=== PATIENT | male | born 1935 | race Caucasian/White ===

== ENCOUNTER 2016-08-26 14:27 | Inpatient (IN) | payer MEDICARE, BC ==
--- NOTE | 2016-08-26 15:09 | ED ---
General Adult HPI - General Chief complaint: Shortness of Breath Stated complaint: Poss pneumonia Time Seen by Provider: 08/26/16 14:52 Source: patient, RN notes reviewed Mode of arrival: ambulatory Limitations: no limitations - History of Present Illness Initial comments: Patient is a pleasant 80-year-old male presenting to the emergency department complaining of cough and shortness of breath. Symptoms have been present 3-4 days. Symptoms are somewhat similar to previous pneumonia. Patient states he has a history of sinusitis and does occasionally take nebulizers at home for this. Patient did take one this morning. Patient is unclear of any fevers. Patient has had some mild chest discomfort, last yesterday which he attributes to his cough. No leg pain or leg swelling. Patient does have occasional productive green sputum. - Related Data Home Medications Medication Instructions Recorded Confirmed Lisinopril [Zestril] 10 mg PO DAILY 11/25/13 08/26/16 Metoprolol Tartrate [Lopressor] 25 mg PO BID 11/25/13 08/26/16 Sotalol [Betapace] 80 mg PO BID 11/25/13 08/26/16 Albuterol Nebulized [Ventolin 2.5 mg INHALATION RT-QID PRN 08/26/16 08/26/16 Nebulized] Aspirin EC [Ecotrin Low Dose] 81 mg PO HS 08/26/16 08/26/16 Tamsulosin [Flomax] 0.4 mg PO DAILY 08/26/16 08/26/16 Allergies Allergy/AdvReac Type Severity Reaction Status Date / Time No Known Allergies Allergy Verified 08/26/16 15:35 Review of Systems ROS Statement: Those systems with pertinent positive or pertinent negative responses have been documented in the HPI. ROS Other: All systems not noted in ROS Statement are negative. Constitutional: Denies: fever Eyes: Denies: eye pain ENT: Denies: ear pain Respiratory: Reports: cough, dyspnea Cardiovascular: Reports: chest pain Endocrine: Reports: fatigue Gastrointestinal: Denies: abdominal pain Genitourinary: Denies: dysuria Musculoskeletal: Denies: back pain Skin: Denies: rash Neurological: Denies: weakness Past Medical History Past Medical History: Atrial Fibrillation, Coronary Artery Disease (CAD), GERD/ Reflux, Hyperlipidemia, Hypertension, Myocardial Infarction ([place]), Osteoarthritis (OA), Pneumonia Additional Past Medical History / Comment(s): had c-diff 1 year ago Last Myocardial Infarction Date:: 2007 History of Any Multi-Drug Resistant Organisms: C-DIFF Date of last positivie culture/infection: 2014 Past Surgical History: AICD, Heart Catheterization, Orthopedic Surgery, Pacemaker Additional Past Surgical History / Comment(s): great rtfoot/ toe, cataracts, sinus sx x 3 Past Anesthesia/Blood Transfusion Reactions: Previous Problems w/ Anesthesia Additional Past Anesthesia/Blood Transfusion Reaction / Comment(s): heart stopped Type of Cardiac Device: Permanent Pacemaker, AICD Device Placement Date:: 06-06-07 Past Psychological History: No Psychological Hx Reported Smoking Status: Former smoker Past Alcohol Use History: Rare Additional Past Alcohol Use History / Comment(s): , quitstarted smoking at age 15- 2 ppd, quit 1985 Past Drug Use History: None Reported - Past Family History Father Additional Family Medical History / Comment(s): killed in [place] age 47 Mother Family Medical History: Dementia General Exam Limitations: no limitations General appearance: alert, in no apparent distress Head exam: Present: atraumatic Eye exam: Present: normal appearance, PERRL ENT exam: Present: normal oropharynx Neck exam: Present: normal inspection Respiratory exam: Present: normal lung sounds bilaterally. Absent: respiratory distress, wheezes, rales, chest wall tenderness, accessory muscle use Cardiovascular Exam: Present: regular rate, normal rhythm Expanded Peripheral pulses: 2+: Radial (R), Radial (L), Dorsalis Pedis (R), Dorsalis Pedis (L) GI/Abdominal exam: Present: soft. Absent: tenderness Extremities exam: Present: normal inspection. Absent: pedal edema, calf tenderness Neurological exam: Present: alert Psychiatric exam: Present: normal affect, normal mood Skin exam: Absent: rash Course Vital Signs 08/26/16 08/26/16 08/26/16 14:40 15:07 15:30 Temperature 98.5 F Pulse Rate 65 56 L 62 Respiratory 20 18 18 Rate Blood Pressure 191/77 150/88 131/71 O2 Sat by Pulse 98 98 95 Oximetry EKG Findings - EKG Comments: EKG Findings:: Sinus bradycardia 55. MO 144. QRS 108. QT 480. QTC 459. Normal axis. Normal QRS. Normal ST-T. Medical Decision Making - Medical Decision Making Patient reevaluated and updated. Case discussed with Dr. villavicencio, who will admit for Dr. Jamison. Computed tomography scan of the chest will be ordered. Patient does not meet sepsis criteria. - Lab Data Result diagrams: 08/26/16 15:05 08/26/16 15:05 Lab Results 08/26/16 08/26/16 08/26/16 Range/Units 15:05 15:05 15:05 WBC 9.4 (3.8-10.6) k/uL RBC 4.27 L (4.30-5.90) m/uL Hgb 13.4 (13.0-17.5) gm/dL Hct 39.4 (39.0-53.0) % MCV 92.3 (80.0-100.0) fL MCH 31.3 (25.0-35.0) pg MCHC 33.9 (31.0-37.0) g/dL RDW 12.7 (11.5-15.5) % Plt Count 277 (150-450) k/uL Neutrophils % 61 % Lymphocytes % 25 % Monocytes % 8 % Eosinophils % 3 % Basophils % 1 % Neutrophils # 5.7 (1.3-7.7) k/uL Lymphocytes # 2.3 (1.0-4.8) k/uL Monocytes # 0.7 (0-1.0) k/uL Eosinophils # 0.3 (0-0.7) k/uL Basophils # 0.1 (0-0.2) k/uL PT (9.0-12.0) sec INR (<1.1) APTT (22.0-30.0) sec D-Dimer (<0.60) mg/L FEU Sodium 138 (137-145) mmol/L Potassium 4.7 (3.5-5.1) mmol/L Chloride 101 (98-107) mmol/L Carbon Dioxide 28 (22-30) mmol/L Anion Gap 9 mmol/L BUN 9 (9-20) mg/dL Creatinine 0.90 (0.66-1.25) mg/dL Est GFR (MDRD) Af Amer >60 (>60 ml/min/1.73 sqM) Est GFR (MDRD) Non-Af >60 (>60 ml/min/1.73 sqM) Glucose 93 (74-99) mg/dL Calcium 9.5 (8.4-10.2) mg/dL Total Bilirubin 0.8 (0.2-1.3) mg/dL AST 22 (17-59) U/L ALT 25 (21-72) U/L Alkaline Phosphatase 93 (38-126) U/L Total Creatine Kinase 59 (55-170) U/L CK-MB (CK-2) 0.8 (0.0-2.4) ng/mL CK-MB (CK-2) Rel Index 1.4 Troponin I <0.012 (0.000-0.034) ng/mL NT-Pro-B Natriuret Pep pg/mL Total Protein 7.6 (6.3-8.2) g/dL Albumin 3.8 (3.5-5.0) g/dL 08/26/16 08/26/16 Range/Units 15:05 15:05 WBC (3.8-10.6) k/uL RBC (4.30-5.90) m/uL Hgb (13.0-17.5) gm/dL Hct (39.0-53.0) % MCV (80.0-100.0) fL MCH (25.0-35.0) pg MCHC (31.0-37.0) g/dL RDW (11.5-15.5) % Plt Count (150-450) k/uL Neutrophils % % Lymphocytes % % Monocytes % % Eosinophils % % Basophils % % Neutrophils # (1.3-7.7) k/uL Lymphocytes # (1.0-4.8) k/uL Monocytes # (0-1.0) k/uL Eosinophils # (0-0.7) k/uL Basophils # (0-0.2) k/uL PT 11.2 (9.0-12.0) sec INR 1.1 (<1.1) APTT 27.7 (22.0-30.0) sec D-Dimer 1.08 H (<0.60) mg/L FEU Sodium (137-145) mmol/L Potassium (3.5-5.1) mmol/L Chloride (98-107) mmol/L Carbon Dioxide (22-30) mmol/L Anion Gap mmol/L BUN (9-20) mg/dL Creatinine (0.66-1.25) mg/dL Est GFR (MDRD) Af Amer (>60 ml/min/1.73 sqM) Est GFR (MDRD) Non-Af (>60 ml/min/1.73 sqM) Glucose (74-99) mg/dL Calcium (8.4-10.2) mg/dL Total Bilirubin (0.2-1.3) mg/dL AST (17-59) U/L ALT (21-72) U/L Alkaline Phosphatase (38-126) U/L Total Creatine Kinase (55-170) U/L CK-MB (CK-2) (0.0-2.4) ng/mL CK-MB (CK-2) Rel Index Troponin I (0.000-0.034) ng/mL NT-Pro-B Natriuret Pep 692 pg/mL Total Protein (6.3-8.2) g/dL Albumin (3.5-5.0) g/dL - Radiology Data Radiology results: image reviewed (Chest x-ray shows right upper lobe infiltrate. Also left lower lobe infiltrate which may be chronic.) Disposition Clinical Impression: Pneumonia Disposition: ADMITTED IP TO THIS [facility] Time of Disposition: 16:58
[2016-08-26 15:28] LABS: Basophils # (A) 0.1 k/uL (0-0.2); Basophils % (A) 1 %; CH 31.1; CHCM 33.9; Eosinophils # (A) 0.3 k/uL (0-0.7); Eosinophils % (A) 3 %; HCT 39.4 % (39.0-53.0); HDW 2.52; HGB 13.4 gm/dL (13.0-17.5); Luc # (Auto) 0.31; Luc % (Auto) 3; Lymphocytes # (A) 2.3 k/uL (1.0-4.8); Lymphocytes % (A) 25 %; MCH 31.3 pg (25.0-35.0); MCHC 33.9 g/dL (31.0-37.0); MCV 92.3 fL (80.0-100.0); Monocytes # (A) 0.7 k/uL (0-1.0); Monocytes % (A) 8 %; Neutrophils # (A) 5.7 k/uL (1.3-7.7); Neutrophils % (A) 61 %; RBC 4.27 m/uL (4.30-5.90); RDW 12.7 % (11.5-15.5); WBC 9.4 k/uL (3.8-10.6); WBC (Perox) 8.98
[2016-08-26 15:42] LABS: INR 1.1 (<1.1); Partial Thromboplastin Time 27.7 sec (22.0-30.0); Prothrombin Time 11.2 sec (9.0-12.0)
[2016-08-26 15:45] LABS: ALT 25 U/L (21-72); AST 22 U/L (17-59); Alkaline Phosphatase 93 U/L (38-126); Anion Gap 9 mmol/L; Blood Urea Nitrogen 9 mg/dL (9-20); Calcium 9.5 mg/dL (8.4-10.2); Carbon Dioxide 28 mmol/L (22-30); Chloride 101 mmol/L (98-107); Glucose 93 mg/dL (74-99); Non-African American GFR(MDRD) >60 (>60 ml/min/1.73 sqM); Potassium 4.7 mmol/L (3.5-5.1); Sodium 138 mmol/L (137-145); Total Bilirubin 0.8 mg/dL (0.2-1.3); Total Protein 7.6 g/dL (6.3-8.2)
[2016-08-26 15:50] LABS: Creatine Kinase 59 U/L (55-170)
[2016-08-26 16:02] LABS: Creatine Kinase MB 0.8 ng/mL (0.0-2.4); Troponin I <0.012 ng/mL (0.000-0.034)
--- NOTE | 2016-08-26 16:06 | XR ---
EXAMINATION TYPE: XR chest 2V DATE OF EXAM: 08/26/2016 3:49 PM COMPARISON: 04/29/2014 INDICATION: Difficulty breathing TECHNIQUE: Single frontal view of the chest is obtained. FINDINGS: The heart size is normal. The pulmonary vasculature is normal. There is elevation of the minor diaphragm. There is infiltrate above the minor diaphragm on the right . Increased infiltrates in the right upper lobe. Some mild infiltrate may be in the periphery of the left lateral lung base. Electronic device overlies left chest. IMPRESSION: 1. Developing atelectasis and/or pneumonia right upper lobe. 2. Stable left lower lobe opacity.
[2016-08-26] MEDS ORDERED: RX INFO: IV CONTRAST WAS GIVEN 1 EACH MISC MISCELLANE PRN (16:43)
[2016-08-26] MEDS ORDERED: PNEUMONIA PROTOCOL UTILIZED 1 EACH MISC PO PRN (16:58)
[2016-08-26] MEDS ORDERED: IPRATROPIUM-ALBUTEROL 3 ML NEB INHALATION PRN (16:58)
[2016-08-26] MEDS: SODIUM CHLORIDE 0.9% 1,000 ML IV SCH (17:27)
[2016-08-26] MEDS ORDERED: ALBUTEROL NEBULIZED 2.5 MG/3 ML INHALATION PRN (17:31)
[2016-08-26] MEDS: AZITHROMYCIN 500 MG in SODIUM CHLORIDE 0.9% 250 ML IVPB STA ×2 (17:33→18:09)
--- NOTE | 2016-08-26 17:42 | CT ---
CT CHEST FOR PULMONARY EMBOLISM. EXAMINATION TYPE: CT angio chest DATE OF EXAM: 08/26/2016 5:30 PM INDICATION: Cough and shortness of breath CT DLP: 249.2 mGycm, Automated exposure control for dose reduction was used. CONTRAST: Patient injected with 100 mL of Omnipaque 350. COMPARISON: CTA chest 05/08/2013 TECHNIQUE: CT of the chest is performed on a spiral scan at 2 mm thick sections. Study is performed with intravenous contrast timed for evaluation for pulmonary embolism. This will limit additional po rtions of the evaluation. 3-D MIP images reconstructed by the technologist are reviewed on the compu ter in the coronal and sagittal planes. FINDINGS: No persistent filling defects are evident to suggest an acute pulmonary embolism. No mediastinal or hilar adenopathy enlarged by CT criteria is evident. The ascending aorta diameter at the level of the main pulmonary artery is 3.6 cm. The main pulmonary artery diameter at the bifur cation is 2.7 cm. There are prominent bronchi present. Some bronchiectasis is present. Chronic bronchitis may also be p resent with thickening of the peribronchial campbell. There is consolidation along the major fissure within the right middle lobe. Correlate for atelectasi s and pneumonia. Underlying mass is not excluded. There is a peripheral consolidation within the ling felisa. Atelectasis or pneumonia could be considered, underlying mass is not excluded. This peripheral d ensity is change from 05/08/2013. The right middle lobe consolidation is new. Limited CT section through the upper abdomen are unremarkable. IMPRESSIONS: 1. Peripheral lingular and right middle lobe consolidations. Atelectasis and pneumonia are within the differential. Neoplasm is not excluded. These should be followed to clearing. Correlate with the pat ient's clinical symptoms. 2. No acute pulmonary embolism. 3. Bronchiectasis and chronic bronchitis.
[2016-08-26] MEDS: IPRATROPIUM-ALBUTEROL 3 ML NEB INHALATION SCH (19:37)
[2016-08-26] MEDS: SOTALOL 80 MG TAB PO SCH (20:02)
[2016-08-26] MEDS ORDERED: ASPIRIN 81 MG CHEW PO SCH (21:00)
[2016-08-27] MEDS: SODIUM CHLORIDE 0.9% 1,000 ML IV SCH ×2 (05:27→10:12)
[2016-08-27 07:38] VITALS: BP 163/70; RESP 19; TEMP 97
--- NOTE | 2016-08-27 07:48 | XR ---
EXAMINATION TYPE: XR chest 2V DATE OF EXAM: 08/27/2016 6:54 AM COMPARISON: 08/26/2016 HISTORY: Pneumonia versus atelectasis. Shortness of breath. TECHNIQUE: Frontal and lateral views of the chest are obtained. FINDINGS: Right upper lobe opacity along the right minor fissure with elevation of the right minor f issure is present as well as right upper lobe bronchiectasis and peribronchial cuffing. Lingular opac ity is also unchanged. No new areas of consolidation Perihilar fullness is noted, unchanged from the prior. There is pulmonary hyperinflation. Cardiomediastinal silhouette is stable with stable single l ead left-sided cardiac device. IMPRESSION: Stable right upper lobe and lingular airspace disease, bronchiectasis, and peribronchial cuffing. Although findings again likely relate to infectious etiology, follow-up to resolution is ag ain recommended.
[2016-08-27] MEDS: SOTALOL 80 MG TAB PO SCH (07:49)
[2016-08-27] MEDS ORDERED: AZITHROMYCIN 500 MG TAB PO SCH (09:00)
[2016-08-27] MEDS ORDERED: LISINOPRIL 10 MG TAB PO SCH (09:00)
[2016-08-27] MEDS ORDERED: TAMSULOSIN 0.4 MG CAP.ER.24H PO SCH (09:00)
[2016-08-27] MEDS: IPRATROPIUM-ALBUTEROL 3 ML NEB INHALATION SCH ×2 (09:40→11:26)
[2016-08-27 11:42] VITALS: PULSE 60
--- NOTE | 2016-08-27 13:49 | HP ---
DATE OF ADMISSION: This dictation is both H&P and discharge summary. Patient is a very pleasant 80-year-old gentleman who came into the emergency department with complaints of cough with sputum production. Patient feels like he had similar symptoms at that time he was diagnosed with pneumonia. Because of which he is concerned and came to the hospital. During his previous hospitalization patient ended up having Clostridium difficile colitis. Because of which had a great concern of using broad spectrum IV antibiotics, although I extensively reviewed his chart. The patient looks like he had similar infiltrates during the previous hospitalization too in multiple areas in the right upper lobe, right lower lobe and left lung as well during the last hospitalization. The patient had similar infiltrates this time as well, but more organized and the right middle lobe infiltrate is much more organized. Patient did get CT angio because of the elevated d-dimer. I reviewed the CT angio of the chest. The images did show some infiltrate in the right middle lobe. Although does not appear to be typical air bronchogram. Does not look like an atypical air bronchogram and although cannot completely rule out 100% that it is not pneumonia. Patient does not have any other signs or symptoms of pneumonia including leukocytosis or fever. No bronchophony, egophony on exam. Putting everything together considering his Clostridium difficile colitis, as patient is clinically stable at this point in time, I will discharge him on azithromycin for possible bronchitis with an extremely low suspicion of pneumonia and patient will be asked to follow with Dr. Markham and Dr. Bates as an outpatient. I reviewed the chest x-ray and it looks like patient does have COPD and needs to be further evaluated for COPD as an outpatient. Patient will be discharged today. Home medications include: Lisinopril, metoprolol, sotalol, albuterol, aspirin, tamsulosin. ALLERGIES: No known drug allergies. REVIEW OF SYSTEMS: CONSTITUTIONAL: No fever, no malaise, no fatigue. HEENT: No recent visual problems or hearing problems. Denied any sore throat. CARDIOVASCULAR: No chest pain, orthopnea, PND, no palpitations, no syncope. PULMONARY: As described in HPI. Patient was having little bit shortness of breath and cough with greenish sputum production. GASTROINTESTINAL: No diarrhea, no nausea, no vomiting, no abdominal pain. Normoactive bowel sounds. NEUROLOGICAL: No headaches, no weakness, no numbness. HEMATOLOGICAL: Denies any bleeding or petechiae. GENITOURINARY: Denies any burning micturition, frequency, or urgency. MUSCULOSKELETAL/RHEUMATOLOGICAL: Denies any joint pain, swelling, or any muscle pain. ENDOCRINE: Denies any polyuria or polydipsia. The rest of the 14 point review of systems is negative. PAST MEDICAL HISTORY: Atrial fibrillation, coronary arteries, gastroesophageal reflux disease, hl, hypertension, myocardial infarction, osteoarthritis, recent pneumonia and Clostridium difficile secondary to antibiotic. Patient has an AICD, cardiac catheterization, orthopedic surgery, pacemaker placement. SOCIAL HISTORY: Former smoker. Quit smoking in 1984. Denied any alcohol abuse or drug abuse. FAMILY HISTORY: Father killed in motor vehicle accident at age 47. Mother had dementia. PHYSICAL EXAMINATION: Temperature 98.5, pulse of 65, respiratory rate of 20, blood pressure is 163/70, saturating at 96% on room air. GENERAL: The patient is alert and oriented x3, not in any acute distress. Well developed, well nourished. HEENT: Pupils are round and equally reacting to light. EOMI. No scleral icterus. No conjunctival pallor. Normocephalic, atraumatic. No pharyngeal erythema. No thyromegaly. CARDIOVASCULAR: S1 and S2 present. No murmurs, rubs, or gallops. PULMONARY: Minimally decreased air entry into bilateral lung shannon. No wheezing was appreciated. No crackles were appreciated. ABDOMEN: Soft, nontender, nondistended, normoactive bowel sounds. No palpable organomegaly. MUSCULOSKELETAL: No joint swelling or deformity. EXTREMITIES: No cyanosis, clubbing, or pedal edema. NEUROLOGICAL: Gross neurological examination did not reveal any focal deficits. SKIN: No rashes. LABORATORY DATA: CBC, CMP, essentially within normal limits. D-dimer and CT of the chest and chest x-rays as mentioned above. ASSESSMENT AND PLAN: 1. Cough with sputum production, most probably bacterial bronchitis and I have low suspicion of pneumonia. Patient will be discharged on azithromycin and follow up as mentioned above. 2. Chronic obstructive pulmonary disease with minimal exacerbation. At this point of time, I do not believe patient will need systemic steroids, although patient will be discharged on inhalational steroids. 3. History of atrial fibrillation, not on anticoagulation. Anticoagulation decision will be left to primary care physician and Cardiology. The patient is rate controlled at this point of time on sotalol and metoprolol, which will be continued. 4. Gastroesophageal reflux disease. 5. Hyperlipidemia. 6. Hypertension. 7. Osteoarthritis for which patient will continue his home medications. Patient will be discharged today with above mentioned follows. This dictation is both H&P and discharge summary. DISCHARGE DIET: Cardiac. Activity as tolerated. If the patient symptoms gets worse patient was requested to come back to ER.
[2016-08-27] MEDS ORDERED: PANTOPRAZOLE 40 MG TABLET PO SCH (17:30)
[2016-08-27] MEDS ORDERED: LACTOBACILLUS ACIDOPH & BULGAR 1 EACH PACKET PO SCH (21:00)
== END 2016-08-27 13:18 | disposition home or self-care (01) | DRG 192 ==
LOC: EC 14:27 → 4MS4W 16:58
PROVIDERS: ADMIT Internal Medicine; ATTEND Internal Medicine
DX: J44.1 Chronic obstructive pulmonary disease with (acute) exacerbation (principal); I48.91 Unspecified atrial fibrillation; I10 Essential (primary) hypertension; E78.5 Hyperlipidemia, unspecified; J20.8 Acute bronchitis due to other specified organisms; J44.0 Chronic obstructive pulmonary disease with (acute) lower respiratory infection; K21.9 Gastro-esophageal reflux disease without esophagitis; M19.90 Unspecified osteoarthritis, unspecified site; I25.2 Old myocardial infarction; Z81.8 Family history of other mental and behavioral disorders; Z87.01 Personal history of pneumonia (recurrent); Z87.891 Personal history of nicotine dependence; Z95.810 Presence of automatic (implantable) cardiac defibrillator; Z79.82 Long term (current) use of aspirin; Z79.899 Other long term (current) drug therapy
CPT/HCPCS: 36415; 71020; 71275; 80053; 82550; 82553; 83880; 84484; 85025; 85379; 85610; 85730; 87040; 93005; 94640; 96365; 99285

== ENCOUNTER 2017-06-11 14:28 | Observation (INO) | payer OTHER, MEDICARE ==
[2017-06-11] MEDS ORDERED: IPRATROPIUM-ALBUTEROL 3 ML NEB INHALATION STA (15:14)
[2017-06-11] MEDS ORDERED: ACETAMINOPHEN TAB 500 MG TAB PO STA (15:14)
[2017-06-11] MEDS ORDERED: methylPREDNISolone SOD SUCCI 125 MG/2 ML VIAL IV STA (15:14)
--- NOTE | 2017-06-11 15:22 | ED ---
General Adult HPI - General Chief complaint: Chest Pain Stated complaint: Chest Pain Time Seen by Provider: 06/11/17 14:55 Source: patient Mode of arrival: wheelchair Limitations: no limitations - History of Present Illness Initial comments: This is an 81-year-old male with a history of cardiomyopathy and defibrillator placement who presents emergent department for upper respiratory symptoms, cough , burning in his lungs, and left-sided chest pain. The patient states that this started yesterday while he was at his granddaughter's volleyball tournament. He states it started with a runny nose and a little bit of sore throat and then he started to have a lot of coughing. He states that he coughed a lot overnight and today now is having a lot of discomfort and left side of his chest especially with coughing and moving. He states that he also feels like his lungs are burning when he takes a deep breath. He denies any significant shortness of breath. No fevers or chills at home. No nausea, vomiting or diarrhea. He denies any other acute complaints. Patient did get a flu shot this year. - Related Data Home Medications Medication Instructions Recorded Confirmed Lisinopril [Zestril] 10 mg PO DAILY 11/25/13 06/11/17 Metoprolol Tartrate [Lopressor] 25 mg PO BID 11/25/13 06/11/17 Sotalol [Betapace] 80 mg PO BID 11/25/13 06/11/17 Albuterol Nebulized [Ventolin 2.5 mg INHALATION RT-QID PRN 08/26/16 06/11/17 Nebulized] Tamsulosin [Flomax] 0.4 mg PO HS 08/26/16 06/11/17 Atorvastatin [Lipitor] 20 mg PO HS 03/28/17 06/11/17 Acetaminophen/Diphenhydramine 1 tab PO HS 06/11/17 06/11/17 [Tylenol PM 500-25mg] Aspirin 81 mg PO DAILY 06/11/17 06/11/17 Budesonide-Formot 160-4.5 Mcg 2 puff INHALATION RT-BID PRN 06/11/17 06/11/17 [Symbicort 160-4.5 Mcg Inhaler] Multivitamins, Thera [Multivitamin 1 tab PO DAILY 06/11/17 06/11/17 (formulary)] Allergies Allergy/AdvReac Type Severity Reaction Status Date / Time No Known Allergies Allergy Verified 06/11/17 15:26 Review of Systems ROS Statement: Those systems with pertinent positive or pertinent negative responses have been documented in the HPI. ROS Other: All systems not noted in ROS Statement are negative. Past Medical History Past Medical History: Atrial Fibrillation, Coronary Artery Disease (CAD), GERD/ Reflux, Hyperlipidemia, Hypertension, Osteoarthritis (OA), Pneumonia Additional Past Medical History / Comment(s): See Dr Castillo's H&P Last Myocardial Infarction Date:: 2007 History of Any Multi-Drug Resistant Organisms: C-DIFF Date of last positivie culture/infection: 2014 MDRO Source:: stool Past Surgical History: AICD, Heart Catheterization, Orthopedic Surgery, Pacemaker Additional Past Surgical History / Comment(s): rt foot/ toe, cataracts, sinus sx x 3 Past Anesthesia/Blood Transfusion Reactions: Previous Problems w/ Anesthesia Additional Past Anesthesia/Blood Transfusion Reaction / Comment(s): . Type of Cardiac Device: Permanent Pacemaker, AICD Device Placement Date:: 06-06-07 [employer] Past Psychological History: No Psychological Hx Reported Smoking Status: Former smoker Past Alcohol Use History: Rare Past Drug Use History: None Reported - Past Family History Father Additional Family Medical History / Comment(s): killed in [place] age 47 Mother Family Medical History: Dementia General Exam - General Exam Comments Initial Comments: Constitutional: Awake alert Appears comfortable Head: Normocephalic atraumatic Eyes: no conjunctival injection No scleral icterus EOMI ENT: Oropharynx is mildly erythematous without exudate, no rhinorrhea TMs clear bilaterally Neck: No JVD Supple Heart: Regular rate rhythm normal S1-S2 no murmurs, mild tenderness to palpation around the patient's defibrillator on the left chest wall Lungs: Lung sounds are decreased at the bases No wheezing No rales Abdomen: Soft nondistended nontender Extremities: Non edematous DP pulses intact Radial pulses intact Neuro: A&Ox3 No focal neurologic deficits Psych: Appropriate mood and affect Limitations: no limitations Course Vital Signs 06/11/17 06/11/17 06/11/17 14:30 15:32 15:54 Temperature 98.5 F Pulse Rate 69 70 97 Respiratory 18 18 Rate Blood Pressure 194/78 172/91 O2 Sat by Pulse 97 96 Oximetry 06/11/17 16:00 Temperature Pulse Rate 70 Respiratory Rate Blood Pressure O2 Sat by Pulse Oximetry EKG Findings - EKG Comments: EKG Findings:: EKG showing normal sinus rhythm with a rate of 73. There is no abnormal ST segment changes or T-wave inversions. QTC is persisting 9. Other intervals normal. No ectopy. Medical Decision Making - Medical Decision Making This is an 81-year-old male with multiple comorbidities including hypertension, hyperlipidemia, cardiomyopathy and CAD who presents emergency department for cough and worsening shortness of breath today. The patient also developed some left-sided chest pain. I suspected the chest pain is from the coughing however due to his CAD difficult to rule out underlying acute coronary syndrome. Patient also had a new infiltrate on his x-ray which is concerning for possible pneumonia given his symptoms. I'm going to start him on Levaquin and keep him in observation overnight for monitoring and I did give the patient the option to go home and take antibiotics at home and monitor his symptoms however he did not feel comfortable going home. We'll keep in the hospital overnight for antibiotics and monitoring of his chest pain and serial cardiac enzymes. - Lab Data Result diagrams: 06/11/17 15:38 06/11/17 15:38 Lab Results 06/11/17 06/11/17 06/11/17 Range/Units 15:38 15:38 15:38 WBC 7.2 (3.8-10.6) k/uL RBC 4.30 (4.30-5.90) m/uL Hgb 12.8 L (13.0-17.5) gm/dL Hct 41.0 (39.0-53.0) % MCV 95.2 (80.0-100.0) fL MCH 29.9 (25.0-35.0) pg MCHC 31.4 (31.0-37.0) g/dL RDW 12.9 (11.5-15.5) % Plt Count 178 (150-450) k/uL Neutrophils % 69 % Lymphocytes % 17 % Monocytes % 11 % Eosinophils % 1 % Basophils % 1 % Neutrophils # 4.9 (1.3-7.7) k/uL Lymphocytes # 1.2 (1.0-4.8) k/uL Monocytes # 0.8 (0-1.0) k/uL Eosinophils # 0.1 (0-0.7) k/uL Basophils # 0.1 (0-0.2) k/uL PT (9.0-12.0) sec INR (<1.2) APTT (22.0-30.0) sec Sodium 142 (137-145) mmol/L Potassium 4.7 (3.5-5.1) mmol/L Chloride 101 (98-107) mmol/L Carbon Dioxide 30 (22-30) mmol/L Anion Gap 11 mmol/L BUN 17 (9-20) mg/dL Creatinine 1.00 (0.66-1.25) mg/dL Est GFR (MDRD) Af Amer >60 (>60 ml/min/1.73 sqM) Est GFR (MDRD) Non-Af >60 (>60 ml/min/1.73 sqM) Glucose 85 (74-99) mg/dL Calcium 9.3 (8.4-10.2) mg/dL Total Bilirubin 0.6 (0.2-1.3) mg/dL AST 28 (17-59) U/L ALT 19 L (21-72) U/L Alkaline Phosphatase 93 (38-126) U/L CK-MB (CK-2) (0.0-2.4) ng/mL Troponin I (0.000-0.034) ng/mL NT-Pro-B Natriuret Pep pg/mL Total Protein 7.7 (6.3-8.2) g/dL Albumin 4.1 (3.5-5.0) g/dL Influenza Type A RNA Not Detected (Not Detectd) Influenza Type B (PCR) Not Detected (Not Detectd) 06/11/17 06/11/17 06/11/17 Range/Units 15:38 15:38 15:38 WBC (3.8-10.6) k/uL RBC (4.30-5.90) m/uL Hgb (13.0-17.5) gm/dL Hct (39.0-53.0) % MCV (80.0-100.0) fL MCH (25.0-35.0) pg MCHC (31.0-37.0) g/dL RDW (11.5-15.5) % Plt Count (150-450) k/uL Neutrophils % % Lymphocytes % % Monocytes % % Eosinophils % % Basophils % % Neutrophils # (1.3-7.7) k/uL Lymphocytes # (1.0-4.8) k/uL Monocytes # (0-1.0) k/uL Eosinophils # (0-0.7) k/uL Basophils # (0-0.2) k/uL PT 10.6 (9.0-12.0) sec INR 1.1 (<1.2) APTT 25.1 (22.0-30.0) sec Sodium (137-145) mmol/L Potassium (3.5-5.1) mmol/L Chloride (98-107) mmol/L Carbon Dioxide (22-30) mmol/L Anion Gap mmol/L BUN (9-20) mg/dL Creatinine (0.66-1.25) mg/dL Est GFR (MDRD) Af Amer (>60 ml/min/1.73 sqM) Est GFR (MDRD) Non-Af (>60 ml/min/1.73 sqM) Glucose (74-99) mg/dL Calcium (8.4-10.2) mg/dL Total Bilirubin (0.2-1.3) mg/dL AST (17-59) U/L ALT (21-72) U/L Alkaline Phosphatase (38-126) U/L CK-MB (CK-2) 0.6 (0.0-2.4) ng/mL Troponin I 0.013 (0.000-0.034) ng/mL NT-Pro-B Natriuret Pep 1150 pg/mL Total Protein (6.3-8.2) g/dL Albumin (3.5-5.0) g/dL Influenza Type A RNA (Not Detectd) Influenza Type B (PCR) (Not Detectd) Disposition Clinical Impression: CAP (community acquired pneumonia), Chest pain Disposition: ADMITTED IP TO THIS HOSP Condition: Stable
[2017-06-11 16:01] LABS: Basophils # (A) 0.1 k/uL (0-0.2); Basophils % (A) 1 %; Eosinophils # (A) 0.1 k/uL (0-0.7); Eosinophils % (A) 1 %; HGB 12.8 gm/dL (13.0-17.5); Lymphocytes # (A) 1.2 k/uL (1.0-4.8); Lymphocytes % (A) 17 %; MCH 29.9 pg (25.0-35.0); MCHC 31.4 g/dL (31.0-37.0); MCV 95.2 fL (80.0-100.0); Mean Platelet Volume 8.6; Monocytes # (A) 0.8 k/uL (0-1.0); Monocytes % (A) 11 %; Neutrophils # (A) 4.9 k/uL (1.3-7.7); Neutrophils % (A) 69 %; Platelet Count 178 k/uL (150-450); RDW 12.9 % (11.5-15.5); WBC 7.2 k/uL (3.8-10.6)
[2017-06-11 16:10] LABS: INR 1.1 (<1.2); Partial Thromboplastin Time 25.1 sec (22.0-30.0); Prothrombin Time 10.6 sec (9.0-12.0)
[2017-06-11 16:13] LABS: ALT 19 U/L (21-72); AST 28 U/L (17-59); Albumin 4.1 g/dL (3.5-5.0); Alkaline Phosphatase 93 U/L (38-126); Anion Gap 11 mmol/L; Blood Urea Nitrogen 17 mg/dL (9-20); Calcium 9.3 mg/dL (8.4-10.2); Carbon Dioxide 30 mmol/L (22-30); Chloride 101 mmol/L (98-107); Glucose 85 mg/dL (74-99); Potassium 4.7 mmol/L (3.5-5.1); Sodium 142 mmol/L (137-145); Total Bilirubin 0.6 mg/dL (0.2-1.3); Total Protein 7.7 g/dL (6.3-8.2)
--- NOTE | 2017-06-11 16:17 | XR ---
EXAMINATION TYPE: XR chest 2V DATE OF EXAM: 06/11/2017 COMPARISON: Chest x-ray August 27, 2016. CTA chest August 26, 2016. HISTORY: Cough and congestion. TECHNIQUE: Frontal and lateral views of the chest are obtained. FINDINGS: There is chronic parenchymal change with chronic consolidation right upper lobe abutting t he fissure redemonstrated. There is new opacity on lateral view along the major fissure. No large ple ural effusion or pneumothorax is seen. The cardiac silhouette size is stable and mildly enlarged with single lead pacemaker/AICD. Dilated trachea is redemonstrated. The osseous structures remain demine ralized. IMPRESSION: Cardiomegaly and Chronic parenchymal change with chronic consolidation inferior right up per lobe, new infiltrate along the major fissure in lung needs to BE considered only identified on la teral view.
[2017-06-11 16:35] LABS: Creatine Kinase MB 0.6 ng/mL (0.0-2.4); Troponin I 0.013 ng/mL (0.000-0.034)
[2017-06-11] MEDS ORDERED: LEVOFLOXACIN 500MG-D5W PMX 500 MG in DEXTROSE/WATER 1 100ML.BAG IVPB STA (17:04)
[2017-06-11] MEDS ORDERED: ASPIRIN 81 MG PO STA (17:08)
[2017-06-11] MEDS ORDERED: NALOXONE 0.4 MG/ML 1 ML VIAL IV PRN (17:08)
[2017-06-11] MEDS ORDERED: ACETAMINOPHEN TAB 325 MG TAB PO PRN (17:08)
[2017-06-11] MEDS ORDERED: IBUPROFEN 200 MG TAB PO PRN (17:45)
[2017-06-11] MEDS: guaiFENesin-Coden 100-10MG/5ML 10 ML CUP PO PRN (19:13)
[2017-06-11 21:54] LABS: Creatine Kinase MB 0.6 ng/mL (0.0-2.4); Troponin I 0.017 ng/mL (0.000-0.034)
[2017-06-11 22:23] VITALS: BMI 21.5
[2017-06-11] MEDS ORDERED: BENZOCAINE/MENTHOL LOZENG 1 EACH LOZENGE MUCOUS MEM PRN (22:30)
[2017-06-11] MEDS ORDERED: ALBUTEROL NEBULIZED 2.5 MG/3 ML INHALATION PRN (22:39)
[2017-06-11] MEDS ORDERED: traZODone HCL 50 MG TAB PO PRN (22:43)
[2017-06-11] MEDS ORDERED: ATORVASTATIN 20 MG TAB PO SCH (22:45)
[2017-06-11] MEDS ORDERED: SOTALOL 80 MG TAB PO SCH (22:45)
[2017-06-11] MEDS ORDERED: TAMSULOSIN 0.4 MG CAP.ER.24H PO SCH (22:45)
[2017-06-11] MEDS ORDERED: ALPRAZolam 0.25 MG TAB PO PRN (23:28)
[2017-06-11] MEDS ORDERED: TEMAZEPAM 15 MG CAP PO PRN (23:28)
[2017-06-11] MEDS ORDERED: cefTRIAXone IN SWFI 1,000 MG/10 ML SYRINGE IVP SCH (23:30)
[2017-06-11] MEDS: METOPROLOL TARTRATE 25 MG TAB PO SCH (23:39)
--- NOTE | 2017-06-12 00:14 | HP ---
HISTORY AND PHYSICAL CHIEF COMPLAINT: Chest pain. HISTORY OF PRESENT ILLNESS: This 81-year-old gentleman with a past medical history of multiple medical problems including atrial ablation, CAD, GERD, hypertension, history of DJD, being followed by Dr. Bates in the [facility], who also had a recent AICD placement by Dr. Castillo in March. Over the last 2 to 3 days patient has had a cough, aches and pains and flu- like symptoms. Subsequently patient had back pain and chest pain also. Came to [facility]. Upon evaluation the pain was mostly left-sided, sharp in character. There is no history of any rigors. No history of headache, loss of consciousness, or seizures. PAST MEDICAL HISTORY: Atrial fibrillation, history of recent AICD, hypertension, DJD, history of pneumonia. MEDICATIONS: 1. Flomax 0.4 at bedtime. 2. Betapace 80 mg p.o. b.i.d. 3. Multivitamins 1 p.o. daily. 4. Lopressor 25 mg p.o. daily. 5. Zestril 10 mg b.i.d. 6. Symbicort 160/4.5 two puffs b.i.d. 7. Lipitor 20 mg. 8. Aspirin 81 mg. 9. Ventolin 2.5 q.i.d. 10.Tylenol 1 p.o. at bedtime. ALLERGIES: None. FAMILY HISTORY: History of dementia. SOCIAL HISTORY: Remote history of smoking. No history of current smoking or alcohol intake. REVIEW OF SYSTEMS: ENT: No diminished vision or hearing. CARDIOVASCULAR: As mentioned. RESPIRATORY: As mentioned. GI: As mentioned. : No dysuria. NERVOUS SYSTEM: No numbness or weakness. ALLERGY/IMMUNOLOGY: As mentioned. ENDOCRINE: No diabetes. No hypothyroidism. CONSTITUTIONAL: As mentioned earlier. DERMATOLOGY: As mentioned. RHEUMATOLOGY: As mentioned. PSYCH: As mentioned. PHYSICAL EXAMINATION: Alert, oriented x3. Pulse 65, blood pressure 111/64, respirations 18, temperature 98.6, T-max 100.7, pulse ox 94% on 2 L. HEENT: Conjunctivae normal. Oral mucosa moist. NECK: No jugular venous distention. No lymph node enlargement. CARDIOVASCULAR: S1 and S2 muffled. No S3 or S4. LUNGS: Breath sounds diminished in the bases. No rhonchi. No crackles. ABDOMEN: Soft, nontender. No mass palpable. LEGS: No edema, no swelling. NERVOUS SYSTEM: Higher functions as mentioned. Moves all 4 limbs equally. No lymphadenopathy. SKIN: No ulcer or rash or bleeding. LABS: WBC 7, hemoglobin 12.8. Chest x-ray showed chronic parenchymal changes, rule out new infiltration or pneumonia on the right side. EKG shows normal sinus rhythm, no acute changes. ASSESSMENT: 1. Chest pain, possible unstable angina. Rule out right lower lobe pneumonia. 2. Possible short febrile illness and viral flu-like syndrome. 3. History of recent automatic implantable cardioverter defibrillator placement. 4. History of gastroesophageal reflux disease. 5. History of hypertension. 6. History of hyperlipidemia. 7. History of degenerative joint disease. 8. History of pneumonia. 9. History of atrial fibrillation. 10.History of cataracts. 11.Remote history of nicotine dependence. 12.Chronic obstructive pulmonary disease. RECOMMENDATIONS AND DISCUSSION: This 81-year-old gentleman presented with multiple complex medical issues. We will monitor the patient closely, continue the current management. Recommend to resume the home medications. I would also recommend Cardiology consultation as well as consult with Pulmonology to rule out the possibility of any acute pneumonia. The flu test is negative at this time. We will continue to monitor. The prognosis is guarded. Further recommendations to follow. We will continue with antibiotics as well as bronchodilators also. MMODL / IJN: [id number] /
[2017-06-12] MEDS: guaiFENesin-Coden 100-10MG/5ML 10 ML CUP PO PRN (03:29)
[2017-06-12 03:53] VITALS: RESP 18
[2017-06-12 04:29] LABS: Basophils % (A) 0 %; Eosinophils % (A) 0 %; HCT 37.4 % (39.0-53.0); Lymphocytes # (A) 1.2 k/uL (1.0-4.8); Lymphocytes % (A) 16 %; MCH 29.8 pg (25.0-35.0); MCHC 32.1 g/dL (31.0-37.0); Mean Platelet Volume 8.4; Monocytes # (A) 0.2 k/uL (0-1.0); Monocytes % (A) 2 %; Neutrophils # (A) 6.3 k/uL (1.3-7.7); Neutrophils % (A) 81 %; Platelet Count 177 k/uL (150-450); RBC 4.02 m/uL (4.30-5.90); RDW 12.9 % (11.5-15.5); WBC 7.8 k/uL (3.8-10.6)
[2017-06-12 04:43] LABS: Anion Gap 14 mmol/L; Blood Urea Nitrogen 20 mg/dL (9-20); Calcium 9.2 mg/dL (8.4-10.2); Carbon Dioxide 24 mmol/L (22-30); Chloride 101 mmol/L (98-107); Glucose 164 mg/dL (74-99); Potassium 4.2 mmol/L (3.5-5.1); Sodium 139 mmol/L (137-145)
[2017-06-12 04:47] LABS: Creatine Kinase 67 U/L (55-170)
[2017-06-12 05:00] LABS: Creatine Kinase MB 0.8 ng/mL (0.0-2.4); Troponin I <0.012 ng/mL (0.000-0.034)
[2017-06-12] MEDS: ALBUTEROL NEBULIZED 2.5 MG/3 ML INHALATION SCH ×2 (07:03→11:17)
[2017-06-12] MEDS ORDERED: SYMBICORT 160-4.5 MCG INHALER INHALATION SCH (08:00)
[2017-06-12] MEDS ORDERED: MULTIVITAMINS, THERA 1 EACH TAB PO SCH (09:00)
[2017-06-12] MEDS ORDERED: LISINOPRIL 10 MG TAB PO SCH (09:00)
[2017-06-12] MEDS: METOPROLOL TARTRATE 25 MG TAB PO SCH (09:31)
[2017-06-12] MEDS ORDERED: cefTRIAXone IN SWFI 1,000 MG/10 ML SYRINGE IVP STA (10:30)
[2017-06-12] MEDS ORDERED: FUROSEMIDE 20 MG TAB PO SCH (10:30)
[2017-06-12 12:08] VITALS: BP 154/67; PULSE 69; TEMP 98.1
--- NOTE | 2017-06-12 12:10 | ECHOF ---
Referral Reason:shortness of breath MEASUREMENTS -------- HEIGHT: 177.8 cm WEIGHT: 67.6 kg BP: 130/64 IVSd: 1.1 cm (0.6 - 1.1) LVIDd: 4.4 cm (3.9 - 5.3) LVPWd: 1.1 cm (0.6 - 1.1) IVSs: 1.4 cm LVIDs: 2.8 cm LVPWs: 1.4 cm LAESV Index (A-L): 20.64 ml/m Ao Diam: 3.3 cm (2.0 - 3.7) AV Cusp: 0.8 cm (1.5 - 2.6) LA Diam: 2.5 cm (2.7 - 3.8) MV E Bowen: 1.01 m/s MV DecT: 236 ms MV A Bowen: 1.14 m/s MV E/A Ratio: 0.89 RAP: 5.00 mmHg RVSP: 37.05 mmHg FINDINGS -------- Sinus rhythm. This was a technically adequate study. The left ventricular size is normal. There is borderline concentric left ventricular hypertrophy. Overall left ventricular systolic function is mildly impaired with, an EF between 45 - 50 %. Basal inferior LV wall motion is hypokinetic. Basal inferoseptal LV wall motion is hypokinetic. Mid inferior LV wall motion is hypokinetic. The right ventricle is normal in size and function. Normal LA size by volume 22+/-6 ml/m2. The right atrium is normal in size. Aortic valve is trileaflet and is mildly thickened. There is no evidence of aortic regurgitation. There is no evidence of aortic stenosis. The mitral valve leaflets are mildly thickened. There is trace to mild mitral regurgitation. Trace tricuspid regurgitation present. Right ventricular systolic pressure is normal at < 35 mmHg. There is no evidence of pulmonary hypertension. The pulmonic valve was not well visualized. The aortic root size is normal. Normal inferior vena cava with normal inspiratory collapse consistent with estimated right atrial pre ssure of 5 mmHg. The pericardium is normal. There is no pericardial effusion. CONCLUSIONS -------- 1. Sinus rhythm. 2. This was a technically adequate study. 3. The left ventricular size is normal. 4. There is borderline concentric left ventricular hypertrophy. 5. Basal inferior LV wall motion is hypokinetic. 6. Basal inferoseptal LV wall motion is hypokinetic. 7. Mid inferior LV wall motion is hypokinetic. 8. Normal LA size by volume 22+/-6 ml/m2. 9. Aortic valve is trileaflet and is mildly thickened. 10. The mitral valve leaflets are mildly thickened. 11. There is trace to mild mitral regurgitation. 12. Trace tricuspid regurgitation present. 13. Right ventricular systolic pressure is normal at < 35 mmHg. 14. There is no evidence of pulmonary hypertension. 15. The pulmonic valve was not well visualized. 16. The aortic root size is normal. 17. There is no pericardial effusion. DIRECTOR [employer]: Charlie Meyers RDCS
--- NOTE | 2017-06-12 12:43 | P.CRDCN ---
History of Present Illness Consult date: 06/12/17 Consult reason: shortness of breath History of present illness: Mr. De Leon is a pleasant 81-year-old male past medical history significant for ischemic cardiomyopahty, ventricular tachycardia s/p AICD implantation with recent generator change 03/2017, dyslipidemia, hypertension and chronic stable triple vessel disease. He follows with Dr. Otero in the office. We have been asked to see him in consultation for complaints of chest pain and shortness of breath. He states over the weekend he started with a dry mild cough that has slowly gotten worse and productive since Sunday night. He admits to fever, chills, dizziness, shortness of breath and chest pain while coughing. The pain comes in the mid-sternal region when he coughs and then lingers for a few seconds. He denies chest pain with exertion. Denies PND or orthopnea. EKG on arrival reveals sinus mechanism with no acute ST or T-wave abnormalities. Chest xray shows cardiomegaly and chronic parenchymal change with chronic consolidation right upper lobe with a new infiltrate along the major fissure. There is also evidence of mild pulmonary vascular congestion. Laboratory data reviewed, she will over 12.0, platelets 177, potassium 4.2, creatinine 0.94, troponin negative 3, proBNP 1150. Current cardiac medications include sotalol 80 mg twice a day, metoprolol 25 mg twice a day, lisinopril 10 mg daily, atorvastatin 20 mg daily and aspirin 81 mg daily. Most recent echocardiogram performed in the office November 2016 reveals decreased systolic function with ejection fraction 40-45%, mild concentric left ventricular hypertrophy, hypokinesia of the inferolateral wall and septum, mildly dilated left atrium and mild MR. Most recent stress test performed November 2016 with a nuclear Cardiolite scan revealed a large fixed perfusion defect in the inferolateral segment gated SPECT analysis reveals an ejection fraction of 35%. EKG portion of stress test does not show any evidence of ischemia. Most recent cardiac catheterization performed 2005 reveals the left main artery is calcified, free of any significant lesions, LAD 40-50% stenosis in the proximal and midsections. Circumflex 40-50% proximal and mid stenosis, RCA is totally occluded and heavily calcified. Review of Systems At the time of my exam: CONSTITUTIONAL: Denies fever. Denies chills. EYES: Denies blurred vision. Denies vision changes. Denies eye pain. EARS, NOSE, MOUTH & THROAT: Denies headache. Denies sore throat. Denies ear pain. CARDIOVASCULAR: Denies chest pain. Denies shortness of breath. Denies orthopnea. Denies PND. Denies palpitations. RESPIRATORY: Complains of cough with pleuritic chest pain. GASTROINTESTINAL: Denies abdominal pain. Denies diarrhea. Denies constipation. Denies nausea. Denies vomiting. MUSCULOSKELETAL: Denies myalgias. INTEGUMENTARY: Denies pruitis. Denies rash. NEUROLOGIC: Denies numbness. Denies tingling. Denies weakness. PSYCHIATRIC: Denies anxiety. Denies depression. ENDOCRINE: Denies fatigue. Denies weight change. Denies polydipsia. Denies polyurina. GENITOURINARY: Denies burning, hematuria or urgency with micturation. HEMATOLOGIC: Denies history of anemia. Denies bleeding. Past Medical History Past Medical History: Atrial Fibrillation, Coronary Artery Disease (CAD), GERD/ Reflux, Hyperlipidemia, Hypertension, Osteoarthritis (OA), Pneumonia Additional Past Medical History / Comment(s): See Dr Castillo's H&P Last Myocardial Infarction Date:: 2007 History of Any Multi-Drug Resistant Organisms: C-DIFF Date of last positivie culture/infection: 2014 MDRO Source:: stool Past Surgical History: AICD, Heart Catheterization, Orthopedic Surgery, Pacemaker Additional Past Surgical History / Comment(s): rt foot/ toe, cataracts, sinus sx x 3 Past Anesthesia/Blood Transfusion Reactions: Previous Problems w/ Anesthesia Additional Past Anesthesia/Blood Transfusion Reaction / Comment(s): Heart stopped when he got anesthesia Type of Cardiac Device: Permanent Pacemaker, AICD Device Placement Date:: 06-06-07 [employer] Smoking Status: Former smoker - Past Family History Father Additional Family Medical History / Comment(s): killed in mva age 47 Mother Family Medical History: Dementia Medications and Allergies Home Medications Medication Instructions Recorded Confirmed Type Lisinopril [Zestril] 10 mg PO DAILY 11/25/13 06/11/17 History Metoprolol Tartrate [Lopressor] 25 mg PO BID 11/25/13 06/11/17 History Sotalol [Betapace] 80 mg PO BID 11/25/13 06/11/17 History Albuterol Nebulized [Ventolin 2.5 mg INHALATION RT-QID PRN 08/26/16 06/11/17 History Nebulized] Tamsulosin [Flomax] 0.4 mg PO HS 08/26/16 06/11/17 History Atorvastatin [Lipitor] 20 mg PO HS 03/28/17 06/11/17 History Acetaminophen/Diphenhydramine 1 tab PO HS 06/11/17 06/11/17 History [Tylenol PM 500-25mg] Aspirin 81 mg PO DAILY 06/11/17 06/11/17 History Budesonide-Formot 160-4.5 Mcg 2 puff INHALATION RT-BID PRN 06/11/17 06/11/17 History [Symbicort 160-4.5 Mcg Inhaler] Multivitamins, Thera [Multivitamin 1 tab PO DAILY 06/11/17 06/11/17 History (formulary)] Cefuroxime Axetil [Ceftin] 500 mg PO BID #10 tab 06/12/17 Rx guaiFENesin-Coden 100-10MG/5ML 10 ml PO TID PRN cup 06/12/17 Rx [Robitussin AC] Allergies Allergy/AdvReac Type Severity Reaction Status Date / Time No Known Allergies Allergy Verified 06/11/17 22:13 Physical Exam Vitals: Vital Signs Temp Pulse Pulse Resp BP BP Pulse Ox 06/12/17 08:00 98.2 F 66 18 130/64 95 06/12/17 07:20 68 06/12/17 07:06 62 93 L 06/12/17 03:49 97.8 F 63 18 127/61 94 L 06/11/17 23:51 16 06/11/17 22:48 16 06/11/17 22:10 98.3 F 61 16 120/62 93 L 06/11/17 21:47 98.6 F 65 18 111/65 94 L 06/11/17 19:14 98.7 F 73 18 110/57 94 L 06/11/17 17:41 100.7 F H 69 18 134/67 95 06/11/17 16:00 70 06/11/17 15:54 97 06/11/17 15:32 70 18 172/91 96 06/11/17 14:30 98.5 F 69 18 194/78 97 Intake and Output 06/11/17 06/12/17 06/12/17 22:59 06:59 14:59 Other: # Voids 1 Weight 68.03 kg Blood pressure 130/64 heart rate 66 afebrile. He did have an episode of 100.7 F on admission. GENERAL: This is a 81-year-old male in no apparent distress at the time of my examination. HEENT: Head is atraumatic, normocephalic. Pupils are equal, round. Sclerae anicteric. Conjunctivae are clear. Mucous membranes of the mouth are moist. Neck is supple. There is no jugular venous distention. No carotid bruit is heard. LUNGS: Faint bibasilar rales. No wheezes or rhonchi. Positive chest wall tenderness is noted with cough or deep inspiration. HEART: Regular rate and rhythm with systolic ejection murmur at the base, no rubs or gallops. S1 and S2 heard. ABDOMEN: Soft, nontender. Bowel sounds are heard. No organomegaly noted. EXTREMITIES: No evidence of peripheral edema and no calf tenderness noted. VASCULAR: Radial and dorsalis pedis pulses palpated, no evidence of clubbing. NEUROLOGIC: Patient is awake, alert and oriented x3. Results 06/12/17 03:30 06/12/17 03:30 Cardiac Enzymes 06/11/17 06/11/17 06/11/17 Range/Units 15:38 15:38 21:10 AST 28 (17-59) U/L CK-MB (CK-2) 0.6 0.6 (0.0-2.4) ng/mL Troponin I 0.013 0.017 (0.000-0.034) ng/mL 06/12/17 Range/Units 03:30 AST (17-59) U/L CK-MB (CK-2) 0.8 (0.0-2.4) ng/mL Troponin I <0.012 (0.000-0.034) ng/mL Coagulation 06/11/17 Range/Units 15:38 PT 10.6 (9.0-12.0) sec APTT 25.1 (22.0-30.0) sec CBC 06/11/17 06/12/17 Range/Units 15:38 03:30 WBC 7.2 7.8 (3.8-10.6) k/uL RBC 4.30 4.02 L (4.30-5.90) m/uL Hgb 12.8 L 12.0 L (13.0-17.5) gm/dL Hct 41.0 37.4 L (39.0-53.0) % Plt Count 178 177 (150-450) k/uL Comprehensive Metabolic Panel 06/11/17 06/12/17 Range/Units 15:38 03:30 Sodium 142 139 (137-145) mmol/L Potassium 4.7 4.2 (3.5-5.1) mmol/L Chloride 101 101 (98-107) mmol/L Carbon Dioxide 30 24 (22-30) mmol/L BUN 17 20 (9-20) mg/dL Creatinine 1.00 0.94 (0.66-1.25) mg/dL Glucose 85 164 H (74-99) mg/dL Calcium 9.3 9.2 (8.4-10.2) mg/dL AST 28 (17-59) U/L ALT 19 L (21-72) U/L Alkaline Phosphatase 93 (38-126) U/L Total Protein 7.7 (6.3-8.2) g/dL Albumin 4.1 (3.5-5.0) g/dL Current Medications Generic Name Dose Route Start Last Admin Trade Name Freq PRN Reason Stop Dose Admin Acetaminophen 650 mg 06/11/17 17:08 Tylenol Tab PO Q6HR PRN Mild Pain or Fever > 100.5 Albuterol Sulfate 2.5 mg 06/11/17 22:39 Ventolin Nebulized INHALATION RT-QID PRN Shortness Of Breath Albuterol Sulfate 2.5 mg 06/12/17 08:00 06/12/17 07:03 Ventolin Nebulized INHALATION 2.5 mg RT-QID BEATRIZ Administration Alprazolam 0.25 mg 06/11/17 23:28 Xanax PO TID PRN Anxiety Atorvastatin Calcium 20 mg 06/11/17 22:45 06/11/17 23:39 Lipitor PO 20 mg HS BEATRIZ Administration Benzocaine/Menthol 1 each 06/11/17 22:30 06/11/17 23:39 Cepacol Lozenge MUCOUS MEM 1 each Q4HR PRN Administration Sore Throat Budesonide/Formoterol Fumarate 2 puff 06/12/17 08:00 06/12/17 07:42 Symbicort 160-4.5 Mcg Inhaler INHALATION 2 puff RT-BID BEATRIZ Administration Ceftriaxone Sodium 1,000 mg 06/11/17 23:30 06/12/17 00:27 Rocephin IVP 1,000 mg HS BEATRIZ Administration Guaifenesin/Codeine Phosphate 10 ml 06/11/17 17:05 06/12/17 03:29 Robitussin Ac PO 10 ml TID PRN Administration Cough Ibuprofen 200 mg 06/11/17 17:45 Advil PO Q6HR PRN Pain Lisinopril 10 mg 06/12/17 09:00 Zestril PO DAILY BEATRIZ Metoprolol Tartrate 25 mg 06/11/17 22:45 06/11/17 23:39 Lopressor PO 25 mg BID BEATRIZ Administration Multivitamins 1 each 06/12/17 09:00 Theragran PO DAILY BEATRIZ Naloxone HCl 0.2 mg 06/11/17 17:08 Narcan IV Q2M PRN Opioid Reversal Sotalol HCl 80 mg 06/11/17 22:45 Betapace PO BID BEATRIZ Tamsulosin HCl 0.4 mg 06/11/17 22:45 06/11/17 23:39 Flomax PO 0.4 mg HS BEATRIZ Administration Temazepam 15 mg 06/11/17 23:28 Restoril PO HS PRN Insomnia IF DESYREL INEFFECTIV Trazodone HCl 50 mg 06/11/17 22:43 06/11/17 23:39 Desyrel PO 50 mg HS PRN Administration Insomnia Intake and Output 06/11/17 06/12/17 06/12/17 22:59 06:59 14:59 Other: # Voids 1 Weight 68.03 kg 06/12/17 03:30 06/12/17 03:30 Assessment and Plan Assessment: ASSESSMENT 1. Pleuritic chest pain with cough 2. History of chronic stable triple-vessel coronary artery disease 3. Ischemic cardiomyopathy status post AICD implantation 4. History of ventricular tachycardia 5. Dyslipidemia 6. Hypertension PLAN Obtain 2-D echocardiogram and Doppler study to assess cardiac structure and function. Small dose of oral Lasix 20 mg to his daily regimen. An acute coronary event has been ruled out. Continue current medical management. No further cardiac workup at this time. Follow-up with Dr. Otero in 2-3 weeks. Thank you kindly for this consultation. Nurse Practitioner note has been reviewed, I agree with a documented findings and plan of care. Patient was seen and examined.
--- NOTE | 2017-06-12 21:27 | DS ---
DISCHARGE SUMMARY FINAL DIAGNOSES: 1. Chest pain, possibly musculoskeletal; negative stress test. 2. Possible acute bronchitis or right lower lobe pneumonia, possibly community- acquired. 3. Possible short febrile illness and viral flu-like syndrome. 4. History of recent AICD. 5. History of gastroesophageal reflux disease. 6. Hypertension. 7. Hyperlipidemia. 8. History of degenerative joint disease. 9. History of pneumonia. 10.History of atrial fibrillation. 11.History of cataracts. 12.Remote history of nicotine dependence. 13.Chronic obstructive pulmonary disease. DISCHARGE DISPOSITION: The patient will be discharged in stable condition with guarded prognosis. HISTORY OF PRESENT ILLNESS: This 81-year-old gentleman with a past medical history of multiple medical problems was admitted with chest pain. Myocardial infarction was ruled out. Stress test was negative. Cardiology saw the patient and Pulmonary also saw the patient. On exam, vitals are stable. CARDIOVASCULAR SYSTEM: S1, S2 muffled. RESPIRATORY SYSTEM: Breath sounds diminished at the bases. A few scattered rhonchi. ABDOMEN: Soft. NERVOUS SYSTEM: No focal deficit. DISCHARGE ADVICE AND MEDICATIONS: 1. Diet is cardiac. 2. Activity limited until followup. 3. Follow up with Dr. Bates in 2 to 3 days. 4. Follow up with Cardiology and Pulmonology as recommended. 5. Acetaminophen/diphenhydramine 1 tablet p.o. at bedtime. 6. Ventolin 2.5 q.i.d. and p.r.n. 7. Aspirin 81 mg p.o. daily. 8. Lipitor 20 mg at bedtime. 9. Symbicort 160/4.5 two puffs b.i.d. 10.Ceftin 500 mg p.o. b.i.d. for 5 days. 11.Guaifenesin with codeine t.i.d. p.r.n. 12.Zestril 10 mg p.o. daily. 13.Metoprolol tartrate 25 mg p.o. b.i.d. 14.Multivitamins 1 p.o. daily. 15.Betapace 80 mg p.o. b.i.d. 16.Flomax 0.4 at bedtime. MMODL / IJN: [id number] /
== END 2017-06-12 12:54 | disposition home or self-care (01) ==
LOC: EC 14:28 → 3OBS 17:08
PROVIDERS: ADMIT Internal Medicine; ATTEND Internal Medicine
DX: R07.89 Other chest pain (principal); I25.5 Ischemic cardiomyopathy; I25.10 Atherosclerotic heart disease of native coronary artery without angina pectoris; I25.82 Chronic total occlusion of coronary artery; I10 Essential (primary) hypertension; E78.5 Hyperlipidemia, unspecified; I48.91 Unspecified atrial fibrillation; J44.9 Chronic obstructive pulmonary disease, unspecified; K21.9 Gastro-esophageal reflux disease without esophagitis; M19.90 Unspecified osteoarthritis, unspecified site; Z16.24 Resistance to multiple antibiotics; Z95.810 Presence of automatic (implantable) cardiac defibrillator; Z87.01 Personal history of pneumonia (recurrent); I25.2 Old myocardial infarction; Z79.82 Long term (current) use of aspirin; Z79.51 Long term (current) use of inhaled steroids; Z79.899 Other long term (current) drug therapy; Z87.891 Personal history of nicotine dependence; Z86.69 Personal history of other diseases of the nervous system and sense organs; Z86.19 Personal history of other infectious and parasitic diseases; Z86.79 Personal history of other diseases of the circulatory system; Z81.8 Family history of other mental and behavioral disorders
CPT/HCPCS: 99285 ×2; 96365 ×2; 96375 ×3; 96376; 36415; 94640 ×3; 94760; 93005; 93306; 83880; 80053; 80048; 82550 ×2; 82553 ×2; 84484 ×2; 85025 ×2; 85610; 85730; 87502; 71046; G0378 ×2; J2930; J1956; J0696

== ENCOUNTER 2017-06-22 17:21 | Inpatient (IN) | payer OTHER, MEDICARE ==
[2017-06-22] MEDS ORDERED: cefTRIAXone IN SWFI 2,000 MG/20 ML SYRINGE IVP STA (17:54)
[2017-06-22] MEDS ORDERED: methylPREDNISolone SOD SUCCI 125 MG/2 ML VIAL IV STA (17:55)
[2017-06-22] MEDS ORDERED: AZITHROMYCIN 500 MG in SODIUM CHLORIDE 0.9% 250 ML IVPB STA (17:55)
[2017-06-22] MEDS ORDERED: ALBUTEROL NEBULIZED (CONC) 5 MG, SODIUM CHLORIDE 0.9% NEBULIZ 3 ML INHALATION STA ×2 (17:57)
[2017-06-22] MEDS ORDERED: IPRATROPIUM 0.5 MG/2.5 ML NEBU INHALATION STA (17:57)
[2017-06-22 18:13] LABS: Basophils # (A) 0.1 k/uL (0-0.2); Basophils % (A) 0 %; Eosinophils # (A) 0.1 k/uL (0-0.7); Eosinophils % (A) 1 %; HCT 43.1 % (39.0-53.0); HGB 14.1 gm/dL (13.0-17.5); Lymphocytes # (A) 2.8 k/uL (1.0-4.8); Lymphocytes % (A) 13 %; MCH 29.9 pg (25.0-35.0); MCHC 32.7 g/dL (31.0-37.0); MCV 91.5 fL (80.0-100.0); Mean Platelet Volume 7.8; Monocytes # (A) 0.8 k/uL (0-1.0); Monocytes % (A) 4 %; Neutrophils # (A) 17.5 k/uL (1.3-7.7); Neutrophils % (A) 82 %; Platelet Count 335 k/uL (150-450); RBC 4.71 m/uL (4.30-5.90); RDW 12.9 % (11.5-15.5); WBC 21.5 k/uL (3.8-10.6)
[2017-06-22 18:24] LABS: ALT 29 U/L (21-72); AST 43 U/L (17-59); Albumin 4.3 g/dL (3.5-5.0); Alkaline Phosphatase 106 U/L (38-126); Anion Gap 14 mmol/L; Blood Urea Nitrogen 11 mg/dL (9-20); Calcium 9.8 mg/dL (8.4-10.2); Carbon Dioxide 29 mmol/L (22-30); Chloride 97 mmol/L (98-107); Glucose 98 mg/dL (74-99); Potassium 5.1 mmol/L (3.5-5.1); Sodium 140 mmol/L (137-145); Total Bilirubin 1.5 mg/dL (0.2-1.3); Total Protein 8.4 g/dL (6.3-8.2)
[2017-06-22] MEDS ORDERED: ALBUTEROL NEBULIZED 2.5 MG/3 ML INHALATION STA (18:39)
[2017-06-22 18:46] LABS: INR 1.1 (<1.2); Partial Thromboplastin Time 25.6 sec (22.0-30.0); Prothrombin Time 10.6 sec (9.0-12.0)
[2017-06-22] MEDS ORDERED: NALOXONE 0.4 MG/ML 1 ML VIAL IV PRN (19:33)
[2017-06-22] MEDS ORDERED: ONDANSETRON 4 MG/2 ML VIAL IVP PRN (19:33)
[2017-06-22] MEDS ORDERED: ACETAMINOPHEN TAB 325 MG TAB PO PRN (19:33)
--- NOTE | 2017-06-22 19:33 | ED ---
SOB HPI - General Chief Complaint: Shortness of Breath Stated Complaint: sent by [facility] for pneumonia Time Seen by Provider: 06/22/17 17:45 Source: patient, family Mode of arrival: wheelchair Limitations: no limitations - History of Present Illness Initial Comments: 81 years old gentleman now may had a pneumonia was treated for pneumonia in the hospital he was discharged from the hospital he went to [facility] a clinic for the follow-up then noticed that he had a fever he was short winded he said his O2 sat were there was 82% he feels weak. Unfortunately his last filed yesterday and nasal of the tomorrow morning tomorrow around 1 AM Is quite drained he feels weak had a fever chills. No headaches no neck stiffness no chest pain no pleuritic chest pain no abdominal pain no symptoms of TIA or CVA - Related Data Home Medications Medication Instructions Recorded Confirmed Lisinopril [Zestril] 10 mg PO DAILY 11/25/13 06/22/17 Sotalol [Betapace] 80 mg PO BID 11/25/13 06/22/17 Tamsulosin [Flomax] 0.4 mg PO HS 08/26/16 06/22/17 Atorvastatin [Lipitor] 20 mg PO HS 03/28/17 06/22/17 Aspirin 81 mg PO DAILY 06/11/17 06/22/17 Metoprolol Succinate (ER) [Toprol 25 mg PO BID 06/22/17 06/22/17 Xl] Previous Rx's Medication Instructions Recorded Budesonide-Formot 160-4.5 Mcg 2 puff INHALATION RT-BID #0 06/12/17 [Symbicort 160-4.5 Mcg Inhaler] Cefuroxime Axetil [Ceftin] 500 mg PO BID #10 tab 06/12/17 guaiFENesin-Coden 100-10MG/5ML 10 ml PO TID #280 ml 06/12/17 [Robitussin AC] Allergies Allergy/AdvReac Type Severity Reaction Status Date / Time No Known Allergies Allergy Verified 06/22/17 18:13 Review of Systems ROS Statement: Those systems with pertinent positive or pertinent negative responses have been documented in the HPI. ROS Other: All systems not noted in ROS Statement are negative. Past Medical History Past Medical History: Atrial Fibrillation, Coronary Artery Disease (CAD), GERD/ Reflux, Hyperlipidemia, Hypertension, Osteoarthritis (OA), Pneumonia Additional Past Medical History / Comment(s): See Dr Castillo's H&P Last Myocardial Infarction Date:: 2007 History of Any Multi-Drug Resistant Organisms: C-DIFF Date of last positivie culture/infection: 2014 MDRO Source:: stool Past Surgical History: AICD, Heart Catheterization, Orthopedic Surgery, Pacemaker Additional Past Surgical History / Comment(s): rt foot/ toe, cataracts, sinus sx x 3 Past Anesthesia/Blood Transfusion Reactions: Previous Problems w/ Anesthesia Additional Past Anesthesia/Blood Transfusion Reaction / Comment(s): Heart stopped when he got anesthesia Type of Cardiac Device: Permanent Pacemaker, AICD Device Placement Date:: 06-06-07 [employer] Past Psychological History: No Psychological Hx Reported Smoking Status: Former smoker Past Alcohol Use History: None Reported Past Drug Use History: None Reported - Past Family History Father Additional Family Medical History / Comment(s): killed in mva age 47 Mother Family Medical History: Dementia General Exam - General Exam Comments Initial Comments: General: The patient is awake and alert, in no distress, and does not appear acutely ill. Looks depressed Skin: Skin is warm and dry and no rashes or lesions are noted. Eye: Pupils are equal, round and reactive to light, extra-ocular movements are intact; there is normal conjunctiva bilaterally. Ears, nose, mouth and throat: There are moist mucous membranes and no oral lesions. Neck: The neck is supple, there is no tenderness or JVD. Cardiovascular: There is a regular rate and rhythm. No murmur, rub or gallop is appreciated. Respiratory: To auscultation bilateral, mild to moderate COPD like picture and crackles bilateral Gastrointestinal: Soft, non-distended, non-tender abdomen without masses or organomegaly noted. There is no rebound or guarding present. Bowel sounds are unremarkable. Back: There is no tenderness to palpation in the midline. There is no obvious deformity. Musculoskeletal: Normal ROM, no tenderness, There is no pedal edema. There is no calf tenderness or swelling. No cords were appreciated. Neurological: CN II-XII intact, Cranial nerves III through XII are intact. There are no obvious motor or sensory deficits. Coordination appears grossly intact. Speech is normal. Psychiatric: Cooperative, appropriate mood & affect, normal judgment. Limitations: no limitations Course Vital Signs 06/22/17 06/22/1706/22/18 17:33 18:37 18:48 Temperature 99.9 F H Pulse Rate 84 76 79 Respiratory 18 Rate Blood Pressure 187/77 O2 Sat by Pulse 89 L Oximetry 06/22/17 19:08 Temperature 98.8 F Pulse Rate 82 Respiratory 16 Rate Blood Pressure 162/72 O2 Sat by Pulse 16 L Oximetry Medical Decision Making - Lab Data Result diagrams: 06/22/17 18:00 06/22/17 18:00 Lab Results 06/22/17 06/22/17 06/22/17 Range/Units 18:00 18:00 18:00 WBC 21.5 H (3.8-10.6) k/uL RBC 4.71 (4.30-5.90) m/uL Hgb 14.1 (13.0-17.5) gm/dL Hct 43.1 (39.0-53.0) % MCV 91.5 (80.0-100.0) fL MCH 29.9 (25.0-35.0) pg MCHC 32.7 (31.0-37.0) g/dL RDW 12.9 (11.5-15.5) % Plt Count 335 (150-450) k/uL Neutrophils % 82 % Lymphocytes % 13 % Monocytes % 4 % Eosinophils % 1 % Basophils % 0 % Neutrophils # 17.5 H (1.3-7.7) k/uL Lymphocytes # 2.8 (1.0-4.8) k/uL Monocytes # 0.8 (0-1.0) k/uL Eosinophils # 0.1 (0-0.7) k/uL Basophils # 0.1 (0-0.2) k/uL PT (9.0-12.0) sec INR (<1.2) APTT (22.0-30.0) sec Sodium 140 (137-145) mmol/L Potassium 5.1 (3.5-5.1) mmol/L Chloride 97 L (98-107) mmol/L Carbon Dioxide 29 (22-30) mmol/L Anion Gap 14 mmol/L BUN 11 (9-20) mg/dL Creatinine 0.80 (0.66-1.25) mg/dL Est GFR (MDRD) Af Amer >60 (>60 ml/min/1.73 sqM) Est GFR (MDRD) Non-Af >60 (>60 ml/min/1.73 sqM) Glucose 98 (74-99) mg/dL Plasma Lactic Acid Sagar 1.3 (0.7-2.0) mmol/L Calcium 9.8 (8.4-10.2) mg/dL Total Bilirubin 1.5 H (0.2-1.3) mg/dL AST 43 (17-59) U/L ALT 29 (21-72) U/L Alkaline Phosphatase 106 (38-126) U/L Total Protein 8.4 H (6.3-8.2) g/dL Albumin 4.3 (3.5-5.0) g/dL 06/22/17 Range/Units 18:00 WBC (3.8-10.6) k/uL RBC (4.30-5.90) m/uL Hgb (13.0-17.5) gm/dL Hct (39.0-53.0) % MCV (80.0-100.0) fL MCH (25.0-35.0) pg MCHC (31.0-37.0) g/dL RDW (11.5-15.5) % Plt Count (150-450) k/uL Neutrophils % % Lymphocytes % % Monocytes % % Eosinophils % % Basophils % % Neutrophils # (1.3-7.7) k/uL Lymphocytes # (1.0-4.8) k/uL Monocytes # (0-1.0) k/uL Eosinophils # (0-0.7) k/uL Basophils # (0-0.2) k/uL PT 10.6 (9.0-12.0) sec INR 1.1 (<1.2) APTT 25.6 (22.0-30.0) sec Sodium (137-145) mmol/L Potassium (3.5-5.1) mmol/L Chloride (98-107) mmol/L Carbon Dioxide (22-30) mmol/L Anion Gap mmol/L BUN (9-20) mg/dL Creatinine (0.66-1.25) mg/dL Est GFR (MDRD) Af Amer (>60 ml/min/1.73 sqM) Est GFR (MDRD) Non-Af (>60 ml/min/1.73 sqM) Glucose (74-99) mg/dL Plasma Lactic Acid Sagar (0.7-2.0) mmol/L Calcium (8.4-10.2) mg/dL Total Bilirubin (0.2-1.3) mg/dL AST (17-59) U/L ALT (21-72) U/L Alkaline Phosphatase (38-126) U/L Total Protein (6.3-8.2) g/dL Albumin (3.5-5.0) g/dL Disposition Clinical Impression: Fever, Leukocytosis, Pneumonia Disposition: ADMITTED IP TO THIS HOSP Condition: Fair Referrals: [facility],Clinic [Primary Care Provider] - 1-2 days
[2017-06-22] MEDS: SYMBICORT 160-4.5 MCG INHALER INHALATION SCH (20:35)
--- NOTE | 2017-06-22 20:51 | XR ---
EXAMINATION TYPE: XR chest 2V DATE OF EXAM: 06/22/2017 COMPARISON: 06/11/2017 HISTORY: Cough and congestion TECHNIQUE: Frontal and lateral views of the chest are obtained. FINDINGS: There is coarsening of interstitial pulmonary markings. There is some coalescent linear de nsity in the right midlung along the minor fissure. There is also thickening along the upper right ma elmer fissure. There is left axillary pacemaker with the lead tip in the right ventricle. Thoracic aort a is atheromatous. There is no heart failure. There is no pleural effusion. IMPRESSION: Right upper lobe pleural and pulmonary scarring appears not significantly different than last exam. No heart failure. Pulmonary fibrotic changes. No evidence of a new pulmonary density.
[2017-06-22] MEDS: guaiFENesin-Coden 100-10MG/5ML 10 ML CUP PO SCH (22:04)
[2017-06-22] MEDS: ATORVASTATIN 20 MG TAB PO SCH (22:04)
[2017-06-22] MEDS: SOTALOL 80 MG TAB PO SCH (22:05)
[2017-06-22] MEDS: METOPROLOL SUCCINATE (ER) 25 MG TAB.ER.24H PO SCH (22:05)
[2017-06-22] MEDS: TAMSULOSIN 0.4 MG CAP.ER.24H PO SCH (22:05)
[2017-06-22 22:22] LABS: Appearance,Urine Clear (Clear); Bilirubin,Urine Negative (Negative); Blood,Urine Negative (Negative); Color,Urine Yellow; Glucose,Urine (UA) Negative (Negative); Ketones,Urine 2+ (Negative); Leukocyte Esterase,Urine Negative (Negative); Mucus,Urine Rare /hpf; PH, Urine 5.5 (5.0-8.0); Protein,Urine 1+ (Negative); RBC,Urine <1 /hpf (0-5); Specific Gravity,Urine 1.018 (1.001-1.035); Urobilinogen,Urine <2.0 mg/dL (<2.0); WBC,Urine 1 /hpf (0-5)
--- NOTE | 2017-06-22 22:44 | P.HPIM ---
History of Present Illness H&P Date: 06/22/17 Chief Complaint: Shortness of breath 81-year-old male with past medical history of ischemic cardiomyopathy, A. fib status post ICD, hypertension. Patient has recently been admitted for chest pain and had negative stress test back in 06/12/2017 where he was also treated for community-acquired pneumonia/bronchitis. He was discharged with a 5 day course of Ceftin at that time. Patient reports that his symptoms has improved at that time however over the past few days he has noticed new onset productive cough of yellowish sputum along with feeling congested, he otherwise denies any chest pain or pleuritic chest pain he denies any shortness of breath. What he does admit to fevers and worsening coughing. He saw his PCP today as a follow- up appointment who has found that the patient is hypoxic with oxygen saturation in the 82% and that his chest was congested and recommended to the patient to go back to the hospital for further care. Patient also noted that his has yesterday and the is tomorrow and he was wondering if he can leave tomorrow to attend the . Otherwise patient was seen in the medical floor he was sleeping was easily arousable and was very pleasant during the interview but frequently coughing. He denies any orthopnea he denies paroxysmal maternal dyspnea he denies any leg swelling. Review of Systems Pertinent positives as noted in HPI. All other systems were reviewed and are negative Past Medical History Past Medical History: Atrial Fibrillation, Coronary Artery Disease (CAD), GERD/ Reflux, Hearing Disorder / Deafness, Hyperlipidemia, Hypertension, Osteoarthritis (OA), Pneumonia Additional Past Medical History / Comment(s): ICMP with LVRF of 40-45% 11/2016 Last Myocardial Infarction Date:: 2007 History of Any Multi-Drug Resistant Organisms: C-DIFF Date of last positivie culture/infection: 2014 MDRO Source:: stool Past Surgical History: AICD, Heart Catheterization, Orthopedic Surgery, Pacemaker Additional Past Surgical History / Comment(s): rt foot/ toe, cataracts, sinus sx x 3 Past Anesthesia/Blood Transfusion Reactions: Previous Problems w/ Anesthesia Additional Past Anesthesia/Blood Transfusion Reaction / Comment(s): Heart stopped when he got anesthesia Type of Cardiac Device: Permanent Pacemaker, AICD Device Placement Date:: 06-06-07 [facility] [employer] Past Psychological History: No Psychological Hx Reported Smoking Status: Never smoker Past Alcohol Use History: None Reported Additional Past Alcohol Use History / Comment(s): . Past Drug Use History: None Reported - Past Family History Father Additional Family Medical History / Comment(s): killed in mva age 47 Mother Family Medical History: Dementia Medications and Allergies Home Medications Medication Instructions Recorded Confirmed Type Lisinopril [Zestril] 10 mg PO DAILY 11/25/13 06/22/17 History Sotalol [Betapace] 80 mg PO BID 11/25/13 06/22/17 History Tamsulosin [Flomax] 0.4 mg PO HS 08/26/16 06/22/17 History Atorvastatin [Lipitor] 20 mg PO HS 03/28/17 06/22/17 History Aspirin 81 mg PO DAILY 06/11/17 06/22/17 History Budesonide-Formot 160-4.5 Mcg 2 puff INHALATION RT-BID #0 06/12/17 06/22/17 Rx [Symbicort 160-4.5 Mcg Inhaler] Cefuroxime Axetil [Ceftin] 500 mg PO BID #10 tab 06/12/17 06/22/17 Rx guaiFENesin-Coden 100-10MG/5ML 10 ml PO TID #280 ml 06/12/17 06/22/17 Rx [Robitussin AC] Metoprolol Succinate (ER) [Toprol 25 mg PO BID 06/22/17 06/22/17 History Xl] Allergies Allergy/AdvReac Type Severity Reaction Status Date / Time No Known Allergies Allergy Verified 06/22/17 18:13 Physical Exam Vitals: Vital Signs Temp Pulse Resp BP Pulse Ox 06/22/17 21:30 16 06/22/17 20:34 75 16 139/73 91 L 06/22/17 19:52 81 16 145/71 90 L 06/22/17 19:08 98.8 F 82 16 162/72 16 L 06/22/17 18:48 79 06/22/17 18:37 76 06/22/17 17:33 99.9 F H 84 18 187/77 89 L Intake and Output 06/22/17 06/22/17 06/22/17 06:59 14:59 22:59 Intake Total 300 Balance 300 Intake: Intake, IV Titration 300 Amount Azithromycin 500 mg In 250 Sodium Chloride 0.9% 250 ml @ 125 mls/hr IVPB ONCE [facility] Rx#:[id number] cefTRIAXone 2,000 mg In 50 Sodium Chloride 0.9% 50 ml @ 100 mls/hr IVPB Q24HR [facility] Rx#:[id number] Other: Voiding Method Toilet Urinal Weight 66.678 kg Patient Weight 06/23/17 06:59 Weight 66.678 kg Constitutional: No acute distress, conversant, pleasant Eyes: Anicteric sclerae, moist conjunctiva, no lid-lag Pupils equal round reactive to light ENMT: NC/AT Oropharynx clear, no erythema, exudates Neck: Supple, FROM, no masses, or JVD No carotid bruits No thyromegaly Lungs: Diffuse harsh fascicular breathing along with fine inspiratory rales over bilateral mid to lower lungs, also noted scattered coarse expiratory crackles. Clear to percussion Normal respiratory effort, no accessory muscle use Cardiovascular: Heart regular in rate and rhythm, palpable ICD device under the skin over the left anterior chest No murmurs, gallops, or rubs No peripheral edema Abdominal: Soft Nontender, no guarding, rebound or rigidity Abdomen moving with respiration Normoactive bowel sounds No hepatomegaly, No splenomegaly No palpable mass No abdominal wall hernia noted Skin: Normal temperature, tone, texture, turgor No induration No subcutaneous nodules No rash, lesions No ulcers Extremities: No digital cyanosis No clubbing Pedal pulses intact and symmetrical Radial pulses intact and symmetrical No calf tenderness Psychiatric: Alert and oriented to person, place and time Patient is emotional and tearful when his is mentioned fair judgment Neuro Muscles Strength 5/5 in all 4 extremities Sensation to light touch grossly present throughout Cranial nerves II-XII grossly intact No focal sensory deficits Lymphatics: no palpable cervical or supraclavicular , or inguinal lymph nodes Results CBC & Chem 7: 06/22/17 18:00 06/22/17 18:00 Labs: Abnormal Lab Results - Last 24 Hours (Table) 06/22/17 06/22/17 06/22/17 Range/Units 18:00 18:00 22:00 WBC 21.5 H (3.8-10.6) k/uL Neutrophils # 17.5 H (1.3-7.7) k/uL Chloride 97 L (98-107) mmol/L Total Bilirubin 1.5 H (0.2-1.3) mg/dL Total Protein 8.4 H (6.3-8.2) g/dL Urine Protein 1+ H (Negative) Urine Ketones 2+ H (Negative) Urine Mucus Rare H (None) /hpf Thrombosis Risk Factor Assmnt - Choose All That Apply Any of the Below Risk Factors Present?: Yes Each Factor Represents 1 point: Acute [place], Medical pt on bed rest, Serious lung disease incl. pneumonia (< 1month) Other Risk Factors: Yes Each Risk Factor Represents 3 Points: Age 75 years or older Thrombosis Risk Factor Assessment Total Risk Factor Score: 6 Thrombosis Risk Factor Assessment Level: High Risk Assessment and Plan (1) Acute respiratory failure with hypoxia Narrative/Plan: This is thought to be due to underlying community-acquired pneumonia versus mild CHF exacerbation with congestion Patient was started on broad-spectrum antibiotics Gentle diuresis Assess clinical response Check pro calcitonin, and proBNP to differentiate between possible underlying infection versus heart failure Current Visit: Yes Status: Acute Code(s): J96.01 - ACUTE RESPIRATORY FAILURE WITH HYPOXIA SNOMED Code(s): 42528638 (2) CAP (community acquired pneumonia) Narrative/Plan: Possible recurrent pneumonia versus MRSA versus failure of Ceftin Due to recent hospitalization and recent antibiotic patient has expressed factor for MRSA This time will be treated with Rocephin, azithromycin, and vancomycin Follow-up cultures Assess clinically Chest x-ray did not reveal clear evidence of acute new infiltrations however patient is febrile with elevated white count and productive cough suspicious for clinical pneumonia Patient was admitted due to hypoxemia Current Visit: Yes Status: Acute Code(s): J18.9 - PNEUMONIA, UNSPECIFIED ORGANISM SNOMED Code(s): 501062976 (3) Leukocytosis Narrative/Plan: This is possibly secondary to underlying pneumonia Current Visit: Yes Status: Acute Code(s): D72.829 - ELEVATED WHITE BLOOD CELL COUNT, UNSPECIFIED SNOMED Code(s): 548529416 (4) Ischemic cardiomyopathy Narrative/Plan: Ischemic cardiomyopathy with left ventricular ejection fraction of 40-45% with possible mild decompensation evidenced by pulmonary congestion Trial of Lasix IV 1 dose then continue with by mouth Lasix twice a day Assessment clinically in the morning Continue cardiac meds with statin and aspirin lisinopril and metoprolol Patient status post ICD Current Visit: Yes Status: Acute Code(s): I25.5 - ISCHEMIC CARDIOMYOPATHY SNOMED Code(s): 498442975 (5) A-fib Narrative/Plan: Paroxysmal A. fib, CHADS score of 3, status post ICD Patient not on anticoagulation Patient only takes aspirin Patient follows up outpatient with Dr. Otero Currently is rate controlled and in sinus rhythm per EKG from June 11 Current Visit: Yes Status: Chronic Code(s): I48.91 - UNSPECIFIED ATRIAL FIBRILLATION SNOMED Code(s): 34575964 (6) CAD (coronary artery disease) Narrative/Plan: Patient has stable triple vessel disease Recent negative stress test done May 2017 Outpatient follow-up with cardiology Continue home medications aspirin and statin and lisinopril and metoprolol Current Visit: Yes Status: Chronic Code(s): I25.10 - ATHSCL HEART DISEASE OF [place] CORONARY ARTERY W/O ANG PCTRS SNOMED Code(s): 27497577 (7) Hypertension Narrative/Plan: Blood pressure well-controlled Continue with metoprolol and lisinopril Current Visit: Yes Status: Chronic Code(s): I10 - ESSENTIAL (PRIMARY) HYPERTENSION SNOMED Code(s): 95384396 (8) GERD (gastroesophageal reflux disease) Narrative/Plan: Pepcid twice a day Current Visit: Yes Status: Chronic Code(s): K21.9 - GASTRO-ESOPHAGEAL REFLUX DISEASE WITHOUT ESOPHAGITIS SNOMED Code(s): 822143208 (9) Hyperlipidemia Narrative/Plan: Continue statin Current Visit: Yes Status: Chronic Code(s): E78.5 - HYPERLIPIDEMIA, UNSPECIFIED SNOMED Code(s): 26188740 (10) DVT prophylaxis Narrative/Plan: Heparin subcu Current Visit: Yes Status: Acute Code(s): GTL9316 - SNOMED Code(s): 260616562 (11) Osteoarthritis Current Visit: Yes Status: Chronic Code(s): M19.90 - UNSPECIFIED OSTEOARTHRITIS, UNSPECIFIED SITE SNOMED Code(s): 304339836 Plan: Preformed a thorough record review from recent hospitalization thorough review of most recent hospitalization and discharge in May 2017 as summarized in HPI, were patient was admitted for chest pain rule out and had a negative stress test Surrogate decision-maker: patient grand daughter Samantha CODE STATUS:full code DVT prophylaxis: heparin sc TID Discussed with: Patient, ER, RN Anticipated discharge: 48-[address]: home A total of 55 minutes were spent on the care of this complex patient more than 50% of the time was spent in counseling and care coordination.
[2017-06-23] MEDS ORDERED: VANCOMYCIN IV PER PHARMACY 1 EACH MISC MISCELLANE PRN (00:06)
[2017-06-23] MEDS ORDERED: IPRATROPIUM-ALBUTEROL 3 ML NEB INHALATION PRN (00:17)
[2017-06-23] MEDS ORDERED: FUROSEMIDE 10 MG/ML 2 ML VIAL IV ONE (00:32)
[2017-06-23] MEDS: VANCOMYCIN 1,250 MG in SODIUM CHLORIDE 0.9% 250 ML IVPB SCH ×2 (01:16→15:57)
[2017-06-23 07:25] LABS: Basophils % (A) 0 %; Eosinophils % (A) 0 %; HGB 13.4 gm/dL (13.0-17.5); Lymphocytes # (A) 2.6 k/uL (1.0-4.8); Lymphocytes % (A) 13 %; MCH 29.4 pg (25.0-35.0); MCV 91.9 fL (80.0-100.0); Mean Platelet Volume 7.8; Monocytes # (A) 0.3 k/uL (0-1.0); Monocytes % (A) 2 %; Neutrophils # (A) 16.3 k/uL (1.3-7.7); Neutrophils % (A) 84 %; Platelet Count 336 k/uL (150-450); RBC 4.57 m/uL (4.30-5.90); WBC 19.4 k/uL (3.8-10.6)
[2017-06-23 07:47] LABS: ALT 29 U/L (21-72); AST 31 U/L (17-59); Albumin 3.8 g/dL (3.5-5.0); Alkaline Phosphatase 98 U/L (38-126); Anion Gap 13 mmol/L; Blood Urea Nitrogen 18 mg/dL (9-20); Calcium 9.5 mg/dL (8.4-10.2); Carbon Dioxide 28 mmol/L (22-30); Chloride 99 mmol/L (98-107); Glucose 151 mg/dL (74-99); Potassium 4.3 mmol/L (3.5-5.1); Sodium 140 mmol/L (137-145); Total Bilirubin 0.7 mg/dL (0.2-1.3); Total Protein 7.5 g/dL (6.3-8.2)
[2017-06-23] MEDS ORDERED: cefTRIAXone IN SWFI 2,000 MG/20 ML SYRINGE IVP SCH ×2 (09:00→20:00)
--- NOTE | 2017-06-23 09:02 | P.PN ---
Subjective Progress Note Date: 06/23/17 Principal diagnosis: shortness of breath Patient is an 81-year-old male past medical history of ischemic cardiomyopathy with ejection fraction 40-45%, A. fib status post ICD, and hypertension who was referred to the ER by the [place] clinic after being found to be hypoxic. In the emergency department he underwent an extensive exam. On arrival he was found to be hypertensive with blood pressure of 187/77 and hypoxic with an oxygenation sat of 89% on room air. Laboratory analysis revealed a white blood cell count of 21.5 and a slightly elevated bilirubin at 1.5. His chest x-ray was clear. He was admitted for hypoxia. He was recently here with chest pain in May 2017. He had a negative stress test on 2017 was treated for community-acquired pneumonia. It was felt that he likely had an incomplete treatment of his community-acquired pneumonia which is why his chest x-ray had momentary improvement in his cough. He was started on Vanco , Rocephin, and Zithromax. He was given a dose of Lasix for possible fluid overload. Patient seen and examined at bedside. He is feeling much improved than when he came in. He is still feeling tired and fatigued. He is still having some shortness of breath and a cough. Son is present at bedside. Unfortunately his 2 days ago. Her is this morning and feeling starts at 10 AM and the is at 1 PM. He would really like to go to his Lasix for closure. We have discussed the benefits and risks of this. He does have a portable O2 tank available to him as well as a portable pulse oximetry. His son is a registered nurse with ER experience. He will be with the patient the entire time. They also have a wheelchair available. We discussed the risks and benefits of leaving. They understand that well-known under hospital care he will be under significant risk of worsening condition including possible worsening of his pneumonia, pulmonary embolism, heart attack, stroke, or even . This point in time they're willing to take the risks to leave that he can attend his Lasix . Due to the fact that they have the medical equipment necessary to make this possible and he will have an RN with him I have granted a temporary leave of absence from the hospital. They will return to the hospital by 3:30 PM and leave here at approximately 9 to 9:30 AM. They understand that they do not return by 3:30 PM we'll consider it leaving AGAINST MEDICAL ADVICE. They also understand that should he have worsening of his symptoms, drop in oxygenation, or any causes for concern they should call EMS and return to the hospital immediately. They accepted the risks and benefits. I have also discussed with nursing and will call me immediately upon the patient 's return to clinic and reassess him and determine what additional testing is necessary. Objective - Vital Signs Vital signs: Vital Signs Temp 97.1 F L 06/23/17 06:54 Pulse 69 06/23/17 06:54 Resp 16 06/23/17 06:54 BP 132/69 06/23/17 06:54 Pulse Ox 90 L 06/23/17 06:54 Intake & Output 06/22/17 06/23/17 06/23/17 18:59 06:59 18:59 Intake Total 850 Balance 850 Weight 66.678 kg Intake: Intake, IV Titration 850 Amount Azithromycin 500 mg In 500 Sodium Chloride 0.9% 250 ml @ 125 mls/hr IVPB ONCE STA Rx#:[id number] Vancomycin 1,250 mg In 250 Sodium Chloride 0.9% 250 ml @ 125 mls/hr IVPB Q16H [facility] Rx#:[id number] cefTRIAXone 2,000 mg In 100 Sodium Chloride 0.9% 50 ml @ 100 mls/hr IVPB Q24HR [facility] Rx#:[id number] Other: Voiding Method Toilet Urinal - Exam General: non toxic, no distress, appears younger than stated age Derm: warm, dry Head: atraumatic, normocephalic, symmetric Eyes: EOMI, no lid lag, anicteric sclera Mouth: no lip lesion, mucus membranes moist Cardiovascular: S1S2 irreg, no murmur, positive posterior tibial pulse bilateral , Lungs: Crackles and ronchi bilateral bases, no rhonchi, no rales , no accessory muscle use Abdominal: soft, nontender to palpation, no guarding, no appreciable organomegaly Ext: no gross muscle atrophy, no edema, no contractures Neuro: CN II-XI grossly intact, no focal neuro deficits Psych: Alert, oriented, appropriate affect - Labs CBC & Chem 7: 06/23/17 07:10 06/23/17 07:10 Labs: Abnormal Lab Results - Last 24 Hours (Table) 06/22/17 06/22/17 06/22/17 Range/Units 18:00 18:00 22:00 WBC 21.5 H (3.8-10.6) k/uL Neutrophils # 17.5 H (1.3-7.7) k/uL Chloride 97 L (98-107) mmol/L Glucose (74-99) mg/dL Total Bilirubin 1.5 H (0.2-1.3) mg/dL Total Protein 8.4 H (6.3-8.2) g/dL Urine Protein 1+ H (Negative) Urine Ketones 2+ H (Negative) Urine Mucus Rare H (None) /hpf 06/23/17 06/23/17 Range/Units 07:10 07:10 WBC 19.4 H (3.8-10.6) k/uL Neutrophils # 16.3 H (1.3-7.7) k/uL Chloride (98-107) mmol/L Glucose 151 H (74-99) mg/dL Total Bilirubin (0.2-1.3) mg/dL Total Protein (6.3-8.2) g/dL Urine Protein (Negative) Urine Ketones (Negative) Urine Mucus (None) /hpf Assessment and Plan Assessment: Community-acquired pneumonia -Possible restart pneumonia versus MRSA versus failure of Ceftin -Continue with Zithromax, Rocephin, and vancomycin -Follow up cultures -Pulmonary hygiene -Repeat chest x-ray until clear -Though chest x-ray did not reveal clear evidence of a pneumonia or new infiltrate he does have chronic interstitial changes associated with an elevated white blood cell count productive cough which is suspicious for clinical pneumonia -Bronchodilators -Pro calcitonin is pending Acute hypoxic respiratory failure -Treatment as above Leukocytosis -Possibly secondary to pneumonia -Await calcitonin A. fib currently rate controlled -Patient is not chronically on anticoagulation with a chads score of 3 status post ICD -Continue with aspirin -Continue following up with cardiology as an outpatient -Continue with sotalol and metoprolol -Continue with telemetry Hypertension, controlled -Follow blood pressures -Continue with metoprolol and lisinopril History of ischemic cardiomyopathy -Acute exacerbation of CHF was ruled out at this time with a negative BNP and no signs of fluid overloaded -Continue with beta all and JB inhibitor Chronic: GERD Hypertension Osteoarthritis DVT prophylaxis:Heparin Discussed with: Patient, administrative charge, RN, family, systems program manager Anticipated discharge: 72-[address]: home A total of 90 minutes was spent on the care of this complex patient more than 50 % of the time was spent in counseling and care coordination.
[2017-06-23] MEDS: SYMBICORT 160-4.5 MCG INHALER INHALATION SCH ×2 (09:04→19:33)
[2017-06-23] MEDS ORDERED: PROPOFOL 100 ML IV ONE (09:08)
[2017-06-23] MEDS: ASPIRIN 81 MG PO SCH (10:08)
[2017-06-23] MEDS: FUROSEMIDE 20 MG TAB PO SCH ×2 (10:09→15:57)
[2017-06-23] MEDS: SOTALOL 80 MG TAB PO SCH ×2 (10:09→20:53)
[2017-06-23] MEDS: FAMOTIDINE 20 MG TAB PO SCH ×2 (10:09→20:53)
[2017-06-23] MEDS: METOPROLOL SUCCINATE (ER) 25 MG TAB.ER.24H PO SCH ×2 (10:09→20:53)
[2017-06-23] MEDS: LISINOPRIL 10 MG TAB PO SCH (10:10)
[2017-06-23] MEDS: guaiFENesin-Coden 100-10MG/5ML 10 ML CUP PO SCH ×3 (10:11→21:03)
[2017-06-23] MEDS: HEPARIN SODIUM,PORCINE 5,000 UNIT/ML 1 ML VIAL SQ SCH ×3 (10:12→23:31)
[2017-06-23] MEDS ORDERED: ALBUTEROL NEBULIZED 2.5 MG/3 ML INHALATION PRN (16:20)
[2017-06-23] MEDS ORDERED: RX INFO: IV CONTRAST WAS GIVEN 1 EACH MISC MISCELLANE PRN (16:21)
[2017-06-23] MEDS ORDERED: MELATONIN 5 MG TABLET PO PRN (16:23)
[2017-06-23] MEDS: methylPREDNISolone SOD SUCCI 125 MG/2 ML VIAL IV SCH ×2 (16:58→23:31)
[2017-06-23] MEDS ORDERED: PIPERACILLIN-TAZOBACTAM 3.375 GM in DEXTROSE/WATER 1 50ML.BAG IVPB SCH (17:00)
--- NOTE | 2017-06-23 17:10 | CT ---
CT CHEST FOR PULMONARY EMBOLISM. EXAMINATION TYPE: CT chest angio for PE DATE OF EXAM: 06/23/2017 INDICATION: Pneumonia, possible PE. Shortness of breath. CT DLP: 220 mGycm, Automated exposure control for dose reduction was used. CONTRAST: Patient injected with 66 mL of Omnipaque 350. COMPARISON: NONE TECHNIQUE: CT of the chest is performed on a spiral scan at 2 mm thick sections. Study is performed with intravenous contrast timed for evaluation for pulmonary embolism. This will limit additional po rtions of the evaluation. 3-D MIP images reconstructed by the technologist are reviewed on the compu ter in the coronal and sagittal planes. FINDINGS: No persistent filling defects are evident to suggest an acute pulmonary embolism. No mediastinal or hilar adenopathy enlarged by CT criteria is evident. The ascending aorta diameter at the level of the main pulmonary artery is 3.9 cm. The main pulmonary artery diameter at the bifur cation is 2.7 cm. Coronary artery calcification is present. There is a consolidation in the left lower lobe. Atelectasis or pneumonia could be considered. Underl byron mass is not excluded. Bronchiectasis is evident greater on the right. There is a large area of b ronchiectasis extending into the right middle lobe. Limited CT section through the upper abdomen are unremarkable. IMPRESSIONS: 1. No acute pulmonary embolism. 2. Left lower lobe pneumonia versus atelectasis. Underlying mass is not excluded. 3. Bronchiectasis especially noted through the right middle lobe.
[2017-06-23] MEDS ORDERED: DOCUSATE 100 MG CAP PO PRN (18:39)
[2017-06-23] MEDS ORDERED: POLYETHYLENE GLYCOL 3350 17 GM POWD.PACK PO STA (18:39)
[2017-06-23] MEDS ORDERED: cefTRIAXone IN SWFI 1,000 MG/10 ML SYRINGE IVP SCH (20:00)
[2017-06-23] MEDS: PIPERACILLIN-TAZOBACTAM 3.375 GM in DEXTROSE/WATER 1 50ML.BAG IVPB SCH (20:52)
[2017-06-23] MEDS: ATORVASTATIN 20 MG TAB PO SCH (20:53)
[2017-06-23] MEDS: TAMSULOSIN 0.4 MG CAP.ER.24H PO SCH (20:53)
[2017-06-23] MEDS ORDERED: AZITHROMYCIN 500 MG TAB PO SCH (21:00)
[2017-06-23] MEDS: LORazepam 2 MG/ML INJ IV PRN (21:54)
[2017-06-24] MEDS: PIPERACILLIN-TAZOBACTAM 3.375 GM in DEXTROSE/WATER 1 50ML.BAG IVPB SCH ×3 (04:27→21:00)
[2017-06-24] MEDS: HEPARIN SODIUM,PORCINE 5,000 UNIT/ML 1 ML VIAL SQ SCH ×3 (08:14→21:20)
[2017-06-24] MEDS: VANCOMYCIN 1,250 MG in SODIUM CHLORIDE 0.9% 250 ML IVPB SCH (08:14)
[2017-06-24] MEDS: methylPREDNISolone SOD SUCCI 125 MG/2 ML VIAL IV SCH (08:14)
[2017-06-24] MEDS: SOTALOL 80 MG TAB PO SCH ×2 (08:15→21:15)
[2017-06-24] MEDS: ASPIRIN 81 MG PO SCH (08:15)
[2017-06-24] MEDS: METOPROLOL SUCCINATE (ER) 25 MG TAB.ER.24H PO SCH ×2 (08:15→21:15)
[2017-06-24] MEDS: guaiFENesin-Coden 100-10MG/5ML 10 ML CUP PO SCH ×3 (08:15→21:15)
[2017-06-24] MEDS: FAMOTIDINE 20 MG TAB PO SCH ×2 (08:15→21:15)
[2017-06-24] MEDS: LISINOPRIL 10 MG TAB PO SCH (08:15)
[2017-06-24 08:18] LABS: HCT 38.6 % (39.0-53.0); HGB 12.3 gm/dL (13.0-17.5); MCH 29.5 pg (25.0-35.0); MCV 92.2 fL (80.0-100.0); Mean Platelet Volume 8.2; Platelet Count 403 k/uL (150-450); RBC 4.19 m/uL (4.30-5.90); RDW 13.1 % (11.5-15.5)
[2017-06-24 08:25] LABS: Anion Gap 10 mmol/L; Blood Urea Nitrogen 26 mg/dL (9-20); Calcium 9.5 mg/dL (8.4-10.2); Carbon Dioxide 28 mmol/L (22-30); Chloride 100 mmol/L (98-107); Glucose 155 mg/dL (74-99); Sodium 138 mmol/L (137-145)
[2017-06-24 08:27] LABS: WBC 28.9 k/uL (3.8-10.6)
[2017-06-24 08:32] LABS: Potassium 4.4 mmol/L (3.5-5.1)
[2017-06-24] MEDS: SYMBICORT 160-4.5 MCG INHALER INHALATION SCH ×2 (09:56→19:58)
--- NOTE | 2017-06-24 14:53 | P.PN ---
Subjective Progress Note Date: 06/24/17 Principal diagnosis: shortness of breath Patient is an 81-year-old male past medical history of ischemic cardiomyopathy with ejection fraction 40-45%, A. fib status post ICD, and hypertension who was referred to the ER by the [place] clinic after being found to be hypoxic. In the emergency department he underwent an extensive exam. On arrival he was found to be hypertensive with blood pressure of 187/77 and hypoxic with an oxygenation sat of 89% on room air. Laboratory analysis revealed a white blood cell count of 21.5 and a slightly elevated bilirubin at 1.5. His chest x-ray was clear. He was admitted for hypoxia. He was recently here with chest pain in May 2017. He had a negative stress test on 2017 was treated for community-acquired pneumonia. It was felt that he likely had an incomplete treatment of his community-acquired pneumonia which is why his chest x-ray had momentary improvement in his cough. He was started on Vanco , Rocephin, and Zithromax. He was given a dose of Lasix for possible fluid overload. On the afternoon of 06/[address] of the chest showed a left lower lobe pneumonia and masses unable to be excluded. He developed severe wheezing and he was started on albuterol in addition to Symbicort and steroids. He was started on an aggressive bowel regimen due to several days of constipation. Patient seen and examined at bedside. He is feeling much better than yesterday. He states he slept well last night. His breathing is better and his cough is decreasing. He has no nausea or diarrhea. He was able to have bowel movement. He has no other complaints currently. Objective - Vital Signs Vital signs: Vital Signs Temp 97.5 F L 06/24/17 07:00 Pulse 65 06/24/17 07:00 Resp 16 06/24/17 07:00 BP 128/70 06/24/17 07:00 Pulse Ox 90 L 06/24/17 07:00 Intake & Output 06/23/17 06/24/17 06/24/17 18:59 06:59 18:59 Intake Total 650 Balance 650 Intake: Intake, IV Titration 650 Amount Piperacillin-Tazobactam 3 50 .375 gm In Dextrose/Water 1 50ml.bag @ 12.5 mls/hr IVPB Q8H [facility] Rx#: [id number] Piperacillin-Tazobactam 3 100 .375 gm In Dextrose/Water 1 50ml.bag @ 12.5 mls/hr IVPB Q8HR [facility] Rx#: [id number] Vancomycin 1,250 mg In 500 Sodium Chloride 0.9% 250 ml @ 125 mls/hr IVPB Q16H [facility] Rx#:[id number] - Exam General: non toxic, no distress, appears younger than stated age Derm: warm, dry Head: atraumatic, normocephalic, symmetric Eyes: EOMI, no lid lag, anicteric sclera Mouth: no lip lesion, mucus membranes moist Cardiovascular: S1S2 irreg, no murmur, positive posterior tibial pulse bilateral , Lungs: faint wheezing bilaterally, no rhonchi, no rales , no accessory muscle use Abdominal: soft, nontender to palpation, no guarding, no appreciable organomegaly Ext: no gross muscle atrophy, no edema, no contractures Neuro: CN II-XI grossly intact, no focal neuro deficits Psych: Alert, oriented, appropriate affect - Labs CBC & Chem 7: 06/24/17 08:03 06/24/17 08:03 Labs: Abnormal Lab Results - Last 24 Hours (Table) 06/23/17 06/24/17 06/24/17 Range/Units 07:10 08:03 08:03 WBC 28.9 H* (3.8-10.6) k/uL RBC 4.19 L (4.30-5.90) m/uL Hgb 12.3 L (13.0-17.5) gm/dL Hct 38.6 L (39.0-53.0) % BUN 26 H (9-20) mg/dL Glucose 155 H (74-99) mg/dL Procalcitonin 0.11 H (0.02-0.09) ng/mL Microbiology - Last 24 Hours (Table) 06/22/17 22:00 Urine Culture - Final Urine,Clean Catch 06/22/17 18:00 Blood Culture - Preliminary Blood No Growth after 24 hours Assessment and Plan Assessment: Community-acquired pneumonia, Left lower lobe, failed outpatient treatment -Vanco and zosyn -Follow up cultures -Pulmonary hygiene -Bronchodilators -Procalcitonin slightly elevated. - steroids Acute hypoxic respiratory failure -Treatment as above Leukocytosis -Possibly secondary to pneumonia - worsening likely secondry to steroids. A. fib currently rate controlled -Patient is not chronically on anticoagulation with a chads score of 3 status post ICD -Continue with aspirin -Continue following up with cardiology as an outpatient -Continue with sotalol and metoprolol -Continue with telemetry Hypertension, controlled -Follow blood pressures -Continue with metoprolol and lisinopril History of ischemic cardiomyopathy -Acute exacerbation of CHF was ruled out at this time with a negative BNP and no signs of fluid overloaded -Continue with beta all and JB inhibitor Chronic: GERD Hypertension Osteoarthritis DVT prophylaxis:Heparin Discussed with: Patient, nursing, family Anticipated discharge: 48-[address]: home A total of 35 minutes was spent on the care of this complex patient more than 50 % of the time was spent in counseling and care coordination.
[2017-06-24] MEDS: ATORVASTATIN 20 MG TAB PO SCH (21:15)
[2017-06-24] MEDS: methylPREDNISolone SOD SUCCI 40 MG/ML 1 ML VIAL IV SCH (21:15)
[2017-06-24] MEDS: LORazepam 2 MG/ML INJ IV PRN (21:15)
[2017-06-24] MEDS: TAMSULOSIN 0.4 MG CAP.ER.24H PO SCH (21:15)
[2017-06-25] MEDS: VANCOMYCIN 1,250 MG in SODIUM CHLORIDE 0.9% 250 ML IVPB SCH ×2 (01:02→16:31)
[2017-06-25] MEDS: PIPERACILLIN-TAZOBACTAM 3.375 GM in DEXTROSE/WATER 1 50ML.BAG IVPB SCH ×3 (04:10→20:33)
[2017-06-25] MEDS: guaiFENesin-Coden 100-10MG/5ML 10 ML CUP PO SCH ×3 (08:12→22:09)
[2017-06-25] MEDS: methylPREDNISolone SOD SUCCI 40 MG/ML 1 ML VIAL IV SCH ×2 (08:12→20:37)
[2017-06-25] MEDS: SOTALOL 80 MG TAB PO SCH ×2 (08:12→22:08)
[2017-06-25] MEDS: FAMOTIDINE 20 MG TAB PO SCH ×2 (08:12→22:08)
[2017-06-25] MEDS: LISINOPRIL 10 MG TAB PO SCH (08:12)
[2017-06-25] MEDS: ASPIRIN 81 MG PO SCH (08:12)
[2017-06-25] MEDS: HEPARIN SODIUM,PORCINE 5,000 UNIT/ML 1 ML VIAL SQ SCH ×3 (08:13→22:09)
[2017-06-25] MEDS: METOPROLOL SUCCINATE (ER) 25 MG TAB.ER.24H PO SCH ×2 (08:51→22:09)
[2017-06-25 09:13] LABS: Anion Gap 11 mmol/L; Blood Urea Nitrogen 24 mg/dL (9-20); Calcium 9.3 mg/dL (8.4-10.2); Carbon Dioxide 25 mmol/L (22-30); Chloride 104 mmol/L (98-107); Glucose 118 mg/dL (74-99); Potassium 4.7 mmol/L (3.5-5.1); Sodium 140 mmol/L (137-145)
[2017-06-25] MEDS: SYMBICORT 160-4.5 MCG INHALER INHALATION SCH ×2 (09:13→19:50)
[2017-06-25 09:24] LABS: HCT 38.4 % (39.0-53.0); HGB 13.1 gm/dL (13.0-17.5); MCH 31.1 pg (25.0-35.0); MCV 91.5 fL (80.0-100.0); Mean Platelet Volume 8.8; Platelet Count 424 k/uL (150-450); RBC 4.19 m/uL (4.30-5.90); RDW 13.3 % (11.5-15.5)
[2017-06-25 09:42] LABS: WBC 33.7 k/uL (3.8-10.6)
[2017-06-25] MEDS: LEVOFLOXACIN 750MG-D5W PMX 750 MG in DEXTROSE/WATER 1 150ML.BAG IVPB SCH (10:47)
--- NOTE | 2017-06-25 11:42 | XR ---
EXAMINATION TYPE: XR chest 2V DATE OF EXAM: 06/25/2017 COMPARISON: Chest x-ray from 3 days ago and older studies. CTA chest from 2 days ago. HISTORY: Pneumonia progress study TECHNIQUE: Frontal and lateral views of the chest are obtained. FINDINGS: There is chronic emphysematous change with right suprahilar horizontal scarring redemonstr ated. There is persistent posterior left basilar consolidation seen best on lateral view. There is no new focal airspace opacity, pleural effusion, or pneumothorax seen bilaterally. The cardiac silhoue tte size is within normal limits with single lead pacemaker/AICD. The osseous structures are intact . Atherosclerotic change in thoracic aorta is redemonstrated IMPRESSION: Persistent posterior left basilar consolidation and/or atelectasis. No new infiltrate is seen.
[2017-06-25] MEDS ORDERED: VANCOMYCIN TROUGH DUE 1 EACH MISC MISCELLANE ONE (15:00)
--- NOTE | 2017-06-25 15:48 | P.CNPUL ---
<Day Hart M - Last Filed: 06/25/17 15:26> History of Present Illness Consult date: 06/25/17 Requesting physician: Tracie Tuttle Reason for consult: cough, chest pain, hypoxemia, abnormal CXR/CT Chief complaint: Worsening cough, production of yellow sputum, hypoxemia, chest pain History of present illness: Eyal is 81-year-old white male patient who follows with to the [place] [facility] for his care, percentage the emergency department on 06/22/2017 and 1721 with complaints of worsening cough, production of thick yellow sputum, fever, chills. In the emergency department he was noted to have a pulse ox of 82%. In addition patient was feeling very weak. He was recently hospitalized for acute community acquired right lower lobe pneumonia, atypical chest pain. Patient had improvement, and was sent home on course of Ceftin 500 mg twice a day for 5 days in addition to his maintenance inhalers and nebulizers. We will x-ray showed right upper lobe lobe pleural and pulmonary scarring, nonsignificant and then last exam. Chest CT from 06/23/2016 showed left lower lobe pneumonia versus atelectasis. Bronchiectasis noted through the right middle lobe. White count on admission was 19.4, which has steadily been increasing and on today's lab work shows increase up to 33.7. Electrolyte panel is within normal limits, so was the renal profile, on admission BUN was 18 , creatinine 0.90. Urine Legionella antigen was negative. Urinalysis showed 1 + protein, 2+ ketones. Urine and blood cultures show no growth. Patient was started on Levaquin, vancomycin, nebulized treatments, Solu-Medrol, and was admitted for further management. Patient lost his last , and attended her yesterday. Patient is actively grieving, but seems to be coping reasonably well. Review of Systems All systems: negative Constitutional: Denies chills, Denies fever Eyes: denies blurred vision, denies pain Ears, nose, mouth and throat: Denies headache, Denies sore throat Cardiovascular: Denies chest pain, Denies shortness of breath Respiratory: Reports congestion, Reports cough with sputum, Reports dyspnea, Reports pain on inspiration, Denies cough Gastrointestinal: Denies abdominal pain, Denies diarrhea, Denies nausea, Denies vomiting Musculoskeletal: Denies myalgias Integumentary: Denies pruritus, Denies rash Neurological: Denies numbness, Denies weakness Psychiatric: Denies anxiety, Denies depression Endocrine: Denies fatigue, Denies weight change Past Medical History Past Medical History: Atrial Fibrillation, Coronary Artery Disease (CAD), GERD/ Reflux, Hearing Disorder / Deafness, Hyperlipidemia, Hypertension, Osteoarthritis (OA), Pneumonia Additional Past Medical History / Comment(s): ICMP with LVRF of 40-45% 11/2016 Last Myocardial Infarction Date:: 2007 History of Any Multi-Drug Resistant Organisms: C-DIFF Date of last positivie culture/infection: 2014 MDRO Source:: stool Past Surgical History: AICD, Heart Catheterization, Orthopedic Surgery, Pacemaker Additional Past Surgical History / Comment(s): rt foot/ toe, cataracts, sinus sx x 3 Past Anesthesia/Blood Transfusion Reactions: Previous Problems w/ Anesthesia Additional Past Anesthesia/Blood Transfusion Reaction / Comment(s): Heart stopped when he got anesthesia Type of Cardiac Device: Permanent Pacemaker, AICD Device Placement Date:: 06-06-07 [employer] Past Psychological History: No Psychological Hx Reported Smoking Status: Never smoker Past Alcohol Use History: None Reported Additional Past Alcohol Use History / Comment(s): . Past Drug Use History: None Reported - Past Family History Father Additional Family Medical History / Comment(s): killed in mva age 47 Mother Family Medical History: Dementia Medications and Allergies Home Medications Medication Instructions Recorded Confirmed Type Lisinopril [Zestril] 10 mg PO DAILY 11/25/13 06/22/17 History Sotalol [Betapace] 80 mg PO BID 11/25/13 06/22/17 History Tamsulosin [Flomax] 0.4 mg PO HS 08/26/16 06/22/17 History Atorvastatin [Lipitor] 20 mg PO HS 03/28/17 06/22/17 History Aspirin 81 mg PO DAILY 06/11/17 06/22/17 History Budesonide-Formot 160-4.5 Mcg 2 puff INHALATION RT-BID #0 06/12/17 06/22/17 Rx [Symbicort 160-4.5 Mcg Inhaler] Cefuroxime Axetil [Ceftin] 500 mg PO BID #10 tab 06/12/17 06/22/17 Rx guaiFENesin-Coden 100-10MG/5ML 10 ml PO TID #280 ml 06/12/17 06/22/17 Rx [Robitussin AC] Metoprolol Succinate (ER) [Toprol 25 mg PO BID 06/22/17 06/22/17 History Xl] Allergies Allergy/AdvReac Type Severity Reaction Status Date / Time No Known Allergies Allergy Verified 06/22/17 18:13 Physical Exam Vitals: Vital Signs Temp Pulse Resp BP Pulse Ox 06/25/17 08:00 18 06/25/17 07:00 97.1 F L 69 18 142/78 94 L 06/24/17 22:47 96.7 F L 67 16 119/66 90 L 06/24/17 15:55 18 Intake and Output 06/25/17 06/25/17 06/25/17 06:59 14:59 22:59 Other: Voiding Method Toilet Urinal # Voids 2 GENERAL EXAM: Alert, active, comfortable in no apparent distress. HEAD: Normocephalic/atraumatic. EYES: Normal reaction of pupils, equal size. Conjunctiva pink, sclera white. NOSE: Clear with pink turbinates. THROAT: No erythema or exudates. NECK: No masses, no JVD, no thyroid enlargement, no adenopathy. CHEST: No chest wall deformity. Symmetrical expansion. LUNGS: Equal air entry with coarse rales bilaterally CVS: Regular rate and rhythm, normal S1 and S2, no gallops, no murmurs, no rubs ABDOMEN: Soft, nontender. No hepatosplenomegaly, normal bowel sounds, no guarding or rigidity. EXTREMITIES: No clubbing, no edema, no cyanosis, 2+ pulses and upper and lower extremities. MUSCULOSKELETAL: Muscle strength and tone normal. SPINE: No scoliosis or deformity SKIN: No rashes CENTRAL NERVOUS SYSTEM: Alert and oriented -3. No focal deficits, tone is normal in all 4 extremities. PSYCHIATRIC: Alert and oriented -3. Appropriate affect. Intact judgment and insight. Results - Laboratory Findings CBC and BMP: 06/25/17 08:17 06/25/17 08:17 PT/INR, D-dimer PT 10.6 sec (9.0-12.0) 06/22/17 18:00 INR 1.1 (<1.2) 06/22/17 18:00 Abnormal lab findings: Abnormal Labs 06/22/17 06/22/17 06/22/17 18:00 18:00 22:00 WBC 21.5 H RBC Hgb Hct Neutrophils # 17.5 H Chloride 97 L BUN Glucose Total Bilirubin 1.5 H Total Protein 8.4 H Procalcitonin Urine Protein 1+ H Urine Ketones 2+ H Urine Mucus Rare H 06/23/17 06/23/17 06/23/17 07:10 07:10 07:10 WBC 19.4 H RBC Hgb Hct Neutrophils # 16.3 H Chloride BUN Glucose 151 H Total Bilirubin Total Protein Procalcitonin 0.11 H Urine Protein Urine Ketones Urine Mucus 06/24/17 06/24/17 06/25/17 08:03 08:03 08:17 WBC 28.9 H* 33.7 H* RBC 4.19 L 4.19 L Hgb 12.3 L Hct 38.6 L 38.4 L Neutrophils # Chloride BUN 26 H Glucose 155 H Total Bilirubin Total Protein Procalcitonin Urine Protein Urine Ketones Urine Mucus 06/25/17 08:17 WBC RBC Hgb Hct Neutrophils # Chloride BUN 24 H Glucose 118 H Total Bilirubin Total Protein Procalcitonin Urine Protein Urine Ketones Urine Mucus - Diagnostic Findings Chest x-ray: report reviewed CT scan - chest: report reviewed Assessment and Plan Plan: Assessment: #1. Acute hypoxic respiratory failure secondary to acute left lower lobe pneumonia. CTA chest. Patient has extensive bronchiectasis on the right, chronic finding #2. Acute leukocytosis, febrile illness, weakness, chest pain, dyspnea and cough related to the above #3. Recent admission for right lower lobe pneumonia, discharged home on 2017 #4. Chronic obstructive pulmonary disease #5. History of cardiomyopathy, status post AICD placement. #6. GERD/reflux #7. Hypertension, hyperlipidemia #8. History of atrial fibrillation #9. Remote history of nicotine dependence Plan: Continue current plan of care, continue Levaquin, Zosyn, vancomycin. Continue nebulized treatments, Symbicort, Mucinex. He T IV Solu-Medrol. Further recommendations to follow based on the clinical course. I performed a history & physical examination of the patient and discussed their management with my nurse practitioner, Day Hart. I reviewed the nurse practitioner's note and agree with the documented findings and plan of care. Lung sounds are positive for bibasilar crackles. The findings and the impression was discussed with the patient. I attest to the documentation by the nurse practitioner. Time with Patient: Greater than 30 <Laura Markham - Last Filed: 06/25/17 16:21> Physical Exam Vitals: Vital Signs Temp Pulse Resp BP Pulse Ox 06/25/17 15:00 97.6 F 68 18 153/75 93 L 06/25/17 13:00 95 06/25/17 08:00 18 06/25/17 07:00 97.1 F L 69 18 142/78 94 L 06/24/17 22:47 96.7 F L 67 16 119/66 90 L Intake and Output 06/25/17 06/25/17 06/25/17 06:59 14:59 22:59 Other: Voiding Method Toilet Urinal # Voids 2 2 Results - Laboratory Findings CBC and BMP: 06/25/17 08:17 06/25/17 08:17 PT/INR, D-dimer PT 10.6 sec (9.0-12.0) 06/22/17 18:00 INR 1.1 (<1.2) 06/22/17 18:00 Abnormal lab findings: Abnormal Labs 06/22/17 06/22/17 06/22/17 18:00 18:00 22:00 WBC 21.5 H RBC Hgb Hct Neutrophils # 17.5 H Chloride 97 L BUN Glucose Total Bilirubin 1.5 H Total Protein 8.4 H Procalcitonin Urine Protein 1+ H Urine Ketones 2+ H Urine Mucus Rare H 06/23/17 06/23/17 06/23/17 07:10 07:10 07:10 WBC 19.4 H RBC Hgb Hct Neutrophils # 16.3 H Chloride BUN Glucose 151 H Total Bilirubin Total Protein Procalcitonin 0.11 H Urine Protein Urine Ketones Urine Mucus 06/24/17 06/24/17 06/25/17 08:03 08:03 08:17 WBC 28.9 H* 33.7 H* RBC 4.19 L 4.19 L Hgb 12.3 L Hct 38.6 L 38.4 L Neutrophils # Chloride BUN 26 H Glucose 155 H Total Bilirubin Total Protein Procalcitonin Urine Protein Urine Ketones Urine Mucus 06/25/17 08:17 WBC RBC Hgb Hct Neutrophils # Chloride BUN 24 H Glucose 118 H Total Bilirubin Total Protein Procalcitonin Urine Protein Urine Ketones Urine Mucus Assessment and Plan Plan: This is a joint evaluation that was done along with a nurse practitioner. The patient is well-known to me. The patient has COPD and bronchiectasis mainly in the right upper lobe area. I reviewed the follow-up CAT scan of the chest and compared to the one that was done last year. There is a new left lower lobe pulmonary consolidation which is likely a pneumonia patch. We'll obtain sputum Gram stain and culture. We'll continue current antibiotic coverage. Continue bronchodilators. Monitor fever pattern. We'll follow.
--- NOTE | 2017-06-25 16:02 | P.PN ---
Subjective Progress Note Date: 06/25/17 (delayed charting patient seen at 1130am) Principal diagnosis: shortness of breath Patient is an 81-year-old male past medical history of ischemic cardiomyopathy with ejection fraction 40-45%, A. fib status post ICD, and hypertension who was referred to the ER by the [place] [facility] after being found to be hypoxic. In the emergency department he underwent an extensive exam. On arrival he was found to be hypertensive with blood pressure of 187/77 and hypoxic with an oxygenation sat of 89% on room air. Laboratory analysis revealed a white blood cell count of 21.5 and a slightly elevated bilirubin at 1.5. His chest x-ray was clear. He was admitted for hypoxia. He was recently here with chest pain in May 2017. He had a negative stress test on 2017 was treated for community-acquired pneumonia. It was felt that he likely had an incomplete treatment of his community-acquired pneumonia which is why his chest x-ray had momentary improvement in his cough. He was started on Vanco , Rocephin, and Zithromax. He was given a dose of Lasix for possible fluid overload. On the afternoon of 06/[address] of the chest showed a left lower lobe pneumonia and masses unable to be excluded. He developed severe wheezing and he was started on albuterol in addition to Symbicort and steroids. He was started on an aggressive bowel regimen due to several days of constipation. His white blood cell count continued to escalate and was felt to be secondary to IV steroids. Pulmonary was consulted due to increasing white cell count and Levaquin was added. Patient seen and examined at bedside. Feeling much better. States that his cough and shortness of breath has improved. He has been able to take deeper and deeper breaths. No chest pain. No nausea, vomiting, or diarrhea. Objective - Vital Signs Vital signs: Vital Signs Temp 97.1 F L 06/25/17 07:00 Pulse 69 06/25/17 07:00 Resp 18 06/25/17 08:00 BP 142/78 06/25/17 07:00 Pulse Ox 94 L 06/25/17 07:00 Intake & Output 06/24/17 06/25/17 06/25/17 18:59 06:59 18:59 Intake Total 960 Balance 960 Intake: Oral 960 Other: Voiding Method Toilet Urinal # Voids 3 2 - Exam General: non toxic, no distress, appears younger than stated age Derm: warm, dry Head: atraumatic, normocephalic, symmetric Eyes: EOMI, no lid lag, anicteric sclera Mouth: no lip lesion, mucus membranes moist Cardiovascular: S1S2 irreg, no murmur, positive posterior tibial pulse bilateral , Lungs: Crackles right apex, no rhonchi, no rales , no accessory muscle use Abdominal: soft, nontender to palpation, no guarding, no appreciable organomegaly Ext: no gross muscle atrophy, no edema, no contractures Neuro: CN II-XI grossly intact, no focal neuro deficits Psych: Alert, oriented, appropriate affect - Labs CBC & Chem 7: 06/25/17 08:17 06/25/17 08:17 Labs: Abnormal Lab Results - Last 24 Hours (Table) 06/25/17 06/25/17 Range/Units 08:17 08:17 WBC 33.7 H* (3.8-10.6) k/uL RBC 4.19 L (4.30-5.90) m/uL Hct 38.4 L (39.0-53.0) % BUN 24 H (9-20) mg/dL Glucose 118 H (74-99) mg/dL Microbiology - Last 24 Hours (Table) 06/22/17 18:00 Blood Culture - Preliminary Blood No Growth after 48 hours Assessment and Plan Assessment: Community-acquired pneumonia, Left lower lobe, failed outpatient treatment -Vanco and zosyn, added Levaquin -Pulmonary hygiene -Bronchodilators -Procalcitonin slightly elevated. - steroids -Consult pulmonary secondary to increasing white blood cell count Acute hypoxic respiratory failure -Treatment as above Leukocytosis -Possibly secondary to pneumonia suspect worsening secondary to steroids -Repeat chest x-ray unchanged -Repeat blood cultures ordered A. fib currently rate controlled -Patient is not chronically on anticoagulation with a chads score of 3 status post ICD -Continue with aspirin -Continue following up with cardiology as an outpatient -Continue with sotalol and metoprolol -Continue with telemetry Hypertension, controlled -Follow blood pressures -Continue with metoprolol and lisinopril History of ischemic cardiomyopathy -Acute exacerbation of CHF was ruled out at this time with a negative BNP and no signs of fluid overloaded -Continue with beta all and JB inhibitor Chronic: GERD Hypertension Osteoarthritis DVT prophylaxis:Heparin Discussed with: Patient, nursing Anticipated discharge: [address]: home A total of 35 minutes was spent on the care of this complex patient more than 50 % of the time was spent in counseling and care coordination.
[2017-06-25] MEDS: TAMSULOSIN 0.4 MG CAP.ER.24H PO SCH (22:08)
[2017-06-25] MEDS: ATORVASTATIN 20 MG TAB PO SCH (22:08)
[2017-06-25] MEDS: LORazepam 2 MG/ML INJ IV PRN (22:09)
[2017-06-26] MEDS: PIPERACILLIN-TAZOBACTAM 3.375 GM in DEXTROSE/WATER 1 50ML.BAG IVPB SCH ×3 (03:36→20:32)
[2017-06-26] MEDS ORDERED: VANCOMYCIN 1,500 MG in SODIUM CHLORIDE 0.9% 250 ML IVPB SCH (06:00)
[2017-06-26] MEDS: SYMBICORT 160-4.5 MCG INHALER INHALATION SCH ×2 (07:31→19:29)
[2017-06-26 07:36] LABS: Basophils # (A) 0.1 k/uL (0-0.2); Basophils % (A) 0 %; Eosinophils % (A) 0 %; HCT 41.5 % (39.0-53.0); HGB 13.4 gm/dL (13.0-17.5); Lymphocytes # (A) 2.7 k/uL (1.0-4.8); Lymphocytes % (A) 14 %; MCH 29.4 pg (25.0-35.0); MCHC 32.4 g/dL (31.0-37.0); MCV 90.7 fL (80.0-100.0); Mean Platelet Volume 8.1; Monocytes # (A) 0.9 k/uL (0-1.0); Monocytes % (A) 5 %; Neutrophils # (A) 15.2 k/uL (1.3-7.7); Neutrophils % (A) 80 %; Platelet Count 420 k/uL (150-450); RBC 4.57 m/uL (4.30-5.90); RDW 12.9 % (11.5-15.5)
[2017-06-26 07:46] LABS: Anion Gap 10 mmol/L; Blood Urea Nitrogen 19 mg/dL (9-20); Calcium 8.9 mg/dL (8.4-10.2); Carbon Dioxide 29 mmol/L (22-30); Chloride 101 mmol/L (98-107); Glucose 105 mg/dL (74-99); Phosphorus 3.9 mg/dL (2.5-4.5); Potassium 4.7 mmol/L (3.5-5.1); Sodium 140 mmol/L (137-145)
[2017-06-26] MEDS: ASPIRIN 81 MG PO SCH (09:02)
[2017-06-26] MEDS: methylPREDNISolone SOD SUCCI 40 MG/ML 1 ML VIAL IV SCH ×2 (09:02→21:33)
[2017-06-26] MEDS: HEPARIN SODIUM,PORCINE 5,000 UNIT/ML 1 ML VIAL SQ SCH ×3 (09:02→23:48)
[2017-06-26] MEDS: LISINOPRIL 10 MG TAB PO SCH (09:03)
[2017-06-26] MEDS: FAMOTIDINE 20 MG TAB PO SCH ×2 (09:03→20:34)
[2017-06-26] MEDS: METOPROLOL SUCCINATE (ER) 25 MG TAB.ER.24H PO SCH ×2 (09:03→20:33)
[2017-06-26] MEDS: SOTALOL 80 MG TAB PO SCH ×2 (09:04→20:33)
[2017-06-26] MEDS: guaiFENesin-Coden 100-10MG/5ML 10 ML CUP PO SCH (09:12)
[2017-06-26] MEDS ORDERED: BENZONATATE 100 MG CAP PO PRN (10:45)
--- NOTE | 2017-06-26 10:49 | P.PN ---
Subjective Progress Note Date: 06/26/17 Principal diagnosis: shortness of breath Patient is an 81-year-old male past medical history of ischemic cardiomyopathy with ejection fraction 40-45%, A. fib status post ICD, and hypertension who was referred to the ER by the [place] [facility] after being found to be hypoxic. In the emergency department he underwent an extensive exam. On arrival he was found to be hypertensive with blood pressure of 187/77 and hypoxic with an oxygenation sat of 89% on room air. Laboratory analysis revealed a white blood cell count of 21.5 and a slightly elevated bilirubin at 1.5. His chest x-ray was clear. He was admitted for hypoxia. He was recently here with chest pain in May 2017. He had a negative stress test on 2017 was treated for community-acquired pneumonia. It was felt that he likely had an incomplete treatment of his community-acquired pneumonia which is why his chest x-ray had improved and he had momentary improvement in his cough. He was started on Vanco, Rocephin, and Zithromax. He was given a dose of Lasix for possible fluid overload. On the afternoon of 06/[address] of the chest showed a left lower lobe pneumonia and masses unable to be excluded. He developed severe wheezing and he was started on albuterol in addition to Symbicort and steroids. He was started on an aggressive bowel regimen due to several days of constipation. His white blood cell count continued to escalate and was felt to be secondary to IV steroids. Pulmonary was consulted due to increasing white cell count and Levaquin was added. Pulmonary agreed with current management. He continued to be hypoxic requiring 4L NC. Patient seen and examined at bedside. Feeling okay today. Bringing up more with his cough. No chest pain. No nausea. No diarrhea. Objective - Vital Signs Vital signs: Vital Signs Temp 97.0 F L 06/26/17 05:53 Pulse 61 06/26/17 05:53 Resp 17 06/26/17 05:53 BP 135/67 06/26/17 05:53 Pulse Ox 93 L 06/26/17 07:35 Intake & Output 06/25/17 06/26/17 06/26/17 18:59 06:59 18:59 Other: Voiding Method Toilet Toilet Urinal Urinal # Voids 2 2 1 - Exam General: non toxic, no distress, appears younger than stated age Derm: warm, dry Head: atraumatic, normocephalic, symmetric Eyes: EOMI, no lid lag, anicteric sclera Mouth: no lip lesion, mucus membranes moist Cardiovascular: S1S2 irreg, no murmur, positive posterior tibial pulse bilateral , Lungs:rhonchi b/l , no accessory muscle use Abdominal: soft, nontender to palpation, no guarding, no appreciable organomegaly Ext: no gross muscle atrophy, no edema, no contractures Neuro: CN II-XI grossly intact, no focal neuro deficits Psych: Alert, oriented, appropriate affect - Labs CBC & Chem 7: 06/26/17 07:09 06/26/17 07:09 Labs: Abnormal Lab Results - Last 24 Hours (Table) 06/26/17 06/26/17 Range/Units 07:09 07:09 WBC 19.0 H (3.8-10.6) k/uL Neutrophils # 15.2 H (1.3-7.7) k/uL Glucose 105 H (74-99) mg/dL Microbiology - Last 24 Hours (Table) 06/22/17 18:00 Blood Culture - Preliminary Blood No Growth after 72 hours Assessment and Plan Assessment: Community-acquired pneumonia, Left lower lobe, failed outpatient treatment -Vanco and zosyn, Levaquin-- Patient recently was on oral antibiotics would benefit from 1 more day of IV ABX. [facility] working on Home O[facility] and Home care. -Pulmonary hygiene -Bronchodilators -Procalcitonin slightly elevated. - steroids -Pulmoanry recs appreciated - sputum culture- patient had not been able to produce - Unable to exclude Mass on CT of chest, Will need repeat CT in 4 weeks. Acute hypoxic respiratory failure -Treatment as above Leukocytosis - suspect due to steroids, improving. A. fib currently rate controlled -Patient is not chronically on anticoagulation with a chads score of 3 status post ICD -Continue with aspirin -Continue following up with cardiology as an outpatient -Continue with sotalol and metoprolol -Continue with telemetry Hypertension, controlled -Follow blood pressures -Continue with metoprolol and lisinopril History of ischemic cardiomyopathy -Acute exacerbation of CHF was ruled out at this time with a negative BNP and no signs of fluid overloaded -Continue with beta all and JB inhibitor Chronic: GERD Hypertension Osteoarthritis DVT prophylaxis:Heparin Discussed with: Patient, nursing, Dr. Markham Anticipated discharge: 24-[address]: home A total of 35 minutes was spent on the care of this complex patient more than 50 % of the time was spent in counseling and care coordination.
[2017-06-26] MEDS: LEVOFLOXACIN 750MG-D5W PMX 750 MG in DEXTROSE/WATER 1 150ML.BAG IVPB SCH (12:33)
[2017-06-26] MEDS: guaiFENesin 600 MG TABLET.ER PO SCH ×2 (12:33→21:33)
--- NOTE | 2017-06-26 14:18 | P.PN ---
Subjective Progress Note Date: 06/26/17 Principal diagnosis: Acute hypoxic rest she failure secondary to acute left lower lobe pneumonia, COPD exacerbation. Patient also has bronchiectasis in the right upper lobe Eyal is 81-year-old white male patient who follows with to the [facility] for his care, percentage the emergency department on 06/22/2017 and 1721 with complaints of worsening cough, production of thick yellow sputum, fever, chills. In the emergency department he was noted to have a pulse ox of 82%. In addition patient was feeling very weak. He was recently hospitalized for acute community acquired right lower lobe pneumonia, atypical chest pain. Patient had improvement, and was sent home on course of Ceftin 500 mg twice a day for 5 days in addition to his maintenance inhalers and nebulizers. We will x-ray showed right upper lobe lobe pleural and pulmonary scarring, nonsignificant and then last exam. Chest CT from 06/23/2016 showed left lower lobe pneumonia versus atelectasis. Bronchiectasis noted through the right middle lobe. White count on admission was 19.4, which has steadily been increasing and on today's lab work shows increase up to 33.7. Electrolyte panel is within normal limits, so was the renal profile, on admission BUN was 18 , creatinine 0.90. Urine Legionella antigen was negative. Urinalysis showed 1 + protein, 2+ ketones. Urine and blood cultures show no growth. Patient was started on Levaquin, vancomycin, nebulized treatments, Solu-Medrol, and was admitted for further management. Patient lost his last , and attended her yesterday. Patient is actively grieving, but seems to be coping reasonably well. On 06/26/2017 patient seen in follow-up on medical surgical floor. He reports feeling slightly better, less chest discomfort, and dyspnea. Lung sounds are positive for some scattered rhonchi and rales bilaterally. Patient is not able to expectorate any sputum. On today's lab work patient's white count is trending down, down to 19.0 from 33.7 on yesterday's labs. Hemoglobin is 13.4, electrolyte and renal profile are within normal limits. Vital signs remain stable, patient is afebrile. Blood and urine cultures remain negative, patient was unable to produce a sputum specimen for culture. He is on a combination of IV Solu-Medrol, Zosyn, vancomycin, and nebulized treatments. Continue with current plan of care. Objective - Vital Signs Vital signs: Vital Signs Temp 97.0 F L 06/26/17 05:53 Pulse 61 06/26/17 05:53 Resp 17 06/26/17 05:53 BP 135/67 06/26/17 05:53 Pulse Ox 93 L 06/26/17 07:35 Intake & Output 06/25/17 06/26/17 06/26/17 18:59 06:59 18:59 Other: Voiding Method Toilet Toilet Urinal Urinal # Voids 2 2 1 - Exam GENERAL EXAM: Alert, pleasant 81-year-old white male, comfortable in no apparent distress. HEAD: Normocephalic/atraumatic. EYES: Normal reaction of pupils, equal size. Conjunctiva pink, sclera white. NOSE: Clear with pink turbinates. THROAT: No erythema or exudates. NECK: No masses, no JVD, no thyroid enlargement, no adenopathy. CHEST: No chest wall deformity. Symmetrical expansion. LUNGS: Equal air entry with scattered rhonchi and rales bilaterally CVS: Regular rate and rhythm, normal S1 and S2, no gallops, no murmurs, no rubs ABDOMEN: Soft, nontender. No hepatosplenomegaly, normal bowel sounds, no guarding or rigidity. EXTREMITIES: No clubbing, no edema, no cyanosis, 2+ pulses and upper and lower extremities. MUSCULOSKELETAL: Muscle strength and tone normal. SPINE: No scoliosis or deformity SKIN: No rashes CENTRAL NERVOUS SYSTEM: Alert and oriented -3. No focal deficits, tone is normal in all 4 extremities. PSYCHIATRIC: Alert and oriented -3. Appropriate affect. Intact judgment and insight. - Labs CBC & Chem 7: 06/26/17 07:09 06/26/17 07:09 Labs: Abnormal Lab Results - Last 24 Hours (Table) 06/26/17 06/26/17 Range/Units 07:09 07:09 WBC 19.0 H (3.8-10.6) k/uL Neutrophils # 15.2 H (1.3-7.7) k/uL Glucose 105 H (74-99) mg/dL Microbiology - Last 24 Hours (Table) 06/25/17 10:56 Blood Culture - Preliminary Blood No Growth after 24 hours 06/25/17 10:42 Blood Culture - Preliminary Blood No Growth after 24 hours 06/22/17 18:00 Blood Culture - Preliminary Blood No Growth after 72 hours Assessment and Plan Plan: Assessment: #1. Acute hypoxic respiratory failure secondary to acute left lower lobe pneumonia. On the CTA chest patient has extensive bronchiectasis on the right, chronic finding #2. Acute leukocytosis, febrile illness, weakness, chest pain, dyspnea and cough related to the above #3. Recent admission for right lower lobe pneumonia, discharged home on 2017 #4. Chronic obstructive pulmonary disease #5. History of cardiomyopathy, status post AICD placement. #6. GERD/reflux #7. Hypertension, hyperlipidemia #8. History of atrial fibrillation #9. Remote history of nicotine dependence Plan: Patient reports some improvement terms of his dyspnea, and chest wall tenderness. Still unable to bring up any sputum. Remains afebrile, continue vancomycin and Zosyn. Continue IV Solu-Medrol, nebulized treatments. There is some improvement and patient's condition, but overall not ready for discharge home yet. We'll continue to follow. I performed a history & physical examination of the patient and discussed their management with my nurse practitioner, Day Hart. I reviewed the nurse practitioner's note and agree with the documented findings and plan of care. Lung sounds are positive for scattered rhonchi and crackles. The findings and the impression was discussed with the patient. I attest to the documentation by the nurse practitioner. Time with Patient: Less than 30
[2017-06-26] MEDS: TAMSULOSIN 0.4 MG CAP.ER.24H PO SCH (20:33)
[2017-06-26] MEDS: ATORVASTATIN 20 MG TAB PO SCH (20:33)
[2017-06-26] MEDS: LORazepam 2 MG/ML INJ IV PRN (20:37)
[2017-06-26] MEDS: VANCOMYCIN 1,500 MG in SODIUM CHLORIDE 0.9% 250 ML IVPB SCH (23:49)
[2017-06-27] MEDS: PIPERACILLIN-TAZOBACTAM 3.375 GM in DEXTROSE/WATER 1 50ML.BAG IVPB SCH ×3 (04:59→20:42)
[2017-06-27] MEDS: SYMBICORT 160-4.5 MCG INHALER INHALATION SCH ×2 (07:21→20:12)
[2017-06-27] MEDS: methylPREDNISolone SOD SUCCI 40 MG/ML 1 ML VIAL IV SCH ×2 (08:16→20:40)
[2017-06-27] MEDS: HEPARIN SODIUM,PORCINE 5,000 UNIT/ML 1 ML VIAL SQ SCH ×2 (08:16→16:16)
[2017-06-27] MEDS: guaiFENesin 600 MG TABLET.ER PO SCH ×2 (08:18→20:36)
[2017-06-27] MEDS: ASPIRIN 81 MG PO SCH (08:18)
[2017-06-27] MEDS: FAMOTIDINE 20 MG TAB PO SCH ×2 (08:18→20:37)
[2017-06-27] MEDS: LISINOPRIL 10 MG TAB PO SCH (08:19)
[2017-06-27] MEDS: METOPROLOL SUCCINATE (ER) 25 MG TAB.ER.24H PO SCH (08:19)
[2017-06-27] MEDS: SOTALOL 80 MG TAB PO SCH ×2 (08:20→20:36)
--- NOTE | 2017-06-27 08:37 | P.PN ---
Subjective Progress Note Date: 06/27/17 Principal diagnosis: Patient seen and examined in follow-up of acute hypoxemia due to pneumonia and chronic bronchiectasis Patient seen and examined today, denies any chest pain or trouble breathing at this point as long as he is using 4 L oxygen through nasal cannula. Patient reported that he was able to walk around the hallways and tolerated that very well Tolerating by mouth intake Patient continues to be tearful at times when he mentions his . But again he reports that he's continue be okay, he believes that he has. Social support system however he will be living alone Objective - Vital Signs Vital signs: Vital Signs Temp 97.5 F L 06/27/17 05:59 Pulse 84 06/27/17 08:29 Resp 17 06/27/17 05:59 BP 127/74 06/27/17 05:59 Pulse Ox 92 L 06/27/17 05:59 Intake & Output 06/26/17 06/27/17 06/27/17 18:59 06:59 18:59 Other: Voiding Method Toilet Toilet Urinal Urinal # Voids 2 2 - Exam Constitutional: vital signs stable, Not in acute distress, pleasant, conversant Lungs: Good breath sounds bilaterally, there is inspiratory rales over the right lower lung. normal respiratory effort no use of accessory muscles Cardiovascular: Regular rate and rhythm, no murmurs, no gallops, no rubs, no peripheral edema Gastrointestinal: Soft, no tenderness to palpation, no palpable hepatosplenomegally, bowel sounds positive, no abdominal wall hernias Extremities: No digital cyanosis or clubbing, peripheral pulses palpable and equal over bilateral radial arteries and dorsalis pedis artery, no calf muscle tenderness Psych: Alert, oriented to place, person and time, appropriate affect however tearful at times when he mentions his , intact judgment - Labs CBC & Chem 7: 06/27/17 11:07 06/27/17 11:07 Labs: Microbiology - Last 24 Hours (Table) 06/22/17 18:00 Blood Culture - Preliminary Blood No Growth after 96 hours 06/25/17 10:56 Blood Culture - Preliminary Blood No Growth after 24 hours 06/25/17 10:42 Blood Culture - Preliminary Blood No Growth after 24 hours Assessment and Plan Assessment: 81-year-old male with past medical history ischemic cardiomyopathy, obstructive pulmonary disease, hypertension. Patient presented from the [facility] due to worsening shortness of breath, generalized weakness and hypoxemia. Patient has just recently been discharged from the hospital on June 12 where he was treated for right lower lobe pneumonia and was discharged on Ceftin. Now he is returning with worsening cough hypoxia and shortness of breath he was found on CAT scan to have new left lower lobe pneumonia and right middle lobe bronchiectasis and scarring. Patient was started on empiric antibiotics with coverage for possible MRSA due to recent admission to the hospital and treatment with antibiotics for pneumonia. Patient also has lost his the day prior to presentation and currently grieving but seems to be doing well overall (1) Acute respiratory failure with hypoxia Current Visit: Yes Status: Acute Code(s): J96.01 - ACUTE RESPIRATORY FAILURE WITH HYPOXIA SNOMED Code(s): 66022686 (2) CAP (community acquired pneumonia) Current Visit: Yes Status: Acute Code(s): J18.9 - PNEUMONIA, UNSPECIFIED ORGANISM SNOMED Code(s): 126012849 (3) Leukocytosis Current Visit: Yes Status: Acute Code(s): D72.829 - ELEVATED WHITE BLOOD CELL COUNT, UNSPECIFIED SNOMED Code(s): 425186700 (4) Ischemic cardiomyopathy Current Visit: Yes Status: Acute Code(s): I25.5 - ISCHEMIC CARDIOMYOPATHY SNOMED Code(s): 810525843 (5) A-fib Current Visit: Yes Status: Chronic Code(s): I48.91 - UNSPECIFIED ATRIAL FIBRILLATION SNOMED Code(s): 02000385 (6) CAD (coronary artery disease) Current Visit: Yes Status: Chronic Code(s): I25.10 - ATHSCL HEART DISEASE OF [place] CORONARY ARTERY W/O ANG PCTRS SNOMED Code(s): 39721485 (7) Hypertension Current Visit: Yes Status: Chronic Code(s): I10 - ESSENTIAL (PRIMARY) HYPERTENSION SNOMED Code(s): 30946776 (8) GERD (gastroesophageal reflux disease) Current Visit: Yes Status: Chronic Code(s): K21.9 - GASTRO-ESOPHAGEAL REFLUX DISEASE WITHOUT ESOPHAGITIS SNOMED Code(s): 776683292 (9) Hyperlipidemia Current Visit: Yes Status: Chronic Code(s): E78.5 - HYPERLIPIDEMIA, UNSPECIFIED SNOMED Code(s): 98542255 (10) DVT prophylaxis Current Visit: Yes Status: Acute Code(s): ZFU4540 - SNOMED Code(s): 504483313 (11) Osteoarthritis Current Visit: Yes Status: Chronic Code(s): M19.90 - UNSPECIFIED OSTEOARTHRITIS, UNSPECIFIED SITE SNOMED Code(s): 039661123 Plan: #Acute hypoxic respiratory failure secondary to acute pneumonia and chronic bronchiectasis #Obstructive pulmonary disease with bronchiectasis Continue with pulmonary toileting, close follow-up outpatient with pulmonary Consider repeating CAT scan of the chest in 4 weeks after discharge, to rule out any lung masses Continue with inhalers and by mouth steroids Patient will require home oxygen at 3-4 L/m through nasal cannula this has been arranged through the [facility] will be delivered possibly today in the evening to his home #Acute left lower lobe pneumonia Patient been treated with Vanco and Levaquin Possible discharge in the morning on Levaquin. Await further pulmonary recommendations Pulmonary following Patient was unable to provide any sputum for cultures until today #History of congestive heart failure, with left ventricular ejection fraction 40 -45 % status post AICD compensated now Continue with home medications #Atrial fibrillation status post ICD, not on anticoagulation, continue with aspirin Currently rate controlled Follow-up outpatient with cardiology, continue with metoprolol and sotalol #Hypertension urgency resolved currently controlled #Hyperlipidemia Continue statin DVT prophylaxis on heparin subcu 3 times a day Anticipated discharge in 24 hours to home, home oxygen equipment should be delivered this evening to his home for assistance. Await further recommendations from pulmonary service regarding clearance for discharge
[2017-06-27] MEDS ORDERED: LEVOFLOXACIN 750MG-D5W PMX 750 MG in DEXTROSE/WATER 1 150ML.BAG IVPB SCH (11:00)
[2017-06-27 11:23] LABS: HCT 38.6 % (39.0-53.0); HGB 12.9 gm/dL (13.0-17.5); MCH 29.9 pg (25.0-35.0); MCHC 33.4 g/dL (31.0-37.0); MCV 89.6 fL (80.0-100.0); Mean Platelet Volume 8.1; Platelet Count 357 k/uL (150-450); RDW 12.8 % (11.5-15.5); WBC 15.6 k/uL (3.8-10.6)
[2017-06-27 11:44] LABS: Anion Gap 7 mmol/L; Blood Urea Nitrogen 20 mg/dL (9-20); Calcium 8.2 mg/dL (8.4-10.2); Carbon Dioxide 29 mmol/L (22-30); Chloride 101 mmol/L (98-107); Glucose 138 mg/dL (74-99); Potassium 4.3 mmol/L (3.5-5.1); Sodium 137 mmol/L (137-145)
[2017-06-27 15:22] VITALS: RESP 16
--- NOTE | 2017-06-27 17:07 | P.PN ---
Subjective Progress Note Date: 06/27/17 Principal diagnosis: Acute hypoxic rest she failure secondary to acute left lower lobe pneumonia, COPD exacerbation. Patient also has bronchiectasis in the right upper lobe Eyal is 81-year-old white male patient who follows with to the [place] [facility] for his care, percentage the emergency department on 06/22/2017 and 1721 with complaints of worsening cough, production of thick yellow sputum, fever, chills. In the emergency department he was noted to have a pulse ox of 82%. In addition patient was feeling very weak. He was recently hospitalized for acute community acquired right lower lobe pneumonia, atypical chest pain. Patient had improvement, and was sent home on course of Ceftin 500 mg twice a day for 5 days in addition to his maintenance inhalers and nebulizers. We will x-ray showed right upper lobe lobe pleural and pulmonary scarring, nonsignificant and then last exam. Chest CT from 06/23/2016 showed left lower lobe pneumonia versus atelectasis. Bronchiectasis noted through the right middle lobe. White count on admission was 19.4, which has steadily been increasing and on today's lab work shows increase up to 33.7. Electrolyte panel is within normal limits, so was the renal profile, on admission BUN was 18 , creatinine 0.90. Urine Legionella antigen was negative. Urinalysis showed 1 + protein, 2+ ketones. Urine and blood cultures show no growth. Patient was started on Levaquin, vancomycin, nebulized treatments, Solu-Medrol, and was admitted for further management. Patient lost his last , and attended her yesterday. Patient is actively grieving, but seems to be coping reasonably well. On 06/26/2017 patient seen in follow-up on medical surgical floor. He reports feeling slightly better, less chest discomfort, and dyspnea. Lung sounds are positive for some scattered rhonchi and rales bilaterally. Patient is not able to expectorate any sputum. On today's lab work patient's white count is trending down, down to 19.0 from 33.7 on yesterday's labs. Hemoglobin is 13.4, electrolyte and renal profile are within normal limits. Vital signs remain stable, patient is afebrile. Blood and urine cultures remain negative, patient was unable to produce a sputum specimen for culture. He is on a combination of IV Solu-Medrol, Zosyn, vancomycin, and nebulized treatments. Continue with current plan of care. On 06/27/2017, patient seen in follow-up. Continues to improve, 4 L per nasal cannula his pulse ox is 93%. Afebrile, vital signs are stable. Lung sounds are positive for scattered rhonchi, but patient sounds less congested today. Reports improvement in the chest discomfort, and dyspnea. white count is improving, down to 15.6 today, hemoglobin is 12.9, renal profile and electrolytes are all within normal limits. microbiology has been reviewed, urine and blood cultures remain negative. Patient was able to produce sputum specimen for culture. continue current planning care, Symbicort, DuoNeb nebulized treatments, Levaquin and IV Solu-Medrol. Objective - Vital Signs Vital signs: Vital Signs Temp 97.8 F 06/27/17 15:00 Pulse 63 06/27/17 15:00 Resp 16 06/27/17 15:00 BP 159/74 06/27/17 15:00 Pulse Ox 93 L 06/27/17 15:00 Intake & Output 06/26/17 06/27/17 06/27/17 18:59 06:59 18:59 Other: Voiding Method Toilet Toilet Toilet Urinal Urinal Urinal # Voids 2 2 2 - Exam GENERAL EXAM: Alert, pleasant 81-year-old white male, comfortable in no apparent distress. HEAD: Normocephalic/atraumatic. EYES: Normal reaction of pupils, equal size. Conjunctiva pink, sclera white. NOSE: Clear with pink turbinates. THROAT: No erythema or exudates. NECK: No masses, no JVD, no thyroid enlargement, no adenopathy. CHEST: No chest wall deformity. Symmetrical expansion. LUNGS: Equal air entry with scattered rhonchi and rales bilaterally, lungs sounds overall some less congested compared to yesterday's exam. CVS: Regular rate and rhythm, normal S1 and S2, no gallops, no murmurs, no rubs ABDOMEN: Soft, nontender. No hepatosplenomegaly, normal bowel sounds, no guarding or rigidity. EXTREMITIES: No clubbing, no edema, no cyanosis, 2+ pulses and upper and lower extremities. MUSCULOSKELETAL: Muscle strength and tone normal. SPINE: No scoliosis or deformity SKIN: No rashes CENTRAL NERVOUS SYSTEM: Alert and oriented -3. No focal deficits, tone is normal in all 4 extremities. PSYCHIATRIC: Alert and oriented -3. Appropriate affect. Intact judgment and insight. - Labs CBC & Chem 7: 06/27/17 11:07 06/27/17 11:07 Labs: Abnormal Lab Results - Last 24 Hours (Table) 06/27/17 06/27/17 Range/Units 11:07 11:07 WBC 15.6 H (3.8-10.6) k/uL Hgb 12.9 L (13.0-17.5) gm/dL Hct 38.6 L (39.0-53.0) % Glucose 138 H (74-99) mg/dL Calcium 8.2 L (8.4-10.2) mg/dL Microbiology - Last 24 Hours (Table) 06/25/17 10:56 Blood Culture - Preliminary Blood No Growth after 48 hours 06/25/17 10:42 Blood Culture - Preliminary Blood No Growth after 48 hours 06/22/17 18:00 Blood Culture - Preliminary Blood No Growth after 96 hours Assessment and Plan Plan: Assessment: #1. Acute hypoxic respiratory failure secondary to acute left lower lobe pneumonia. On the CTA chest patient has extensive bronchiectasis on the right, chronic finding #2. Acute leukocytosis, febrile illness, weakness, chest pain, dyspnea and cough related to the above #3. Recent admission for right lower lobe pneumonia, discharged home on 2017 #4. Chronic obstructive pulmonary disease #5. History of cardiomyopathy, status post AICD placement. #6. GERD/reflux #7. Hypertension, hyperlipidemia #8. History of atrial fibrillation #9. Remote history of nicotine dependence Plan: Patient continues to improve, her white count is trending down, is stable, afebrile. Microbiology remains negative. Continue with current plan of care, continue current antibiotic coverage, IV steroids, nebulized treatments. repeat chest x-ray in the morning. I performed a history & physical examination of the patient and discussed their management with my nurse practitioner, Day Hart. I reviewed the nurse practitioner's note and agree with the documented findings and plan of care. Lung sounds are positive for scattered rhonchi. The findings and the impression was discussed with the patient. I attest to the documentation by the nurse practitioner. Time with Patient: Less than 30
[2017-06-27] MEDS: VANCOMYCIN 1,500 MG in SODIUM CHLORIDE 0.9% 250 ML IVPB SCH (18:21)
[2017-06-27] MEDS: ATORVASTATIN 20 MG TAB PO SCH (20:36)
[2017-06-27] MEDS: TAMSULOSIN 0.4 MG CAP.ER.24H PO SCH (20:37)
[2017-06-27] MEDS: LORazepam 2 MG/ML INJ IV PRN (20:43)
[2017-06-28] MEDS: METOPROLOL SUCCINATE (ER) 25 MG TAB.ER.24H PO SCH ×2 (00:23→09:24)
[2017-06-28] MEDS: HEPARIN SODIUM,PORCINE 5,000 UNIT/ML 1 ML VIAL SQ SCH ×2 (00:30→09:25)
[2017-06-28] MEDS: PIPERACILLIN-TAZOBACTAM 3.375 GM in DEXTROSE/WATER 1 50ML.BAG IVPB SCH ×2 (04:25→12:54)
[2017-06-28 07:14] VITALS: BP 138/66; PULSE 59; TEMP 95.9
--- NOTE | 2017-06-28 07:49 | XR ---
EXAMINATION TYPE: XR chest 2V DATE OF EXAM: 06/28/2017 COMPARISON: Prior chest x-ray 06/25/2017 HISTORY: Follow-up pneumonia TECHNIQUE: Frontal and lateral views of the chest are obtained. FINDINGS: Intracardiac defibrillator lead, generator in the left pectoral region are stable. Bandlik e area of increased attenuation in the right upper lobe is again seen which may represent atelectasis or scar. There is some improved aeration in the posterior lung base. No evident pneumothorax or siza ble effusion. Cardiomediastinal silhouette, pulmonary vascularity and tatiana are stable. IMPRESSION: Some improvement in aeration at the left lung base. Bronchiectasis and scarring. Emphyse ma.
[2017-06-28] MEDS ORDERED: VANCOMYCIN TROUGH DUE 1 EACH MISC MISCELLANE ONE (08:00)
[2017-06-28] MEDS: SYMBICORT 160-4.5 MCG INHALER INHALATION SCH (08:25)
[2017-06-28] MEDS: VANCOMYCIN 1,500 MG in SODIUM CHLORIDE 0.9% 250 ML IVPB SCH (08:29)
[2017-06-28] MEDS: methylPREDNISolone SOD SUCCI 40 MG/ML 1 ML VIAL IV SCH (09:24)
[2017-06-28] MEDS: SOTALOL 80 MG TAB PO SCH (09:24)
[2017-06-28] MEDS: LISINOPRIL 10 MG TAB PO SCH (09:24)
[2017-06-28] MEDS: FAMOTIDINE 20 MG TAB PO SCH (09:24)
[2017-06-28] MEDS: guaiFENesin 600 MG TABLET.ER PO SCH (09:24)
[2017-06-28] MEDS: ASPIRIN 81 MG PO SCH (09:25)
[2017-06-28] MEDS ORDERED: LEVOFLOXACIN 750 MG TAB PO SCH (11:00)
[2017-06-28 11:41] VITALS: BMI 21.1
--- NOTE | 2017-06-28 13:31 | P.DS ---
Providers Date of admission: 06/22/17 20:38 Attending physician: Rolly Lawler MD Consults: 06/25/17 10:04 Consult Physician Routine Consulting Provider: Laura Markham Consult Reason/Comments: pneumonia Do you want consulting provider notified?: Yes Primary care physician: [facility] - Discharge Diagnosis(es) (1) Acute respiratory failure with hypoxia Status: Acute (2) CAP (community acquired pneumonia) Status: Acute (3) Leukocytosis Status: Acute (4) Ischemic cardiomyopathy Status: Acute (5) A-fib Status: Chronic (6) CAD (coronary artery disease) Status: Chronic (7) Hypertension Status: Chronic (8) GERD (gastroesophageal reflux disease) Status: Chronic (9) Hyperlipidemia Status: Chronic (10) DVT prophylaxis Status: Acute (11) Osteoarthritis Status: Chronic (12) Bronchiectasis Status: Acute Hospital Course: 81-year-old male with past medical history ischemic cardiomyopathy, obstructive pulmonary disease, hypertension. Patient presented from the [facility] due to worsening shortness of breath, generalized weakness and hypoxemia. Patient has just recently been discharged from the hospital on June 12 where he was treated for right lower lobe pneumonia and was discharged on Ceftin. Now he is returning with worsening cough hypoxia and shortness of breath he was found on CAT scan to have new left lower lobe pneumonia and right middle lobe bronchiectasis and scarring. Patient was started on empiric antibiotics with coverage for possible MRSA due to recent admission to the hospital and treatment with antibiotics for pneumonia. Patient also has lost his the day prior to presentation and currently grieving but seems to be cooping well overall. Pulmonary service also assisted in patient management, patient was kept on ABx with vanco , zosyn and levequin, he was also receiving parentral steroids. Patient was assess for home oxygen need, and was found to require at least 4 L of oxygen through nasal canula. Patient continued to be able to bring large amount of sputum every morning, which helped him clear his lungs and feel better, he continues to be afebrile, denies any chest pain or trouble breathing at this time as long as he is using the supplemental oxygen. blood cultures and sputum culture both negative, leukocytosis continued to be trending down. patient overall seems much improved and clinically stable for discharge. patient was seen and examined today , feeling ready to go home, denies any chest pain or fever, continues to have productive cough in the morning bringing up large amount of sputum, tolerating diet well. He is coping well with the loss of his . Constitutional: vital signs stable, Not in acute distress, pleasant, conversant Lungs: Good breath sounds bilaterally, inspiratory rales over the right lower lung base. normal respiratory effort no use of accessory muscles Cardiovascular: Regular rate and rhythm, no murmurs, no gallops, no rubs, no peripheral edema Gastrointestinal: Soft, no tenderness to palpation, bowel sounds positive, no abdominal wall hernias Extremities: No digital cyanosis peripheral pulses palpable and equal over bilateral radial arteries and dorsalis pedis artery, no calf muscle tenderness Psych: Alert, oriented to place, person and time, appropriate affect however tearful when he mentions his , intact judgment Oxygen delivery to home was arranged through the [place] Patient follow-up with his PCP in the [facility] Patient follow-up with pulmonary service Continue course of Levaquin upon discharge Tapering dose of steroids Patient is stable from clinical standpoint for discharge script given to perform chest CT in 4 weeks 40 minutes were spent discharging this patient, and more than 50% of the time was spent in counseling the patient and family and in coordinating care. Patient Condition at Discharge: Fair Plan - Discharge Summary Discharge Rx Participant: Yes New Discharge Prescriptions: New Famotidine [Pepcid] 20 mg PO BID #30 tab guaiFENesin [Mucinex] 600 mg PO Q12HR #14 tablet.er Levofloxacin [Levaquin] 750 mg PO DAILY@1100 5 Days #5 tab predniSONE See Taper PO DIRECTED #21 tab Continue Sotalol [Betapace] 80 mg PO BID Lisinopril [Zestril] 10 mg PO DAILY Tamsulosin [Flomax] 0.4 mg PO HS Atorvastatin [Lipitor] 20 mg PO HS Aspirin 81 mg PO DAILY Budesonide-Formot 160-4.5 Mcg [Symbicort 160-4.5 Mcg Inhaler] 2 puff INHALATION RT-BID #0 Metoprolol Succinate (ER) [Toprol XL] 25 mg PO BID Discontinued Cefuroxime Axetil [Ceftin] 500 mg PO BID #10 tab guaiFENesin-Coden 100-10MG/5ML [Robitussin AC] 10 ml PO TID #280 ml Discharge Medication List Lisinopril [Zestril] 10 mg PO DAILY 11/25/13 [History] Sotalol [Betapace] 80 mg PO BID 11/25/13 [History] Tamsulosin [Flomax] 0.4 mg PO HS 08/26/16 [History] Atorvastatin [Lipitor] 20 mg PO HS 03/28/17 [History] Aspirin 81 mg PO DAILY 06/11/17 [History] Budesonide-Formot 160-4.5 Mcg [Symbicort 160-4.5 Mcg Inhaler] 2 puff INHALATION RT-BID #0 06/12/17 [Rx] Metoprolol Succinate (ER) [Toprol XL] 25 mg PO BID 06/22/17 [History] Famotidine [Pepcid] 20 mg PO BID #30 tab 06/28/17 [Rx] Levofloxacin [Levaquin] 750 mg PO DAILY@1100 5 Days #5 tab 06/28/17 [Rx] guaiFENesin [Mucinex] 600 mg PO Q12HR #14 tablet.er 06/28/17 [Rx] predniSONE See Taper PO DIRECTED #21 tab 06/28/17 [Rx] Follow up Appointment(s)/Referral(s): Laura Markham MD [STAFF PHYSICIAN] - 07/11/17 2:15 pm [facility] [Primary Care Provider] - 1-2 days Ambulatory/Diagnostic Orders: Miscellaneous Radiology Order [RAD.AMB] Time Frame: 4 Weeks, Location: Determined By Patient Patient Instructions/Handouts: Using Oxygen at Home (DC), Community Acquired Pneumonia (DC) Activity/Diet/Wound Care/Special Instructions: [facility] to supply Oxygen , please call prior to discharge. Cardiac diet. Activity as tolerated. Discharge Disposition: HOME WITH HOME HEALTH SERVICES
--- NOTE | 2017-06-28 15:01 | P.PN ---
Subjective Progress Note Date: 06/28/17 Principal diagnosis: Acute hypoxic rest she failure secondary to acute left lower lobe pneumonia, COPD exacerbation. Patient also has bronchiectasis in the right upper lobe Eyal is 81-year-old white male patient who follows with to the [place] [facility] for his care, percentage the emergency department on 06/22/2017 and 1721 with complaints of worsening cough, production of thick yellow sputum, fever, chills. In the emergency department he was noted to have a pulse ox of 82%. In addition patient was feeling very weak. He was recently hospitalized for acute community acquired right lower lobe pneumonia, atypical chest pain. Patient had improvement, and was sent home on course of Ceftin 500 mg twice a day for 5 days in addition to his maintenance inhalers and nebulizers. We will x-ray showed right upper lobe lobe pleural and pulmonary scarring, nonsignificant and then last exam. Chest CT from 06/23/2016 showed left lower lobe pneumonia versus atelectasis. Bronchiectasis noted through the right middle lobe. White count on admission was 19.4, which has steadily been increasing and on today's lab work shows increase up to 33.7. Electrolyte panel is within normal limits, so was the renal profile, on admission BUN was 18 , creatinine 0.90. Urine Legionella antigen was negative. Urinalysis showed 1 + protein, 2+ ketones. Urine and blood cultures show no growth. Patient was started on Levaquin, vancomycin, nebulized treatments, Solu-Medrol, and was admitted for further management. Patient lost his last , and attended her yesterday. Patient is actively grieving, but seems to be coping reasonably well. On 06/26/2017 patient seen in follow-up on medical surgical floor. He reports feeling slightly better, less chest discomfort, and dyspnea. Lung sounds are positive for some scattered rhonchi and rales bilaterally. Patient is not able to expectorate any sputum. On today's lab work patient's white count is trending down, down to 19.0 from 33.7 on yesterday's labs. Hemoglobin is 13.4, electrolyte and renal profile are within normal limits. Vital signs remain stable, patient is afebrile. Blood and urine cultures remain negative, patient was unable to produce a sputum specimen for culture. He is on a combination of IV Solu-Medrol, Zosyn, vancomycin, and nebulized treatments. Continue with current plan of care. On 06/27/2017, patient seen in follow-up. Continues to improve, 4 L per nasal cannula his pulse ox is 93%. Afebrile, vital signs are stable. Lung sounds are positive for scattered rhonchi, but patient sounds less congested today. Reports improvement in the chest discomfort, and dyspnea. white count is improving, down to 15.6 today, hemoglobin is 12.9, renal profile and electrolytes are all within normal limits. microbiology has been reviewed, urine and blood cultures remain negative. Patient was able to produce sputum specimen for culture. continue current planning care, Symbicort, DuoNeb nebulized treatments, Levaquin and IV Solu-Medrol. On 06/28/2017 patient reports significant improvement in his chest discomfort, dyspnea, and congestion. Was able to bring up copious amounts of phlegm last night, denies any dyspnea, denies any chills. Currently down to 4 L per nasal cannula with O2 sat at 91%. Remains afebrile, vital signs are stable. Blood, urine cultures remain negative, sputum culture was positive for Carmelita. Denies any night sweats. Tolerating oral intake, today's labs show continued downward trend of leukocytosis, WBCs down to 15.6, electrolytes are all within normal limits, renal profile is normal. No acute events overnight, patient stable for discharge home today Objective - Vital Signs Vital signs: Vital Signs Temp 95.9 F L 06/28/17 07:00 Pulse 59 L 06/28/17 07:00 Resp 16 06/28/17 07:00 BP 138/66 06/28/17 07:00 Pulse Ox 91 L 06/28/17 07:00 Intake & Output 06/27/17 06/28/17 06/28/17 18:59 06:59 18:59 Weight 66.678 kg Other: Voiding Method Toilet Toilet Urinal Urinal # Voids 2 2 - Exam GENERAL EXAM: Alert, pleasant 81-year-old white male, comfortable in no apparent distress. HEAD: Normocephalic/atraumatic. EYES: Normal reaction of pupils, equal size. Conjunctiva pink, sclera white. NOSE: Clear with pink turbinates. THROAT: No erythema or exudates. NECK: No masses, no JVD, no thyroid enlargement, no adenopathy. CHEST: No chest wall deformity. Symmetrical expansion. LUNGS: Equal air entry with a few scattered rhonchi, but this improvement from yesterday's exam. CVS: Regular rate and rhythm, normal S1 and S2, no gallops, no murmurs, no rubs ABDOMEN: Soft, nontender. No hepatosplenomegaly, normal bowel sounds, no guarding or rigidity. EXTREMITIES: No clubbing, no edema, no cyanosis, 2+ pulses and upper and lower extremities. MUSCULOSKELETAL: Muscle strength and tone normal. SPINE: No scoliosis or deformity SKIN: No rashes CENTRAL NERVOUS SYSTEM: Alert and oriented -3. No focal deficits, tone is normal in all 4 extremities. PSYCHIATRIC: Alert and oriented -3. Appropriate affect. Intact judgment and insight. - Labs CBC & Chem 7: 06/27/17 11:07 06/27/17 11:07 Labs: Microbiology - Last 24 Hours (Table) 06/27/17 07:30 Gram Stain - Preliminary Sputum Sputum Culture - Preliminary Carmelita albicans 06/25/17 10:56 Blood Culture - Preliminary Blood No Growth after 72 hours 06/25/17 10:42 Blood Culture - Preliminary Blood No Growth after 72 hours 06/22/17 18:00 Blood Culture - Preliminary Blood No Growth after 120 hours Assessment and Plan Plan: Assessment: #1. Acute hypoxic respiratory failure secondary to acute left lower lobe pneumonia. On the CTA chest patient has extensive bronchiectasis on the right, chronic finding #2. Acute leukocytosis, febrile illness, weakness, chest pain, dyspnea and cough related to the above #3. Recent admission for right lower lobe pneumonia, discharged home on 2017 #4. Chronic obstructive pulmonary disease #5. History of cardiomyopathy, status post AICD placement. #6. GERD/reflux #7. Hypertension, hyperlipidemia #8. History of atrial fibrillation #9. Remote history of nicotine dependence Plan: Microbiology remains negative, vital signs are stable, patient denies any fever , chills, less chest discomfort. White count is trending down. Patient reports significant improvement in terms of dyspnea, and activity tolerance. From pulmonary standpoint he is stable for discharge home today, follow up with Dr. Markham in any office in 7 days I performed a history & physical examination of the patient and discussed their management with my nurse practitioner, Day Hart. I reviewed the nurse practitioner's note and agree with the documented findings and plan of care. Lung sounds are positive for scattered rhonchi. The findings and the impression was discussed with the patient. I attest to the documentation by the nurse practitioner. Time with Patient: Less than 30
[2017-06-28] MEDS ORDERED: VANCOMYCIN 1,250 MG in SODIUM CHLORIDE 0.9% 250 ML IVPB SCH (18:00)
== END 2017-06-28 14:04 | disposition home health service (06) | DRG 193 ==
LOC: EC 17:21 → 4MS4W 20:38
PROVIDERS: ADMIT Internal Medicine; ATTEND Internal Medicine
DX: J18.9 Pneumonia, unspecified organism (principal); J96.01 Acute respiratory failure with hypoxia; I26.99 Other pulmonary embolism without acute cor pulmonale; J47.0 Bronchiectasis with acute lower respiratory infection; I25.5 Ischemic cardiomyopathy; I25.10 Atherosclerotic heart disease of native coronary artery without angina pectoris; I10 Essential (primary) hypertension; I48.0 Paroxysmal atrial fibrillation; E78.5 Hyperlipidemia, unspecified; K21.9 Gastro-esophageal reflux disease without esophagitis; H91.90 Unspecified hearing loss, unspecified ear; K59.00 Constipation, unspecified; Z77.090 Contact with and (suspected) exposure to asbestos; M19.90 Unspecified osteoarthritis, unspecified site; Z95.810 Presence of automatic (implantable) cardiac defibrillator; Z79.82 Long term (current) use of aspirin; Z79.899 Other long term (current) drug therapy; Z79.51 Long term (current) use of inhaled steroids; Z98.41 Cataract extraction status, right eye; Z98.42 Cataract extraction status, left eye; Z87.01 Personal history of pneumonia (recurrent); Z86.19 Personal history of other infectious and parasitic diseases; Z87.891 Personal history of nicotine dependence; I25.2 Old myocardial infarction; Z99.81 Dependence on supplemental oxygen; T38.0X5A Adverse effect of glucocorticoids and synthetic analogues, initial encounter
CPT/HCPCS: 36415; 71046; 71275; 80048; 80053; 80202; 81001; 83605; 83735; 83880; 84100; 84145; 85025; 85027; 85610; 85730; 87040; 87070; 87086; 87205; 87449; 87502; 94640; 94760; 96365; 96366; 96375; 99285

== ENCOUNTER 2017-07-18 09:21 | Day surgery (SDC) | payer MEDICARE, OTHER ==
[2017-07-16 15:49] VITALS: BMI 20.7
[~2017-07-18 09:21] MED LIST: ALBUTEROL NEB (CONC) 2.5 MG/0.5 ML INHALATION ONE; LACTATED RINGERS 1,000 ML IV ONE; LACTATED RINGERS 1,000 ML IV SCH; LIDOCAINE 2% (PF) 20 MG/ML 2 ML AMP INHALATION ONE
[2017-07-18 10:16] VITALS: RESP 16; TEMP 97.8
[2017-07-18] MEDS ORDERED: LIDOCAINE 1% 20 ML VIAL (10MG/ML) FOR IV START INTRADERMA ONE (10:17)
[2017-07-18] MEDS ORDERED: PROPOFOL 10 MG/ML 20 ML VIAL IV ONE (11:07)
[2017-07-18] MEDS ORDERED: LIDOCAINE 1% INJ 10MG/ML (20 ML MDV) ONE (11:07)
[2017-07-18] MEDS ORDERED: LIDOCAINE 2% INJ 20 MG/ML INTRATRACH ONE (11:30)
--- NOTE | 2017-07-18 11:48 | P.PCN ---
Date of Procedure: 07/18/17 Preoperative Diagnosis: Bronchiectasis, recurrent pneumonias Postoperative Diagnosis: Bronchiectasis, recurrent pneumonias Procedure(s) Performed: Flexible bronchoscopy, bronchial alveolar lavage Anesthesia: MAC Surgeon: Laura Markham Estimated Blood Loss (ml): 0 Pathology: other Condition: stable Disposition: same day Operative Findings: This procedure was done under conscious sedation. Anesthetic agents was administered by anesthesia the bedside. After achieving adequate sedation, the flexible bronchoscope was inserted through the right nostril to advanced upper airway. Examination of the posterior oropharynx, larynx, epiglottis and vocal cords was done and all of these upper airway structures were within normal limits. The vocal cord function was within normal. He was no nodules or lesions identified. A total of 2 mL of 1% lidocaine was applied to the vocal cords and following that the flexible bronchoscope was advanced with Doppler trachea. Examination of the tracheal bronchial tree was done. 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 Therapeutic it was suctioning was done. The visualized airways into the trachea, bilateral mainstem bronchi, right upper lobe bronchus, right middle lobe bronchus, right lower lobe bronchus, left upper lobe bronchus and left lower lobe bronchus along with various segments and subsegments. All of these airways were patent and within normal limits. Bronchoscope was wedged into the severe segment of the lingula and the bronchioloalveolar lavage was done with total of 80 mL of fluid was infused at 20 mL was suctioned back. The patient tolerated the procedure well without any complications. The bronchoscope was removed and the patient was transferred recovery in stable condition. He'll be discharged once cleared by anesthesia.
[2017-07-18 12:05] VITALS: BP 116/70; PULSE 60
[2017-07-18 17:45] LABS: Appearance,BF Cloudy; Color,BF Red
[2017-07-18 17:46] LABS: Nucleated Cells, Body Fluid 50 /uL; RBC, Body Fluid 1620 /uL
[2017-07-18 17:52] LABS: Mononuclear WBC,Body Fluid 30 %; Polynuclear WBC,Body Fluid 68 %; Total Cells Counted,Body Fluid 100
== END 2017-07-18 12:29 | disposition home or self-care (01) ==
LOC: ORWHC2ENDO 09:21
PROVIDERS: ATTEND Internal Medicine Critical Care Medicine
DX: J44.0 Chronic obstructive pulmonary disease with (acute) lower respiratory infection (principal); J18.9 Pneumonia, unspecified organism; Z87.01 Personal history of pneumonia (recurrent); J98.09 Other diseases of bronchus, not elsewhere classified; I25.10 Atherosclerotic heart disease of native coronary artery without angina pectoris; I42.9 Cardiomyopathy, unspecified; I11.0 Hypertensive heart disease with heart failure; I50.9 Heart failure, unspecified; I48.91 Unspecified atrial fibrillation; E78.5 Hyperlipidemia, unspecified; N40.0 Benign prostatic hyperplasia without lower urinary tract symptoms; K21.9 Gastro-esophageal reflux disease without esophagitis; Z95.810 Presence of automatic (implantable) cardiac defibrillator; Z87.891 Personal history of nicotine dependence; Z79.82 Long term (current) use of aspirin; Z79.51 Long term (current) use of inhaled steroids; Z79.899 Other long term (current) drug therapy
CPT/HCPCS: 94640; 88108; 88305; 89050; 87252; 87070; 87205; 87116; 87102; 87077; 87186; 87206; 31645; 31624; J2001 ×3; J2704; 87496; 87498; 87502; 87529; 87634; 87798

== ENCOUNTER → 2017-10-03 | Outpatient (CLI) | payer OTHER ==
--- NOTE | 2017-10-03 17:20 | CT ---
EXAMINATION TYPE: CT chest w con DATE OF EXAM: 10/03/2017 COMPARISON: 06/23/2017 HISTORY: Bronchiectasis with acute exacerbation CT DLP: 492 mGycm, Automated exposure control for dose reduction was used. CONTRAST: Performed injected with 100 mL of Isovue 300. TECHNIQUE: Axial images were obtained at 5 mm thick sections. Reconstructed images are reviewed on [employer] computer in the coronal plane. FINDINGS: Portion of the thyroid visualized is normal. There is prominence of the trachea. Scarring is present at the lung apices. Small density is in the posterior left apex measuring 0.4 cm. 4 mm densities in the superior right apex. Series 3 image 14. Some thickening along the right major fissure is present. Peribronchial thickening is present bilaterally. Consolidation may be within the right middle lobe.. This could be related to some atelectasis. Some infiltrate or atelectasis may be within the lingula. There is an irregular density measuring 2.4 x 0.8 cm just above the right diaphragm. This is a new fi nding. Atelectasis or underlying mass should be considered. Consider PET CT for additional evaluation . Some right pretracheal lymphadenopathy is present not enlarged by CT criteria. The ascending aorta diameter at the level of the main pulmonary artery is 3.4 cm. The main pulmonary artery diameter at the bifurcation is 2.[address] sections are obtained through the upper abdomen. Abdomen is essentially unremarkable. IMPRESSIONS: 1. Developing irregular masslike area right lateral lung base. PET/CT is recommended for additional e valuation.
== END ==
LOC: RADCTMAIN 12:32
DX: J47.1 Bronchiectasis with (acute) exacerbation (principal)
CPT/HCPCS: 82565; 84520; 71260; 36415; Q9967

== ENCOUNTER 2017-11-23 11:59 | Emergency (ER) | payer MEDICARE ==
--- NOTE | 2017-11-23 12:59 | ED ---
General Adult HPI - General Chief complaint: Shortness of Breath Stated complaint: Sob/fever Time Seen by Provider: 11/23/17 12:18 Source: patient, RN notes reviewed, old records reviewed Mode of arrival: ambulatory Limitations: no limitations - History of Present Illness Initial comments: This is an 82-year-old male the ER for evaluation. She is presenting for evaluation regards to shortness of breath cough and congestion. Patient states he has been on antibiotics for 2 days and not getting any better. Patient does have a long calm proximal medical history of multiple medical Jose's. Patient has no recent hospitalizations. No recent travel history no significant known sick contacts - Related Data Home Medications Medication Instructions Recorded Confirmed Lisinopril [Zestril] 10 mg PO DAILY 11/25/13 11/23/17 Sotalol [Betapace] 80 mg PO BID 11/25/13 11/23/17 Tamsulosin [Flomax] 0.4 mg PO HS 08/26/16 11/23/17 Atorvastatin [Lipitor] 20 mg PO HS 03/28/17 11/23/17 Aspirin 81 mg PO DAILY 06/11/17 11/23/17 Metoprolol Tartrate [Lopressor] 25 mg PO BID 11/23/17 11/23/17 Previous Rx's Medication Instructions Recorded Budesonide-Formot 160-4.5 Mcg 2 puff INHALATION RT-BID #0 06/12/17 [Symbicort 160-4.5 Mcg Inhaler] Allergies Allergy/AdvReac Type Severity Reaction Status Date / Time No Known Allergies Allergy Verified 11/23/17 14:43 Review of Systems ROS Statement: Those systems with pertinent positive or pertinent negative responses have been documented in the HPI. ROS Other: All systems not noted in ROS Statement are negative. Past Medical History Past Medical History: Atrial Fibrillation, Coronary Artery Disease (CAD), GERD/ Reflux, Hearing Disorder / Deafness, Hyperlipidemia, Hypertension, Osteoarthritis (OA), Pneumonia Additional Past Medical History / Comment(s): ICMP with LVRF of 40-45% 11/2016. Was here at [facility] for pneumonia within the last 30 days. Last Myocardial Infarction Date:: 2007 History of Any Multi-Drug Resistant Organisms: C-DIFF Date of last positivie culture/infection: 2014 MDRO Source:: stool Past Surgical History: AICD, Heart Catheterization, Orthopedic Surgery, Pacemaker Additional Past Surgical History / Comment(s): rt foot/ toe, cataracts, sinus sx x 3, colonoscopy. Past Anesthesia/Blood Transfusion Reactions: Previous Problems w/ Anesthesia Additional Past Anesthesia/Blood Transfusion Reaction / Comment(s): Heart stopped when he got anesthesia Type of Cardiac Device: Permanent Pacemaker, AICD Device Placement Date:: 06-06-07 [employer] Past Psychological History: No Psychological Hx Reported Smoking Status: Never smoker Past Alcohol Use History: None Reported Past Drug Use History: None Reported - Past Family History Father Additional Family Medical History / Comment(s): killed in mva age 47 Mother Family Medical History: Dementia General Exam Limitations: no limitations General appearance: alert, in no apparent distress Head exam: Present: atraumatic, normocephalic, normal inspection Eye exam: Present: normal appearance, PERRL, EOMI. Absent: scleral icterus, conjunctival injection, periorbital swelling ENT exam: Present: normal exam, mucous membranes moist Neck exam: Present: normal inspection. Absent: tenderness, meningismus, lymphadenopathy Respiratory exam: Present: normal lung sounds bilaterally. Absent: respiratory distress, wheezes, rales, rhonchi, stridor Cardiovascular Exam: Present: regular rate, normal rhythm, normal heart sounds. Absent: systolic murmur, diastolic murmur, rubs, gallop, clicks GI/Abdominal exam: Present: soft, normal bowel sounds. Absent: distended, tenderness, guarding, rebound, rigid Extremities exam: Present: normal inspection, full ROM, normal capillary refill. Absent: tenderness, pedal edema, joint swelling, calf tenderness Back exam: Present: normal inspection Neurological exam: Present: alert, oriented X3, CN II-XII intact Psychiatric exam: Present: normal affect, normal mood Skin exam: Present: warm, dry, intact, normal color. Absent: rash Course Vital Signs 11/23/17 12:11 Temperature 99.7 F H Pulse Rate 80 Respiratory 20 Rate Blood Pressure 167/79 O2 Sat by Pulse 95 Oximetry Medical Decision Making - Medical Decision Making 82 male with recurrent bronchitis coming in for evaluation. Patient given antibiotics here in the ER will continue home antibiotics and can be discharged home - Lab Data Result diagrams: 11/23/17 13:05 11/23/17 13:05 Lab Results 11/23/17 11/23/17 11/23/17 Range/Units 13:05 13:05 13:05 WBC 10.4 (3.8-10.6) k/uL RBC 4.77 (4.30-5.90) m/uL Hgb 14.5 (13.0-17.5) gm/dL Hct 43.5 (39.0-53.0) % MCV 91.0 (80.0-100.0) fL MCH 30.5 (25.0-35.0) pg MCHC 33.5 (31.0-37.0) g/dL RDW 13.5 (11.5-15.5) % Plt Count 196 (150-450) k/uL Neutrophils % 66 % Lymphocytes % 20 % Monocytes % 8 % Eosinophils % 2 % Basophils % 1 % Neutrophils # 6.8 (1.3-7.7) k/uL Lymphocytes # 2.1 (1.0-4.8) k/uL Monocytes # 0.9 (0-1.0) k/uL Eosinophils # 0.2 (0-0.7) k/uL Basophils # 0.1 (0-0.2) k/uL PT (9.0-12.0) sec INR (<1.2) APTT (22.0-30.0) sec Sodium 140 (137-145) mmol/L Potassium 4.5 (3.5-5.1) mmol/L Chloride 101 (98-107) mmol/L Carbon Dioxide 30 (22-30) mmol/L Anion Gap 9 mmol/L BUN 9 (9-20) mg/dL Creatinine 0.90 (0.66-1.25) mg/dL Est GFR (CKD-EPI)AfAm >90 (>60 ml/min/1.73 sqM) Est GFR (CKD-EPI)NonAf 78 (>60 ml/min/1.73 sqM) Glucose 97 (74-99) mg/dL Plasma Lactic Acid Sagar (0.7-2.0) mmol/L Calcium 9.4 (8.4-10.2) mg/dL Magnesium 2.0 (1.6-2.3) mg/dL Total Bilirubin 0.9 (0.2-1.3) mg/dL AST 29 (17-59) U/L ALT 27 (21-72) U/L Alkaline Phosphatase 77 (38-126) U/L Total Creatine Kinase 52 L (55-170) U/L CK-MB (CK-2) 0.6 (0.0-2.4) ng/mL CK-MB (CK-2) Rel Index 1.2 Troponin I <0.012 (0.000-0.034) ng/mL NT-Pro-B Natriuret Pep pg/mL Total Protein 7.4 (6.3-8.2) g/dL Albumin 4.4 (3.5-5.0) g/dL 11/23/17 11/23/17 11/23/17 Range/Units 13:05 13:05 13:05 WBC (3.8-10.6) k/uL RBC (4.30-5.90) m/uL Hgb (13.0-17.5) gm/dL Hct (39.0-53.0) % MCV (80.0-100.0) fL MCH (25.0-35.0) pg MCHC (31.0-37.0) g/dL RDW (11.5-15.5) % Plt Count (150-450) k/uL Neutrophils % % Lymphocytes % % Monocytes % % Eosinophils % % Basophils % % Neutrophils # (1.3-7.7) k/uL Lymphocytes # (1.0-4.8) k/uL Monocytes # (0-1.0) k/uL Eosinophils # (0-0.7) k/uL Basophils # (0-0.2) k/uL PT 11.0 (9.0-12.0) sec INR 1.1 (<1.2) APTT 26.2 (22.0-30.0) sec Sodium (137-145) mmol/L Potassium (3.5-5.1) mmol/L Chloride (98-107) mmol/L Carbon Dioxide (22-30) mmol/L Anion Gap mmol/L BUN (9-20) mg/dL Creatinine (0.66-1.25) mg/dL Est GFR (CKD-EPI)AfAm (>60 ml/min/1.73 sqM) Est GFR (CKD-EPI)NonAf (>60 ml/min/1.73 sqM) Glucose (74-99) mg/dL Plasma Lactic Acid Sagar 1.0 (0.7-2.0) mmol/L Calcium (8.4-10.2) mg/dL Magnesium (1.6-2.3) mg/dL Total Bilirubin (0.2-1.3) mg/dL AST (17-59) U/L ALT (21-72) U/L Alkaline Phosphatase (38-126) U/L Total Creatine Kinase (55-170) U/L CK-MB (CK-2) (0.0-2.4) ng/mL CK-MB (CK-2) Rel Index Troponin I (0.000-0.034) ng/mL NT-Pro-B Natriuret Pep 1530 pg/mL Total Protein (6.3-8.2) g/dL Albumin (3.5-5.0) g/dL - Radiology Data Radiology results: report reviewed (Chest x-rays negative for acute disease), image reviewed Disposition Clinical Impression: Bronchiectasis, Pneumobilia Disposition: HOME SELF-CARE Condition: Good Instructions: Acute Bronchitis (ED) Is patient prescribed a controlled substance at d/c from ED?: No Referrals: [facility],Clinic [Primary Care Provider] - 1-2 days
[2017-11-23 13:23] LABS: Basophils # (A) 0.1 k/uL (0-0.2); Basophils % (A) 1 %; Eosinophils # (A) 0.2 k/uL (0-0.7); Eosinophils % (A) 2 %; HCT 43.5 % (39.0-53.0); HGB 14.5 gm/dL (13.0-17.5); Lymphocytes # (A) 2.1 k/uL (1.0-4.8); Lymphocytes % (A) 20 %; MCH 30.5 pg (25.0-35.0); MCHC 33.5 g/dL (31.0-37.0); Mean Platelet Volume 8.2; Monocytes # (A) 0.9 k/uL (0-1.0); Monocytes % (A) 8 %; Neutrophils # (A) 6.8 k/uL (1.3-7.7); Neutrophils % (A) 66 %; Platelet Count 196 k/uL (150-450); RBC 4.77 m/uL (4.30-5.90); RDW 13.5 % (11.5-15.5); WBC 10.4 k/uL (3.8-10.6)
[2017-11-23 13:33] LABS: INR 1.1 (<1.2); Partial Thromboplastin Time 26.2 sec (22.0-30.0)
[2017-11-23 13:34] LABS: ALT 27 U/L (21-72); AST 29 U/L (17-59); Albumin 4.4 g/dL (3.5-5.0); Alkaline Phosphatase 77 U/L (38-126); Anion Gap 9 mmol/L; Blood Urea Nitrogen 9 mg/dL (9-20); Calcium 9.4 mg/dL (8.4-10.2); Carbon Dioxide 30 mmol/L (22-30); Chloride 101 mmol/L (98-107); Glucose 97 mg/dL (74-99); Potassium 4.5 mmol/L (3.5-5.1); Sodium 140 mmol/L (137-145); Total Bilirubin 0.9 mg/dL (0.2-1.3); Total Protein 7.4 g/dL (6.3-8.2)
--- NOTE | 2017-11-23 13:42 | XR ---
EXAMINATION TYPE: XR chest 2V DATE OF EXAM: 11/23/2017 COMPARISON: 06/28/2017 INDICATION: Difficulty breathing TECHNIQUE: Frontal and lateral views of the chest are obtained. FINDINGS: The heart size is normal. The pulmonary vasculature is normal. Streak opacities at the right lung upper lobe base. Findings were present previously may represent so me scarring. Some mild linear opacities at the left base which is an interval change may be some atel ectasis. Good inspiratory effort is present. Pacemaker overlies left chest. IMPRESSION: 1. Mild plate atelectasis left lung base. 2. Probable scarring right upper lobe base along the minor fissure. Recurrent atelectasis or pneumoni a could be considered within the differential. Follow-up can be performed as clinically indicated.
[2017-11-23 13:53] LABS: Creatine Kinase 52 U/L (55-170)
[2017-11-23] MEDS ORDERED: IPRATROPIUM-ALBUTEROL 3 ML NEB INHALATION STA (14:02)
[2017-11-23 14:05] LABS: Creatine Kinase MB 0.6 ng/mL (0.0-2.4); Troponin I <0.012 ng/mL (0.000-0.034)
[2017-11-23] MEDS ORDERED: DEXAMETHASONE SOD PHOSPHATE 10 MG/ML 1 ML VIAL IV STA (14:59)
[2017-11-23] MEDS ORDERED: AMPICILLIN-SULBACTAM 3 GM in SODIUM CHLORIDE 0.9% 100 ML IVPB STA (15:06)
[2017-11-23 15:44] VITALS: RESP 18
[2017-11-23] MEDS ORDERED: ACETAMINOPHEN TAB 500 MG TAB PO STA (17:05)
[2017-11-23 17:07] VITALS: BP 142/66; PULSE 76; TEMP 100.5
== END 2017-11-23 17:14 | disposition home or self-care (01) ==
LOC: EC 11:59
DX: J47.9 Bronchiectasis, uncomplicated (principal); I48.91 Unspecified atrial fibrillation; I25.10 Atherosclerotic heart disease of native coronary artery without angina pectoris; H91.90 Unspecified hearing loss, unspecified ear; E78.5 Hyperlipidemia, unspecified; I10 Essential (primary) hypertension; I25.2 Old myocardial infarction; Z87.01 Personal history of pneumonia (recurrent); Z95.810 Presence of automatic (implantable) cardiac defibrillator; Z98.890 Other specified postprocedural states; Z79.82 Long term (current) use of aspirin; Z79.899 Other long term (current) drug therapy
CPT/HCPCS: 36415; 83880; 80053; 82550; 82553; 83605; 83735; 84484; 85025; 85610; 85730; 87040; 71046; 99285; 96365; 96375; J1100; J0295

== ENCOUNTER 2017-12-03 11:35 | Inpatient (IN) | payer OTHER, MEDICARE ==
[2017-12-03] MEDS ORDERED: SODIUM CHLORIDE 0.9% 500 ML IV STA (12:06)
--- NOTE | 2017-12-03 12:08 | ED ---
General Adult HPI - General Chief complaint: Shortness of Breath Stated complaint: diff breathing,Pneumonia Time Seen by Provider: 12/03/17 11:35 Source: patient, RN notes reviewed Mode of arrival: wheelchair Limitations: physical limitation - History of Present Illness Initial comments: This is an 82-year-old male who presents emergency Department with a recent diagnosis of pneumonia. Patient states since that time about a week ago he has been getting progressively worse. Patient states the difficulty breathing cough and sputum production is worse. Patient denies any fever chills. Patient denies any pain. Patient denies chest pain palpitations. Patient denies abdominal pain patient denies nausea vomiting diarrhea. Patient denies headache patient denies numbness weakness. Patient states he went to see a doctor and they clinic today and they sent him to the emergency department. Patient denies any leg swelling or calf tenderness. - Related Data Home Medications Medication Instructions Recorded Confirmed Lisinopril [Zestril] 10 mg PO DAILY 11/25/13 12/03/17 Sotalol [Betapace] 80 mg PO BID 11/25/13 12/03/17 Tamsulosin [Flomax] 0.4 mg PO HS 08/26/16 12/03/17 Atorvastatin [Lipitor] 20 mg PO HS 03/28/17 12/03/17 Aspirin 81 mg PO HS 06/11/17 12/03/17 Acetaminophen/Diphenhydramine 1 tab PO HS PRN 12/03/17 12/03/17 [Tylenol PM Extra Strength] Metoprolol Tartrate [Lopressor] 25 mg PO BID-W/MEALS 12/03/17 12/03/17 Previous Rx's Medication Instructions Recorded Budesonide-Formot 160-4.5 Mcg 2 puff INHALATION RT-BID #0 06/12/17 [Symbicort 160-4.5 Mcg Inhaler] Allergies Allergy/AdvReac Type Severity Reaction Status Date / Time No Known Allergies Allergy Verified 12/03/17 12:49 Review of Systems ROS Statement: Those systems with pertinent positive or pertinent negative responses have been documented in the HPI. ROS Other: All systems not noted in ROS Statement are negative. Past Medical History Past Medical History: Atrial Fibrillation, Coronary Artery Disease (CAD), GERD/ Reflux, Hearing Disorder / Deafness, Hyperlipidemia, Hypertension, Osteoarthritis (OA), Pneumonia Additional Past Medical History / Comment(s): ICMP with LVRF of 40-45% 11/2016. Was here at [facility] for pneumonia within the last 30 days. Last Myocardial Infarction Date:: 2007 History of Any Multi-Drug Resistant Organisms: C-DIFF Date of last positivie culture/infection: 2014 MDRO Source:: stool Past Surgical History: AICD, Heart Catheterization, Orthopedic Surgery, Pacemaker Additional Past Surgical History / Comment(s): rt foot/ toe, cataracts, sinus sx x 3, colonoscopy. Past Anesthesia/Blood Transfusion Reactions: Previous Problems w/ Anesthesia Additional Past Anesthesia/Blood Transfusion Reaction / Comment(s): Heart stopped when he got anesthesia Type of Cardiac Device: Permanent Pacemaker, AICD Device Placement Date:: 06-06-07 [employer] Past Psychological History: No Psychological Hx Reported Smoking Status: Never smoker Past Alcohol Use History: None Reported Past Drug Use History: None Reported - Past Family History Father Additional Family Medical History / Comment(s): killed in [place] age 47 Mother Family Medical History: Dementia General Exam - General Exam Comments Initial Comments: GENERAL: Patient is well-developed and well-nourished. Patient is nontoxic and well- hydrated and is in mild distress. ENT: Neck is soft and supple. No significant lymphadenopathy is noted. Oropharynx is clear. Moist mucous membranes. Neck has full range of motion without eliciting any pain. EYES: The sclera were anicteric and conjunctiva were pink and moist. Extraocular movements were intact and pupils were equal round and reactive to light. Eyelids were unremarkable. PULMONARY: Unlabored respirations. Good breath sounds bilaterally. No audible rales rhonchi or wheezing was noted. CARDIOVASCULAR: There is a regular rate and rhythm without any murmurs gallops or rubs. ABDOMEN: Soft and nontender with normal bowel sounds. No palpable organomegaly was noted. There is no palpable pulsatile mass. SKIN: Skin is clear with no lesions or rashes and otherwise unremarkable. NEUROLOGIC: Patient is alert and oriented x3. Cranial nerves II through XII are grossly intact. Motor and sensory are also intact. Normal speech, volume and content. Symmetrical smile. MUSCULOSKELETAL: Normal extremities with adequate strength and full range of motion. LYMPHATICS: No significant lymphadenopathy is noted PSYCHIATRIC: Normal psychiatric evaluation. Limitations: physical limitation Course Vital Signs 12/03/17 12/03/17 12/03/17 11:39 12:06 13:49 Temperature 97.9 F 99.2 F Pulse Rate 66 61 60 Respiratory 20 18 18 Rate Blood Pressure 135/69 135/70 145/67 O2 Sat by Pulse 94 L 96 96 Oximetry Medical Decision Making - Medical Decision Making EKG shows sinus bradycardia with occasional PVC at 64 bpm IN interval is 144 QRS is 104 QT interval 490 QTC is 505. Patient's EKG shows no ST segment elevation or depression. Patient does have a prolonged QT interval. Chest x-ray shows pneumonia. Computed tomography scan shows no PE but does show multifocal pneumonia. I started the patient on Zosyn. I spoke with the [facility] admitted the patient I wrote admitting orders. - Lab Data Result diagrams: 12/03/17 11:58 12/03/17 11:58 Lab Results 12/03/17 12/03/17 12/03/17 Range/Units 11:58 11:58 11:58 WBC 13.9 H (3.8-10.6) k/uL RBC 4.55 (4.30-5.90) m/uL Hgb 13.6 (13.0-17.5) gm/dL Hct 40.8 (39.0-53.0) % MCV 89.6 (80.0-100.0) fL MCH 29.9 (25.0-35.0) pg MCHC 33.3 (31.0-37.0) g/dL RDW 13.4 (11.5-15.5) % Plt Count 352 (150-450) k/uL Neutrophils % 64 % Lymphocytes % 26 % Monocytes % 5 % Eosinophils % 2 % Basophils % 0 % Neutrophils # 8.8 H (1.3-7.7) k/uL Lymphocytes # 3.7 (1.0-4.8) k/uL Monocytes # 0.8 (0-1.0) k/uL Eosinophils # 0.3 (0-0.7) k/uL Basophils # 0.1 (0-0.2) k/uL PT (9.0-12.0) sec INR (<1.2) APTT (22.0-30.0) sec D-Dimer (<0.60) mg/L FEU Sodium 137 (137-145) mmol/L Potassium 5.1 (3.5-5.1) mmol/L Chloride 102 (98-107) mmol/L Carbon Dioxide 28 (22-30) mmol/L Anion Gap 7 mmol/L BUN 15 (9-20) mg/dL Creatinine 0.90 (0.66-1.25) mg/dL Est GFR (CKD-EPI)AfAm >90 (>60 ml/min/1.73 sqM) Est GFR (CKD-EPI)NonAf 78 (>60 ml/min/1.73 sqM) Glucose 97 (74-99) mg/dL Plasma Lactic Acid Sagar (0.7-2.0) mmol/L Calcium 9.3 (8.4-10.2) mg/dL Magnesium 2.2 (1.6-2.3) mg/dL Total Bilirubin 0.8 (0.2-1.3) mg/dL AST 24 (17-59) U/L ALT 24 (21-72) U/L Alkaline Phosphatase 79 (38-126) U/L Total Creatine Kinase 44 L (55-170) U/L CK-MB (CK-2) 0.9 (0.0-2.4) ng/mL CK-MB (CK-2) Rel Index 2.0 Troponin I <0.012 (0.000-0.034) ng/mL NT-Pro-B Natriuret Pep pg/mL Total Protein 6.9 (6.3-8.2) g/dL Albumin 3.8 (3.5-5.0) g/dL 12/03/17 12/03/17 12/03/17 Range/Units 11:58 11:58 11:58 WBC (3.8-10.6) k/uL RBC (4.30-5.90) m/uL Hgb (13.0-17.5) gm/dL Hct (39.0-53.0) % MCV (80.0-100.0) fL MCH (25.0-35.0) pg MCHC (31.0-37.0) g/dL RDW (11.5-15.5) % Plt Count (150-450) k/uL Neutrophils % % Lymphocytes % % Monocytes % % Eosinophils % % Basophils % % Neutrophils # (1.3-7.7) k/uL Lymphocytes # (1.0-4.8) k/uL Monocytes # (0-1.0) k/uL Eosinophils # (0-0.7) k/uL Basophils # (0-0.2) k/uL PT 10.3 (9.0-12.0) sec INR 1.1 (<1.2) APTT 28.2 (22.0-30.0) sec D-Dimer 0.87 H (<0.60) mg/L FEU Sodium (137-145) mmol/L Potassium (3.5-5.1) mmol/L Chloride (98-107) mmol/L Carbon Dioxide (22-30) mmol/L Anion Gap mmol/L BUN (9-20) mg/dL Creatinine (0.66-1.25) mg/dL Est GFR (CKD-EPI)AfAm (>60 ml/min/1.73 sqM) Est GFR (CKD-EPI)NonAf (>60 ml/min/1.73 sqM) Glucose (74-99) mg/dL Plasma Lactic Acid Sagar 0.9 (0.7-2.0) mmol/L Calcium (8.4-10.2) mg/dL Magnesium (1.6-2.3) mg/dL Total Bilirubin (0.2-1.3) mg/dL AST (17-59) U/L ALT (21-72) U/L Alkaline Phosphatase (38-126) U/L Total Creatine Kinase (55-170) U/L CK-MB (CK-2) (0.0-2.4) ng/mL CK-MB (CK-2) Rel Index Troponin I (0.000-0.034) ng/mL NT-Pro-B Natriuret Pep 441 pg/mL Total Protein (6.3-8.2) g/dL Albumin (3.5-5.0) g/dL Disposition Clinical Impression: Multifocal pneumonia Disposition: ADMITTED IP TO THIS HOSP Referrals: [facility],Clinic [Primary Care Provider] - 1-2 days Time of Disposition: 14:50
[2017-12-03 12:26] LABS: Basophils # (A) 0.1 k/uL (0-0.2); Basophils % (A) 0 %; Eosinophils # (A) 0.3 k/uL (0-0.7); Eosinophils % (A) 2 %; HCT 40.8 % (39.0-53.0); HGB 13.6 gm/dL (13.0-17.5); Lymphocytes # (A) 3.7 k/uL (1.0-4.8); Lymphocytes % (A) 26 %; MCH 29.9 pg (25.0-35.0); MCHC 33.3 g/dL (31.0-37.0); MCV 89.6 fL (80.0-100.0); Mean Platelet Volume 8.1; Monocytes # (A) 0.8 k/uL (0-1.0); Monocytes % (A) 5 %; Neutrophils # (A) 8.8 k/uL (1.3-7.7); Neutrophils % (A) 64 %; Platelet Count 352 k/uL (150-450); RBC 4.55 m/uL (4.30-5.90); RDW 13.4 % (11.5-15.5); WBC 13.9 k/uL (3.8-10.6)
[2017-12-03 12:38] LABS: ALT 24 U/L (21-72); AST 24 U/L (17-59); Albumin 3.8 g/dL (3.5-5.0); Alkaline Phosphatase 79 U/L (38-126); Anion Gap 7 mmol/L; Blood Urea Nitrogen 15 mg/dL (9-20); Calcium 9.3 mg/dL (8.4-10.2); Carbon Dioxide 28 mmol/L (22-30); Chloride 102 mmol/L (98-107); Glucose 97 mg/dL (74-99); Magnesium 2.2 mg/dL (1.6-2.3); Potassium 5.1 mmol/L (3.5-5.1); Sodium 137 mmol/L (137-145); Total Bilirubin 0.8 mg/dL (0.2-1.3); Total Protein 6.9 g/dL (6.3-8.2)
[2017-12-03 12:40] LABS: INR 1.1 (<1.2); Partial Thromboplastin Time 28.2 sec (22.0-30.0); Prothrombin Time 10.3 sec (9.0-12.0)
--- NOTE | 2017-12-03 12:42 | XR ---
EXAMINATION TYPE: XR chest 2V DATE OF EXAM: 12/03/2017 COMPARISON: 11/23/2017 HISTORY: Shortness of breath TECHNIQUE: Frontal and lateral views of the chest are obtained. FINDINGS: There is a new focal consolidation within the lingula not appreciated on the recent exam o f 11/23/2017. Given its short-term interval development findings are suspicious for pneumonia with atel ectasis less likely. Chronic emphysematous change, right midlung atelectasis along the interlobar fis sure, scant amount of fluid within the peripheral right minor fissure, and biapical pleural thickenin g are again demonstrated. Single lead left-sided cardiac device is noted. Cardiac silhouette is stabl e from the prior nonenlarged. There is diffuse osseous demineralization noted and mild multilevel deg enerative change of the thoracic spine. IMPRESSION: New lingular opacity. Given the short-term interval development in comparison to exam of 11/23/2017 this is favored to represent pneumonia with atelectasis less likely.
[2017-12-03 12:44] LABS: Creatine Kinase 44 U/L (55-170)
[2017-12-03 12:57] LABS: Creatine Kinase MB 0.9 ng/mL (0.0-2.4); Troponin I <0.012 ng/mL (0.000-0.034)
[2017-12-03 13:05] LABS: D-Dimer 0.87 mg/L FEU (<0.60)
[2017-12-03] MEDS ORDERED: PIPERACILLIN-TAZOBACTAM 3.375 GM in DEXTROSE/WATER 1 50ML.BAG IVPB STA (13:14)
--- NOTE | 2017-12-03 14:38 | CT ---
EXAMINATION TYPE: CT chest angio for PE DATE OF EXAM: 12/03/2017 COMPARISON: Chest radiographs dated 12/03/2017 and 11/23/2017 as well as CTA chest PE protocol dated 06/23. HISTORY: Cough, recent pneumonia. CT DLP: 187.4 mGycm. Automated Exposure Control for Dose Reduction was Utilized. CONTRAST: CTA scan of the thorax is performed with IV Contrast, patient injected with 81 mL of Isovue 370, pulm onary embolism protocol. MIP Images are created on CT scanner and reviewed. FINDINGS: LUNGS: There are multifocal opacities within the lungs with improved aeration of the left lower lobe in comparison to the prior of 06/23/2017 although a residual consolidation remains with left-sided breanne bronchial cuffing and areas of mucus plugging. Reticular and nodular opacities are seen within the ri ght middle lobe anteriorly and right lower lobe. New focal consolidation with areas of low-attenuatio n is seen within the lingula with portions likely attributable to atelectasis, postobstructive from e ndobronchial plugging. However areas of low-attenuation also suggest underlying pneumonia. The previo usly seen right upper lobe cylindrical bronchiectasis and. Fissural opacity is unchanged from the teena or. Bronchiectasis therefore may be postinfectious. Some of this bronchiectasis is varicose such as o n image 64. There is background mild centrilobular emphysematous change. Right apical 3 mm pulmonary nodule seen on series 5 image 29. MEDIASTINUM: There is satisfactory enhancement of the pulmonary artery and its branches, there is no CT evidence for pulmonary embolism. An enlarged aorticopulmonary window lymph node measures 1.3 cm on series 4 image 63 and may be reactive in nature. Other prominent lymph nodes are seen throughout the mediastinum. Cardiomegaly or pericardial effusion is seen. Moderate coronary artery calcifications a re present. Left-sided cardiac device is seen within the anterior chest wall. Moderate calcific ather omatous change of the thoracic aorta is noted. OTHER: There is mild to moderate multilevel degenerative change of the thoracic spine. There is a nod ular contour the liver suspicious for underlying hepatic cirrhosis/hepatocellular disease. Left renal lesion that is exophytic from the anterior lateral superior pole measuring 1.4 cm and incompletely c haracterized. Extensive calcific atheromatous changes are seen in the upper thoracic aorta and its br anches. IMPRESSION: 1. No evidence of pulmonary embolism. 2. Multifocal pneumonia with new consolidation in the lingula, improving consolidation in the left lo wer lobe, and new reticular nodular opacity in the right middle lobe and right lower lobe. Short-term follow-up after resolution of symptoms is recommended to ensure no underlying pulmonary nodule. Medi astinal adenopathy is also seen, likely reactive. 3. Underlying mild pulmonary emphysema. 4. Right upper lobe bronchiectasis, likely postinflammatory. 5. 3 mm right apical solitary pulmonary nodule that can be followed on the above recommended CT. 6. Findings suggestive of hepatocellular disease. Relate with liver function tests.
[2017-12-03] MEDS ORDERED: PNEUMONIA PROTOCOL UTILIZED 1 EACH MISC PO PRN (14:50)
[2017-12-03] MEDS ORDERED: TOBRAMYCIN PER PHARMACY MISCELLANE PRN (14:50)
[2017-12-03] MEDS ORDERED: AZITHROMYCIN 500 MG in DEXTROSE 5% IN WATER 250 ML IVPB STA ×2 (14:53)
[2017-12-03] MEDS ORDERED: TOBRAMYCIN SULFATE 160 MG in SODIUM CHLORIDE 0.9% 100 ML IVPB SCH ×2 (16:00→20:00)
[2017-12-03] MEDS: METOPROLOL TARTRATE 25 MG TAB PO SCH (17:24)
[2017-12-03] MEDS ORDERED: DIPHENHYDRAMINE PO PRN (17:42)
[2017-12-03] MEDS ORDERED: IPRATROPIUM-ALBUTEROL 3 ML NEB INHALATION PRN (17:42)
[2017-12-03] MEDS ORDERED: ACETAMINOPHEN PO PRN (17:42)
[2017-12-03] MEDS ORDERED: ACETAMINOPHEN TAB 500 MG TAB PO PRN (17:47)
[2017-12-03] MEDS: SYMBICORT 160-4.5 MCG INHALER INHALATION SCH (19:19)
[2017-12-03] MEDS: IPRATROPIUM-ALBUTEROL 3 ML NEB INHALATION SCH (19:19)
[2017-12-03] MEDS: SODIUM CHLORIDE 0.9% 1,000 ML IV SCH (20:50)
[2017-12-03] MEDS: ASPIRIN 81 MG PO SCH (20:52)
[2017-12-03] MEDS: TAMSULOSIN 0.4 MG CAP.ER.24H PO SCH (20:52)
[2017-12-03] MEDS: ATORVASTATIN 20 MG TAB PO SCH (20:52)
[2017-12-03] MEDS ORDERED: SOTALOL 80 MG TAB PO SCH (21:00)
[2017-12-03] MEDS: PIPERACILLIN-TAZOBACTAM 3.375 GM in DEXTROSE/WATER 1 50ML.BAG IVPB SCH (23:11)
[2017-12-04] MEDS ORDERED: ALPRAZolam 0.25 MG TAB PO PRN (01:33)
[2017-12-04] MEDS ORDERED: ACETAMINOPHEN TAB 500 MG TAB PO PRN (01:35)
[2017-12-04 02:26] LABS: Appearance,Urine Clear (Clear); Bilirubin,Urine Negative (Negative); Blood,Urine Negative (Negative); Color,Urine Yellow; Glucose,Urine (UA) Negative (Negative); Ketones,Urine Negative (Negative); Leukocyte Esterase,Urine Negative (Negative); Nitrite,Urine Negative (Negative); PH, Urine 6.5 (5.0-8.0); Protein,Urine Trace (Negative); Specific Gravity,Urine 1.022 (1.001-1.035); Urobilinogen,Urine <2.0 mg/dL (<2.0)
[2017-12-04] MEDS: methylPREDNISolone SOD SUCCI 125 MG/2 ML VIAL IV SCH ×5 (03:03→23:20)
--- NOTE | 2017-12-04 05:21 | HP ---
HISTORY AND PHYSICAL CHIEF COMPLAINTS: Shortness of breath and cough and sputum. HISTORY OF PRESENT ILLNESS: This 82-year-old gentleman with a past medical history of multiple medical problems including atrial fibrillation, history of GERD, hyperlipidemia, hypertension, history of DJD, history AICD being [facility] as well as Dr. Markham in the outpatient setting is complaining of shortness of breath, cough and sputum for the past several days. The patient came to the emergency room recently. Patient given diagnosis of pneumonia and given antibiotic. Because of lack of improvement the patient came to [facility] and was admitted for further evaluation and treatment. CT of the chest was done on admission in the ER which showed multiple findings. No evidence of pulmonary embolism, but multifocal pneumonia was also noted with some reticulonodular opacity and emphysema in the right upper lobe bronchiectasis and solitary pulmonary nodule was also noted. There is no history of any fever, rigors. No headache, loss of consciousness, seizures. Patient is started on broad-spectrum IV antibiotics. Patient admitted for further evaluation and treatment. PAST MEDICAL HISTORY: Atrial fibrillation, CAD, GERD, hypertension, hyperlipidemia, history of degenerative joint disease. HOME MEDICATIONS: 1. Flomax 0.4 q.h.s. 2. Betapace 80 mg p.o. b.i.d. 3. Lopressor 25 mg b.i.d. with meals. 4. Zestril 10 mg p.o. daily. 5. Symbicort 160/4.5 two puffs b.i.d. 6. Lipitor 20 mg q.h.s. 7. Aspirin 81 mg q.h.s. 8. Tylenol p.r.n. ALLERGIES: None. FAMILY HISTORY: History of dementia in the family. SOCIAL HISTORY: Previous history of smoking. No history of alcohol intake. REVIEW OF SYSTEMS: ENT: No diminished hearing or vision. CARDIOVASCULAR: As mentioned earlier. RESPIRATORY: As mentioned earlier. GI: No nausea. : No dysuria. NERVOUS SYSTEM: No numbness or weakness. ALLERGY: No history of asthma or hay fever. MUSCULOSKELETAL: As mentioned earlier. HEMATOLOGY: No history of anemia. ENDOCRINE: No history of diabetes or hypothyroidism. CONSTITUTIONAL: As mentioned earlier. DERMATOLOGY: Negative. RHEUMATOLOGY: Negative. PSYCHIATRY: mentioned earlier. PHYSICAL EXAMINATION: Alert, oriented x3. Pulse 70, blood pressure is 140/65, respiration 20, temperature 98.2, pulse ox 94% on 2 L. HEENT: Conjunctivae normal. Oral mucosa moist. NECK: No jugular venous distention. No carotid bruit. No lymph node enlargement. CARDIOVASCULAR: S1, S2. No S3, no S4. RESPIRATORY: Breath sounds diminished in the bases. Bilateral scattered rhonchi and crackles. Expiratory wheezing also present. ABDOMEN: Soft, nontender. No mass palpable. LEGS: No edema, no swelling. NERVOUS SYSTEM: Higher functions as mentioned earlier. Moves all four limbs. No focal motor sensory deficits. LYMPHATICS: No lymphadenopathy in the neck, axillae, groin. SKIN: No ulcer, rash, bleeding. LABS: WBC 13.9. D-dimer is 0.87. Creatine kinase is 44. ASSESSMENT: 1. Multifocal pneumonia, possibly gram-negative with failure of outpatient treatment. 2. 3 mm right apical solitary pulmonary nodule. 3. Possible chronic obstructive pulmonary disease acute exacerbation, underlying. 4. Increased WBC. 5. History atrial fibrillation. 6. History of coronary artery disease. 7. History of gastroesophageal reflux disease. 8. History of hypertension. 9. History of hyperlipidemia. 10.History of degenerative joint disease. 11.History of macular degeneration. 12.History of C difficile colitis. 13.History of AICD. 14.Remote history of nicotine dependence. 15.NO CODE, NO CPR, NO VENT. RECOMMENDATIONS AND DISCUSSION: In this 82-year-old gentleman who presented with multiple complex medical issues, will monitor the patient closely. Continue the current management and symptomatic treatment. Optimize the bronchodilator treatment. We will recommend broad-spectrum IV antibiotics and I would also recommend bronchodilators. I would also recommend a small dose of steroids as well. Otherwise, I would also recommend close follow up with Dr. Webster. Guarded prognosis because of multiple complex medical issues. Copy of dictation forwarded to Dr. Bates who is the primary physician. MMODL / IJN: [id number] /
[2017-12-04 07:00] LABS: Glucose,Whole Blood 102 mg/dL (75-99)
[2017-12-04] MEDS: IPRATROPIUM-ALBUTEROL 3 ML NEB INHALATION SCH ×4 (07:10→21:54)
[2017-12-04] MEDS: SYMBICORT 160-4.5 MCG INHALER INHALATION SCH ×2 (07:10→21:54)
[2017-12-04] MEDS ORDERED: INSULIN ASPART 100 UNIT/ML 1 ML 10 ML VIAL SQ SCH (07:30)
[2017-12-04] MEDS: PANTOPRAZOLE 40 MG TABLET PO SCH (07:47)
[2017-12-04] MEDS: PIPERACILLIN-TAZOBACTAM 3.375 GM in DEXTROSE/WATER 1 50ML.BAG IVPB SCH ×3 (07:47→23:20)
[2017-12-04] MEDS: LISINOPRIL 10 MG TAB PO SCH (07:48)
[2017-12-04] MEDS: HEPARIN SODIUM,PORCINE 5,000 UNIT/ML 1 ML VIAL SQ SCH ×2 (07:48→21:20)
[2017-12-04] MEDS: METOPROLOL TARTRATE 25 MG TAB PO SCH ×2 (07:48→17:56)
[2017-12-04] MEDS: AZITHROMYCIN 500 MG TAB PO SCH (07:54)
--- NOTE | 2017-12-04 08:40 | XR ---
EXAMINATION TYPE: XR chest 2V DATE OF EXAM: 12/04/2017 COMPARISON: December 03, 2017 HISTORY: Shortness of breath TECHNIQUE: Frontal and lateral views of the chest are obtained. FINDINGS: Scattered senescent parenchymal changes noted. Hyperinflation compatible with COPD. Persistent increased lingular density. Persistent scarring right midlung zone. Pacer device unchanged . Heart size is stable. Mediastinal structures are stable and grossly unremarkable. No evidence for hilar prominence. Degenerative changes dorsal spine. IMPRESSION: 1. Stable chest.
--- NOTE | 2017-12-04 11:24 | ECHOF ---
Referral Reason:chf MEASUREMENTS -------- HEIGHT: 152.4 cm WEIGHT: 66.7 kg BP: 118/58 IVSd: 1.3 cm (0.6 - 1.1) LVIDd: 4.4 cm (3.9 - 5.3) LVPWd: 1.2 cm (0.6 - 1.1) IVSs: 1.6 cm LVIDs: 3.7 cm LVPWs: 1.4 cm LAESV Index (A-L): 28.78 ml/m Ao Diam: 3.7 cm (2.0 - 3.7) AV Cusp: 1.6 cm (1.5 - 2.6) LA Diam: 2.7 cm (2.7 - 3.8) MV EXCURSION: 15.618 mm (> 18.000) MV EF SLOPE: 59 mm/s (70 - 150) EPSS: 0.5 cm MV E Bowen: 0.44 m/s MV DecT: 216 ms MV A Bowen: 0.91 m/s MV E/A Ratio: 0.48 RAP: 5.00 mmHg RVSP: 34.36 mmHg FINDINGS -------- Paced rhythm. This was a technically adequate study. The left ventricular size is normal. There is mild concentric left ventricular hypertrophy. Overa ll left ventricular systolic function is mildly impaired with, an EF between 45 - 50 %. Inferior Hy pokinesis The right ventricle is normal in size. The left atrial size is normal. The right atrial size is normal. There is mild aortic valve sclerosis. There is no evidence of aortic regurgitation. Mild mitral annular calcification present. Mild mitral regurgitation is present. Mild tricuspid regurgitation present. There is no evidence of pulmonary hypertension. The right v entricular systolic pressure, as measured by Doppler, is 34.36mmHg. Trace/mild (physiologic) pulmonic regurgitation. The aortic root size is normal. There is no pericardial effusion. CONCLUSIONS -------- 1. The left ventricular size is normal. 2. There is mild concentric left ventricular hypertrophy. 3. Overall left ventricular systolic function is mildly impaired with, an EF between 45 - 50 %. 4. Inferior Hypokinesis 5. The right ventricle is normal in size. 6. The left atrial size is normal. 7. The right atrial size is normal. 8. There is mild aortic valve sclerosis. 9. Mild mitral annular calcification present. 10. Mild mitral regurgitation is present. 11. Mild tricuspid regurgitation present. 12. There is no evidence of pulmonary hypertension. 13. The right ventricular systolic pressure, as measured by Doppler, is 34.36mmHg. 14. Trace/mild (physiologic) pulmonic regurgitation. 15. The aortic root size is normal. 16. There is no pericardial effusion. WARP TRUCKER: Belinda Aponte RDCS
[2017-12-04 12:03] LABS: Glucose,Whole Blood 236 mg/dL (75-99)
[2017-12-04 12:18] LABS: Hemoglobin A1C 5.5 % (4.0-6.0)
[2017-12-04] MEDS: INSULIN ASPART 100 UNIT/ML 1 ML 10 ML VIAL SQ SCH ×3 (12:25→21:23)
--- NOTE | 2017-12-04 12:34 | P.CNPUL ---
History of Present Illness Consult date: 12/04/17 Reason for consult: dyspnea, cough, hypoxemia, pneumonia, abnormal CXR/CT Chief complaint: Shortness of breath, cough, pneumonia History of present illness: Pulmonary consultation dated 12/04/2017 82-year-old male with a history of bronchiectasis, who presents to the emergency department with a diagnosis of pneumonia. He apparently saw her nurse practitioner in the office recently. He was treated with azithromycin for what appeared to be an upper respiratory tract infection. The patient apparently did not improve and then up coming to the emergency room. The patient complaining of increasing and progressive shortness of breath cough and phlegm production. Not coughing up any blood. The phlegm is discolored. No fever or chills. No chest pain. No chest discomfort. No abdominal complaints. No GI or complaints. The patient states she's feeling a bit better currently. The patient was evaluated yesterday in the emergency room and states that he did not been feeling well for about a week or so. He thought something was coming on. The patient has a history of atrial fibrillation CAD GERD deafness hyperlipidemia hypertension DJD and pneumonia as well as bronchiectasis. He also has a previous history of C. difficile colitis. Review of Systems A 12 point review of system is positive for shortness breath chest congestion cough and phlegm production. The phlegm is discolored. No fever or chills noted. Past Medical History Past Medical History: Atrial Fibrillation, Coronary Artery Disease (CAD), GERD/ Reflux, Hearing Disorder / Deafness, Hyperlipidemia, Hypertension, Osteoarthritis (OA), Pneumonia Additional Past Medical History / Comment(s): mac degeneration. hx c-diff 2014, "wears partials upper and lower" Last Myocardial Infarction Date:: 2007 History of Any Multi-Drug Resistant Organisms: None Reported Date of last positivie culture/infection: None MDRO Source:: None Past Surgical History: AICD, Heart Catheterization, Orthopedic Surgery, Pacemaker Additional Past Surgical History / Comment(s): rt foot ganglujon cyst removed/ rt great toe sx, cataracts, sinus sx x 3, colonoscopy.bronchoscopy Past Anesthesia/Blood Transfusion Reactions: Previous Problems w/ Anesthesia Additional Past Anesthesia/Blood Transfusion Reaction / Comment(s): Heart stopped when he got anesthesia Type of Cardiac Device: Permanent Pacemaker, AICD Device Placement Date:: 2-14-08 [employer] Smoking Status: Former smoker - Past Family History Father Additional Family Medical History / Comment(s): killed in mva age 47 Mother Family Medical History: Dementia Medications and Allergies Home Medications Medication Instructions Recorded Confirmed Type Lisinopril [Zestril] 10 mg PO DAILY 11/25/13 12/03/17 History Sotalol [Betapace] 80 mg PO BID 11/25/13 12/03/17 History Tamsulosin [Flomax] 0.4 mg PO HS 08/26/16 12/03/17 History Atorvastatin [Lipitor] 20 mg PO HS 03/28/17 12/03/17 History Aspirin 81 mg PO HS 06/11/17 12/03/17 History Budesonide-Formot 160-4.5 Mcg 2 puff INHALATION RT-BID #0 06/12/17 12/03/17 Rx [Symbicort 160-4.5 Mcg Inhaler] Acetaminophen/Diphenhydramine 1 tab PO HS PRN 12/03/17 12/03/17 History [Tylenol PM Extra Strength] Metoprolol Tartrate [Lopressor] 25 mg PO BID-W/MEALS 12/03/17 12/03/17 History Allergies Allergy/AdvReac Type Severity Reaction Status Date / Time No Known Allergies Allergy Verified 12/03/17 12:49 Physical Exam Osteopathic Statement: *. No significant issues noted on an osteopathic structural exam other than those noted in the History and Physical/Consult. Vitals: Vital Signs Temp Pulse Pulse Resp BP BP BP 12/04/17 11:15 84 12/04/17 11:04 80 12/04/17 07:24 80 12/04/17 07:10 80 12/04/17 06:15 98.3 F 73 16 118/58 12/03/17 22:51 98.2 F 76 20 140/65 12/03/17 19:32 82 12/03/17 19:25 80 12/03/17 15:51 98.2 F 74 18 138/80 12/03/17 15:30 97.9 F 69 18 177/78 12/03/17 14:50 12/03/17 13:49 60 18 145/67 Pulse Ox 12/04/17 11:15 12/04/17 11:04 12/04/17 07:24 12/04/17 07:10 12/04/17 06:15 94 L 12/03/17 22:51 95 12/03/17 19:32 12/03/17 19:25 12/03/17 15:51 98 12/03/17 15:30 96 12/03/17 14:50 97 12/03/17 13:49 96 Intake and Output 12/03/17 12/04/17 12/04/17 22:59 06:59 14:59 Intake Total 100 Output Total 150 Balance -50 Intake: Oral 100 Output: Urine 150 Other: # Voids 1 1 Weight 67 kg No acute distress, oriented 3. Nasal O2 in place. HEENT examination is grossly unremarkable. Mucous membranes are moist. No oral lesions. Neck supple. Full range of motion. No adenopathy thyromegaly or neck vein distention. Cardiovascular examination reveals regular rhythm rate. S1-S2 normal. No S3 or S4. No discernible murmur noted. Pacemaker generator is noted. Lungs reveal diffuse bilateral rhonchi. Breath sounds are diminished. There is prolongation on forced maneuver. Some crackles are noted bilaterally. No wheezes. Her sounds are diminished throughout. Abdomen soft bowel sounds are heard. No masses or tenderness. Extremities are intact. No cyanosis clubbing or edema. Skin is without rash or lesion. Neurologic examination is brief but nonfocal. Results - Laboratory Findings CBC and BMP: 12/03/17 11:58 12/03/17 11:58 PT/INR, D-dimer PT 10.3 sec (9.0-12.0) 12/03/17 11:58 INR 1.1 (<1.2) 12/03/17 11:58 D-Dimer 0.87 mg/L FEU (<0.60) H 12/03/17 11:58 Abnormal lab findings: Abnormal Labs 12/03/17 12/03/17 12/03/17 11:58 11:58 11:58 WBC 13.9 H Neutrophils # 8.8 H D-Dimer 0.87 H POC Glucose (mg/dL) Total Creatine Kinase 44 L Urine Protein 12/04/17 12/04/17 12/04/17 02:15 06:56 11:42 WBC Neutrophils # D-Dimer POC Glucose (mg/dL) 102 H 236 H Total Creatine Kinase Urine Protein Trace H - Diagnostic Findings Chest x-ray: report reviewed, image reviewed CT scan - chest: report reviewed, image reviewed (Chest x-ray, labs and medications are all reviewed.) Assessment and Plan Assessment: Assessment Multilobar pneumonia involving the lingula left lower lobe right midlung and right lower lobe. 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 difficile colitis Plan: Plan dated 12/04/2017 Labs x-rays and medications are reviewed. Chest x-ray and CAT scan are reviewed. White count 13.9 hemoglobin and hematocrit and platelet count all normal. PT INR and PTT are normal. Electrolytes all completely normal. Urinalysis is negative. Medications include azithromycin myosin Symbicort albuterol and Atrovent updrafts Zosyn and Solu-Medrol. We will recommend a sputum Gram stain and culture. Also, incentive spirometer use every hour what helped. We'll continue to follow. Time with Patient: Greater than 30
[2017-12-04] MEDS ORDERED: SODIUM CHLORIDE 0.65% NASAL SPRAY 44 ML BTL NASAL PRN (15:03)
[2017-12-04] MEDS: SODIUM CHLORIDE 0.9% 1,000 ML IV SCH (16:06)
[2017-12-04] MEDS: FUROSEMIDE 10 MG/ML 2 ML VIAL IV SCH (16:11)
--- NOTE | 2017-12-04 16:52 | PN ---
PROGRESS NOTE DATE OF SERVICE: 12/04/2017 This 82-year-old gentleman was admitted with multifocal pneumonia, possibly gram- negative pneumonia, with failure of outpatient treatment. Patient was started on intensive bronchodilators, antibiotics and small dose of steroids. The patient is feeling slightly better at this time. The 2D echo with Doppler showed an ejection fraction of 45% to 50% with inferior hypokinesis indicating some element of CHF as well. The patient was also seen by Dr. Webster. A chest CT was also done to rule out the possibility of pulmonary embolism. Past medical history reviewed. REVIEW OF SYSTEMS: CARDIOVASCULAR SYSTEM: No angina, palpitations. RESPIRATORY SYSTEM: As mentioned earlier. GI: As mentioned earlier. : No dysuria or retention. NERVOUS SYSTEM: No numbness, weakness. CURRENT MEDICATIONS: Reviewed. They include: 1. Tylenol 500 mg q.6 p.r.n. 2. DuoNeb q.i.d. and p.r.n. 3. Xanax 0.25 t.i.d. 4. Aspirin 81 mg daily. 5. Lipitor 20 mg. 6. Zithromax 500 mg daily. 7. Symbicort 160/4.5 two puffs b.i.d. 8. Benadryl 25 mg at bedtime. 9. Heparin 5000 units subcutaneously b.i.d. 10.NovoLog scale. 11.Zestril 10 mg p.o. daily. 12.Melatonin 3 mg p.o. at bedtime. 13.Solu-Medrol 60 IV q.6. 14.Lopressor 25 mg p.o. b.i.d. 15.Protonix 40 mg daily. 16.Zosyn 3.375 IV q.8. 17.Flomax 0.4 daily. PHYSICAL EXAMINATION: Patient is alert, oriented x3. Pulse is 80, blood pressure 118/58, respirations 16, temperature 98.3, pulse ox 94% on 2 L. HEENT: Conjunctivae normal. Oral mucosa moist. NECK: No jugular venous distention. No carotid bruit. No lymph node enlargement. CARDIOVASCULAR SYSTEM: S1, S2 muffled. RESPIRATORY SYSTEM: Breath sounds diminished at the bases. A few scattered rhonchi and crackles. ABDOMEN: Soft, nontender. No mass palpable. LEGS: No edema. No swelling. NERVOUS SYSTEM: Higher functions as mentioned earlier. Moves all 4 limbs. No focal motor or sensory deficit. LYMPHATICS: No lymph node palpable in neck, axillae or groin. SKIN: No ulcer, rash, bleeding. LABS: WBC 13.9. UA noted. ASSESSMENT: 1. Multifocal pneumonia, possibly gram-negative, with failure of outpatient treatment. 2. Right apical solitary pulmonary nodule measuring 3 mm. 3. Possible chronic obstructive pulmonary disease, acute exacerbation, underlying. 4. Post-inflammatory bronchiectasis, mainly upper lobe. 5. Possible congestive heart failure, acute exacerbation, with acute on chronic systolic dysfunction, ejection fraction 40% to 45%. 6. Increased white count. 7. History of atrial fibrillation. 8. Coronary artery disease. 9. History of gastroesophageal reflux disease. 10.Hypertension. 11.Hyperlipidemia. 12.Degenerative joint disease. 13.History of macular degeneration. 14.History of Clostridium difficile colitis. 15.History of automated implantable cardioverter defibrillator. 16.Remote history of nicotine dependence. 17.NO CODE, NO CPR, NO VENT. RECOMMENDATIONS AND DISCUSSION: I recommend to continue current medication, continue symptomatic treatment. I would also add a small dose of diuretics and obtain a cardiology consultation. The patient's BNP is only 441; however, D-dimer is slightly elevated. Continue to monitor. Continue the rest of the medications. Continue the antibiotics. Monitor blood sugars closely. Would repeat labs. Guarded prognosis because of multiple complex medical issues. Further recommendations to follow. MMODL / IJN: [id number] /
[2017-12-04 17:13] LABS: Glucose,Whole Blood 181 mg/dL (75-99)
[2017-12-04 20:40] LABS: Glucose,Whole Blood 234 mg/dL (75-99)
[2017-12-04] MEDS: diphenhydrAMINE 25 MG CAP PO PRN (21:20)
[2017-12-04] MEDS: MELATONIN 3 MG TABLET PO SCH (21:20)
[2017-12-04] MEDS: TAMSULOSIN 0.4 MG CAP.ER.24H PO SCH (21:20)
[2017-12-04] MEDS: ASPIRIN 81 MG PO SCH (21:20)
[2017-12-04] MEDS: ATORVASTATIN 20 MG TAB PO SCH (21:20)
[2017-12-05] MEDS: methylPREDNISolone SOD SUCCI 125 MG/2 ML VIAL IV SCH (05:30)
[2017-12-05 07:07] LABS: Glucose,Whole Blood 136 mg/dL (75-99)
[2017-12-05] MEDS: IPRATROPIUM-ALBUTEROL 3 ML NEB INHALATION SCH ×4 (07:19→20:18)
[2017-12-05] MEDS: SYMBICORT 160-4.5 MCG INHALER INHALATION SCH ×2 (07:19→20:18)
[2017-12-05] MEDS: INSULIN ASPART 100 UNIT/ML 1 ML 10 ML VIAL SQ SCH ×4 (08:18→22:43)
[2017-12-05] MEDS: PIPERACILLIN-TAZOBACTAM 3.375 GM in DEXTROSE/WATER 1 50ML.BAG IVPB SCH ×2 (08:18→16:14)
[2017-12-05] MEDS: METOPROLOL TARTRATE 25 MG TAB PO SCH ×2 (08:18→18:22)
[2017-12-05] MEDS: LISINOPRIL 10 MG TAB PO SCH (08:18)
[2017-12-05] MEDS: HEPARIN SODIUM,PORCINE 5,000 UNIT/ML 1 ML VIAL SQ SCH ×2 (08:18→22:42)
[2017-12-05] MEDS: AZITHROMYCIN 500 MG TAB PO SCH (08:19)
[2017-12-05] MEDS: PANTOPRAZOLE 40 MG TABLET PO SCH (08:19)
[2017-12-05] MEDS: FUROSEMIDE 10 MG/ML 2 ML VIAL IV SCH (08:26)
--- NOTE | 2017-12-05 10:45 | P.CRDCN ---
History of Present Illness History of present illness: Mr. De Leon is a pleasant 82-year-old male past medical history significant for chronic stable triple vessel coronary artery disease, hypertension, dyslpidemia, ischemic cardiomyopathy, ventricular tachycardia s/p AICD implantation with recent generator change 03/2017. He follows with Dr. Otero in the office. We have been asked to see him in consultation for question of heart failure. He presented to the hospital with symptoms of cough, shortness of breath and pleuritic chest pain. He states he has had a cough for the previous week or so and has been diagnosed with an upper respiratory infection as an outpatient and started on antibiotics. He followed up in his PCPs office yesterday and described that his symptoms had actually gotten worse and he showed no improvement with antibiotics. He states he had been coughing and unable to bring up any phlegm at home and he started feeling pain in his chest time he coughed. Since being admitted he has been started on IV antibiotics and IV steroids with breathing treatments [id number] and he states he is starting to bring up phlegm and is starting to feel better. He denies symptoms of chest pain, shortness of breath, dizziness, palpitations, nausea, vomiting or diaphoresis. EKG reveals sinus mechanism with no acute ST or T wave abnormalities noted. Chest x-ray reveals hyperinflation, no evidence of overt heart failure. CTA reveals multifocal pneumonia with new consolidation. Underlying pulmonary emphysema as well as a 3 mm right apical pulmonary nodule. Laboratory data reviewed, WBC 13.9, platelets 352, d-dimer 0.7, sodium 137, potassium 5.1, magnesium 2.2, creatinine 0.9, cardiac enzymes negative 1, proBNP 441. Current cardiac medications include sotalol 80 mg twice a day, Lopressor 25 mg twice a day, lisinopril 10 mg daily, atorvastatin 20 mg daily and aspirin 81 mg daily. Echocardiogram performed on this admission reveals mildly impaired left ventricular systolic function with ejection fraction 45-50%, inferior hypokinesia, mild MR and mild TR. Most recent cardiac catheterization performed 2005 reveals the left main artery is calcified, free of any significant lesions, LAD 40-50% stenosis in the proximal and midsections. Circumflex 40-50% proximal and mid stenosis, RCA is totally occluded and heavily calcified. Review of Systems At the time of my exam: CONSTITUTIONAL: Denies fever. Denies chills. EYES: Denies blurred vision. Denies vision changes. Denies eye pain. EARS, NOSE, MOUTH & THROAT: Denies headache. Denies sore throat. Denies ear pain. CARDIOVASCULAR: Denies chest pain. Denies shortness of breath. Denies orthopnea. Denies PND. Denies palpitations. RESPIRATORY: Complains of productive cough. GASTROINTESTINAL: Denies abdominal pain. Denies diarrhea. Denies constipation. Denies nausea. Denies vomiting. MUSCULOSKELETAL: Denies myalgias. INTEGUMENTARY: Denies pruitis. Denies rash. NEUROLOGIC: Denies numbness. Denies tingling. Denies weakness. PSYCHIATRIC: Denies anxiety. Denies depression. ENDOCRINE: Denies fatigue. Denies weight change. Denies polydipsia. Denies polyurina. GENITOURINARY: Denies burning, hematuria or urgency with micturation. HEMATOLOGIC: Denies history of anemia. Denies bleeding. Past Medical History Past Medical History: Atrial Fibrillation, Coronary Artery Disease (CAD), GERD/ Reflux, Hearing Disorder / Deafness, Hyperlipidemia, Hypertension, Osteoarthritis (OA), Pneumonia Additional Past Medical History / Comment(s): mac degeneration. hx c-diff 2014, "wears partials upper and lower" Last Myocardial Infarction Date:: 2007 History of Any Multi-Drug Resistant Organisms: None Reported Date of last positivie culture/infection: None MDRO Source:: None Past Surgical History: AICD, Heart Catheterization, Orthopedic Surgery, Pacemaker Additional Past Surgical History / Comment(s): rt foot ganglujon cyst removed/ rt great toe sx, cataracts, sinus sx x 3, colonoscopy.bronchoscopy Past Anesthesia/Blood Transfusion Reactions: Previous Problems w/ Anesthesia Additional Past Anesthesia/Blood Transfusion Reaction / Comment(s): Heart stopped when he got anesthesia Type of Cardiac Device: Permanent Pacemaker, AICD Device Placement Date:: 06-06-07 [employer] Smoking Status: Former smoker - Past Family History Father Additional Family Medical History / Comment(s): killed in mva age 47 Mother Family Medical History: Dementia Medications and Allergies Home Medications Medication Instructions Recorded Confirmed Type Lisinopril [Zestril] 10 mg PO DAILY 11/25/13 12/03/17 History Sotalol [Betapace] 80 mg PO BID 11/25/13 12/03/17 History Tamsulosin [Flomax] 0.4 mg PO HS 08/26/16 12/03/17 History Atorvastatin [Lipitor] 20 mg PO HS 03/28/17 12/03/17 History Aspirin 81 mg PO HS 06/11/17 12/03/17 History Budesonide-Formot 160-4.5 Mcg 2 puff INHALATION RT-BID #0 06/12/17 12/03/17 Rx [Symbicort 160-4.5 Mcg Inhaler] Acetaminophen/Diphenhydramine 1 tab PO HS PRN 12/03/17 12/03/17 History [Tylenol PM Extra Strength] Metoprolol Tartrate [Lopressor] 25 mg PO BID-W/MEALS 12/03/17 12/03/17 History Sodium Chloride [Saline Nasal 1 spray EA NOSTRIL TID PRN 12/04/17 12/04/17 History [place]] Allergies Allergy/AdvReac Type Severity Reaction Status Date / Time No Known Allergies Allergy Verified 12/03/17 12:49 Physical Exam Vitals: Vital Signs Temp Pulse Pulse Resp BP Pulse Ox 12/05/17 07:29 78 12/05/17 07:19 76 12/05/17 06:34 97.1 F L 95 16 141/78 93 L 12/04/17 23:00 97.4 F L 82 14 108/55 93 L 12/04/17 22:04 84 16 12/04/17 21:54 88 16 12/04/17 17:18 86 16 12/04/17 17:11 84 16 12/04/17 14:20 97.4 F L 96 18 128/82 92 L 12/04/17 11:15 84 12/04/17 11:04 80 Intake and Output 12/04/17 12/05/17 12/05/17 22:59 06:59 14:59 Intake Total 50 Output Total 900 Balance -900 50 Intake: Intake, IV Titration 50 Amount Piperacillin-Tazobactam 3 50 .375 gm In Dextrose/Water 1 50ml.bag @ 12.5 mls/hr IVPB Q8HR [facility] Rx#: [id number] Output: Urine 900 Other: Voiding Method Toilet Urinal # Voids 1 1 Weight 67 kg Blood pressure 141/78 heart rate 95 afebrile maintaining oxygen saturation on nasal cannula GENERAL: This is a 82-year-old male in no apparent distress at the time of my examination. HEENT: Head is atraumatic, normocephalic. Pupils are equal, round. Sclerae anicteric. Conjunctivae are clear. Mucous membranes of the mouth are moist. Neck is supple. There is no jugular venous distention. No carotid bruit is heard. LUNGS: Clear to auscultation no wheezes, rales or rhonchi. No chest wall tenderness is noted on palpation or with deep breathing. Diminished bilaterally. HEART: Regular rate and rhythm with systolic ejection murmur at the base, no rubs or gallops. S1 and S2 heard. ABDOMEN: Soft, nontender. Bowel sounds are heard. No organomegaly noted. EXTREMITIES: No evidence of peripheral edema and no calf tenderness noted. VASCULAR: Radial and dorsalis pedis pulses palpated, no evidence of clubbing. NEUROLOGIC: Patient is awake, alert and oriented x3. Results 12/03/17 11:58 12/03/17 11:58 Current Medications Generic Name Dose Route Start Last Admin Trade Name Freq PRN Reason Stop Dose Admin Acetaminophen 500 mg 12/04/17 01:35 Tylenol Tab PO Q6HR PRN Fever and/ or Pain Albuterol/Ipratropium 3 ml 12/03/17 20:00 12/05/17 07:19 Duoneb 0.5 Mg-3 Mg/3 Ml Soln INHALATION 3 ml RT-QID BEATRIZ Administration Albuterol/Ipratropium 3 ml 12/03/17 17:42 Duoneb 0.5 Mg-3 Mg/3 Ml Soln INHALATION RT-Q2H PRN Shortness Of Breath Or Wheezing Alprazolam 0.25 mg 12/04/17 01:33 12/05/17 08:26 Xanax PO 0.25 mg TID PRN Administration Anxiety Aspirin 81 mg 12/03/17 21:00 12/04/17 21:20 Aspirin PO 81 mg HS BEATRIZ Administration Atorvastatin Calcium 20 mg 12/03/17 21:00 12/04/17 21:20 Lipitor PO 20 mg HS BEATRIZ Administration Azithromycin 500 mg 12/04/17 16:00 12/05/17 08:19 Zithromax PO 500 mg DAILY@1600 BEATRIZ Administration Budesonide/Formoterol Fumarate 2 puff 12/03/17 20:00 12/05/17 07:19 Symbicort 160-4.5 Mcg Inhaler INHALATION 2 puff RT-BID BEATRIZ Administration Diphenhydramine HCl 25 mg 12/03/17 17:48 12/04/17 21:20 Benadryl PO 25 mg HS PRN Administration Insomnia Furosemide 20 mg 12/04/17 16:00 12/05/17 08:26 Lasix IV 20 mg DAILY BEATRIZ Administration Heparin Sodium (Porcine) 5,000 unit 12/04/17 09:00 12/05/17 08:18 Heparin SQ 5,000 unit Q12HR BEATRIZ Administration Piperacillin/Tazobactam/ 50 mls @ 12.5 mls/hr 12/04/17 00:00 12/05/17 08:18 Dextrose 3.375 gm/ IV Solution IVPB 12/13/17 00:01 12.5 mls/hr Q8HR BEATRIZ Administration Sodium Chloride 1,000 mls @ 20 mls/hr 12/03/17 18:00 12/04/17 16:06 Saline 0.9% IV Not Given .Q24H BEATRIZ Insulin Aspart 0 unit 12/04/17 12:30 12/05/17 08:18 Novolog SQ 1 unit ACHS BEATRIZ Administration Protocol Lisinopril 10 mg 12/04/17 09:00 12/05/17 08:18 Zestril PO 10 mg DAILY BEATRIZ Administration Melatonin 3 mg 12/04/17 21:00 12/04/17 21:20 Melatonin PO 3 mg HS BEATRIZ Administration Methylprednisolone Sodium Succinate 60 mg 12/04/17 01:45 12/05/17 05:30 Solu-Medrol IV 60 mg Q6HR BEATRIZ Administration Metoprolol Tartrate 25 mg 12/03/17 17:30 12/05/17 08:18 Lopressor PO 25 mg BID-W/MEALS BEATRIZ Administration Miscellaneous Information 1 each 12/03/17 14:50 Pneumonia Protocol Utilized PO ONCE PRN Per Protocol Pantoprazole Sodium 40 mg 12/04/17 07:30 12/05/17 08:19 Protonix PO 40 mg [id number] BEATRIZ Administration Sodium Chloride 1 spray 12/04/17 15:03 [place] NASAL TID PRN Nasal Congestion Tamsulosin HCl 0.4 mg 12/03/17 21:00 12/04/17 21:20 Flomax PO 0.4 mg HS BEATRIZ Administration Intake and Output 08/14/18 08/15/18 08/15/18 22:59 06:59 14:59 Intake Total 50 Output Total 900 Balance -900 50 Intake: Intake, IV Titration 50 Amount Piperacillin-Tazobactam 3 50 .375 gm In Dextrose/Water 1 50ml.bag @ 12.5 mls/hr IVPB Q8HR BEATRIZ Rx#: [id number] Output: Urine 900 Other: Voiding Method Toilet Urinal # Voids 1 1 Weight 67 kg 12/03/17 11:58 12/03/17 11:58 Assessment and Plan Assessment: ASSESSMENT Pleuritic chest pain with cough Pneumonia, multilobular COPD History of ischemic cardiomyopathy status post AICD implantation History of chronic systolic heart failure, currently euvolemic Chronic stable triple-vessel coronary artery disease Dyslipidemia Hypertension PLAN Continue current medical regimen. Change to PO lasix 20 mg daily. No evidence of overt heart failure. Follow up with Dr. Otero at next regularly scheduled appointment end of this month. Thank you kindly for this consultation. Nurse Practitioner note has been reviewed, I agree with a documented findings and plan of care. Patient was seen and examined.
--- NOTE | 2017-12-05 10:47 | P.PN ---
Subjective Progress Note Date: 12/05/17 Principal diagnosis: Shortness of breath, cough, pneumonia Progress note dated 12/05/2017 82-year-old male with a history of bronchiectasis who presented to the emergency department with a diagnosis of "pneumonia". The patient apparently saw his nurse practitioner in the office recently. Was treated with azithromycin for what appeared to be an upper respiratory tract infections and sinus infection. Today the patient feels better. He states his breathing is improved. He still coughing. Coughing up some phlegm. He states that things seemed to be worsening up quite a bit. No fever or chills. No chest pain or chest discomfort. The patient has a history of atrial fibrillation, COPD, GERD , deafness, hyperlipidemia, hypertension, DJD and pneumonia, as well as bronchiectasis. He also has a previous history of C. difficile colitis. Objective - Vital Signs Vital signs: Vital Signs Temp 97.1 F L 12/05/17 06:34 Pulse 78 12/05/17 07:29 Resp 16 12/05/17 06:34 BP 141/78 12/05/17 06:34 Pulse Ox 93 L 12/05/17 06:34 Intake & Output 12/04/17 12/05/17 12/05/17 18:59 06:59 18:59 Intake Total 750 50 Output Total 900 Balance -150 50 Weight 67 kg 67 kg Intake: Intake, IV Titration 150 50 Amount Piperacillin-Tazobactam 3 50 50 .375 gm In Dextrose/Water 1 50ml.bag @ 12.5 mls/hr IVPB Q8HR [facility] Rx#: [id number] Sodium Chloride 0.9% 1, 100 000 ml @ 20 mls/hr IV . Q24H [facility] Rx#:[id number] Oral 600 Output: Urine 900 Other: Voiding Method Toilet Toilet Urinal Urinal # Voids 1 1 - Exam No acute distress, oriented 3. Nasal O2 in place. No obvious respiratory distress. HEENT examination is grossly unremarkable. Mucous membranes are moist. No oral lesions. Neck supple. Full range of motion. No adenopathy thyromegaly or neck vein distention. Cardiovascular examination reveals regular rhythm rate. S1-S2 normal. No S3 or S4. No discernible murmur noted. Pacemaker generator is noted. Heart sounds are distant. Lungs reveal diffuse bilateral rhonchi. Breath sounds are diminished. There is prolongation on forced maneuver. Some crackles are noted bilaterally. No wheezes. Her sounds are diminished throughout. Breath sounds are improved a bit. Abdomen soft bowel sounds are heard. No masses or tenderness. Extremities are intact. No cyanosis clubbing or edema. Skin is without rash or lesion. Neurologic examination is brief but nonfocal. - Labs CBC & Chem 7: 12/03/17 11:58 12/03/17 11:58 Labs: Abnormal Lab Results - Last 24 Hours (Table) 12/04/17 12/04/17 12/04/17 Range/Units 11:42 17:10 20:39 POC Glucose (mg/dL) 236 H 181 H 234 H (75-99) mg/dL 12/05/17 Range/Units 06:51 POC Glucose (mg/dL) 136 H (75-99) mg/dL Microbiology - Last 24 Hours (Table) 12/04/17 12:30 Gram Stain - Preliminary Sputum 12/04/17 16:11 Urine Culture - Preliminary Urine,Clean Catch 12/03/17 11:58 Blood Culture - Preliminary Blood No Growth after 24 hours Assessment and Plan Assessment: Assessment Multilobar pneumonia involving the lingula left lower lobe right midlung and right lower lobe. 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 difficile colitis Plan: Plan dated 12/04/2017 Labs x-rays and medications are reviewed. Chest x-ray and CAT scan are reviewed. White count 13.9 hemoglobin and hematocrit and platelet count all normal. PT INR and PTT are normal. Electrolytes all completely normal. Urinalysis is negative. Medications include azithromycin myosin Symbicort albuterol and Atrovent updrafts Zosyn and Solu-Medrol. We will recommend a sputum Gram stain and culture. Also, incentive spirometer use every hour what helped. We'll continue to follow. Plan dated 12/05/2017 The patient appears to be improving with therapy. His lung sounds are somewhat improved. There is no new laboratory data to report. Microbiology is as far negative. Medications were reviewed yesterday. A chest x-ray will be ordered for the morning. We will encourage deep breathing coughing and clearing of secretions and the use of incentive spirometer. Time with Patient: Less than 30
[2017-12-05] MEDS ORDERED: SENNOSIDES-DOCUSATE SODIUM 1 EACH TAB PO STA (10:52)
[2017-12-05 11:50] LABS: Glucose,Whole Blood 152 mg/dL (75-99)
[2017-12-05] MEDS: methylPREDNISolone SOD SUCCI 40 MG/ML 1 ML VIAL IV SCH (16:14)
--- NOTE | 2017-12-05 17:32 | P.PN ---
Subjective Progress Note Date: 12/05/17 Progress note being dictated for Dr. Brito. Interval history: This is an 82-year-old gentleman admitted with multifocal pneumonia, possibly gram-negative with failure of outpatient treatment, right apical solitary pulmonary nodule 3 cm, possible acute exacerbation COPD, and multiple other medical issues. Complains of nonstop cough during the night, unable to sleep. Good Diet intake with no nausea or vomiting. Complains of constipation. Received 2 doses of Lasix IV push yesterday, converted to oral as per cardiology. Better air entry today. Denies chest pain, palpitations. Objective - Vital Signs Vital signs: Vital Signs Temp 96.9 F L 12/05/17 15:00 Pulse 82 12/05/17 15:42 Resp 20 12/05/17 15:00 BP 108/56 12/05/17 15:00 Pulse Ox 97 12/05/17 15:00 Intake & Output 12/04/17 12/05/17 12/05/17 18:59 06:59 18:59 Intake Total 750 50 Output Total 900 Balance -150 50 Weight 67 kg 67 kg Intake: Intake, IV Titration 150 50 Amount Piperacillin-Tazobactam 3 50 50 .375 gm In Dextrose/Water 1 50ml.bag @ 12.5 mls/hr IVPB Q8HR [facility] Rx#: [id number] Sodium Chloride 0.9% 1, 100 000 ml @ 20 mls/hr IV . Q24H [facility] Rx#:[id number] Oral 600 Output: Urine 900 Other: Voiding Method Toilet Toilet Toilet Urinal Urinal Urinal # Voids 1 1 2 - Exam PHYSICAL EXAM: VITAL SIGNS: As above GENERAL: Sitting up in bed, no acute distress HEENT: Conjunctivae normal. eyes normal. Oral mucosa moist NECK: No JVD. No thyroid enlargement. No LNs CARDIOVASCULAR: S1, S2 muffled. Systolic murmur. RESPIRATION: Improved air entry. Breath sounds diminished in the bases. Scattered rhonchi and fine crackles. No wheezing ABDOMEN: Soft, nontender . No guarding. no masses palpable.Bowel sounds heard. LEGS: No edema. no swelling PSYCHIATRY: Alert and oriented -3, mood and affect normal. NERVOUS SYSTEM: Cranial N 2-12 grossly normal. Moves all 4 limbs. Diffuse weakness No focal deficits. Skin: no ulcer no rash Joints: No active swelling. No inflammation. Lymphatic system. No LN neck axilla or groin. Microbiology 12/03/17 11:58 Blood Blood Culture - Preliminary No Growth after 48 hours 12/04/17 12:30 Sputum Gram Stain - Preliminary 12/04/17 12:30 Sputum Sputum Culture - Preliminary 12/04/17 16:11 Urine,Clean Catch Urine Culture - Preliminary - Labs CBC & Chem 7: 12/03/17 11:58 12/03/17 11:58 Labs: Abnormal Lab Results - Last 24 Hours (Table) 12/04/17 12/05/17 12/05/17 Range/Units 20:39 06:51 11:30 POC Glucose (mg/dL) 234 H 136 H 152 H (75-99) mg/dL Microbiology - Last 24 Hours (Table) 12/03/17 11:58 Blood Culture - Preliminary Blood No Growth after 48 hours 12/04/17 12:30 Gram Stain - Preliminary Sputum Sputum Culture - Preliminary 12/04/17 16:11 Urine Culture - Preliminary Urine,Clean Catch Assessment and Plan Assessment: 1. Multifocal pneumonia, possibly gram-negative with failure of outpatient treatment 2. Right apical solitary pulmonary nodule 3 mm 3. Possible COPD exacerbation 4. Postinflammatory bronchiectasis, mainly upper lobe 5. Possible mild component of acute on chronic CHF exacerbation, EF 40-45% 6. CAD 7. Macular degeneration 8. History of AICD 9. History of C. difficile colitis 10. No code, no CPR, no vent. Plan: Continue current medication regime ,monitoring and symptomatic treatment. Maintain nebulized bronchodilators, antibiotics, systemic steroids. Sputum culture. Aggressive pulmonary toileting with incentive spirometer reinforced. Increase ambulation as tolerated. Follow closely pulmonary. Further recommendations to follow. The impression and plan of care has been dictated as directed. : I performed a history and examination of this patient, discussed the same with the dictator. I agree with the dictator's note ,documented as a scribe. Any additional findings or plans will be noted.
[2017-12-05 17:45] LABS: Glucose,Whole Blood 143 mg/dL (75-99)
[2017-12-05 21:30] LABS: Glucose,Whole Blood 153 mg/dL (75-99)
[2017-12-05] MEDS: TAMSULOSIN 0.4 MG CAP.ER.24H PO SCH (22:42)
[2017-12-05] MEDS: ATORVASTATIN 20 MG TAB PO SCH (22:42)
[2017-12-05] MEDS: MELATONIN 3 MG TABLET PO SCH (22:42)
[2017-12-05] MEDS: PROMETHAZ-COD 6.25-10 MG/5 ML 5 ML CUP PO PRN (22:43)
[2017-12-05] MEDS: diphenhydrAMINE 25 MG CAP PO PRN (22:43)
[2017-12-05] MEDS: ASPIRIN 81 MG PO SCH (22:43)
[2017-12-06] MEDS: methylPREDNISolone SOD SUCCI 40 MG/ML 1 ML VIAL IV SCH ×2 (00:11→09:03)
[2017-12-06] MEDS: PIPERACILLIN-TAZOBACTAM 3.375 GM in DEXTROSE/WATER 1 50ML.BAG IVPB SCH ×4 (00:11→23:54)
[2017-12-06] MEDS: IPRATROPIUM-ALBUTEROL 3 ML NEB INHALATION SCH ×4 (07:16→19:47)
[2017-12-06] MEDS: SYMBICORT 160-4.5 MCG INHALER INHALATION SCH ×2 (07:16→19:48)
[2017-12-06] MEDS: INSULIN ASPART 100 UNIT/ML 1 ML 10 ML VIAL SQ SCH ×4 (07:25→21:05)
[2017-12-06 07:30] LABS: Glucose,Whole Blood 130 mg/dL (75-99)
[2017-12-06 07:53] LABS: Basophils % (A) 0 %; Eosinophils % (A) 0 %; HCT 35.4 % (39.0-53.0); HGB 11.8 gm/dL (13.0-17.5); Lymphocytes # (A) 2.4 k/uL (1.0-4.8); Lymphocytes % (A) 10 %; MCH 30.1 pg (25.0-35.0); MCHC 33.3 g/dL (31.0-37.0); MCV 90.4 fL (80.0-100.0); Mean Platelet Volume 7.8; Monocytes # (A) 0.6 k/uL (0-1.0); Monocytes % (A) 2 %; Neutrophils # (A) 22.2 k/uL (1.3-7.7); Neutrophils % (A) 88 %; Platelet Count 309 k/uL (150-450); RBC 3.92 m/uL (4.30-5.90); RDW 13.5 % (11.5-15.5)
[2017-12-06 07:58] LABS: WBC 25.4 k/uL (3.8-10.6)
--- NOTE | 2017-12-06 07:59 | XR ---
EXAMINATION TYPE: XR chest 2V DATE OF EXAM: 12/06/2017 COMPARISON: 12/04/2017 HISTORY: Shortness of breath TECHNIQUE: Frontal and lateral views of the chest are obtained. FINDINGS: Right upper lobe bronchiectasis and thickening along the minor fissure are again noted. Le ft basilar/lingular opacity has improved in the comparison to the prior. Hilar prominence remains. Si ngle lead left-sided cardiac device is again seen. Diffuse osseous demineralization and pulmonary hyp erinflation are redemonstrated. IMPRESSION: Improving lingular and left basilar opacity with persistent right upper lobe bronchiecta sis and consolidation in a background of pulmonary emphysema.
[2017-12-06 08:01] LABS: Calcium 9.1 mg/dL (8.4-10.2); Potassium 4.5 mmol/L (3.5-5.1)
[2017-12-06 08:31] LABS: Toxic Vacuolation Present
[2017-12-06 08:32] LABS: Anisocytosis (M) Present
[2017-12-06] MEDS: PANTOPRAZOLE 40 MG TABLET PO SCH (09:03)
[2017-12-06] MEDS: METOPROLOL TARTRATE 25 MG TAB PO SCH ×2 (09:03→16:09)
[2017-12-06] MEDS: HEPARIN SODIUM,PORCINE 5,000 UNIT/ML 1 ML VIAL SQ SCH ×2 (09:04→21:54)
[2017-12-06] MEDS: LISINOPRIL 10 MG TAB PO SCH (09:04)
[2017-12-06] MEDS: FUROSEMIDE 20 MG TAB PO SCH (09:04)
--- NOTE | 2017-12-06 11:42 | P.PN ---
Subjective Progress Note Date: 12/06/17 Principal diagnosis: Shortness of breath, cough, pneumonia Progress note dated 12/05/2017 82-year-old male with a history of bronchiectasis who presented to the emergency department with a diagnosis of "pneumonia". The patient apparently saw his nurse practitioner in the office recently. Was treated with azithromycin for what appeared to be an upper respiratory tract infections and sinus infection. Today the patient feels better. He states his breathing is improved. He still coughing. Coughing up some phlegm. He states that things seemed to be worsening up quite a bit. No fever or chills. No chest pain or chest discomfort. The patient has a history of atrial fibrillation, COPD, GERD , deafness, hyperlipidemia, hypertension, DJD and pneumonia, as well as bronchiectasis. He also has a previous history of C. difficile colitis. Progress note dated 12/06/2017 82-year-old male with history of bronchiectasis who presented to the emergency department with a diagnosis of "pneumonia". The patient seemed be doing much better. She denies significant cough wheezing shortness of breath phlegm production. He feels well enough to be discharged home. Of course is with overlying on the primary service. He was recently treated in our office with azithromycin for what appeared to be an upper respiratory tract infection. He got worse at that point and ended up coming into the hospital. His complaints included shortness of breath chest congestion and cough. The cough was a most compelling symptom. The patient has a history of atrial fibrillation, COPD, GERD, deafness, hyperlipidemia, hypertension, DJD and pneumonia as well as bronchiectasis. He also has a previous history of C. difficile colitis. Objective - Vital Signs Vital signs: Vital Signs Temp 97.7 F 12/06/17 07:00 Pulse 80 12/06/17 11:15 Resp 16 12/06/17 07:00 BP 120/60 12/06/17 07:00 Pulse Ox 91 L 12/06/17 07:17 Intake & Output 12/05/17 12/06/17 12/06/17 18:59 06:59 18:59 Intake Total 100 Output Total 450 Balance -350 Weight 67 kg Intake: Intake, IV Titration 100 Amount Piperacillin-Tazobactam 3 100 .375 gm In Dextrose/Water 1 50ml.bag @ 12.5 mls/hr IVPB Q8HR [facility] Rx#: [id number] Output: Urine 450 Other: Voiding Method Toilet Urinal # Voids 2 2 - Exam No acute distress, oriented 3. Nasal O2 in place. No obvious respiratory distress. HEENT examination is grossly unremarkable. Mucous membranes are moist. No oral lesions. Neck supple. Full range of motion. No adenopathy thyromegaly or neck vein distention. Cardiovascular examination reveals regular rhythm rate. S1-S2 normal. No S3 or S4. No discernible murmur noted. Pacemaker generator is noted. Heart sounds are distant. Lungs reveal much improved breath sounds. There are a few scattered rhonchi. No wheezes or crackles. Breath sounds are diminished. Slight prolongation is noted. Abdomen soft bowel sounds are heard. No masses or tenderness. Extremities are intact. No cyanosis clubbing or edema. Skin is without rash or lesion. Neurologic examination is brief but nonfocal. - Labs CBC & Chem 7: 12/06/17 07:17 12/06/17 07:17 Labs: Abnormal Lab Results - Last 24 Hours (Table) 12/05/17 12/05/17 12/05/17 Range/Units 11:30 17:28 21:29 WBC (3.8-10.6) k/uL RBC (4.30-5.90) m/uL Hgb (13.0-17.5) gm/dL Hct (39.0-53.0) % Neutrophils # (1.3-7.7) k/uL BUN (9-20) mg/dL Glucose (74-99) mg/dL POC Glucose (mg/dL) 152 H 143 H 153 H (75-99) mg/dL 12/06/17 12/06/17 12/06/17 Range/Units 07:08 07:17 07:17 WBC 25.4 H* (3.8-10.6) k/uL RBC 3.92 L (4.30-5.90) m/uL Hgb 11.8 L (13.0-17.5) gm/dL Hct 35.4 L (39.0-53.0) % Neutrophils # 22.2 H (1.3-7.7) k/uL BUN 29 H (9-20) mg/dL Glucose 118 H (74-99) mg/dL POC Glucose (mg/dL) 130 H (75-99) mg/dL Microbiology - Last 24 Hours (Table) 12/04/17 12:30 Gram Stain - Final Sputum Sputum Culture - Final 12/04/17 16:11 Urine Culture - Final Urine,Clean Catch 12/03/17 11:58 Blood Culture - Preliminary Blood No Growth after 48 hours Assessment and Plan Assessment: Assessment Multilobar pneumonia involving the lingula left lower lobe right midlung and right lower lobe. 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 difficile colitis Plan: Plan dated 12/04/2017 Labs x-rays and medications are reviewed. Chest x-ray and CAT scan are reviewed. White count 13.9 hemoglobin and hematocrit and platelet count all normal. PT INR and PTT are normal. Electrolytes all completely normal. Urinalysis is negative. Medications include azithromycin myosin Symbicort albuterol and Atrovent updrafts Zosyn and Solu-Medrol. We will recommend a sputum Gram stain and culture. Also, incentive spirometer use every hour what helped. We'll continue to follow. Plan dated 12/05/2017 The patient appears to be improving with therapy. His lung sounds are somewhat improved. There is no new laboratory data to report. Microbiology is as far negative. Medications were reviewed yesterday. A chest x-ray will be ordered for the morning. We will encourage deep breathing coughing and clearing of secretions and the use of incentive spirometer. Plan dated 12/06/2017 The patient appears to be improving. White count 25.4, hemoglobin 11.8, and hematocrit 35.4. Platelet count is normal. Sodium, potassium, chloride, CO2, anion gap, are all normal with a BUN of 29 and a creatinine of 1.15. All microbiology is currently negative. Chest x-ray is much improved. The patient could be considered for discharge. The patient should be discharged home on his usual medications and some antibiotics. Currently the patient is on Zithromax and Zosyn. We will allow the primary service to make a decision about discharge antibiotics. In addition, the patient's on IV Solu-Medrol. That can be converted to prednisone 30 mg a day and tapered over about 10-12 days. Time with Patient: Less than 30
[2017-12-06 11:53] LABS: Glucose,Whole Blood 136 mg/dL (75-99)
[2017-12-06] MEDS: AZITHROMYCIN 500 MG TAB PO SCH (16:39)
[2017-12-06 17:19] LABS: Glucose,Whole Blood 131 mg/dL (75-99)
[2017-12-06 20:55] LABS: Glucose,Whole Blood 128 mg/dL (75-99)
[2017-12-06] MEDS ORDERED: SENNOSIDES-DOCUSATE SODIUM 1 EACH TAB PO SCH (21:00)
--- NOTE | 2017-12-06 21:37 | P.PN ---
Subjective Progress Note Date: 12/06/17 Progress note being dictated for Dr. Brito. Interval history: This is an 82-year-old gentleman admitted with multifocal pneumonia, possibly gram-negative with failure of outpatient treatment, right apical solitary pulmonary nodule 3 cm, possible acute exacerbation COPD, and multiple other medical issues. Complains of nonstop cough during the night, unable to sleep. Good Diet intake with no nausea or vomiting. Complains of constipation. Received 2 doses of Lasix IV push yesterday, converted to oral as per cardiology. Better air entry today. Denies chest pain, palpitations. 12/06/2017 chest x-ray reporting improving lingular and left basilar opacity with persistent right upper lobe bronchiectasis and consolidation, pulmonary emphysema. Breathing, coughing improving. Maintaining O2 sats in the low 90s on 2 L nasal cannula. Afebrile. Objective - Vital Signs Vital signs: Vital Signs Temp 97.6 F 12/06/17 14:35 Pulse 78 12/06/17 19:59 Resp 16 12/06/17 14:35 BP 103/61 12/06/17 14:35 Pulse Ox 91 L 12/06/17 14:35 Intake & Output 12/06/17 12/06/17 12/07/17 06:59 18:59 06:59 Intake Total 750 Balance 750 Intake: Oral 750 Other: # Voids 2 2 - Exam PHYSICAL EXAM: VITAL SIGNS: As above GENERAL: Sitting up in bed, no acute distress HEENT: Conjunctivae normal. eyes normal. Oral mucosa moist NECK: No JVD. No thyroid enlargement. No LNs CARDIOVASCULAR: S1, S2 muffled. Systolic murmur. RESPIRATION: Improved air entry. Breath sounds diminished in the bases. Few Scattered rhonchi. No wheezing, no crackles ABDOMEN: Soft, nontender . No guarding. no masses palpable.Bowel sounds heard. LEGS: No edema. no swelling PSYCHIATRY: Alert and oriented -3, mood and affect normal. NERVOUS SYSTEM: Cranial N 2-12 grossly normal. Moves all 4 limbs. Diffuse weakness No focal deficits. Skin: no ulcer no rash Joints: No active swelling. No inflammation. Lymphatic system. No LN neck axilla or groin. Microbiology 12/03/17 11:58 Blood Blood Culture - Preliminary No Growth after 72 hours 12/04/17 12:30 Sputum Gram Stain - Final 12/04/17 12:30 Sputum Sputum Culture - Final 12/04/17 16:11 Urine,Clean Catch Urine Culture - Final - Labs CBC & Chem 7: 12/06/17 07:17 12/06/17 07:17 Labs: Abnormal Lab Results - Last 24 Hours (Table) 12/06/17 12/06/17 12/06/17 Range/Units 07:08 07:17 07:17 WBC 25.4 H* (3.8-10.6) k/uL RBC 3.92 L (4.30-5.90) m/uL Hgb 11.8 L (13.0-17.5) gm/dL Hct 35.4 L (39.0-53.0) % Neutrophils # 22.2 H (1.3-7.7) k/uL BUN 29 H (9-20) mg/dL Glucose 118 H (74-99) mg/dL POC Glucose (mg/dL) 130 H (75-99) mg/dL 12/06/17 12/06/17 12/06/17 Range/Units 11:52 17:17 20:53 WBC (3.8-10.6) k/uL RBC (4.30-5.90) m/uL Hgb (13.0-17.5) gm/dL Hct (39.0-53.0) % Neutrophils # (1.3-7.7) k/uL BUN (9-20) mg/dL Glucose (74-99) mg/dL POC Glucose (mg/dL) 136 H 131 H 128 H (75-99) mg/dL Microbiology - Last 24 Hours (Table) 12/03/17 11:58 Blood Culture - Preliminary Blood No Growth after 72 hours 12/04/17 12:30 Gram Stain - Final Sputum Sputum Culture - Final 12/04/17 16:11 Urine Culture - Final Urine,Clean Catch Assessment and Plan Assessment: 1. Multifocal pneumonia, possibly gram-negative with failure of outpatient treatment 2. Right apical solitary pulmonary nodule 3 mm 3. Possible COPD exacerbation 4. Postinflammatory bronchiectasis, mainly upper lobe 5. Possible mild component of acute on chronic CHF exacerbation, EF 40-45% 6. CAD 7. Macular degeneration 8. History of AICD 9. History of C. difficile colitis 10. No code, no CPR, no vent. Plan: Continue current medication regime ,monitoring and symptomatic treatment. Maintain nebulized bronchodilators, antibiotics, systemic steroids. Increase ambulation as tolerated .Aggressive pulmonary toileting with incentive spirometer reinforced. Discharge planning in progress for tomorrow. The impression and plan of care has been dictated as directed. : I performed a history and examination of this patient, discussed the same with the dictator. I agree with the dictator's note ,documented as a scribe. Any additional findings or plans will be noted.
[2017-12-06] MEDS: MELATONIN 3 MG TABLET PO SCH (21:54)
[2017-12-06] MEDS: TAMSULOSIN 0.4 MG CAP.ER.24H PO SCH (21:54)
[2017-12-06] MEDS: ASPIRIN 81 MG PO SCH (21:54)
[2017-12-06] MEDS: ATORVASTATIN 20 MG TAB PO SCH (21:54)
[2017-12-06] MEDS: PROMETHAZ-COD 6.25-10 MG/5 ML 5 ML CUP PO PRN (21:58)
[2017-12-07 06:04] VITALS: BP 154/70; RESP 14; TEMP 98.6
[2017-12-07 06:56] LABS: Glucose,Whole Blood 91 mg/dL (75-99)
[2017-12-07 07:05] LABS: Mycoplasma IgM Antibody 0.31 INDEX (<=0.90)
[2017-12-07 07:59] LABS: Basophils % (A) 0 %; Eosinophils # (A) 0.1 k/uL (0-0.7); Eosinophils % (A) 0 %; HCT 37.2 % (39.0-53.0); HGB 12.2 gm/dL (13.0-17.5); Lymphocytes # (A) 3.6 k/uL (1.0-4.8); Lymphocytes % (A) 21 %; MCH 29.7 pg (25.0-35.0); MCHC 32.8 g/dL (31.0-37.0); MCV 90.4 fL (80.0-100.0); Mean Platelet Volume 7.8; Monocytes # (A) 0.9 k/uL (0-1.0); Monocytes % (A) 5 %; Neutrophils # (A) 12.8 k/uL (1.3-7.7); Neutrophils % (A) 73 %; Platelet Count 289 k/uL (150-450); RBC 4.11 m/uL (4.30-5.90); RDW 13.6 % (11.5-15.5); WBC 17.5 k/uL (3.8-10.6)
[2017-12-07] MEDS: LISINOPRIL 10 MG TAB PO SCH (08:03)
[2017-12-07] MEDS: PIPERACILLIN-TAZOBACTAM 3.375 GM in DEXTROSE/WATER 1 50ML.BAG IVPB SCH (08:03)
[2017-12-07] MEDS: FUROSEMIDE 20 MG TAB PO SCH (08:03)
[2017-12-07] MEDS: PANTOPRAZOLE 40 MG TABLET PO SCH (08:03)
[2017-12-07] MEDS: HEPARIN SODIUM,PORCINE 5,000 UNIT/ML 1 ML VIAL SQ SCH (08:03)
[2017-12-07] MEDS: METOPROLOL TARTRATE 25 MG TAB PO SCH (08:03)
[2017-12-07] MEDS: INSULIN ASPART 100 UNIT/ML 1 ML 10 ML VIAL SQ SCH ×2 (08:04→11:48)
[2017-12-07 08:17] LABS: Calcium 8.8 mg/dL (8.4-10.2); Potassium 3.9 mmol/L (3.5-5.1)
[2017-12-07] MEDS: SYMBICORT 160-4.5 MCG INHALER INHALATION SCH (08:53)
[2017-12-07] MEDS: IPRATROPIUM-ALBUTEROL 3 ML NEB INHALATION SCH ×2 (08:53→11:20)
[2017-12-07] MEDS ORDERED: predniSONE 10 MG TAB PO SCH (09:00)
[2017-12-07 11:25] VITALS: PULSE 60
[2017-12-07 11:46] LABS: Glucose,Whole Blood 99 mg/dL (75-99)
--- NOTE | 2017-12-07 13:31 | P.PN ---
Subjective Progress Note Date: 12/07/17 Principal diagnosis: Shortness of breath, cough, pneumonia Progress note dated 12/05/2017 82-year-old male with a history of bronchiectasis who presented to the emergency department with a diagnosis of "pneumonia". The patient apparently saw his nurse practitioner in the office recently. Was treated with azithromycin for what appeared to be an upper respiratory tract infections and sinus infection. Today the patient feels better. He states his breathing is improved. He still coughing. Coughing up some phlegm. He states that things seemed to be worsening up quite a bit. No fever or chills. No chest pain or chest discomfort. The patient has a history of atrial fibrillation, COPD, GERD , deafness, hyperlipidemia, hypertension, DJD and pneumonia, as well as bronchiectasis. He also has a previous history of C. difficile colitis. Progress note dated 12/06/2017 82-year-old male with history of bronchiectasis who presented to the emergency department with a diagnosis of "pneumonia". The patient seemed be doing much better. She denies significant cough wheezing shortness of breath phlegm production. He feels well enough to be discharged home. Of course is with overlying on the primary service. He was recently treated in our office with azithromycin for what appeared to be an upper respiratory tract infection. He got worse at that point and ended up coming into the hospital. His complaints included shortness of breath chest congestion and cough. The cough was a most compelling symptom. The patient has a history of atrial fibrillation, COPD, GERD, deafness, hyperlipidemia, hypertension, DJD and pneumonia as well as bronchiectasis. He also has a previous history of C. difficile colitis. Progress note dated 12/07/2017 82-year-old male with a history of bronchiectasis who presented to the emergency department with a diagnosis of "pneumonia". The patient is doing much better. We thought he might go home yesterday. He states that he came in with significant cough wheezing shortness of breath and phlegm production and most of those complaints are much improved. He also has a history of chronic atrial fibrillation, COPD, GERD, deafness, hyperlipidemia, hypertension, DJD and pneumonia as well as chronic bronchiectasis. In addition, a previous admission with antibiotics caused him have C. difficile colitis. Again the patient is feeling much better. The patient does follow-up with with Dr. Markham in the office. He last saw our nurse practitioner. Objective - Vital Signs Vital signs: Vital Signs Temp 98.6 F 12/07/17 06:03 Pulse 60 12/07/17 11:33 Resp 14 12/07/17 06:03 BP 154/70 12/07/17 06:03 Pulse Ox 94 L 12/07/17 06:03 Intake & Output 12/06/17 12/07/17 12/07/17 18:59 06:59 18:59 Intake Total 750 Balance 750 Intake: Oral 750 Other: Voiding Method Toilet Urinal # Voids 2 1 2 - Exam No acute distress, oriented 3. Nasal O2 in place. No obvious respiratory distress. HEENT examination is grossly unremarkable. Mucous membranes are moist. No oral lesions. Neck supple. Full range of motion. No adenopathy thyromegaly or neck vein distention. Cardiovascular examination reveals regular rhythm rate. S1-S2 normal. No S3 or S4. No discernible murmur noted. Pacemaker generator is noted. Heart sounds are distant. Lungs reveal much improved breath sounds. There are a few scattered rhonchi. No wheezes or crackles. Breath sounds are diminished. Slight prolongation is noted. Abdomen soft bowel sounds are heard. No masses or tenderness. Extremities are intact. No cyanosis clubbing or edema. Skin is without rash or lesion. Neurologic examination is brief but nonfocal. - Labs CBC & Chem 7: 12/07/17 07:39 12/07/17 07:39 Labs: Abnormal Lab Results - Last 24 Hours (Table) 12/03/17 12/06/17 12/06/17 Range/Units 11:58 17:17 20:53 WBC (3.8-10.6) k/uL RBC (4.30-5.90) m/uL Hgb (13.0-17.5) gm/dL Hct (39.0-53.0) % Neutrophils # (1.3-7.7) k/uL BUN (9-20) mg/dL POC Glucose (mg/dL) 131 H 128 H (75-99) mg/dL Mycoplasma pneumon IgG 1.05 H (<=0.90) INDEX 12/07/17 12/07/17 Range/Units 07:39 07:39 WBC 17.5 H (3.8-10.6) k/uL RBC 4.11 L (4.30-5.90) m/uL Hgb 12.2 L (13.0-17.5) gm/dL Hct 37.2 L (39.0-53.0) % Neutrophils # 12.8 H (1.3-7.7) k/uL BUN 28 H (9-20) mg/dL POC Glucose (mg/dL) (75-99) mg/dL Mycoplasma pneumon IgG (<=0.90) INDEX Microbiology - Last 24 Hours (Table) 12/03/17 11:58 Blood Culture - Preliminary Blood No Growth after 72 hours 12/04/17 12:30 Gram Stain - Final Sputum Sputum Culture - Final Assessment and Plan Assessment: Assessment Multilobar pneumonia involving the lingula left lower lobe right midlung and right lower lobe. 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 difficile colitis Plan: Plan dated 12/04/2017 Labs x-rays and medications are reviewed. Chest x-ray and CAT scan are reviewed. White count 13.9 hemoglobin and hematocrit and platelet count all normal. PT INR and PTT are normal. Electrolytes all completely normal. Urinalysis is negative. Medications include azithromycin myosin Symbicort albuterol and Atrovent updrafts Zosyn and Solu-Medrol. We will recommend a sputum Gram stain and culture. Also, incentive spirometer use every hour what helped. We'll continue to follow. Plan dated 12/05/2017 The patient appears to be improving with therapy. His lung sounds are somewhat improved. There is no new laboratory data to report. Microbiology is as far negative. Medications were reviewed yesterday. A chest x-ray will be ordered for the morning. We will encourage deep breathing coughing and clearing of secretions and the use of incentive spirometer. Plan dated 12/06/2017 The patient appears to be improving. White count 25.4, hemoglobin 11.8, and hematocrit 35.4. Platelet count is normal. Sodium, potassium, chloride, CO2, anion gap, are all normal with a BUN of 29 and a creatinine of 1.15. All microbiology is currently negative. Chest x-ray is much improved. The patient could be considered for discharge. The patient should be discharged home on his usual medications and some antibiotics. Currently the patient is on Zithromax and Zosyn. We will allow the primary service to make a decision about discharge antibiotics. In addition, the patient's on IV Solu-Medrol. That can be converted to prednisone 30 mg a day and tapered over about 10-12 days. Plan dated 12/07/2017 Microbiologic studies at this point are all negative. Chest x-ray from yesterday showed improving pattern of infiltrate. White count 17.5 hemoglobin 12.2 and platelet count normal. Electrolytes are all normal. The patient will follow up with Dr. Markham in the office. The patient was converted to prednisone and oral antibiotics. Additional recommendations and suggestions are forthcoming. Prognosis is guarded. Time with Patient: Less than 30
--- NOTE | 2017-12-07 22:04 | DS ---
DISCHARGE SUMMARY DATE OF SERVICE: 12/07/2017. FINAL DIAGNOSES: 1. Multifocal pneumonia, possibly gram-negative, with failure of outpatient treatment. 2. Atypical suppurative pulmonary nodule 3 mm. 3. Chronic obstructive pulmonary disease acute exacerbation. 4. Post inflammatory bronchiectasis, mainly upper lobe. 5. Congestive heart failure with acute on chronic systolic dysfunction, ejection fraction 40%-45%. 6. Coronary artery disease. 7. Macular degeneration. 8. History of automatic implantable cardioverter-defibrillator. 9. History of Clostridium difficile colitis. 10.NO CODE, NO CPR. DISCHARGE DISPOSITION: The patient discharged in stable condition with guarded prognosis. TOTAL TIME TAKEN: 35 minutes. HISTORY OF PRESENT ILLNESS: This 82-year-old gentleman with a past medical history as noted admitted with pneumonia, CHF and multiple other medical problems. Patient treated with diuretics, antibiotics and bronchodilators. Dr. Webster saw the patient, including hospitalist. The patient improved significantly. Cardiology also saw the patient . Chest has improved significantly. EXAM: Vital signs are stable. CARDIOVASCULAR: S1, S2. RESPIRATORY: A few scattered rhonchi. ABDOMEN: Soft. NERVOUS SYSTEM: No focal deficit. DISCHARGE ADVICE AND MEDICATIONS: 1. Diet is cardiac diet. 2. Activity limited until followup. 3. Follow up with Dr. Bates in the [facility] in 2-3 days. 4. Follow up with with Dr. Webster as advised. 5. Medications are: a. Tylenol with diphenhydramine p.r.n. b. Aspirin 81 mg p.o. q.h.s. c. Lipitor 20 mg q.h.s. d. Zestril 10 mg p.o. daily. e. Lopressor 50 mg p.o. b.i.d. f. Saline spray. g. Betapace 80 mg p.o. b.i.d. h. Flomax 0.4 q.h.s. i. Augmentin 875 mg 1 p.o. b.i.d. for 5 days. j. Symbicort 160/4.5 two puffs b.i.d. k. Lasix 20 mg p.o. daily. l. DuoNeb q.i.d. and p.r.n. m. Protonix 40 mg p.o. daily. n.Prednisone taper that will be 30 mg daily for 3 days, 20 for 3 days, 10 for 3 days, then stop. o. Senna 1 tablet q.h.s. p.r.n. Once again, the patient will be discharged in stable condition with guarded prognosis. TRUPTI / SHABNAMN: [id number] /
== END 2017-12-07 13:51 | disposition home or self-care (01) | DRG 177 ==
LOC: EC 11:35 → 4MS4W 14:50
PROVIDERS: ADMIT Internal Medicine; ATTEND Internal Medicine
DX: J15.6 Pneumonia due to other Gram-negative bacteria (principal); I50.23 Acute on chronic systolic (congestive) heart failure; J44.0 Chronic obstructive pulmonary disease with (acute) lower respiratory infection; J44.1 Chronic obstructive pulmonary disease with (acute) exacerbation; Z87.891 Personal history of nicotine dependence; I11.0 Hypertensive heart disease with heart failure; E78.5 Hyperlipidemia, unspecified; H35.30 Unspecified macular degeneration; H91.90 Unspecified hearing loss, unspecified ear; I25.10 Atherosclerotic heart disease of native coronary artery without angina pectoris; I25.2 Old myocardial infarction; I25.5 Ischemic cardiomyopathy; I25.82 Chronic total occlusion of coronary artery; I45.81 Long QT syndrome; I48.2 Chronic atrial fibrillation; K21.9 Gastro-esophageal reflux disease without esophagitis; K59.00 Constipation, unspecified; M19.90 Unspecified osteoarthritis, unspecified site; R09.02 Hypoxemia; Z79.51 Long term (current) use of inhaled steroids; Z79.82 Long term (current) use of aspirin; Z79.899 Other long term (current) drug therapy; Z86.19 Personal history of other infectious and parasitic diseases; Z95.810 Presence of automatic (implantable) cardiac defibrillator; R91.1 Solitary pulmonary nodule; Z66 Do not resuscitate; Z87.01 Personal history of pneumonia (recurrent)
CPT/HCPCS: 36415; 71046; 71275; 80048; 80053; 81003; 82550; 82553; 83036; 83605; 83735; 83880; 84484; 85025; 85379; 85610; 85730; 86738; 87040; 87070; 87086; 87205; 87449; 93005; 93306; 94640; 96365; 96366; 99285

== ENCOUNTER → 2018-07-08 | Outpatient (CLI) | payer OTHER ==
--- NOTE | 2018-07-09 04:04 | CT ---
EXAMINATION TYPE: CT sinus wo con DATE OF EXAM: 07/08/2018 COMPARISON: None HISTORY: 82-year-old male Chronic sinusitis. CT DLP: 648 mGycm Automated exposure control for dose reduction was used. TECHNIQUE: Noncontrast axial views of the paranasal sinuses were obtained. Inst[employer]k sinus protocol w as utilized FINDINGS: PARANASAL SINUSES: There appears to have been prior medial maxillary antrectomies and partial resection of into the ethm oid air cells. Moderate to severe pansinus mucosal thickening is present with complete opacification of the ethmoid air cells and frontal sinuses. No air-fluid level is seen. Reactive mony- osteogenesis is present along the maxillary and frontal sinus campbell. There is no destruction of the osseous campbell of the paranasal sinuses. THE NASAL CAVITY: The nasal septum is not significantly deviated. The imaged brain and orbits are normal in appearance. Mastoid air cells and middle ear cavities are well pneumatized. Reformatted images confirm above findings. IMPRESSION: Relatively severe chronic steve sinusitis with associated reactive mony-osteogenesis particularly of the frontal and maxillary sinus campbell. Prior FESS.
== END ==
LOC: RADCTMAIN 07-03 12:55
PROVIDERS: ATTEND Otolaryngology
DX: Z53.9 Procedure and treatment not carried out, unspecified reason (principal)

== ENCOUNTER → 2018-07-25 | Outpatient (CLI) | payer OTHER ==
--- NOTE | 2018-07-25 14:25 | CT ---
EXAMINATION TYPE: CT sinus wo con DATE OF EXAM: 07/25/2018 COMPARISON: CT sinus July 08, 2018 HISTORY: chronic sinusitis. CT DLP: 670 mGycm. Automated Exposure Control for Dose Reduction was Utilized. TECHNIQUE: CT scan of the sinuses is performed without contrast, axial images are obtained, coronal r eformatted images are also reviewed. FINDINGS: Exam performed for surgical planning and not for diagnostic purposes. Repeat study performe d free of charge. Persistent moderate to severe mucosal thickening left maxillary sinus with moderate mucosal thickening right maxillary sinus. Evidence of prior surgery at level of ostiomeatal complex. Persistent severe mucosal thickening causing complete opacification of ethmoid sinuses bilaterally. Persistent mild/moderate mucosal thickening involving bilateral sphenoid sinuses. Persistent complete ly opacified bilateral frontal sinuses. Scleral calcification both globes are redemonstrated. IMPRESSION: As above.
== END | disposition home or self-care (01) ==
LOC: RADCTMAIN 13:41
PROVIDERS: ATTEND Otolaryngology
DX: Z53.9 Procedure and treatment not carried out, unspecified reason (principal)

== ENCOUNTER 2018-09-05 09:54 | Day surgery (SDC) | payer OTHER ==
[2018-09-03 09:05] VITALS: BMI 21.5
[~2018-09-05 09:54] MED LIST changes: -ALBUTEROL NEB (CONC) 2.5 MG/0.5 ML INHALATION ONE; +DEXAMETHASONE SOD PHOSPHATE 4 MG/ML 1 ML VIAL IV ONE; +FAMOTIDINE 20 MG/2 ML VIAL IV ONE; +HYDROmorphone 0.5 MG/0.5 ML SYRINGE IVP PRN; -LACTATED RINGERS 1,000 ML IV ONE; +LIDOCAINE 1% 20 ML VIAL (10MG/ML) FOR IV START INTRADERMA PRN; -LIDOCAINE 2% (PF) 20 MG/ML 2 ML AMP INHALATION ONE; +ONDANSETRON 4 MG/2 ML VIAL IVP ONE
[2018-09-05] MEDS: OXYMETAZOLINE 0.05% NASL SPRAY 1 SPRAY BOTTLE NASAL ONE ×5 (10:20→10:40)
[2018-09-05] MEDS ORDERED: LACTATED RINGERS 1,000 ML IV ONE ×2 (10:28→14:18)
[2018-09-05] MEDS ORDERED: fentaNYL (PF) 50 MCG/ML 2 ML AMP ONE (13:05)
[2018-09-05] MEDS ORDERED: ETOMIDATE 2 MG/ML 10 ML VIAL ONE (13:05)
[2018-09-05] MEDS ORDERED: MIDAZOLAM 2 MG/2 ML VIAL ONE (13:05)
[2018-09-05] MEDS ORDERED: PHENYLEPHRINE-0.9% NACL SYG 1 MG/10 ML SYRINGE ONE (13:05)
[2018-09-05] MEDS ORDERED: ceFAZolin 1,000 MG VIAL ONE (13:05)
[2018-09-05] MEDS ORDERED: GLYCOPYRROLATE 0.2 MG/ML 2 ML VIAL ONE (13:05)
[2018-09-05] MEDS ORDERED: SUCCINYLCHOLINE CHLORIDE 100 MG/5 ML SYR IV ONE (13:05)
[2018-09-05] MEDS ORDERED: LIDOCAINE 1%-EPI 1:100,000 20 ML VIAL SQ ONE ×2 (13:32)
[2018-09-05] MEDS ORDERED: BUPIVACAIN-EPI 0.5%-1:200,000 30 ML VIAL SQ ONE ×2 (13:32)
[2018-09-05] MEDS ORDERED: FLUORESCEIN STRIPS 1 MG STRIP MISCELLANE ONE (13:32)
[2018-09-05] MEDS ORDERED: EPINEPHrine 1 MG/ML (MDV) 30 ML VIAL IRRIGATION ONE (13:32)
[2018-09-05 14:49] VITALS: TEMP 96.8
--- NOTE | 2018-09-05 15:06 | P.OP ---
Date of Procedure: 09/05/18 Preoperative Diagnosis: Chronic sinusitis Sinonasal polyposis Postoperative Diagnosis: same Procedure(s) Performed: Image guided Functional Endoscopic Surgery with polypectomy with use of propel, drug-eluting stent Anesthesia: TUANA Surgeon: Rocael Dunbar Estimated Blood Loss (ml): 20 Pathology: other (sinonasal) Condition: stable Disposition: PACU Indications for Procedure: Patient has had previous sinonasal surgery at the [facility] for sinonasal polyposis and Samter's triad. Patient has a septal perforation and polyposis. He has failed medical therapy and wishes to proceed forward with image guided functional endoscopic sinus surgery and polypectomy. All risks, benefits, and alternative therapies were discussed. Consent was obtained and all questions were answered. Operative Findings: Patient had a septal perforation and widespread sinonasal polyposis. Rocael pus was seen coming from the sinuses. Description of Procedure: Patient was taken to the operative room and placed in the supine position. A general inhalation anesthetic was administered to the patient by mask and subsequently intubated with a cuffed endotracheal tube by the department of anesthesia with a functioning IV line in place. The patient was monitored throughout the entire case by the department of anesthesia. The lateral nasal wall sphenopalatine ganglion were injected with lidocaine 1% with epinephrine 1 100,000. We registered a ZOCKO image guided Ozy Media[employer]k system and utilized image guidance throughout the entire procedure. We used anatomic guided points. With use of a microdebrider we removed intranasal polyps bilaterally. We then opened a nasal antral window underneath the inferior turbinates with a Vickie and entered the maxillary sinuses and removed polyps. We opened up the nasal antral window and then opened the osteomeatal complexes and entered the maxillary sinuses and removed more polyps. After the maxillary sinuses were open we then entered the ethmoid cavity and we removed all diseased tissue and completed a total ethmoidectomy with polyp removal. We then entered the sphenoid sinuses and we removed all purulence and polyps from the sphenoid sinuses. We then entered the frontal sinuses and utilized a 70 [place] arie scope. I removed a large amount of polyps and purulence we did utilized balloon initial opening but then entered the bilateral frontal sinuses we remove diseased tissue and explore the frontal sinus and removed purulence and irrigated this area with copious amounts of irrigation. Again we utilized image guided localization throughout the entire procedure. We utilized propel in the ethmoid region and placed xerogel bilaterally. Bleeding was well-controlled. Widespread polyps were removed. Patient tolerated this well. Patient is to c ontact me if any problems should arise.
[2018-09-05 15:07] VITALS: RESP 18
[2018-09-05] MEDS: HYDROmorphone 1 MG/ML 1 ML SYRINGE IVP ONE ×2 (15:09→15:16)
[2018-09-05] MEDS ORDERED: HYDROcodone/APAP 5-325MG 1 EACH TAB PO ONE (16:32)
[2018-09-05 17:42] VITALS: BP 155/78; PULSE 66
== END 2018-09-05 17:35 | disposition home or self-care (01) ==
LOC: OR 09:54
PROVIDERS: ATTEND Otolaryngology
DX: J32.4 Chronic pansinusitis (principal); J33.8 Other polyp of sinus; I25.10 Atherosclerotic heart disease of native coronary artery without angina pectoris; I11.9 Hypertensive heart disease without heart failure; Z87.891 Personal history of nicotine dependence; I10 Essential (primary) hypertension; Z95.810 Presence of automatic (implantable) cardiac defibrillator; I25.5 Ischemic cardiomyopathy; I48.91 Unspecified atrial fibrillation; E78.5 Hyperlipidemia, unspecified; N40.0 Benign prostatic hyperplasia without lower urinary tract symptoms; K21.9 Gastro-esophageal reflux disease without esophagitis; Z79.899 Other long term (current) drug therapy
CPT/HCPCS: 88305; 31267; 31259; 31253; C2625; C1726; J0171; J2250; J1100; J2405; J0690; J3010; J1170; J2370; J0330

== ENCOUNTER 2020-03-05 20:00 | Observation (INO) | payer OTHER, MEDICARE ==
[2020-03-05] MEDS ORDERED: ASPIRIN 81 MG PO STA (20:35)
--- NOTE | 2020-03-05 20:38 | ED ---
General Adult HPI <Tho Archer - Last Filed: 03/06/20 00:52> - General Source: patient, EMS Mode of arrival: EMS Limitations: no limitations <TashaCresencio may Nereida - Last Filed: 03/08/20 07:06> - General Chief complaint: Chest Pain Stated complaint: Chest Pain Time Seen by Provider: 03/05/20 20:03 - History of Present Illness Initial comments: Dictation was produced using [employer] dictation software. please excuse any grammatical, word or spelling errors. This patient was cared for during a federal and state declared state of emergency secondary to Covid 19 Chief Complaint: 84-year-old male presents after episode of chest pain History of Present Illness: Is 84-year-old male who states he had chest pain today. Patient had dinner when he went over to washes [employer]. He felt several minutes of intense chest pain that went from shoulder to shoulder. Reports that the pain felt like a pressure that was very severe. No associated diaphoresis. Did have some nausea with it. Denies any radiation to the extremities. Patient has history of defibrillator./Or physician felt like his defibrillator went off. Patient has any complaints at this time. He states he feels well. He is not sure if his symptoms were secondary to some sort of GI upset. The ROS documented in this emergency department record has been reviewed and confirmed by me. Those systems with pertinent positive or negative responses have been documented in the HPI. All other systems are other negative and/or noncontributory. PHYSICAL EXAM: General Impression: Alert and oriented x3, not in acute distress, smiling HEENT: Normocephalic atraumatic, extra-ocular movements intact, pupils equal and reactive to light bilaterally, mucous membranes moist. Cardiovascular: Heart regular rate and rhythm Chest: Able to complete full sentences, no retractions, no tachypnea, lungs clear to auscultation bilaterally Abdomen: abdomen soft, non-tender, non-distended, no organomegaly Musculoskeletal: Pulses present and equal in all extremities, no peripheral edema Motor: no focal deficits noted Neurological: CN II-XII grossly intact, no focal motor or sensory deficits noted Skin: Intact with no visualized rashes Psych: Normal affect and mood ED course: 84 yo male with history of several comorbidities presents today with episode of chest pain. he is asymptomatic currently. Clinical presentation co nsistent with atypical chest pain typical features. Vital signs upon arrival are within acceptable limits. EKG does not show any signs of ischemia or infarction. Laboratory evaluation obtained. Mild leukocytosis at 13.2. CBC is unremarkable. Urinalysis negative. Metabolic panel is negative. First troponin is negative. Chest x-ray is unremarkable. Disposition options were discussed with patient. He is recommended to him to be admitted to observation for serial troponins, cardiology consult and possible cardiac stress test. Patient declined he preferred to have 3 hour troponins in the emergency department to be discharge home. Patient care will be signed out to Dr. Archer for follow-up of second troponin and reevaluation for final disposition EKG interpretation: Ventricular rate 64, sinus rhythm,. Interval 150, QRS 18, QTc 466. No OK prolongation, no QTC prolongation, no ST or T-wave changes noted. EKG compared to 12/03/2017 showing no changes. Overall, this EKG is unr emarkable (Cresencio Farmer) - Related Data Home Medications Medication Instructions Recorded Confirmed Sotalol [Betapace] 80 mg PO BID 11/25/13 03/06/20 lisinopriL [Zestril] 10 mg PO QAM 11/25/13 03/06/20 Tamsulosin [Flomax] 0.4 mg PO HS 08/26/16 03/06/20 Aspirin 81 mg PO HS 06/11/17 03/06/20 Acetaminophen/Diphenhydramine 1 tab PO HS PRN 12/03/17 03/06/20 [Tylenol PM Extra Strength] Atorvastatin Calcium [Lipitor] 20 mg PO HS 03/06/20 03/06/20 Latanoprost/Pf [Latanoprost 0.005% 1 drop BOTH EYES HS 03/06/20 03/06/20 Eye Drop] Metoprolol Succinate (ER) [Toprol 25 mg PO BID 03/06/20 03/06/20 Xl] Multivitamins, Thera [Multivitamin 1 tab PO DAILY 03/06/20 03/06/20 (formulary)] Allergies Allergy/AdvReac Type Severity Reaction Status Date / Time No Known Allergies Allergy Verified 03/06/20 08:53 Review of Systems ROS Other: All systems not noted in ROS Statement are negative. <Tho Archer - Last Filed: 03/06/20 00:52> ROS Other: All systems not noted in ROS Statement are negative. <Cresencio Farmer - Last Filed: 03/08/20 07:06> ROS Statement: Those systems with pertinent positive or pertinent negative responses have been documented in the HPI. Past Medical History Past Medical History: Atrial Fibrillation, Coronary Artery Disease (CAD), Eye Disorder, GERD/Reflux, Hearing Disorder / Deafness, Hyperlipidemia, Hypertension, Osteoarthritis (OA), Pneumonia, Prostate Disorder Additional Past Medical History / Comment(s): Macular degeneration, use of hea ring aids. Enlarged prostate. Hx Pneumonia numerous times, last about 3 months ago. Last Myocardial Infarction Date:: 2007 History of Any Multi-Drug Resistant Organisms: None Reported Date of last positivie culture/infection: None MDRO Source:: None Past Surgical History: AICD, Heart Catheterization, Orthopedic Surgery, Pacemaker Additional Past Surgical History / Comment(s): Right foot ganglion cyst removed, right great toe surgery, cataracts removed, sinus surgery X3, colonoscopy, bronchoscopy. Past Anesthesia/Blood Transfusion Reactions: Previous Problems w/ Anesthesia Additional Past Anesthesia/Blood Transfusion Reaction / Comment(s): Heart stopped when he got anesthesia for Colonoscopy. Type of Cardiac Device: Permanent Pacemaker, AICD Device Placement Date:: 06-06-07 [facility] 2017 Past Psychological History: No Psychological Hx Reported Smoking Status: Never smoker Past Alcohol Use History: None Reported Past Drug Use History: None Reported - Past Family History Father Additional Family Medical History / Comment(s): Killed in MVA at age 47. Mother Family Medical History: Dementia <Cresencio Farmer - Last Filed: 03/08/20 07:06> General Exam Limitations: no limitations <Cresencio Farmer - Last Filed: 03/08/20 07:06> Course Vital Signs 03/05/20 03/05/20 03/05/20 20:16 21:18 22:31 Temperature 98.2 F Pulse Rate 64 60 59 L Respiratory 17 19 17 Rate Blood Pressure 169/91 143/69 138/67 O2 Sat by Pulse 96 95 93 L Oximetry 03/06/20 03/06/20 01:00 01:57 Temperature Pulse Rate 61 56 L Respiratory 17 18 Rate Blood Pressure 157/73 137/67 O2 Sat by Pulse 93 L 93 L Oximetry Medical Decision Making - Lab Data Result diagrams: 03/05/20 20:38 03/05/20 20:38 <Tho Archer - Last Filed: 03/06/20 00:52> - Lab Data Result diagrams: 03/05/20 20:38 03/05/20 20:38 <Cresencio Farmer - Last Filed: 03/08/20 07:06> - Medical Decision Making Patient reevaluated after sign out, resting comfortably. No further chest pain. We did discuss possibility of discharge versus monitoring with cardiology evaluation. Patient's second troponin is 0.022. Given his previous history together we did decide that one more troponin would be appropriate. Patient is kept in observation with cardiology on consultation. (Tho Archer) - Lab Data Lab Results 03/05/20 03/05/20 03/05/20 Range/Units 20:38 20:38 20:38 WBC 13.2 H (3.8-10.6) k/uL RBC 4.68 (4.30-5.90) m/uL Hgb 14.6 (13.0-17.5) gm/dL Hct 43.3 (39.0-53.0) % MCV 92.6 (80.0-100.0) fL MCH 31.2 (25.0-35.0) pg MCHC 33.7 (31.0-37.0) g/dL RDW 12.6 (11.5-15.5) % Plt Count 249 (150-450) k/uL MPV 8.8 Neutrophils % 66 % Lymphocytes % 22 % Monocytes % 7 % Eosinophils % 3 % Basophils % 1 % Neutrophils # 8.8 H (1.3-7.7) k/uL Lymphocytes # 2.8 (1.0-4.8) k/uL Monocytes # 0.9 (0-1.0) k/uL Eosinophils # 0.4 (0-0.7) k/uL Basophils # 0.1 (0-0.2) k/uL PT 10.3 (9.0-12.0) sec INR 1.0 (<1.2) APTT 25.3 (22.0-30.0) sec Sodium 137 (137-145) mmol/L Potassium 5.3 H (3.5-5.1) mmol/L Chloride 101 (98-107) mmol/L Carbon Dioxide 29 (22-30) mmol/L Anion Gap 7 mmol/L BUN 17 (9-20) mg/dL Creatinine 0.98 (0.66-1.25) mg/dL Est GFR (CKD-EPI)AfAm 81 (>60 ml/min/1.73 sqM) Est GFR (CKD-EPI)NonAf 70 (>60 ml/min/1.73 sqM) Glucose 95 (74-99) mg/dL Calcium 9.8 (8.4-10.2) mg/dL Magnesium 2.1 (1.6-2.3) mg/dL Total Bilirubin 0.8 (0.2-1.3) mg/dL AST 37 (17-59) U/L ALT 14 (4-49) U/L Alkaline Phosphatase 85 (38-126) U/L Troponin I (0.000-0.034) ng/mL Total Protein 7.9 (6.3-8.2) g/dL Albumin 4.4 (3.5-5.0) g/dL Lipase 161 (23-300) U/L 03/05/20 03/05/20 Range/Units 20:38 23:26 WBC (3.8-10.6) k/uL RBC (4.30-5.90) m/uL Hgb (13.0-17.5) gm/dL Hct (39.0-53.0) % MCV (80.0-100.0) fL MCH (25.0-35.0) pg MCHC (31.0-37.0) g/dL RDW (11.5-15.5) % Plt Count (150-450) k/uL MPV Neutrophils % % Lymphocytes % % Monocytes % % Eosinophils % % Basophils % % Neutrophils # (1.3-7.7) k/uL Lymphocytes # (1.0-4.8) k/uL Monocytes # (0-1.0) k/uL Eosinophils # (0-0.7) k/uL Basophils # (0-0.2) k/uL PT (9.0-12.0) sec INR (<1.2) APTT (22.0-30.0) sec Sodium (137-145) mmol/L Potassium (3.5-5.1) mmol/L Chloride (98-107) mmol/L Carbon Dioxide (22-30) mmol/L Anion Gap mmol/L BUN (9-20) mg/dL Creatinine (0.66-1.25) mg/dL Est GFR (CKD-EPI)AfAm (>60 ml/min/1.73 sqM) Est GFR (CKD-EPI)NonAf (>60 ml/min/1.73 sqM) Glucose (74-99) mg/dL Calcium (8.4-10.2) mg/dL Magnesium (1.6-2.3) mg/dL Total Bilirubin (0.2-1.3) mg/dL AST (17-59) U/L ALT (4-49) U/L Alkaline Phosphatase (38-126) U/L Troponin I <0.012 0.022 (0.000-0.034) ng/mL Total Protein (6.3-8.2) g/dL Albumin (3.5-5.0) g/dL Lipase (23-300) U/L Disposition Is patient prescribed a controlled substance at d/c from ED?: No Decision to Admit Reason: Admit from EC Decision Date: 03/06/20 Decision Time: 00:53 <Tho Archer - Last Filed: 03/06/20 00:52> <Cresencio Farmer - Last Filed: 03/08/20 07:06> Clinical Impression: Chest pain Disposition: ADMITTED IP TO THIS HOSP Condition: Stable
[2020-03-05 20:49] LABS: Basophils # (A) 0.1 k/uL (0-0.2); Basophils % (A) 1 %; Eosinophils # (A) 0.4 k/uL (0-0.7); Eosinophils % (A) 3 %; HCT 43.3 % (39.0-53.0); HGB 14.6 gm/dL (13.0-17.5); Lymphocytes # (A) 2.8 k/uL (1.0-4.8); Lymphocytes % (A) 22 %; MCH 31.2 pg (25.0-35.0); MCHC 33.7 g/dL (31.0-37.0); MCV 92.6 fL (80.0-100.0); Mean Platelet Volume 8.8; Monocytes # (A) 0.9 k/uL (0-1.0); Monocytes % (A) 7 %; Neutrophils # (A) 8.8 k/uL (1.3-7.7); Neutrophils % (A) 66 %; Platelet Count 249 k/uL (150-450); RBC 4.68 m/uL (4.30-5.90); RDW 12.6 % (11.5-15.5); WBC 13.2 k/uL (3.8-10.6)
[2020-03-05 20:57] LABS: Partial Thromboplastin Time 25.3 sec (22.0-30.0); Prothrombin Time 10.3 sec (9.0-12.0)
[2020-03-05 20:59] LABS: Albumin 4.4 g/dL (3.5-5.0); Calcium 9.8 mg/dL (8.4-10.2); Magnesium 2.1 mg/dL (1.6-2.3); Potassium 5.3 mmol/L (3.5-5.1); Total Bilirubin 0.8 mg/dL (0.2-1.3); Total Protein 7.9 g/dL (6.3-8.2)
--- NOTE | 2020-03-05 21:02 | XR ---
EXAMINATION TYPE: XR chest 2V DATE OF EXAM: 03/05/2020 COMPARISON: 01/03/2019 HISTORY: Chest pain TECHNIQUE: FINDINGS: There is some linear infiltrate and atelectasis in the posterior aspect of the right upper lobe along the major fissure. The other lung shannon are clear. There is left axillary pacemaker. Ther e is no heart failure. Costophrenic angles are clear. Bony thorax is intact. IMPRESSION: There is some right upper lobe chronic pneumonia and atelectasis slightly increased hiwot red to old exam. No heart failure.
[2020-03-06] MEDS ORDERED: MORPHINE SULFATE 4 MG/ML SYRINGE IV PRN (00:50)
[2020-03-06] MEDS ORDERED: ACETAMINOPHEN TAB 325 MG TAB PO PRN (00:50)
[2020-03-06] MEDS ORDERED: NALOXONE 0.4 MG/ML 1 ML VIAL IV PRN (00:50)
[2020-03-06] MEDS ORDERED: NITROGLYCERIN SL TABS 0.4 MG TAB SUBLINGUAL PRN (00:52)
--- NOTE | 2020-03-06 08:18 | P.CRDCN ---
History of Present Illness Consult date: 03/06/20 Chief complaint: Chest pain History of present illness: This is a pleasant 84-year-old gentleman who was in reasonable physical and mental shape with a past medical history significant for coronary artery disease and ischemic cardiomyopathy as well as history of AICD who presented and was admitted to the hospital with a chest discomfort. The patient was in his usual state of health until yesterday when he ate his dinner subsequently started experiencing discomfort in the chest. He describes sudden onset of chest discomfort across the chest lasted for about 10 minutes only. No associated symptoms of sweating or dizziness or lightheadedness or syncope. No radiation of the pain to the arms or neck or shoulders or back. The patient has been chest pain-free throughout his hospital stay. He would like to go home. He underwent a workup including EKG showed sinus rhythm without any significant ST or T-wave abnormalities and also troponin which came in to be unremarkable. The rest of his blood work also was unremarkable. Currently is chest pain-free. I am going to get the patient up and around and if he is pain-free he possibly can be discharged home and follow-up with Dr. Naylor as an outpatient. I am going to obtain an echocardiogram as well. And also I'm going to start the patient on oral nitrates. Past Medical History Past Medical History: Atrial Fibrillation, Coronary Artery Disease (CAD), Eye Disorder, GERD/Reflux, Hearing Disorder / Deafness, Hyperlipidemia, Hypertensi on, Osteoarthritis (OA), Pneumonia, Prostate Disorder Additional Past Medical History / Comment(s): Macular degeneration, use of hearing aids. Enlarged prostate. Hx Pneumonia numerous times, last about 3 months ago. Last Myocardial Infarction Date:: 2007 History of Any Multi-Drug Resistant Organisms: None Reported Date of last positivie culture/infection: None MDRO Source:: None Past Surgical History: AICD, Heart Catheterization, Orthopedic Surgery, Pacemaker Additional Past Surgical History / Comment(s): Right foot ganglion cyst removed, right great toe surgery, cataracts removed, sinus surgery X3, colonoscopy, [facility] hoscopy. Past Anesthesia/Blood Transfusion Reactions: Previous Problems w/ Anesthesia Additional Past Anesthesia/Blood Transfusion Reaction / Comment(s): Heart stopped when he got anesthesia for Colonoscopy. Type of Cardiac Device: Permanent Pacemaker, AICD Device Placement Date:: 06-06-07 [employer] replaced 2017 Past Psychological History: No Psychological Hx Reported Additional Psychological History / Comment(s): pt is a , lives alone in own home. no home care services, no medical equipment. drives. Smoking Status: Former smoker Past Alcohol Use History: None Reported Additional Past Alcohol Use History / Comment(s): Started smoking age 14(1949) and quit age 35( 1970), couldn't recall how much he smoked a day. Past Drug Use History: None Reported - Past Family History Father Additional Family Medical History / Comment(s): Killed in MVA at age 47. Mother Family Medical History: Dementia Medications and Allergies Home Medications Medication Instructions Recorded Confirmed Type Sotalol [Betapace] 80 mg PO BID 11/25/13 09/03/18 History lisinopriL [Zestril] 10 mg PO QAM 11/25/13 09/03/18 History Tamsulosin [Flomax] 0.4 mg PO HS 08/26/16 09/03/18 History Atorvastatin [Lipitor] 20 mg PO HS 03/28/17 09/03/18 History Aspirin 81 mg PO HS 06/11/17 09/03/18 History Acetaminophen/Diphenhydramine 1 tab PO HS PRN 12/03/17 09/03/18 History [Tylenol PM Extra Strength] Metoprolol Tartrate [Lopressor] 50 mg PO BID 12/03/17 09/03/18 History Betamethasone Dipropionate 1 spray NASAL BID 09/03/18 09/03/18 History Ipratropium-Albuterol Nebulize 3 ml INHALATION RT-QID PRN 09/03/18 09/05/18 History [Duoneb 0.5 mg-3 mg/3 ml Soln] Amoxicillin/Potassium Clav 1 each PO Q12HR #20 tab 09/05/18 Rx [Augmentin 875-125 Tablet] HYDROcodone/APAP 5-325MG [Hayden 1 tab PO Q4-6H PRN 3 Days #15 tab 09/05/18 Rx 5-325] predniSONE [Deltasone] 20 mg PO DIRECTED #5 tab 09/05/18 Rx Allergies Allergy/AdvReac Type Severity Reaction Status Date / Time No Known Allergies Allergy Verified 09/05/18 10:17 Physical Exam Vitals: Vital Signs Temp Pulse Pulse Resp BP BP Pulse Ox 03/06/20 02:44 97.7 F 60 126/75 96 03/06/20 02:25 97.7 F 60 126/75 96 03/06/20 01:57 56 L 18 137/67 93 L 03/06/20 01:00 61 17 157/73 93 L 03/05/20 22:31 59 L 17 138/67 93 L 03/05/20 21:18 60 19 143/69 95 03/05/20 20:16 98.2 F 64 17 169/91 96 Intake and Output 03/05/20 03/06/20 03/06/20 22:59 06:59 14:59 Other: Voiding Method Toilet Weight 70.307 kg 70.307 kg - Constitutional General appearance: no acute distress - Respiratory Respiratory: bilateral: CTA - Cardiovascular Rhythm: regular Heart sounds: normal: S1, S2 Abnormal Heart Sounds: systolic murmur Results 03/05/20 20:38 03/05/20 20:38 Cardiac Enzymes 03/05/20 03/05/20 03/05/20 Range/Units 20:38 20:38 23:26 AST 37 (17-59) U/L Troponin I <0.012 0.022 (0.000-0.034) ng/mL 03/06/20 03/06/20 Range/Units 03:20 06:13 AST (17-59) U/L Troponin I <0.012 <0.012 (0.000-0.034) ng/mL Coagulation 03/05/20 Range/Units 20:38 PT 10.3 (9.0-12.0) sec APTT 25.3 (22.0-30.0) sec CBC 03/05/20 Range/Units 20:38 WBC 13.2 H (3.8-10.6) k/uL RBC 4.68 (4.30-5.90) m/uL Hgb 14.6 (13.0-17.5) gm/dL Hct 43.3 (39.0-53.0) % Plt Count 249 (150-450) k/uL Comprehensive Metabolic Panel 03/05/20 Range/Units 20:38 Sodium 137 (137-145) mmol/L Potassium 5.3 H (3.5-5.1) mmol/L Chloride 101 (98-107) mmol/L Carbon Dioxide 29 (22-30) mmol/L BUN 17 (9-20) mg/dL Creatinine 0.98 (0.66-1.25) mg/dL Glucose 95 (74-99) mg/dL Calcium 9.8 (8.4-10.2) mg/dL AST 37 (17-59) U/L ALT 14 (4-49) U/L Alkaline Phosphatase 85 (38-126) U/L Total Protein 7.9 (6.3-8.2) g/dL Albumin 4.4 (3.5-5.0) g/dL Current Medications Generic Name Dose Route Start Last Admin Trade Name Freq PRN Reason Stop Dose Admin Acetaminophen 650 mg 03/06/20 00:50 Acetaminophen Tab 325 Mg Tab PO Q6HR PRN Mild Pain or Fever > 100.5 Isosorbide Mononitrate 30 mg 03/06/20 09:00 Isosorbide Mononitrate Er 30 Mg Tab.Er.24h PO DAILY BEATRIZ Morphine Sulfate 4 mg 03/06/20 00:50 Morphine Sulfate 4 Mg/Ml Syringe IV Q4HR PRN Severe Pain Naloxone HCl 0.2 mg 03/06/20 00:50 Naloxone 0.4 Mg/Ml 1 Ml Vial IV Q2M PRN Opioid Reversal Nitroglycerin 0.4 mg 03/06/20 00:52 Nitroglycerin Sl Tabs 0.4 Mg Tab SUBLINGUAL Q5M PRN Chest Pain Intake and Output 03/05/20 03/06/20 03/06/20 22:59 06:59 14:59 Other: Voiding Method Toilet Weight 70.307 kg 70.307 kg 03/05/20 20:38 03/05/20 20:38 Assessment and Plan Assessment: Assessment #1 atypical chest discomfort #2 ischemic cardiomyopathy #3 status post AICD Plan #1 acute coronary event was ruled out #2 start the patient on oral nitrate #3 get the patient up and around and he is pain-free he possibly can be discharged home
[2020-03-06 08:57] VITALS: RESP 16; TEMP 97.5
[2020-03-06] MEDS ORDERED: ISOSORBIDE MONONITRATE ER 30 MG TAB.ER.24H PO SCH (09:00)
[2020-03-06] MEDS ORDERED: [UNRECOGNIZED DRUG - OTHER] PO PRN (09:18)
[2020-03-06] MEDS ORDERED: DIPHENHYDRAMINE PO PRN (09:18)
[2020-03-06] MEDS ORDERED: ACETAMINOPHEN PO PRN (09:18)
[2020-03-06] MEDS ORDERED: SODIUM POLYSTYRENE SULFONATE 15 GM/60 ML BOTTLE PO STA (09:19)
[2020-03-06] MEDS ORDERED: ACETAMINOPHEN TAB 500 MG TAB PO PRN (09:29)
[2020-03-06] MEDS ORDERED: diphenhydrAMINE 25 MG CAP PO PRN (09:29)
--- NOTE | 2020-03-06 09:55 | P.HPIM ---
History of Present Illness 84-year-old pleasant male with the history of ischemic myopathy and AICD came in with chest pressure-like sensation across the chest. Patient was ruled out acute current syndromes troponins were negative EKG was negative etiology of chest pain although is not clear but only brief and resolved at this time and cardiology evaluated the patient they are recommending an echocardiogram if that turns out to be okay and if patient doesn't experience any chest pain upon ambulation will be discharged today. Patient is otherwise clinically doing well. Review of Systems REVIEW OF SYSTEMS: CONSTITUTIONAL: No fever, no malaise, no fatigue. HEENT: No recent visual problems or hearing problems. Denied any sore throat. CARDIOVASCULAR: No orthopnea, PND, no palpitations, no syncope. PULMONARY: No shortness of breath, no cough, no hemoptysis. GASTROINTESTINAL: No diarrhea, no nausea, no vomiting, no abdominal pain. NEUROLOGICAL: No headaches, no weakness, no numbness. HEMATOLOGICAL: Denies any bleeding or petechiae. GENITOURINARY: Denies any burning micturition, frequency, or urgency. MUSCULOSKELETAL/RHEUMATOLOGICAL: Denies any joint pain, swelling, or any muscle pain. ENDOCRINE: Denies any polyuria or polydipsia. The rest of the 14-point review of systems is negative. Past Medical History Past Medical History: Atrial Fibrillation, Coronary Artery Disease (CAD), Eye Disorder, GERD/Reflux, Hearing Disorder / Deafness, Hyperlipidemia, Hyperte nsion, Osteoarthritis (OA), Pneumonia, Prostate Disorder Additional Past Medical History / Comment(s): Macular degeneration, use of hearing aids. Enlarged prostate. Hx Pneumonia numerous times, last about 3 months ago. Last Myocardial Infarction Date:: 2007 History of Any Multi-Drug Resistant Organisms: None Reported Date of last positivie culture/infection: None MDRO Source:: None Past Surgical History: AICD, Heart Catheterization, Orthopedic Surgery, Pacemaker Additional Past Surgical History / Comment(s): Right foot ganglion cyst removed, right great toe surgery, cataracts removed, sinus surgery X3, colonoscopy, br onchoscopy. Past Anesthesia/Blood Transfusion Reactions: Previous Problems w/ Anesthesia Additional Past Anesthesia/Blood Transfusion Reaction / Comment(s): Heart stopped when he got anesthesia for Colonoscopy. Type of Cardiac Device: Permanent Pacemaker, AICD Device Placement Date:: 06-06-07 [employer], replaced 2017 Past Psychological History: No Psychological Hx Reported Additional Psychological History / Comment(s): pt is a , lives alone in own home. no home care services, no medical equipment. drives. Smoking Status: Former smoker Past Alcohol Use History: None Reported Additional Past Alcohol Use History / Comment(s): Started smoking age 14(1950) and quit age 35( 1970), couldn't recall how much he smoked a day. Past Drug Use History: None Reported - Past Family History Father Additional Family Medical History / Comment(s): Killed in MVA at age 47. Mother Family Medical History: Dementia Medications and Allergies Home Medications Medication Instructions Recorded Confirmed Type Sotalol [Betapace] 80 mg PO BID 11/25/13 03/06/20 History lisinopriL [Zestril] 10 mg PO QAM 11/25/13 03/06/20 History Tamsulosin [Flomax] 0.4 mg PO HS 08/26/16 03/06/20 History Atorvastatin [Lipitor] 20 mg PO HS 03/28/17 03/06/20 History Aspirin 81 mg PO HS 06/11/17 03/06/20 History Acetaminophen/Diphenhydramine 1 tab PO HS PRN 12/03/17 03/06/20 History [Tylenol PM Extra Strength] Metoprolol Tartrate [Lopressor] 25 mg PO BID 12/03/17 03/06/20 History Multivitamins, Thera [Multivitamin 1 tab PO DAILY 03/06/20 03/06/20 History (formulary)] Allergies Allergy/AdvReac Type Severity Reaction Status Date / Time No Known Allergies Allergy Verified 03/06/20 08:53 Physical Exam Vitals: Vital Signs Temp Pulse Pulse Resp BP BP Pulse Ox 03/06/20 08:54 97.5 F L 61 16 160/84 94 L 03/06/20 02:44 97.7 F 60 126/75 96 03/06/20 02:25 97.7 F 60 126/75 96 03/06/20 01:57 56 L 18 137/67 93 L 03/06/20 01:00 61 17 157/73 93 L 03/05/20 22:31 59 L 17 138/67 93 L 03/05/20 21:18 60 19 143/69 95 03/05/20 20:16 98.2 F 64 17 169/91 96 Intake and Output 03/05/20 03/06/20 03/06/20 22:59 06:59 14:59 Other: Voiding Method Toilet Weight 70.307 kg 70.307 kg PHYSICAL EXAMINATION: GENERAL: The patient is alert and oriented x3, not in any acute distress. Well developed, well nourished. HEENT: Pupils are round and equally reacting to light. EOMI. No scleral icterus. No conjunctival pallor. Normocephalic, atraumatic. No pharyngeal erythema. No thyromegaly. CARDIOVASCULAR: S1 and S2 present. No murmurs, rubs, or gallops. PULMONARY: Chest is clear to auscultation, no wheezing or crackles. ABDOMEN: Soft, nontender, nondistended, normoactive bowel sounds. No palpable organomegaly. MUSCULOSKELETAL: No joint swelling or deformity. EXTREMITIES: No cyanosis, clubbing, or pedal edema. NEUROLOGICAL: Gross neurological examination did not reveal any focal deficits. SKIN: No rashes. Results CBC & Chem 7: 03/05/20 20:38 03/05/20 20:38 Labs: Abnormal Lab Results - Last 24 Hours (Table) 03/05/20 03/05/20 Range/Units 20:38 20:38 WBC 13.2 H (3.8-10.6) k/uL Neutrophils # 8.8 H (1.3-7.7) k/uL Potassium 5.3 H (3.5-5.1) mmol/L Thrombosis Risk Factor Assmnt - Choose All That Apply Each Risk Factor Represents 3 Points: Age 75 years or older Thrombosis Risk Factor Assessment Total Risk Factor Score: 3 Thrombosis Risk Factor Assessment Level: Moderate Risk Assessment and Plan Plan: -atypical noncardiac chest pain: Ruled out acute coronary syndromes cardiology evaluation please refer to the documentation and patient will be discharged today -Ischemic myopathy patient is presently euvolemic. -Mild hyperkalemia excessive counseling regarding the low potassium diet was provided patient apparently has been eating light meals recently patient will be given a dose of Kayexalate and will be discharged patient is on lisinopril as well patient will need repeat BMP to be tested in about 3 days to make sure patient is not becoming hypokalemic -Coronary artery disease -Gastroesophageal reflux disease -Hyperlipidemia -Hypertension extend-benign prostatic hypertrophy he'll be discharged today was cleared by cardiology for late-
--- NOTE | 2020-03-06 09:57 | P.DS ---
Providers Date of admission: 03/06/20 00:50 Attending physician: Edgar Brito Consults: 03/06/20 00:51 Consult Physician Routine Consulting Provider: Stephon Naylor Consult Reason/Comments: CP Do you want consulting provider notified?: Yes Primary care physician: [facility] Hospital Course: Please refer to my HPI for further details Patient Condition at Discharge: Stable Plan - Discharge Summary New Discharge Prescriptions: Continue Sotalol [Betapace] 80 mg PO BID lisinopriL [Zestril] 10 mg PO QAM Tamsulosin [Flomax] 0.4 mg PO HS Aspirin 81 mg PO HS Acetaminophen/Diphenhydramine [Tylenol PM Extra Strength] 1 tab PO HS PRN PRN Reason: Pain Or Fever > 100.5 Multivitamins, Thera [Multivitamin (formulary)] 1 tab PO DAILY No Action Atorvastatin Calcium [Lipitor] 20 mg PO HS Latanoprost/Pf [Latanoprost 0.005% Eye Drop] 1 drop BOTH EYES HS Metoprolol Succinate (ER) [Toprol Xl] 25 mg PO BID Discharge Medication List Sotalol [Betapace] 80 mg PO BID 11/25/13 [History] lisinopriL [Zestril] 10 mg PO QAM 11/25/13 [History] Tamsulosin [Flomax] 0.4 mg PO HS 08/26/16 [History] Aspirin 81 mg PO HS 06/11/17 [History] Acetaminophen/Diphenhydramine [Tylenol PM Extra Strength] 1 tab PO HS PRN 12/03/17 [History] Atorvastatin Calcium [Lipitor] 20 mg PO HS 03/06/20 [History] Latanoprost/Pf [Latanoprost 0.005% Eye Drop] 1 drop BOTH EYES HS 03/06/20 [History] Metoprolol Succinate (ER) [Toprol Xl] 25 mg PO BID 03/06/20 [History] Multivitamins, Thera [Multivitamin (formulary)] 1 tab PO DAILY 03/06/20 [History] Follow up Appointment(s)/Referral(s): [facility] [Primary Care Provider] - 3 Days Patient Instructions/Handouts: Chest Pain (DC), Potassium Content of Foods List (DC) Activity/Diet/Wound Care/Special Instructions: cardiac and low potassium diet Discharge Disposition: HOME SELF-CARE
--- NOTE | 2020-03-06 15:00 | ECHOF ---
Referral Reason:cpn MEASUREMENTS -------- HEIGHT: 177.8 cm WEIGHT: 70.3 kg BP: 160/84 RVIDd: 2.7 cm (< 3.3) IVSd: 1.4 cm (0.6 - 1.1) LVIDd: 3.6 cm (3.9 - 5.3) LVPWd: 1.3 cm (0.6 - 1.1) IVSs: 1.7 cm LVIDs: 2.7 cm LVPWs: 1.9 cm LA Diam: 3.3 cm (2.7 - 3.8) LAESV Index (A-L): 18.03 ml/m Ao Diam: 3.5 cm (2.0 - 3.7) AV Cusp: 1.9 cm (1.5 - 2.6) MV EXCURSION: 25.510 mm (> 18.000) MV EF SLOPE: 118 mm/s (70 - 150) EPSS: 0.5 cm MV E Bowen: 0.53 m/s MV DecT: 375 ms MV A Bowen: 1.01 m/s MV E/A Ratio: 0.52 RAP: 5.00 mmHg RVSP: 40.42 mmHg FINDINGS -------- AICD This was a technically adequate study. The left ventricular size is normal. There is moderate concentric left ventricular hypertrophy. O verall left ventricular systolic function is low-normal with, an EF between 50 - 55 %. Basal inferi or LV wall motion is dyskinetic. The right ventricle is normal in size. Normal LA size by volume 22+/-6 ml/m2. The right atrium is normal in size. Interatrial and interventricular septum intact. There is mild aortic valve sclerosis. The mitral valve leaflets are mildly thickened. Moderate mitral annular calcification present. Mi ld mitral regurgitation is present. Mild tricuspid regurgitation present. There is mild pulmonary hypertension. The right ventricular systolic pressure, as measured by Doppler, is 40.42mmHg. Trace/mild (physiologic) pulmonic regurgitation. The aortic root size is normal. Normal inferior vena cava with normal inspiratory collapse consistent with estimated right atrial pre ssure of 5 mmHg. There is no pericardial effusion. CONCLUSIONS -------- 1. The left ventricular size is normal. 2. There is moderate concentric left ventricular hypertrophy. 3. Overall left ventricular systolic function is low-normal with, an EF between 50 - 55 %. 4. Basal inferior LV wall motion is dyskinetic. 5. There is mild aortic valve sclerosis. 6. The mitral valve leaflets are mildly thickened. 7. Moderate mitral annular calcification present. 8. Mild mitral regurgitation is present. 9. Mild tricuspid regurgitation present. 10. There is mild pulmonary hypertension. 11. The right ventricular systolic pressure, as measured by Doppler, is 40.42mmHg. 12. Trace/mild (physiologic) pulmonic regurgitation. 13. There is no pericardial effusion. ENROLLED NURSE: Dee Reaves RDCS
[2020-03-06 15:10] VITALS: BP 106/67; PULSE 76
[2020-03-06] MEDS ORDERED: SOTALOL 80 MG TAB PO SCH (21:00)
[2020-03-06] MEDS ORDERED: METOPROLOL TARTRATE 25 MG TAB PO SCH (21:00)
[2020-03-06] MEDS ORDERED: ATORVASTATIN 20 MG TAB PO SCH (21:00)
[2020-03-06] MEDS ORDERED: TAMSULOSIN 0.4 MG CAP.ER.24H PO SCH (21:00)
[2020-03-06] MEDS ORDERED: ASPIRIN 81 MG PO SCH (21:00)
[2020-03-07] MEDS ORDERED: MULTIVITAMINS, THERA 1 EACH TAB PO SCH (09:00)
[2020-03-07] MEDS ORDERED: lisinopriL 5 MG TAB PO SCH (09:00)
== END 2020-03-06 16:07 | disposition home or self-care (01) ==
LOC: EC 20:00 → 3NCARDOBS 03-06 00:50
PROVIDERS: ADMIT Hospitalist; ATTEND Hospitalist
DX: R07.89 Other chest pain (principal); R11.0 Nausea; Z95.810 Presence of automatic (implantable) cardiac defibrillator; E87.5 Hyperkalemia; I25.5 Ischemic cardiomyopathy; D72.829 Elevated white blood cell count, unspecified; I48.91 Unspecified atrial fibrillation; I25.10 Atherosclerotic heart disease of native coronary artery without angina pectoris; K21.9 Gastro-esophageal reflux disease without esophagitis; H91.90 Unspecified hearing loss, unspecified ear; E78.5 Hyperlipidemia, unspecified; I10 Essential (primary) hypertension; M19.90 Unspecified osteoarthritis, unspecified site; N40.0 Benign prostatic hyperplasia without lower urinary tract symptoms; H35.30 Unspecified macular degeneration; I25.2 Old myocardial infarction; Z79.899 Other long term (current) drug therapy; Z79.82 Long term (current) use of aspirin; Z87.01 Personal history of pneumonia (recurrent); Z87.891 Personal history of nicotine dependence; Z97.4 Presence of external hearing-aid; Z81.8 Family history of other mental and behavioral disorders
CPT/HCPCS: 99285; 36415; 93005; 93306; 80053; 83690; 83735; 84484 ×2; 85025; 85610; 85730; 71046; G0378

== ENCOUNTER 2020-10-07 11:30 | Emergency (ER) | payer OTHER, MEDICARE ==
[2020-10-07 11:46] VITALS: RESP 18; TEMP 97.8
[2020-10-07] MEDS ORDERED: SODIUM CHLORIDE 0.9% 500 ML 500 ML IV STA (12:08)
--- NOTE | 2020-10-07 12:15 | ED ---
Nausea/Vomiting/Diarrhea HPI - General Chief complaint: Nausea/Vomiting/Diarrhea Stated complaint: Diarrhea/abd pain Time Seen by Provider: 10/07/20 11:53 Source: patient, family ([id number]), RN notes reviewed Mode of arrival: ambulatory Limitations: no limitations - History of Present Illness Initial comments: 85-year-old white male, alert and oriented 4, presents to the emergency room with diarrhea for the past 2 weeks. Patient states that 1-2 times a day he'll have an episode of diarrhea but denies any blood. States color is light brown. Patient denies abdominal pain but does state he feels gassy. Patient has been taking Imodium [id number] and has taken approximately 12 total in the past 2 weeks. Patient states in the past he has had this and also had pneumonia. Patient state he does have an occasional cough but denies any fevers. Patient also denies any nausea or abdominal pain. No abdominal surgeries. Patient does have a history of H fibrillation, GERD, coronary artery disease with an AICD and pacemaker. Patient has history of sinus surgery 3. Patient vital signs are stable at this time he is afebrile at 97.8, heart rate of 62, blood pressure 152/87, saturation 97% on room air. MD complaint: diarrhea (Once a day for the past 2 weeks) -: week(s) (2) Description of Diarrhea: other (Light brown in color, no blood) Associated Abdominal Pain: No Radiation: none Quality: other ("gassy") Consistency: constant (1-2 times a day) Improves with: other (Imodium) Worsens with: none Context: other (History of C. diff within 5 years ago) Associated Symptoms: cough, headaches - Related Data Home Medications Medication Instructions Recorded Confirmed Sotalol [Betapace] 80 mg PO BID 11/25/13 03/06/20 lisinopriL [Zestril] 10 mg PO QAM 11/25/13 03/06/20 Tamsulosin [Flomax] 0.4 mg PO HS 08/26/16 03/06/20 Aspirin 81 mg PO HS 06/11/17 03/06/20 Acetaminophen/Diphenhydramine 1 tab PO HS PRN 12/03/17 03/06/20 [Tylenol PM Extra Strength] Atorvastatin Calcium [Lipitor] 20 mg PO HS 03/06/20 03/06/20 Latanoprost/Pf [Latanoprost 0.005% 1 drop BOTH EYES HS 03/06/20 03/06/20 Eye Drop] Metoprolol Succinate (ER) [Toprol 25 mg PO BID 03/06/20 03/06/20 Xl] Multivitamins, Thera [Multivitamin 1 tab PO DAILY 03/06/20 03/06/20 (formulary)] Previous Rx's Medication Instructions Recorded Loratadine/Pseudoephedrine 1 tab PO DAILY 30 Days #30 tab 10/07/20 [Loratadine-D 24Hr Tablet] Allergies Allergy/AdvReac Type Severity Reaction Status Date / Time No Known Allergies Allergy Verified 10/07/20 11:45 Review of Systems ROS Statement: Those systems with pertinent positive or pertinent negative responses have been documented in the HPI. ROS Other: All systems not noted in ROS Statement are negative. Past Medical History Past Medical History: Atrial Fibrillation, Coronary Artery Disease (CAD), Eye Disorder, GERD/Reflux, Hearing Disorder / Deafness, Hyperlipidemia, Hypertension, Osteoarthritis (OA), Pneumonia, Prostate Disorder Additional Past Medical History / Comment(s): Macular degeneration, use of hearing aids. Enlarged prostate. Last Myocardial Infarction Date:: 2007 History of Any Multi-Drug Resistant Organisms: None Reported Date of last positivie culture/infection: None MDRO Source:: None Past Surgical History: AICD, Heart Catheterization, Orthopedic Surgery, Pacemaker Additional Past Surgical History / Comment(s): Right foot ganglion cyst removed, right great toe surgery, cataracts removed, sinus surgery X3, colonoscopy, bronchoscopy. Past Anesthesia/Blood Transfusion Reactions: Previous Problems w/ Anesthesia Additional Past Anesthesia/Blood Transfusion Reaction / Comment(s): Heart stopped when he got anesthesia for Colonoscopy. Type of Cardiac Device: Permanent Pacemaker, AICD Device Placement Date:: 06-06-07 [email or web address], replaced 2017 Past Psychological History: No Psychological Hx Reported Smoking Status: Never smoker Past Alcohol Use History: None Reported Past Drug Use History: None Reported - Past Family History Father Additional Family Medical History / Comment(s): Killed in MVA at age 47. Mother Family Medical History: Dementia General Exam Limitations: no limitations General appearance: alert, in no apparent distress Head exam: Present: atraumatic, normocephalic, normal inspection Eye exam: Present: normal appearance, PERRL, EOMI. Absent: scleral icterus, conjunctival injection, periorbital swelling Pupils: Present: normal accommodation ENT exam: Present: normal exam, normal oropharynx, mucous membranes moist Neck exam: Present: normal inspection, full ROM. Absent: tenderness, meningismus, lymphadenopathy, thyromegaly Respiratory exam: Present: normal lung sounds bilaterally. Absent: respiratory distress, wheezes, rales, rhonchi, stridor, chest wall tenderness, accessory muscle use, decreased breath sounds Cardiovascular Exam: Present: regular rate, normal rhythm, normal heart sounds. Absent: systolic murmur, diastolic murmur, rubs, gallop, clicks GI/Abdominal exam: Present: soft, normal bowel sounds, hyperactive bowel sounds. Absent: distended, tenderness, guarding, rebound, rigid, mass, pulsatile mass Rectal exam: Present: deferred Extremities exam: Present: normal inspection, full ROM, normal capillary refill. Absent: tenderness, pedal edema, joint swelling, calf tenderness Back exam: Present: normal inspection, CVA tenderness (R). Absent: tenderness, CVA tenderness (L), muscle spasm, paraspinal tenderness, vertebral tenderness, rash noted Neurological exam: Present: alert, oriented X3, CN II-XII intact Psychiatric exam: Present: normal affect, normal mood Skin exam: Present: warm, dry, intact, normal color. Absent: rash, cyanosis, diaphoretic, erythema, petechiae, pallor, mottled Course Vital Signs 10/07/20 10/07/20 11:43 13:38 Temperature 97.8 F Pulse Rate 62 50 L Respiratory 18 18 Rate Blood Pressure 152/81 164/76 O2 Sat by Pulse 97 96 Oximetry Medical Decision Making - Medical Decision Making 85-year-old male alert and oriented 4, presents to the emergency room with 2 weeks of nonbloody, loose stools 1-2 times a day for the past 2 weeks. Patient states has been using Imodium but continues to have loose stool. Patient denies any vomiting or fevers or abdominal pain. Abdominal series shows no dilated bowels with a normal gas pattern, no obstruction. White blood count 9, hemoglobin and hematocrit is 13 and 42 respectively, magnesium is 1.9, potassium is 4.8. Urine does not show signs of infection with only 5 wbc's negative nitrites. Patient's blood pressures 152/87 with a heart rate of 62 and is afebrile at 97.8. Patient does state that he has excessive sinus drainage and has had sinus surgery 3 in the past. Patient takes Flonase only for his ALLERGIES, was directed to add loratadine daily. Abdomen is soft and nontender. Plan to discharge patient home to follow up with primary care doctor and return if worsening symptoms, bloody stool, vomit or abdominal pain. Michele discussed with Dr. Garg was agreeable to this plan of care - Lab Data Result diagrams: 10/07/20 12:15 10/07/20 12:15 Lab Results 10/07/20 10/07/20 10/07/20 Range/Units 12:15 12:15 12:18 WBC 9.0 (3.8-10.6) k/uL RBC 4.63 (4.30-5.90) m/uL Hgb 13.9 (13.0-17.5) gm/dL Hct 42.8 (39.0-53.0) % MCV 92.6 (80.0-100.0) fL MCH 30.1 (25.0-35.0) pg MCHC 32.5 (31.0-37.0) g/dL RDW 13.4 (11.5-15.5) % Plt Count 250 (150-450) k/uL MPV 8.7 Neutrophils % 59 % Lymphocytes % 31 % Monocytes % 6 % Eosinophils % 2 % Basophils % 0 % Neutrophils # 5.3 (1.3-7.7) k/uL Lymphocytes # 2.8 (1.0-4.8) k/uL Monocytes # 0.5 (0-1.0) k/uL Eosinophils # 0.2 (0-0.7) k/uL Basophils # 0.0 (0-0.2) k/uL Sodium 138 (137-145) mmol/L Potassium 4.8 (3.5-5.1) mmol/L Chloride 103 (98-107) mmol/L Carbon Dioxide 29 (22-30) mmol/L Anion Gap 6 mmol/L BUN 12 (9-20) mg/dL Creatinine 1.11 (0.66-1.25) mg/dL Est GFR (CKD-EPI)AfAm 69 (>60 ml/min/1.73 sqM) Est GFR (CKD-EPI)NonAf 60 (>60 ml/min/1.73 sqM) Glucose 91 (74-99) mg/dL Calcium 9.5 (8.4-10.2) mg/dL Magnesium 1.9 (1.6-2.3) mg/dL Total Bilirubin 0.9 (0.2-1.3) mg/dL AST 26 (17-59) U/L ALT 11 (4-49) U/L Alkaline Phosphatase 81 (38-126) U/L Total Protein 7.2 (6.3-8.2) g/dL Albumin 4.2 (3.5-5.0) g/dL Amylase 88 (30-110) U/L Lipase 113 (23-300) U/L Urine Color Light Yellow Urine Appearance Clear (Clear) Urine pH 5.5 (5.0-8.0) Ur Specific [place] 1.008 (1.001-1.035) Urine Protein Negative (Negative) Urine Glucose (UA) Negative (Negative) Urine Ketones Negative (Negative) Urine Blood Negative (Negative) Urine Nitrite Negative (Negative) Urine Bilirubin Negative (Negative) Urine Urobilinogen <2.0 (<2.0) mg/dL Ur Leukocyte Esterase Trace H (Negative) Urine RBC <1 (0-5) /hpf Urine WBC 5 (0-5) /hpf Ur Squamous Epith Cells <1 (0-4) /hpf Disposition Clinical Impression: Frequent loose stools, Seasonal allergies Disposition: HOME SELF-CARE Condition: Good Instructions (If sedation given, give patient instructions): Acute Diarrhea (ED), Allergies (ED) Additional Instructions: Take loratadine daily for seasonal ALLERGIES in addition to your Flonase. Increase her fluid intake and follow-up with your primary care doctor in 1 week. Referral for GI specialist as provided if loose stools continue. Return to the emergency room with worsening symptoms, increased abdominal pain or bloody stool or vomit. Prescriptions: Loratadine/Pseudoephedrine [Loratadine-D 24Hr Tablet] 1 tab PO DAILY 30 Days #30 tab Is patient prescribed a controlled substance at d/c from ED?: No Referrals: [facility],Clinic [Primary Care Provider] - 1-2 days Suze Ray MD [STAFF PHYSICIAN] - 1-2 days Time of Disposition: 13:48
[2020-10-07 12:40] LABS: Basophils % (A) 0 %; Eosinophils # (A) 0.2 k/uL (0-0.7); Eosinophils % (A) 2 %; HCT 42.8 % (39.0-53.0); HGB 13.9 gm/dL (13.0-17.5); Lymphocytes # (A) 2.8 k/uL (1.0-4.8); Lymphocytes % (A) 31 %; MCH 30.1 pg (25.0-35.0); MCHC 32.5 g/dL (31.0-37.0); MCV 92.6 fL (80.0-100.0); Mean Platelet Volume 8.7; Monocytes # (A) 0.5 k/uL (0-1.0); Monocytes % (A) 6 %; Neutrophils # (A) 5.3 k/uL (1.3-7.7); Neutrophils % (A) 59 %; Platelet Count 250 k/uL (150-450); RBC 4.63 m/uL (4.30-5.90); RDW 13.4 % (11.5-15.5)
--- NOTE | 2020-10-07 12:49 | XR ---
EXAMINATION TYPE: XR abdomen acute w cxr DATE OF EXAM: 10/07/2020 COMPARISON: 07/26/2020 HISTORY: COPD TECHNIQUE: Supine, upright, and left side down lateral decubitus views of the abdomen are obtained. FINDINGS: Opacity of the right upper lung zone appears similar to the prior examination when accounting for dif ferences in technique. AICD lead is unchanged. There is no evidence for pneumoperitoneum. The bowel gas pattern is unremarkable as there is air throughout nondilated small and large bowel. No sizeable air fluid levels. No mass effects are seen. No unusual calcifications. IMPRESSION: No definite acute abnormality.
[2020-10-07 12:53] LABS: Albumin 4.2 g/dL (3.5-5.0); Calcium 9.5 mg/dL (8.4-10.2); Magnesium 1.9 mg/dL (1.6-2.3); Potassium 4.8 mmol/L (3.5-5.1); Total Bilirubin 0.9 mg/dL (0.2-1.3); Total Protein 7.2 g/dL (6.3-8.2)
[2020-10-07 13:06] LABS: Appearance,Urine Clear (Clear); Bilirubin,Urine Negative (Negative); Blood,Urine Negative (Negative); Color,Urine Light Yellow; Glucose,Urine (UA) Negative (Negative); Ketones,Urine Negative (Negative); Leukocyte Esterase,Urine Trace (Negative); Nitrite,Urine Negative (Negative); PH, Urine 5.5 (5.0-8.0); Protein,Urine Negative (Negative); RBC,Urine <1 /hpf (0-5); Specific Gravity,Urine 1.008 (1.001-1.035); Squamous Epithelial Cell,Urine <1 /hpf (0-4); Urobilinogen,Urine <2.0 mg/dL (<2.0); WBC,Urine 5 /hpf (0-5)
[2020-10-07 14:16] VITALS: BP 147/77; PULSE 58
== END 2020-10-07 14:31 | disposition home or self-care (01) ==
LOC: EC 11:30
DX: J30.2 Other seasonal allergic rhinitis (principal); R19.7 Diarrhea, unspecified; H91.90 Unspecified hearing loss, unspecified ear; I10 Essential (primary) hypertension; E78.5 Hyperlipidemia, unspecified; I25.10 Atherosclerotic heart disease of native coronary artery without angina pectoris; I25.2 Old myocardial infarction; I48.91 Unspecified atrial fibrillation; M19.90 Unspecified osteoarthritis, unspecified site; K21.9 Gastro-esophageal reflux disease without esophagitis; N40.0 Benign prostatic hyperplasia without lower urinary tract symptoms; Z79.82 Long term (current) use of aspirin; Z79.899 Other long term (current) drug therapy; Z95.810 Presence of automatic (implantable) cardiac defibrillator
CPT/HCPCS: 36415; 74022; 80053; 81001; 82150; 83690; 83735; 85025; 96360; 96361; 99284

== ENCOUNTER 2021-08-17 12:15 | Observation (INO) | payer MEDICARE ==
[2021-08-17 13:22] LABS: Basophils # (A) 0.1 k/uL (0-0.2); Basophils % (A) 1 %; Eosinophils # (A) 0.3 k/uL (0-0.7); Eosinophils % (A) 3 %; HCT 43.8 % (39.0-53.0); HGB 14.5 gm/dL (13.0-17.5); Lymphocytes # (A) 2.5 k/uL (1.0-4.8); Lymphocytes % (A) 27 %; MCHC 33.2 g/dL (31.0-37.0); MCV 96.5 fL (80.0-100.0); Monocytes # (A) 0.7 k/uL (0-1.0); Monocytes % (A) 7 %; Neutrophils # (A) 5.6 k/uL (1.3-7.7); Neutrophils % (A) 60 %; Platelet Count 202 k/uL (150-450); RBC 4.53 m/uL (4.30-5.90); RDW 12.6 % (11.5-15.5); WBC 9.3 k/uL (3.8-10.6)
--- NOTE | 2021-08-17 13:22 | XR ---
EXAMINATION TYPE: XR chest 2V DATE OF EXAM: 08/17/2021 COMPARISON: Chest x-ray March 05, 2020 HISTORY: Chest pain with nausea and vomiting. TECHNIQUE: Frontal and lateral views of the chest are obtained. FINDINGS: There is chronic parenchymal change bilaterally with persistent right upper lung opacity f avoring scarring. Persistent mild cardiomegaly with single lead pacemaker/defibrillator.. The osseo us structures remain demineralized. IMPRESSION: Cardiomegaly and chronic changes without new acute pulmonary process.
[2021-08-17 13:24] LABS: Partial Thromboplastin Time 26.3 sec (22.0-30.0); Prothrombin Time 11.1 sec (9.0-12.0)
[2021-08-17 13:41] LABS: Albumin 4.1 g/dL (3.5-5.0); Calcium 9.7 mg/dL (8.4-10.2); Potassium 4.6 mmol/L (3.5-5.1); Total Bilirubin 1.1 mg/dL (0.2-1.3); Total Protein 7.5 g/dL (6.3-8.2)
[2021-08-17] MEDS: SODIUM CHLORIDE 0.9% 1,000 ML IV SCH (14:29)
--- NOTE | 2021-08-17 14:31 | ED ---
General Adult HPI - General Chief complaint: Chest Pain Stated complaint: chest pain, abd pain, diarrhea Time Seen by Provider: 08/17/21 12:20 Source: patient, family Mode of arrival: wheelchair Limitations: no limitations - History of Present Illness Initial comments: 85-year-old male with past medical history of hypertension, A. fib, ICD and pacemaker placement presents to the emergency department with reported chest pain. States that he began having chest pain yesterday. Located in the epigastric region and radiates up to his neck. Describes as a pressure sensation. Pain was resolved by the time he awoke this morning. He denies any associated diaphoresis, fevers or chills. Does admit to associated nausea with inability to hold down food. He additionally reports to a 3 week history of diarrhea. Denies any lead he stools. Does admit to black stools after he attempted to take Pepto for his symptoms. He has had C. diff 4 times, the last of which was last year. Feels as if his symptoms are consistent. No recent antibiotic use. Admits to generalized abdominal pain. No other alleviating, precipitating or modifying factors - Related Data Home Medications Medication Instructions Recorded Confirmed lisinopriL [Zestril] 10 mg PO DAILY 11/25/13 08/17/21 Tamsulosin [Flomax] 0.4 mg PO DAILY 08/26/16 08/17/21 Aspirin 81 mg PO HS 06/11/17 08/17/21 Atorvastatin Calcium [Lipitor] 20 mg PO HS 03/06/20 08/17/21 Latanoprost/Pf [Latanoprost 0.005% 1 drop BOTH EYES HS 03/06/20 08/17/21 Eye Drop] Metoprolol Succinate (ER) [Toprol 25 mg PO BID 03/06/20 08/17/21 Xl] Multivitamins, Thera [Multivitamin 1 tab PO DAILY 03/06/20 08/17/21 (formulary)] L.acidoph,Paracasei, B.lactis 1 cap PO DAILY 08/17/21 08/17/21 [Probiotic] Allergies Allergy/AdvReac Type Severity Reaction Status Date / Time No Known Allergies Allergy Verified 08/17/21 14:24 Review of Systems ROS Statement: Those systems with pertinent positive or pertinent negative responses have been documented in the HPI. ROS Other: All systems not noted in ROS Statement are negative. Past Medical History Past Medical History: Atrial Fibrillation, Coronary Artery Disease (CAD), Eye Disorder, GERD/Reflux, Hearing Disorder / Deafness, Hyperlipidemia, Hypertension, Osteoarthritis (OA), Pneumonia, Prostate Disorder Additional Past Medical History / Comment(s): Macular degeneration, use of hearing aids. Enlarged prostate. Last Myocardial Infarction Date:: 2007 History of Any Multi-Drug Resistant Organisms: None Reported Date of last positivie culture/infection: None MDRO Source:: None Past Surgical History: AICD, Heart Catheterization, Orthopedic Surgery, Pacemaker Additional Past Surgical History / Comment(s): Right foot ganglion cyst removed, right great toe surgery, cataracts removed, sinus surgery X3, colonoscopy, bronchoscopy. Past Anesthesia/Blood Transfusion Reactions: Previous Problems w/ Anesthesia Additional Past Anesthesia/Blood Transfusion Reaction / Comment(s): Heart stopped when he got anesthesia for Colonoscopy. Type of Cardiac Device: Permanent Pacemaker, AICD Device Placement Date:: 06-06-07 [employer], replaced 2017 Past Psychological History: No Psychological Hx Reported Smoking Status: Never smoker Past Alcohol Use History: None Reported Past Drug Use History: None Reported - Past Family History Father Additional Family Medical History / Comment(s): Killed in MVA at age 47. Mother Family Medical History: Dementia General Exam Limitations: no limitations General appearance: alert, in no apparent distress Head exam: Present: atraumatic, normocephalic, normal inspection Eye exam: Present: normal appearance, PERRL, EOMI. Absent: scleral icterus, conjunctival injection, periorbital swelling ENT exam: Present: normal exam, mucous membranes moist Neck exam: Present: normal inspection. Absent: tenderness, meningismus, lymphadenopathy Respiratory exam: Present: normal lung sounds bilaterally. Absent: respiratory distress, wheezes, rales, rhonchi, stridor Cardiovascular Exam: Present: regular rate, normal rhythm, normal heart sounds. Absent: systolic murmur, diastolic murmur, rubs, gallop, clicks GI/Abdominal exam: Present: soft, normal bowel sounds. Absent: distended, tenderness, guarding, rebound, rigid Extremities exam: Present: normal inspection, full ROM, normal capillary refill. Absent: tenderness, pedal edema, joint swelling, calf tenderness Back exam: Present: normal inspection Neurological exam: Present: alert, oriented X3, CN II-XII intact Psychiatric exam: Present: normal affect, normal mood Skin exam: Present: warm, dry, intact, normal color. Absent: rash Course Vital Signs 08/17/21 08/17/21 08/17/21 12:19 12:50 14:44 Temperature 97.0 F L Pulse Rate 72 58 L 58 L Respiratory 18 16 16 Rate Blood Pressure 168/87 171/81 148/82 O2 Sat by Pulse 96 99 98 Oximetry EKG Findings - EKG Comments: EKG Findings:: EKG demonstrates sinus bradycardia with a rate of 58. VA interval 155. QRS 125. QTC 440. No acute ST segment elevations or d epressions. No signs of high degree heart block Medical Decision Making - Medical Decision Making Upon arrival patient is placed into room 6. History and physical exam was performed. Old EKG was obtained which demonstrates no acute ST segment e levation. Laboratory studies are conducted and reviewed. Troponin is negative. Chest x-ray demonstrates no acute process. Patient is unable to give a stool sample at this time. I did CT his chest which demonstrates no acute intra- abdominal findings. Recommended admission in order to trend his troponins. I will await a stool sample before treating for C. diff. Patient agreed to admission. Spoke with Dr. Joseph Valle. Cardiology placed on consult. Awaiting about on the floor in stable condition - Lab Data Result diagrams: 08/17/21 13:02 08/17/21 13:02 Lab Results 08/17/21 08/17/21 08/17/21 Range/Units 13:02 13:02 13:02 WBC 9.3 (3.8-10.6) k/uL RBC 4.53 (4.30-5.90) m/uL Hgb 14.5 (13.0-17.5) gm/dL Hct 43.8 (39.0-53.0) % MCV 96.5 (80.0-100.0) fL MCH 32.0 (25.0-35.0) pg MCHC 33.2 (31.0-37.0) g/dL RDW 12.6 (11.5-15.5) % Plt Count 202 (150-450) k/uL MPV 9.0 Neutrophils % 60 % Lymphocytes % 27 % Monocytes % 7 % Eosinophils % 3 % Basophils % 1 % Neutrophils # 5.6 (1.3-7.7) k/uL Lymphocytes # 2.5 (1.0-4.8) k/uL Monocytes # 0.7 (0-1.0) k/uL Eosinophils # 0.3 (0-0.7) k/uL Basophils # 0.1 (0-0.2) k/uL PT 11.1 (9.0-12.0) sec INR 1.0 (<1.2) APTT 26.3 (22.0-30.0) sec Sodium 137 (137-145) mmol/L Potassium 4.6 (3.5-5.1) mmol/L Chloride 103 (98-107) mmol/L Carbon Dioxide 29 (22-30) mmol/L Anion Gap 5 mmol/L BUN 15 (9-20) mg/dL Creatinine 1.06 (0.66-1.25) mg/dL Est GFR (CKD-EPI)AfAm 73 (>60 ml/min/1.73 sqM) Est GFR (CKD-EPI)NonAf 63 (>60 ml/min/1.73 sqM) Glucose 91 (74-99) mg/dL Calcium 9.7 (8.4-10.2) mg/dL Magnesium 2.0 (1.6-2.3) mg/dL Total Bilirubin 1.1 (0.2-1.3) mg/dL AST 27 (17-59) U/L ALT 15 (4-49) U/L Alkaline Phosphatase 62 (38-126) U/L Troponin I (0.000-0.034) ng/mL Total Protein 7.5 (6.3-8.2) g/dL Albumin 4.1 (3.5-5.0) g/dL Lipase 118 (23-300) U/L 08/17/21 Range/Units 13:02 WBC (3.8-10.6) k/uL RBC (4.30-5.90) m/uL Hgb (13.0-17.5) gm/dL Hct (39.0-53.0) % MCV (80.0-100.0) fL MCH (25.0-35.0) pg MCHC (31.0-37.0) g/dL RDW (11.5-15.5) % Plt Count (150-450) k/uL MPV Neutrophils % % Lymphocytes % % Monocytes % % Eosinophils % % Basophils % % Neutrophils # (1.3-7.7) k/uL Lymphocytes # (1.0-4.8) k/uL Monocytes # (0-1.0) k/uL Eosinophils # (0-0.7) k/uL Basophils # (0-0.2) k/uL PT (9.0-12.0) sec INR (<1.2) APTT (22.0-30.0) sec Sodium (137-145) mmol/L Potassium (3.5-5.1) mmol/L Chloride (98-107) mmol/L Carbon Dioxide (22-30) mmol/L Anion Gap mmol/L BUN (9-20) mg/dL Creatinine (0.66-1.25) mg/dL Est GFR (CKD-EPI)AfAm (>60 ml/min/1.73 sqM) Est GFR (CKD-EPI)NonAf (>60 ml/min/1.73 sqM) Glucose (74-99) mg/dL Calcium (8.4-10.2) mg/dL Magnesium (1.6-2.3) mg/dL Total Bilirubin (0.2-1.3) mg/dL AST (17-59) U/L ALT (4-49) U/L Alkaline Phosphatase (38-126) U/L Troponin I <0.012 (0.000-0.034) ng/mL Total Protein (6.3-8.2) g/dL Albumin (3.5-5.0) g/dL Lipase (23-300) U/L Disposition Clinical Impression: Chest pain, Abdominal pain, Diarrhea Disposition: ADMITTED IP TO THIS [facility] Condition: Stable Is patient prescribed a controlled substance at d/c from ED?: No Decision to Admit Reason: Admit from EC Decision Date: 08/17/21 Decision Time: 15:37
--- NOTE | 2021-08-17 14:53 | CT ---
EXAMINATION TYPE: CT abdomen pelvis w con DATE OF EXAM: 08/17/2021 COMPARISON: 05/21/2014 HISTORY: abd pain, diarrhea CT DLP: 635.2 mGycm Automated exposure control for dose reduction was used. TECHNIQUE: Helical acquisition of images from the lung bases through the pelvis have been completed. CONTRAST: Performed without Oral Contrast and with IV Contrast, patient injected with 100ml mL of Isovue 300. FINDINGS: Lead present within the right ventricle suspect coronary artery calcification LUNG BASES: No significant abnormality is appreciated. AORTA: Dense atheromatous calcification throughout the aorta iliac distribution. LIVER/GB: No significant abnormality is appreciated. PANCREAS: No significant abnormality is seen. SPLEEN: No significant abnormality is seen, splenule is again noted. ADRENALS: No significant abnormality is seen. KIDNEYS: No significant change is seen. REPRODUCTIVE ORGANS: Prostate is enlarged. BOWEL: Diverticular changes are present within the sigmoid colon, no evident bowel obstruction, mult iple air-filled loops of small and large bowel are present, colonic interposition noted anterior to t he liver. Appendix is normal. FREE AIR: No Free Air visible. ASCITES: None visible. PELVIC ADENOPATHY: None visualized. RETROPERITONEAL ADENOPATHY: No Retroperitoneal Adenopathy visible. URINARY BLADDER: No significant abnormality is seen. OSSEOUS STRUCTURES: No significant change is seen with degenerative disc changes, scoliosis, facet a rthropathy noted. IMPRESSION: NO ABNORMALITY EVIDENT TO ACCOUNT FOR PATIENT'S SYMPTOMS. DIVERTICULOSIS AND ADDITIONAL FINDINGS ABOV E.
[2021-08-17] MEDS ORDERED: ONDANSETRON 4 MG/2 ML VIAL IVP PRN (15:37)
[2021-08-17] MEDS ORDERED: NALOXONE 0.4 MG/ML 1 ML VIAL IV PRN (15:37)
[2021-08-17] MEDS ORDERED: ASPIRIN 81 MG PO STA (16:23)
[2021-08-17] MEDS ORDERED: LOPERAMIDE 2 MG CAP PO PRN (16:23)
--- NOTE | 2021-08-17 16:24 | P.HPIM ---
History of Present Illness H&P Date: 08/17/21 Chief Complaint: abdominal pain, diarrhea, chest pain 85-year-old man with medical history of CAD with ischemic cardiomyopathy, hypertension, hyperlipidemia, BPH presented with symptoms of abdominal pain, diarrhea, chest pain. Patient says that he's had a sensitive gut for quite some time, but in the recent week he started to develop a little bit more discomfort and had watery stools, mostly in the mornings about twice a day. He tried treating this with Tums, Pepto-Bismol, but did not have any relief. This morning, patient also developed some chest pain in the center of his chest, and was not sure if this was radiation from the gut pain or if this was a primary c ardiac issue, prompting his evaluation in the emergency room. He denies fevers, chills, nausea, vomiting, cough, dyspnea, palpitations, constipation, dysuria, dyschezia, numbness/weakness of extremities. In the emergency room, patient was afebrile, 171/81, heart rate 58, 99% on room air. CBC, chemistries, LFTs are all unremarkable. Coags are unremarkable. Initial troponin was negative. Patient's chest x-ray demonstrates cardiomegaly with chronic changes but no acute pulmonary process. Patient's EKG demonstrates sinus bradycardia with early right bundle branch block. CT of the abdomen/pelvis shows some diverticulosis, but no abnormalities to account for patient's symptoms. All Systems reviewed and pertinent positives and negatives noted in HPI, all other symptoms are negative Gen: awake, alert HEENT: normocephalic, atraumatic, good hearing acuity, moist mucous membranes Resp: good air exchange, breathing comfortably with no accessory muscle use, clear to auscultation bilaterally CVS: good distal perfusion x 4, regular rate and rhythm without murmurs GI: soft, NTTP, ND : no SPT, no CVAT, russell catheter Not present MSK: no pitting edema, no clubbing Neuro: non-focal, moving all extremities Psych: cooperative, euthymic mood Labs and imaging are reviewed as above Assessment/plan: Atypical Chest Pain Abdominal Pain Diarrhea - admit to observation, telemetry - cardiac consult - aspirin, statin - echocardiogram - Imodium as needed - Tylenol when necessary - A1c, TSH, lipid panel - IVF CAD HTN HLD BPH -Home meds reviewed and reconciled Pt is DNR/DNI Past Medical History Past Medical History: Atrial Fibrillation, Coronary Artery Disease (CAD), Eye Disorder, GERD/Reflux, Hearing Disorder / Deafness, Hyperlipidemia, Hypertension, Osteoarthritis (OA), Pneumonia, Prostate Disorder Additional Past Medical History / Comment(s): Macular degeneration, use of hearing aids. Enlarged prostate. Last Myocardial Infarction Date:: 2007 History of Any Multi-Drug Resistant Organisms: None Reported Date of last positivie culture/infection: None MDRO Source:: None Past Surgical History: AICD, Heart Catheterization, Orthopedic Surgery, Pacemaker Additional Past Surgical History / Comment(s): Right foot ganglion cyst removed, right great toe surgery, cataracts removed, sinus surgery X3, colonoscopy, bronchoscopy. Past Anesthesia/Blood Transfusion Reactions: Previous Problems w/ Anesthesia Additional Past Anesthesia/Blood Transfusion Reaction / Comment(s): Heart stopped when he got anesthesia for Colonoscopy. Type of Cardiac Device: Permanent Pacemaker, AICD Device Placement Date:: 06-06-07 Medtronic, replaced 2017 Past Psychological History: No Psychological Hx Reported Smoking Status: Never smoker Past Alcohol Use History: None Reported Past Drug Use History: None Reported - Past Family History Father Additional Family Medical History / Comment(s): Killed in MVA at age 47. Mother Family Medical History: Dementia Medications and Allergies Home Medications Medication Instructions Recorded Confirmed Type lisinopriL [Zestril] 10 mg PO DAILY 11/25/13 08/17/21 History Tamsulosin [Flomax] 0.4 mg PO DAILY 08/26/16 08/17/21 History Aspirin 81 mg PO HS 06/11/17 08/17/21 History Atorvastatin Calcium [Lipitor] 20 mg PO HS 03/06/20 08/17/21 History Latanoprost/Pf [Latanoprost 0.005% 1 drop BOTH EYES HS 03/06/20 08/17/21 History Eye Drop] Metoprolol Succinate (ER) [Toprol 25 mg PO BID 03/06/20 08/17/21 History Xl] Multivitamins, Thera [Multivitamin 1 tab PO DAILY 03/06/20 08/17/21 History (formulary)] L.acidoph,Paracasei, B.lactis 1 cap PO DAILY 08/17/21 08/17/21 History [Probiotic] Allergies Allergy/AdvReac Type Severity Reaction Status Date / Time No Known Allergies Allergy Verified 08/17/21 14:24 Physical Exam Osteopathic Statement: *. No significant issues noted on an osteopathic structural exam other than those noted in the History and Physical/Consult. Vitals: Vital Signs Temp Pulse Resp BP Pulse Ox 08/17/21 14:44 58 L 16 148/82 98 08/17/21 12:50 58 L 16 171/81 99 08/17/21 12:19 97.0 F L 72 18 168/87 96 Intake and Output 08/17/21 08/17/21 08/17/21 06:59 14:59 22:59 Other: Weight 68.039 kg Results CBC & Chem 7: 08/17/21 13:02 08/17/21 13:02
[2021-08-17] MEDS ORDERED: ACETAMINOPHEN TAB 500 MG TAB PO STA (20:30)
[2021-08-17] MEDS ORDERED: diphenhydrAMINE 25 MG CAP PO STA (20:36)
[2021-08-17] MEDS ORDERED: ATORVASTATIN 40 MG TAB PO SCH (21:00)
[2021-08-18] MEDS: SODIUM CHLORIDE 0.9% 1,000 ML IV SCH (03:51)
[2021-08-18 06:42] LABS: Basophils % (A) 1 %; Eosinophils # (A) 0.3 k/uL (0-0.7); Eosinophils % (A) 4 %; HCT 42.1 % (39.0-53.0); HGB 13.2 gm/dL (13.0-17.5); Lymphocytes # (A) 2.2 k/uL (1.0-4.8); Lymphocytes % (A) 30 %; MCH 30.5 pg (25.0-35.0); MCHC 31.4 g/dL (31.0-37.0); MCV 97.1 fL (80.0-100.0); Mean Platelet Volume 9.2; Monocytes # (A) 0.6 k/uL (0-1.0); Monocytes % (A) 9 %; Neutrophils # (A) 4.1 k/uL (1.3-7.7); Neutrophils % (A) 55 %; Platelet Count 182 k/uL (150-450); RBC 4.34 m/uL (4.30-5.90); RDW 12.6 % (11.5-15.5); WBC 7.4 k/uL (3.8-10.6)
[2021-08-18 07:46] VITALS: BP 132/69; PULSE 51; RESP 16; TEMP 98.1
[2021-08-18] MEDS ORDERED: ASPIRIN 81 MG PO SCH (09:00)
[2021-08-18] MEDS ORDERED: METOPROLOL SUCCINATE (ER) 25 MG TAB.ER.24H PO SCH (09:00)
[2021-08-18] MEDS ORDERED: lisinopriL 10 MG TAB PO SCH (09:00)
--- NOTE | 2021-08-18 09:03 | P.CRDCN ---
History of Present Illness History of present illness: HISTORY OF PRESENTING ILLNESS This is a pleasant 85-year-old male past medical history significant for coronary artery disease with chronic total occlusion of the RCA with collaterals, hypertension, hyperlipidemia, ventricular tachycardia status post AICD 2007, ischemic cardiomyopathy with improved EF. He follows in the office with Dr. Naylor. We have been asked to see in consultation for chest pain. Patient presents emergency department on 08/17 with complaints of some abdominal pain, diarrhea, and chest pain. He states he had some epigastric discomfort, describes it as a pressure, he also had chest discomfort in the middle of his chest. He had some radiation up his chest. He was unsure if it was his stomach pains or a primary cardiac issue. Pain began 08/16 night and resolved by the morning. It was non-exertional. No specific aggravating or alleviating factors. He also additionally has been having diarrhea for a couple weeks. He denies any associated shortness of breath, nausea, vomiting, lightheadedness, dizziness, syncope or near syncope. He denies any symptoms of orthopnea or PND. DIAGNOSTICS EKG reveals sinus bradycardia, heart rate 58, poor R wave progression, nonspecific STT wave abnormalities. No acute ischemia noted. Prior EKG in 2019 with similar findings Telemetry tracings indicate sinus mechanism with heart rates in the 50s-60s, occasional PVCs. Chest xray no acute cardiopulmonary process. Laboratory reviewed troponin negative 2, CBC unremarkable, sodium 137, potassium 4.6, BUN 15, serum creatinine 1.06, magnesium 2.1, lipase within normal limits Current home medications include lisinopril 10 mg daily, Flomax, multivitamin, Toprol 25 mg twice a day, atorvastatin 20 mg nightly, aspirin 81 mg daily, Latanoprost CT abdomen and pelvis- revealed diverticular changes are present within the sigmoid colon, no junction, multiple air-filled loops of small and large bowel present Echocardiogram 02/2020 revealed an EF of 5055 percent, basal inferior LV wall is dyskinetic, mild mitral regurgitation, mild tricuspid regurgitation, mild pulmonary hypertension, RVSP of 40 mmHg REVIEW OF SYSTEMS At the time of my exam: CONSTITUTIONAL: Denies fever or chills. CARDIOVASCULAR: Denies chest pain, shortness of breath, orthopnea, PND or palpitations. RESPIRATORY: Denies cough. GASTROINTESTINAL: +abdominal pain,+ diarrhea, Denies constipation, nausea or vomiting. MUSCULOSKELETAL: Denies myalgias. NEUROLOGIC: Denies numbness, tingling, headacbe or weakness. ENDOCRINE: Denies fatigue, weight change, polydipsia or polyurina. GENITOURINARY: Denies burning, hematuria or urgency with micturation. HEMATOLOGIC: Denies history of anemia or bleeding. PHYSICAL EXAMINATION Blood pressure 132/69, heart rate 61, afebrile, oxygen saturation is 96% on room air CONSTITUTIONAL: No apparent distress. HEENT: Head is normocephalic. Pupils are equal, round. Sclerae anicteric. Mucous membranes of the mouth are moist. No JVD. CHEST EXAMINATION: Lungs are clear to auscultation. No chest wall tenderness is noted on palpation or with deep breathing. HEART EXAMINATION: Regular rate and rhythm. S1, S2 heard. No murmurs, gallops or rub. ABDOMEN: Soft, nontender. Positive bowel sounds. EXTREMITIES: 2+ peripheral pulses, no lower extremity edema and no calf tenderness. NEUROLOGIC EXAMINATION: Patient is awake, alert and oriented x3. ASSESSMENT Abdominal pain Diarrhea Chest pain, appears non-cardiac in nature, acute coronary syndrome has been ruled out Coronary artery disease with chronic total occlusion of the RCA with collaterals Hypertension Hyperlipidemia Centricular tachycardia status post AICD 2007, Ischemic cardiomyopathy with improved EF PLAN From a cardiology perspective, no further inpatient workup for patient's chest pain. Second troponin negative. EKG with no new evidence of acute ischemia. Recommend continuing home cardiac medications. Follow up with Dr. Naylor. Patient states he has an appointment on Sunday08/24/21 and recommend he keeps this follow up appointment. Rest per primary. Please reach out with any further questions or concerns. Nurse practitioner note has been reviewed by physician. Signing provider agrees with the documented findings, assessment, and plan of care. Past Medical History Past Medical History: Atrial Fibrillation, Coronary Artery Disease (CAD), Eye Disorder, GERD/Reflux, Hearing Disorder / Deafness, Hyperlipidemia, Hypertension, Osteoarthritis (OA), Pneumonia, Prostate Disorder Additional Past Medical History / Comment(s): Macular degeneration, use of hearing aids. Enlarged prostate. Last Myocardial Infarction Date:: 2007 History of Any Multi-Drug Resistant Organisms: None Reported Date of last positivie culture/infection: None MDRO Source:: None Past Surgical History: AICD, Heart Catheterization, Orthopedic Surgery, Pacemaker Additional Past Surgical History / Comment(s): Right foot ganglion cyst removed, right great toe surgery, cataracts removed, sinus surgery X3, colonoscopy, bronchoscopy. Past Anesthesia/Blood Transfusion Reactions: Previous Problems w/ Anesthesia Additional Past Anesthesia/Blood Transfusion Reaction / Comment(s): Heart stopped when he got anesthesia for Colonoscopy. Type of Cardiac Device: Permanent Pacemaker, AICD Device Placement Date:: 06-06-07 Medtr[employer], replaced 2017 Past Psychological History: No Psychological Hx Reported Smoking Status: Never smoker Past Alcohol Use History: None Reported Past Drug Use History: None Reported - Past Family History Father Additional Family Medical History / Comment(s): Killed in MVA at age 47. Mother Family Medical History: Dementia Medications and Allergies Home Medications Medication Instructions Recorded Confirmed Type lisinopriL [Zestril] 10 mg PO DAILY 11/25/13 08/17/21 History Tamsulosin [Flomax] 0.4 mg PO DAILY 08/26/16 08/17/21 History Aspirin 81 mg PO HS 06/11/17 08/17/21 History Atorvastatin Calcium [Lipitor] 20 mg PO HS 03/06/20 08/17/21 History Latanoprost/Pf [Latanoprost 0.005% 1 drop BOTH EYES HS 03/06/20 08/17/21 History Eye Drop] Metoprolol Succinate (ER) [Toprol 25 mg PO BID 03/06/20 08/17/21 History Xl] Multivitamins, Thera [Multivitamin 1 tab PO DAILY 03/06/20 08/17/21 History (formulary)] L.acidoph,Paracasei, B.lactis 1 cap PO DAILY 08/17/21 08/17/21 History [Probiotic] Allergies Allergy/AdvReac Type Severity Reaction Status Date / Time No Known Allergies Allergy Verified 08/17/21 14:24 Physical Exam Vitals: Vital Signs Temp Pulse Pulse Resp BP BP Pulse Ox 08/18/21 07:00 98.1 F 51 L 16 132/69 96 08/18/21 03:06 97.6 F 61 18 110/68 97 08/17/21 19:32 97.3 F L 68 18 142/84 98 08/17/21 14:44 58 L 16 148/82 98 08/17/21 12:50 58 L 16 171/81 99 08/17/21 12:19 97.0 F L 72 18 168/87 96 Intake and Output 08/17/21 08/18/21 08/18/21 22:59 06:59 14:59 Other: # Voids 2 Weight 68.039 kg Results 08/18/21 05:54 08/17/21 13:02 Cardiac Enzymes 08/17/21 08/17/21 08/18/21 Range/Units 13:02 13:02 07:56 AST 27 (17-59) U/L Troponin I <0.012 0.016 (0.000-0.034) ng/mL Coagulation 08/17/21 Range/Units 13:02 PT 11.1 (9.0-12.0) sec APTT 26.3 (22.0-30.0) sec CBC 08/17/21 08/18/21 Range/Units 13:02 05:54 WBC 9.3 7.4 (3.8-10.6) k/uL RBC 4.53 4.34 (4.30-5.90) m/uL Hgb 14.5 13.2 (13.0-17.5) gm/dL Hct 43.8 42.1 (39.0-53.0) % Plt Count 202 182 (150-450) k/uL Comprehensive Metabolic Panel 08/17/21 Range/Units 13:02 Sodium 137 (137-145) mmol/L Potassium 4.6 (3.5-5.1) mmol/L Chloride 103 (98-107) mmol/L Carbon Dioxide 29 (22-30) mmol/L BUN 15 (9-20) mg/dL Creatinine 1.06 (0.66-1.25) mg/dL Glucose 91 (74-99) mg/dL Calcium 9.7 (8.4-10.2) mg/dL AST 27 (17-59) U/L ALT 15 (4-49) U/L Alkaline Phosphatase 62 (38-126) U/L Total Protein 7.5 (6.3-8.2) g/dL Albumin 4.1 (3.5-5.0) g/dL Current Medications Generic Name Dose Route Start Last Admin Trade Name Freq PRN Reason Stop Dose Admin Aspirin 81 mg 08/18/21 09:00 08/18/21 08:31 Aspirin 81 Mg PO 81 mg DAILY BEATRIZ Administration Atorvastatin Calcium 40 mg 08/17/21 21:00 08/17/21 19:53 Atorvastatin 40 Mg Tab PO 40 mg HS BEATRIZ Administration Sodium Chloride 1,000 mls @ 75 mls/hr 08/17/21 14:00 08/18/21 03:51 Saline 0.9% IV 75 mls/hr .[id number] BEATRIZ Administration Lisinopril 10 mg 08/18/21 09:00 08/18/21 08:31 Lisinopril 10 Mg Tab PO 10 mg DAILY BEATRIZ Administration Loperamide HCl 2 mg 08/17/21 16:23 Loperamide 2 Mg Cap PO QID PRN Diarrhea Metoprolol Succinate 25 mg 08/18/21 09:00 Metoprolol Succinate (Er) 25 Mg Tab.Er.24h PO BID BEATRIZ Naloxone HCl 0.2 mg 08/17/21 15:37 Naloxone 0.4 Mg/Ml 1 Ml Vial IV Q2M PRN Opioid Reversal Ondansetron HCl 4 mg 08/17/21 15:37 Ondansetron 4 Mg/2 Ml Vial IVP Q8HR PRN Nausea And Vomiting Intake and Output 08/17/21 08/18/21 08/18/21 22:59 06:59 14:59 Other: # Voids 2 Weight 68.039 kg 08/18/21 05:54 08/17/21 13:02
[2021-08-18 10:29] LABS: African American GFR (CKD) 69.6 (60.0-200.0); BUN/Creat Ratio 10.55 Ratio (12.00-20.00); Blood Urea Nitrogen 11.6 mg/dL (9.0-27.0); Carbon Dioxide 28.4 mmol/L (20.0-27.5); Chloride 103 mmol/L (96-109); Chol/HDL Ratio 2.97 Ratio; Glucose 79 mg/dL (70-110); LDL Cholesterol,Calculated 86.4 mg/dL (0.0-131.0); Magnesium 2.5 mg/dL (1.5-2.4); Potassium 4.5 mmol/L (3.5-5.5); Sodium 140 mmol/L (135-145); VLDL Calculation 17.14 mg/dL (5.00-40.00)
--- NOTE | 2021-08-18 18:40 | P.DS ---
Providers Date of admission: 08/17/21 15:38 Expected date of discharge: 08/18/21 Attending physician: Livia James MD Consults: 08/17/21 15:38 Consult Physician Urgent Consulting Provider: [facility] Consult Reason/Comments: acute chest pain, hx cardiomyopathy with icd Do you want consulting provider notified?: Yes Primary care physician: [facility] Hospital Course: Discharge Diagnosis: Atypical chest pain, acute coronary event ruled out Abdominal pain Diarrhea Coronary artery disease with history of ischemic cardiomyopathy Hyperlipidemia Hypertension BPH Hospital Course: Patient is a very pleasant 85-year-old male with a past medical history of CAD with ischemic cardiomyopathy, hypertension, hyperlipidemia, and BPH. He presented to the emergency department on 08/17/21 with a chief complaint of abdominal pain, diarrhea, and chest/epigastric pain. Patient reported having a "sensitive gut" for many years, but states over the past week he has developed increased discomfort and has had some watery stools 1-2 times daily. Patient attempted treatment at home with Tums and Pepto-Bismol but has not had any relief. Patient reports he is getting ready to go on an [employer] and is concerned that something might be wrong. Patient underwent full evaluation in the emergency department. An EKG was completed revealing sinus bradycardia at 50 bpm with no noted T-wave or ST abnormalities showing no signs of acute ischemia. CT abdomen and pelvis with contrast negative for acute abnormality with evidence of diverticulosis and no signs of diverticulitis. Labs obtained. CBC and CMP unremarkable. Lipase 118. Troponins trended and negative at less than 0.012 and 0.016. Lipid profile unremarkable. TSH 3.850. Patient was admitted under our services with consultation to cardiology. After admission, patient's abdominal discomfort spontaneously resolved and he had no further episodes of diarrhea. Patient free from pain or any complaints. He was then evaluated by cardiology who recommended outpatient follow-up at scheduled appointment on 08/24/21 with no further inpatient cardiac workup. Patient to continue home medication regimen with no changes at this time. Patient is medically stable for discharge home and to follow up with PCP and cardiology as discussed. Physical examination: General: non toxic, no distress, appears at stated age Derm: warm, dry Head: atraumatic, normocephalic, symmetric Eyes: EOMI, no lid lag, anicteric sclera Mouth: no lip lesion, mucus membranes moist Cardiovascular: S1S2 reg, no murmur, positive posterior tibial pulse bilateral, Lungs: CTA bilateral, no rhonchi, no rales , no accessory muscle use Abdominal: soft, nontender to palpation, no guarding, no appreciable organomegaly Ext: no gross muscle atrophy, no edema, no contractures Neuro: CN II-XI grossly intact, no focal neuro deficits Psych: Alert, oriented, appropriate affect A total of 38 minutes of time were spent preparing this complex discharge summary. Pt was discharged on 08/18/21 at 11:29 AM Patient Condition at Discharge: Stable Plan - Discharge Summary New Discharge Prescriptions: Continue lisinopriL [Zestril] 10 mg PO DAILY Tamsulosin [Flomax] 0.4 mg PO DAILY Aspirin 81 mg PO HS Multivitamins, Thera [Multivitamin (formulary)] 1 tab PO DAILY Atorvastatin Calcium [Lipitor] 20 mg PO HS Latanoprost/Pf [Latanoprost 0.005% Eye Drop] 1 drop BOTH EYES HS Metoprolol Succinate (ER) [Toprol XL] 25 mg PO BID L.acidoph,Paracasei, B.lactis [Probiotic] 1 cap PO DAILY Discharge Medication List lisinopriL [Zestril] 10 mg PO DAILY 11/25/13 [History] Tamsulosin [Flomax] 0.4 mg PO DAILY 08/26/16 [History] Aspirin 81 mg PO HS 06/11/17 [History] Atorvastatin Calcium [Lipitor] 20 mg PO HS 03/06/20 [History] Latanoprost/Pf [Latanoprost 0.005% Eye Drop] 1 drop BOTH EYES HS 03/06/20 [History] Metoprolol Succinate (ER) [Toprol XL] 25 mg PO BID 03/06/20 [History] Multivitamins, Thera [Multivitamin (formulary)] 1 tab PO DAILY 03/06/20 [History] L.acidoph,Paracasei, B.lactis [Probiotic] 1 cap PO DAILY 08/17/21 [History] Follow up Appointment(s)/Referral(s): Stephon Naylor DO [STAFF PHYSICIAN] - 08/24/[address] [facility]inic [Primary Care Provider] - 1-2 days Patient Instructions/Handouts: Chest Pain (GEN), Chronic Diarrhea (GEN) Activity/Diet/Wound Care/Special Instructions: Activity: As tolerated. Take breaks as needed and enjoy every single moment of your vacation in [place]!!!! Take lots of pictures and make amazing memories with your loved ones!!! Diet: Heart healthy and carb consistent diet. Avoid salts, or foods with hidden salts such as canned or boxed foods and frozen dinners. Extra salt makes your heart work harder and traps the fluid in your body for longer. Special Instructions: Take all of your medications as directed and remember to keep all of your doctor's appointments and follow-up as needed. Again, thank you for your service!! It was truly a pleasure and honor to have you for my patient!!! Thank you for allowing us to participate in your care!!! Discharge/Stand Alone Forms: Help In The Home Discharge Disposition: HOME SELF-CARE
== END 2021-08-18 13:01 | disposition home or self-care (01) ==
LOC: EC 12:15 → INTOOBSV 15:38 → 6NMEDSUR 15:38
PROVIDERS: ADMIT Internal Medicine; ATTEND Internal Medicine
DX: R07.89 Other chest pain (principal); R10.13 Epigastric pain; R19.7 Diarrhea, unspecified; R11.2 Nausea with vomiting, unspecified; I25.10 Atherosclerotic heart disease of native coronary artery without angina pectoris; I25.5 Ischemic cardiomyopathy; I11.9 Hypertensive heart disease without heart failure; K57.30 Diverticulosis of large intestine without perforation or abscess without bleeding; I48.91 Unspecified atrial fibrillation; I25.82 Chronic total occlusion of coronary artery; E78.5 Hyperlipidemia, unspecified; I45.10 Unspecified right bundle-branch block; I47.2 Ventricular tachycardia; I49.3 Ventricular premature depolarization; I27.20 Pulmonary hypertension, unspecified; I08.1 Rheumatic disorders of both mitral and tricuspid valves; H91.90 Unspecified hearing loss, unspecified ear; K21.9 Gastro-esophageal reflux disease without esophagitis; M19.90 Unspecified osteoarthritis, unspecified site; H35.30 Unspecified macular degeneration; N40.0 Benign prostatic hyperplasia without lower urinary tract symptoms; Z79.82 Long term (current) use of aspirin; Z79.899 Other long term (current) drug therapy; Z87.01 Personal history of pneumonia (recurrent); Z97.4 Presence of external hearing-aid; Z95.810 Presence of automatic (implantable) cardiac defibrillator; Z66 Do not resuscitate; Z98.49 Cataract extraction status, unspecified eye; Z98.890 Other specified postprocedural states; Z82.0 Family history of epilepsy and other diseases of the nervous system
CPT/HCPCS: 99285; 36415; 93005; 80061; 80053; 80048; 84443; 83690; 83735 ×2; 84484 ×2; 85025 ×2; 85610; 85730; 83036; 71046; 74177; G0378 ×2; Q9967

== ENCOUNTER 2022-04-04 12:15 | Emergency (ER) | payer OTHER, MEDICARE ==
[2022-04-04 13:29] LABS: Basophils # (A) 0.1 k/uL (0-0.2); Basophils % (A) 1 %; Eosinophils # (A) 0.3 k/uL (0-0.7); Eosinophils % (A) 2 %; HCT 40.3 % (39.0-53.0); HGB 13.7 gm/dL (13.0-17.5); Lymphocytes # (A) 2.2 k/uL (1.0-4.8); Lymphocytes % (A) 18 %; MCH 31.4 pg (25.0-35.0); MCHC 33.9 g/dL (31.0-37.0); MCV 92.7 fL (80.0-100.0); Monocytes # (A) 0.7 k/uL (0-1.0); Monocytes % (A) 6 %; Neutrophils # (A) 8.7 k/uL (1.3-7.7); Neutrophils % (A) 71 %; Platelet Count 176 k/uL (150-450); RBC 4.35 m/uL (4.30-5.90); RDW 13.2 % (11.5-15.5); WBC 12.1 k/uL (3.8-10.6)
--- NOTE | 2022-04-04 13:34 | XR ---
EXAMINATION TYPE: XR chest 2V DATE OF EXAM: 04/04/2022 COMPARISON: 08/17/2021 HISTORY: Shortness of breath TECHNIQUE: Frontal and lateral views of the chest are obtained. FINDINGS: Scattered senescent parenchymal changes noted. Hyperinflation compatible with COPD. No evidence for infiltrate. No evidence for atelectasis. Heart size is stable. IACD device is in place. Mediastinal structures are stable and grossly unremarkable. No evidence for hilar prominence. Degenerative changes dorsal spine. IMPRESSION: 1. No evidence for acute pulmonary disease.
--- NOTE | 2022-04-04 13:36 | ED ---
SOB HPI - General Chief Complaint: Shortness of Breath Stated Complaint: covid+ SOB Time Seen by Provider: 04/04/22 12:36 Source: patient, family, RN notes reviewed Mode of arrival: wheelchair Limitations: no limitations - History of Present Illness Initial Comments: This is an 86-year-old male who presents to the emergency department for difficulty breathing and a nonproductive cough. Patient states that he had a positive at home Covid test this morning. He states that "I have 16 holes in my right lung" and states that Dr. Markham told him to come to the emergency department if he ever developed Covid. He is also complaining of body aches and overall fatigue. Denies any fevers and he has not taken anything for his symptoms. Denies any fevers, chills, sore throat, palpitations, abdominal pain, nausea, vomiting, diarrhea, back pain, or headaches. MD Complaint: shortness of breath, cough - Related Data Home Medications Medication Instructions Recorded Confirmed lisinopriL [Zestril] 10 mg PO DAILY 11/25/13 08/17/21 Tamsulosin [Flomax] 0.4 mg PO DAILY 08/26/16 08/17/21 Aspirin 81 mg PO HS 06/11/17 08/17/21 Atorvastatin Calcium [Lipitor] 20 mg PO HS 03/06/20 08/17/21 Latanoprost/Pf [Latanoprost 0.005% 1 drop BOTH EYES HS 03/06/20 08/17/21 Eye Drop] Metoprolol Succinate (ER) [Toprol 25 mg PO BID 03/06/20 08/17/21 XL] Multivitamins, Thera [Multivitamin 1 tab PO DAILY 03/06/20 08/17/21 (formulary)] L.acidoph,Paracasei, B.lactis 1 cap PO DAILY 08/17/21 08/17/21 [Probiotic] Previous Rx's Medication Instructions Recorded Albuterol Sulfate [Albuterol 1 puff PO Q4-6H PRN #8.5 gm 04/04/22 Sulfate Hfa] Nirmatrelvir/Ritonavir [Paxlovid 1 pack PO BID 5 Days #30 tab 04/04/22 300-100 mg Pack (Eua)] Allergies Allergy/AdvReac Type Severity Reaction Status Date / Time No Known Allergies Allergy Verified 08/17/21 14:24 Review of Systems ROS Statement: Those systems with pertinent positive or pertinent negative responses have been documented in the HPI. ROS Other: All systems not noted in ROS Statement are negative. Past Medical History Past Medical History: Atrial Fibrillation, Coronary Artery Disease (CAD), Eye Disorder, GERD/Reflux, Hearing Disorder / Deafness, Hyperlipidemia, Hypertension, Osteoarthritis (OA), Pneumonia, Prostate Disorder Additional Past Medical History / Comment(s): Macular degeneration, use of hearing aids. Enlarged prostate. Last Myocardial Infarction Date:: 2007 History of Any Multi-Drug Resistant Organisms: None Reported Date of last positivie culture/infection: None MDRO Source:: None Past Surgical History: AICD, Heart Catheterization, Orthopedic Surgery, Pacemaker Additional Past Surgical History / Comment(s): Right foot ganglion cyst removed, right great toe surgery, cataracts removed, sinus surgery X3, colonoscopy, b ronchoscopy. Past Anesthesia/Blood Transfusion Reactions: Previous Problems w/ Anesthesia Additional Past Anesthesia/Blood Transfusion Reaction / Comment(s): Heart stopped when he got anesthesia for Colonoscopy. Type of Cardiac Device: Permanent Pacemaker, AICD Device Placement Date:: 06-06-07 [employer], replaced 2017 Past Psychological History: No Psychological Hx Reported Smoking Status: Never smoker Past Alcohol Use History: None Reported Past Drug Use History: None Reported - Past Family History Father Additional Family Medical History / Comment(s): Killed in MVA at age 47. Mother Family Medical History: Dementia General Exam Limitations: no limitations General appearance: alert, in no apparent distress Head exam: Present: atraumatic, normocephalic, normal inspection Respiratory exam: Present: normal lung sounds bilaterally. Absent: respiratory distress, wheezes, rales, rhonchi, stridor Cardiovascular Exam: Present: regular rate, normal rhythm, normal heart sounds. Absent: systolic murmur, diastolic murmur, rubs, gallop, clicks Neurological exam: Present: alert, oriented X3, CN II-XII intact Psychiatric exam: Present: normal affect, normal mood Skin exam: Present: warm, dry, intact, normal color. Absent: rash Course Vital Signs 04/04/22 04/04/22 04/04/22 12:31 14:33 15:29 Temperature 98.9 F 98 F 98.7 F Pulse Rate 70 70 69 Respiratory 20 18 22 Rate Blood Pressure 135/76 146/70 155/82 O2 Sat by Pulse 95 98 97 Oximetry Medical Decision Making - Medical Decision Making This is an 86-year-old male who presents to the emergency department for diffic ulty breathing with Covid. Patient's lab work reveals mild leukocytosis and was otherwise nonactionable. He does have an elevated CRP, which is expected with Covid. Patient did test positive for Covid in the emergency department as well. Chest x-ray obtained. My interpretation of the chest x-ray identifies no localized consolidations or infiltrates. I spoke with Dr. Markham regarding the patient, who advised that because his vitals are stable and there are no irregularities on the chest x-ray, he is stable for discharge home with a Paxlovid prescription. Paxlovid prescribed to be taken for 5 days. A prescription for an albuterol inhaler was provided as well for any coughing or difficulty breathing. Recommended getting plenty of rest and continuing with symptomatic management. The patient is also instructed to quarantine for 5 days and practice extra precautions for an additional 5 days, including always wearing a mask around others and avoiding travel. Return precautions reviewed in depth, the patient is instructed to return to the emergency department with any new, worsening, or concerning symptoms. Patient verbalized understanding. This case was discussed in detail with the attending ED physician. Presentation, findings, and treatment plan discussed in detail as well. - Lab Data Result diagrams: 04/04/22 13:20 04/04/22 13:20 Lab Results 04/04/22 04/04/22 04/04/22 Range/Units 13:20 13:20 13:20 WBC 12.1 H (3.8-10.6) k/uL RBC 4.35 (4.30-5.90) m/uL Hgb 13.7 (13.0-17.5) gm/dL Hct 40.3 (39.0-53.0) % MCV 92.7 (80.0-100.0) fL MCH 31.4 (25.0-35.0) pg MCHC 33.9 (31.0-37.0) g/dL RDW 13.2 (11.5-15.5) % Plt Count 176 (150-450) k/uL MPV 10.0 Neutrophils % 71 % Lymphocytes % 18 % Monocytes % 6 % Eosinophils % 2 % Basophils % 1 % Neutrophils # 8.7 H (1.3-7.7) k/uL Lymphocytes # 2.2 (1.0-4.8) k/uL Monocytes # 0.7 (0-1.0) k/uL Eosinophils # 0.3 (0-0.7) k/uL Basophils # 0.1 (0-0.2) k/uL PT 10.4 (9.0-12.0) sec INR 1.0 (<1.2) APTT 25.8 (22.0-30.0) sec Sodium 137 (137-145) mmol/L Potassium 4.1 (3.5-5.1) mmol/L Chloride 104 (98-107) mmol/L Carbon Dioxide 28 (22-30) mmol/L Anion Gap 5 mmol/L BUN 15 (9-20) mg/dL Creatinine 1.08 (0.66-1.25) mg/dL Est GFR (CKD-EPI)AfAm 70 (>60 ml/min/1.73 sqM) Est GFR (CKD-EPI)NonAf 61 (>60 ml/min/1.73 sqM) Glucose 96 (74-99) mg/dL Plasma Lactic Acid Sagar (0.7-2.0) mmol/L Calcium 9.1 (8.4-10.2) mg/dL Magnesium 1.9 (1.6-2.3) mg/dL Total Bilirubin 1.7 H (0.2-1.3) mg/dL AST 24 (17-59) U/L ALT 18 (4-49) U/L Alkaline Phosphatase 78 (38-126) U/L Troponin I (0.000-0.034) ng/mL C-Reactive Protein 5.3 H (<1.0) mg/dL Total Protein 7.0 (6.3-8.2) g/dL Albumin 4.1 (3.5-5.0) g/dL Influenza Type A (PCR) (Not Detectd) Influenza Type B (PCR) (Not Detectd) RSV (PCR) (Not Detectd) SARS-CoV-2 (PCR) (Not Detectd) 04/04/22 04/04/22 04/04/22 Range/Units 13:20 13:20 13:20 WBC (3.8-10.6) k/uL RBC (4.30-5.90) m/uL Hgb (13.0-17.5) gm/dL Hct (39.0-53.0) % MCV (80.0-100.0) fL MCH (25.0-35.0) pg MCHC (31.0-37.0) g/dL RDW (11.5-15.5) % Plt Count (150-450) k/uL MPV Neutrophils % % Lymphocytes % % Monocytes % % Eosinophils % % Basophils % % Neutrophils # (1.3-7.7) k/uL Lymphocytes # (1.0-4.8) k/uL Monocytes # (0-1.0) k/uL Eosinophils # (0-0.7) k/uL Basophils # (0-0.2) k/uL PT (9.0-12.0) sec INR (<1.2) APTT (22.0-30.0) sec Sodium (137-145) mmol/L Potassium (3.5-5.1) mmol/L Chloride (98-107) mmol/L Carbon Dioxide (22-30) mmol/L Anion Gap mmol/L BUN (9-20) mg/dL Creatinine (0.66-1.25) mg/dL Est GFR (CKD-EPI)AfAm (>60 ml/min/1.73 sqM) Est GFR (CKD-EPI)NonAf (>60 ml/min/1.73 sqM) Glucose (74-99) mg/dL Plasma Lactic Acid Sagar 0.9 (0.7-2.0) mmol/L Calcium (8.4-10.2) mg/dL Magnesium (1.6-2.3) mg/dL Total Bilirubin (0.2-1.3) mg/dL AST (17-59) U/L ALT (4-49) U/L Alkaline Phosphatase (38-126) U/L Troponin I <0.012 (0.000-0.034) ng/mL C-Reactive Protein (<1.0) mg/dL Total Protein (6.3-8.2) g/dL Albumin (3.5-5.0) g/dL Influenza Type A (PCR) Not Detected (Not Detectd) Influenza Type B (PCR) Not Detected (Not Detectd) RSV (PCR) Not Detected (Not Detectd) SARS-CoV-2 (PCR) Detected A (Not Detectd) - EKG Data EKG Comments: Sinus rhythm. Ventricular rate 69 bpm, HI interval 161 ms, QRS duration 115 m illiseconds, QTC 442 ms. EKG interpreted by myself and ED attending. - Radiology Data Radiology results: report reviewed, image reviewed Disposition Clinical Impression: COVID-19 Disposition: HOME SELF-CARE Instructions (If sedation given, give patient instructions): Droplet Precautions (ED), Safely Care for Someone Who Has COVID-19 (ED), How to Recover from COVID-19 at Home (ED) Additional Instructions: Return to the emergency department with any new, worsening, or concerning symptoms. Take the Paxlovid as prescribed for 5 days. You can use the albuterol inhaler every 4-6 hours as needed for coughing or shortness of breath. Make sure that you are getting plenty of rest and continuing with symptomatic man agement. You are instructed to quarantine for 5 days and practice extra precautions for an additional 5 days, including always wearing a mask around others and avoiding travel. Prescriptions: Albuterol Sulfate [Albuterol Sulfate Hfa] 1 puff PO Q4-6H PRN #8.5 gm PRN Reason: Shortness Of Breath Nirmatrelvir/Ritonavir [Paxlovid 300-100 mg Pack (Eua)] 1 pack PO BID 5 Days #30 tab Is patient prescribed a controlled substance at d/c from ED?: No Referrals: [facility],Clinic [Primary Care Provider] - 1-2 days
[2022-04-04 13:39] LABS: Potassium 4.1 mmol/L (3.5-5.1)
[2022-04-04 13:42] LABS: Albumin 4.1 g/dL (3.5-5.0); C Reactive Protein 5.3 mg/dL (<1.0); Calcium 9.1 mg/dL (8.4-10.2); Magnesium 1.9 mg/dL (1.6-2.3); Partial Thromboplastin Time 25.8 sec (22.0-30.0); Prothrombin Time 10.4 sec (9.0-12.0); Total Bilirubin 1.7 mg/dL (0.2-1.3)
[2022-04-04 15:30] VITALS: BP 155/82; PULSE 69; RESP 22; TEMP 98.7
== END 2022-04-04 15:30 | disposition home or self-care (01) ==
LOC: EC 12:15
DX: U07.1 COVID-19 (principal); I48.91 Unspecified atrial fibrillation; I11.9 Hypertensive heart disease without heart failure; I25.10 Atherosclerotic heart disease of native coronary artery without angina pectoris; E78.5 Hyperlipidemia, unspecified; Z79.82 Long term (current) use of aspirin; Z79.02 Long term (current) use of antithrombotics/antiplatelets; Z79.899 Other long term (current) drug therapy
CPT/HCPCS: 36415; 71046; 80053; 83605; 83735; 84484; 85025; 85610; 85730; 86140; 87636; 93005; 99285

== ENCOUNTER → 2023-02-02 | Outpatient (CLI) | payer OTHER | END | disposition home or self-care (01) | LOC: LABPAT 14:48 | PROVIDERS: ATTEND Orthopaedic Surgery | DX: Z01.812 Encounter for preprocedural laboratory examination (principal); M17.12 Unilateral primary osteoarthritis, left knee; Z22.322 Carrier or suspected carrier of Methicillin resistant Staphylococcus aureus | CPT/HCPCS: 87070 ==

== ENCOUNTER → 2023-03-07 | Outpatient (CLI) | payer OTHER ==
[~2023-03-07] MED LIST changes: -DEXAMETHASONE SOD PHOSPHATE 4 MG/ML 1 ML VIAL IV ONE; -FAMOTIDINE 20 MG/2 ML VIAL IV ONE; -HYDROmorphone 0.5 MG/0.5 ML SYRINGE IVP PRN; -LACTATED RINGERS 1,000 ML IV SCH; -LIDOCAINE 1% 20 ML VIAL (10MG/ML) FOR IV START INTRADERMA PRN; -ONDANSETRON 4 MG/2 ML VIAL IVP ONE; +REGADENOSON 0.4 MG/5 ML SYRINGE IV PRN
--- NOTE | 2023-03-07 10:56 | CA ---
Lexiscan Nuclear Stress Test Report Name: Eyal De Leon Exam Date: 03/07/2023 09:32 Exam Location: [place] Stress Ht (in): 70 Wt (lb): 160 BSA: 1.90 Ordering Phys: Stephon Naylor DO Referring Phys: BRADEN,, Technologist: GANESH,, Age: 87 Gender: M : 1935 Procedure CPT: Indications: [id number] ATHSCL HEART DISEASE OF [place] CORONARY ICD-10 Codes: Patient History: hypertension and pre-op clearence Medications: Meds past 24 hrs: Pretest Chest Pain: STRESS TEST Lexiscan Protocol Exercise Duration (min:sec): 01:[address] Depressions (mm): Angina Score: Sahu Score: Resting HR (bpm): 60 Peak HR (bpm): 79 Resting BP (mmHg): 174 / 86 Peak BP (mmHg): 153 / 68 MPHR: 131 Target HR: 111 % MPHR: 60 METS: 1.0 Total Dose: Peak Dose: Atropine: Double Product: 14935 BP Response: Stress Termination: INFUSION COMPLETE Stress Symptoms: NO SYMPTOMS Stress Summary: ECG ANALYSIS Resting ECG: Stress ECG: CONCLUSIONS Baseline EKG revealed a normal sinus rhythm without significant ST-T changes. With Lexiscan administration heart rate went up from 60-75 bpm and blood pressure changed from 174/86-145/74. Patient was asymptomatic EKG was unremarkable. By EKG criteria this is a unremarkable Lexiscan stress test. The nuclear scan results which are more pertinent will be reported with radiologist Dr. Malinda Foote MD (Electronically Signed) Final Date: 07 March 2023 10:55
--- NOTE | 2023-03-08 17:37 | NM ---
EXAMINATION TYPE: NM stress lexiscan cardiolite DATE OF EXAM: 03/07/2023 COMPARISON: NONE HISTORY: Atherosclerotic heart disease TECHNIQUE: After the intravenous administration of 10.1 mCi Tc 99m Sestamibi - Cardiolite resting SP ECT images acquired 70 minutes post injection. At peak stress 25.3 mCi Tc 99m Sestamibi - Stress images obtained 45 minutes post injection The patient was stressed with 0.4mg Lexiscan. FINDINGS: There is a fixed defect along the inferior lateral wall extending from the cardiac base to nearly the cardiac apex. No reversible perfusion defects are evident. There is some mild dyskinesia of the inferior apical wall motion studies. Global hypokinesia is prese nt. Ejection fraction is calculated to be 46 %. IMPRESSION: 1. No stress-induced ischemic changes. 2. Fixed defect inferior lateral wall cardiac base extending to the cardiac apex. 3. Global hypokinesia. Some dyskinesia inferior wall. Global Hypokinesia is present. 4. Low ejection fraction 46%.
== END | disposition home or self-care (01) ==
LOC: RADNMMAIN 07:40
PROVIDERS: ATTEND Internal Medicine
DX: Z01.818 Encounter for other preprocedural examination (principal); I25.10 Atherosclerotic heart disease of native coronary artery without angina pectoris; I10 Essential (primary) hypertension; G24.9 Dystonia, unspecified
CPT/HCPCS: 93017; 78452; A9500; J2785

== ENCOUNTER 2023-03-13 07:50 | Inpatient (IN) | payer OTHER, MEDICARE ==
[2023-03-08 11:20] VITALS: BMI 22.9
--- NOTE | 2023-03-12 08:26 | P.HPOR ---
History of Present Illness H&P Date: 03/12/23 Chief Complaint: Left knee pain The patient is an 87-year-old retired gentleman who presents with progressive left knee pain for the past year worsening over the past 6 months. He notes diffuse pain along with stiffness and instability. He has difficult time with any weightbearing activities. He is been using medications along with a brace without much relief. Review of Systems Negative except as in HPI Past Medical History Past Medical History: Atrial Fibrillation, Coronary Artery Disease (CAD), Eye Disorder, GERD/Reflux, Hearing Disorder / Deafness, Hyperlipidemia, Hypertension, Osteoarthritis (OA), Pneumonia, Prostate Disorder Additional Past Medical History / Comment(s): Macular degeneration gracie eyes, use of hearing aids. Enlarged prostate,has no taste or smell since sinus problems approx 12 years,covid infection Mar 2022 Last Myocardial Infarction Date:: 2007 History of Any Multi-Drug Resistant Organisms: None Reported Date of last positivie culture/infection: None MDRO Source:: None Past Surgical History: AICD, Heart Catheterization, Orthopedic Surgery, Pacemaker Additional Past Surgical History / Comment(s): Right foot ganglion cyst removed, right great toe surgery, cataracts removed, sinus surgery X3, colonoscopy, bronchoscopy,dual defibrillator/pacemaker-follows with Dr Castillo Past Anesthesia/Blood Transfusion Reactions: Previous Problems w/ Anesthesia Additional Past Anesthesia/Blood Transfusion Reaction / Comment(s): Heart stopped when he got anesthesia for Colonoscopy 2007-colonoscopy aborted - pacemaker/def was implanted shortly after , has had anesthesia 5-6 times afterwards without problems. no hx blood transfusion Type of Cardiac Device: Permanent Pacemaker, AICD Device Placement Date:: 06-06-07,[facility] 04-09-17 left chest Smoking Status: Former smoker - Past Family History Father Additional Family Medical History / Comment(s): Killed in MVA at age 47. Mother Family Medical History: Dementia Medications and Allergies Home Medications Medication Instructions Recorded Confirmed Type lisinopriL [Zestril] 10 mg PO QA 11/25/13 03/08/23 History Tamsulosin [Flomax] 0.4 mg PO HS 08/26/16 03/08/23 History Aspirin 81 mg PO HS 06/11/17 03/08/23 History Atorvastatin Calcium [Lipitor] 20 mg PO HS 03/06/20 03/08/23 History Latanoprost/Pf [Latanoprost 0.005% 1 drop BOTH EYES HS 03/06/20 03/08/23 History Eye Drop] Metoprolol Succinate (ER) [Toprol 25 mg PO BID 03/06/20 03/08/23 History XL] Multivitamins, Thera [Multivitamin 1 tab PO DAILY 03/06/20 03/08/23 History (formulary)] Albuterol Sulfate [Albuterol 1 puff PO Q4-6H PRN #8.5 gm 04/04/22 03/08/23 Rx Sulfate Hfa] Acetaminophen/Diphenhydramine 1 tab PO HS 03/08/23 03/08/23 History [Tylenol PM 500-25mg] Allergies Allergy/AdvReac Type Severity Reaction Status Date / Time No Known Allergies Allergy Verified 03/08/23 10:37 Physical Examination - Knee left Appearance: effusion Effusion grade: trace Valgus alignment in stance: 10 degrees Tenderness with palpation: anterior, lateral Pain: throughout ROM Gait: limping ROM: extension: -15 degrees ROM: flexion: 130 degrees Crepitus with motion: Yes Strength: extension: 5/5 Strength: flexion: 5/5 ACL tests: Júnior's: grade 2 Meniscal tests: lateral meniscal tests: positive, lateral joint line pain: positive Results The patient is a well-developed well-nourished male approximately 5 foot 10, 160 pounds of mesomorphic have his. HEENT exam is nonfocal, neck supple. He has painless passive motion of the left hip. Straight leg raise is negative. He has genu valgum alignment. On examination of the left knee, collaterals are stable, Júnior is 2+, Kemi's is equivocal. His distal neurovascular appears intact in the left lower extremity. - Diagnostic results Knee x-ray: image reviewed (3 views of the left knee pain the office shows severe lateral compartment narrowing along with subchondral sclerosis and [id number] changes.) Assessment and Plan Assessment: Left knee severe lateral compartment osteoarthrosis History of atrial fibrillation Plan: I talked to the patient and his family regarding his condition along with treatment options. At this point he is quite symptomatically limited because of pain despite attempted conservative measures. After thorough discussion he opts to proceed with surgery. We will plan to proceed with left total knee arthroplasty. We will institute DVT prophylaxis postoperative. The patient underwent preoperative medical and cardiac clearance.
[~2023-03-13 07:50] MED LIST changes: +ACETAMINOPHEN TAB 500 MG TAB PO PRN; +HYDROmorphone 0.5 MG/0.5 ML SYRINGE IVP PRN; +MELOXICAM 7.5 MG TAB PO PRN; -REGADENOSON 0.4 MG/5 ML SYRINGE IV PRN; +TRANEXAMIC 1,000 MG/100ML-NACL 1,000 MG in SALINE 1 100ML.BAG IVPB PRN
[2023-03-13] MEDS ORDERED: ONDANSETRON 4 MG/2 ML VIAL ONE (08:55)
[2023-03-13] MEDS: LACTATED RINGERS 1,000 ML IV SCH (09:00)
[2023-03-13] MEDS ORDERED: DEXAMETHASONE SOD PHOSPHATE 10 MG/ML 1 ML VIAL IVP ONE (10:06)
[2023-03-13] MEDS ORDERED: MIDAZOLAM 2 MG/2 ML VIAL IVP ONE (10:10)
[2023-03-13] MEDS ORDERED: fentaNYL (PF) 50 MCG/ML 2 ML AMP IVP ONE (10:10)
[2023-03-13] MEDS ORDERED: PROPOFOL 10 MG/ML 20 ML VIAL IV ONE (10:25)
[2023-03-13] MEDS ORDERED: TRANEXAMIC 1,000 MG/100ML-NACL PREMIX BAG ONE (10:25)
[2023-03-13] MEDS ORDERED: ePHEDrine 50 MG/ML 1 ML VIAL ONE (10:25)
[2023-03-13] MEDS ORDERED: MIDAZOLAM 2 MG/2 ML VIAL ONE (10:25)
[2023-03-13] MEDS ORDERED: SODIUM CHLORIDE 0.9% (PF) 10 ML VIAL ONE (10:25)
[2023-03-13] MEDS ORDERED: ROPIVACAINE 5 MG/ML 30 ML VIAL ONE (10:25)
[2023-03-13] MEDS ORDERED: diphenhydrAMINE 50 MG/ML 1 ML VIAL ONE (10:25)
[2023-03-13] MEDS ORDERED: LIDOCAINE 1% INJ 10MG/ML (20 ML MDV) ONE (10:25)
[2023-03-13] MEDS ORDERED: ceFAZolin 1,000 MG in SODIUM CHLORIDE 0.9% 1,000 ML IRRIGATION ONE (10:54)
--- NOTE | 2023-03-13 11:23 | P.ANPRN ---
Procedure Note - Anesthesia - Nerve Block Performed Left Adductor Canal Infusion Time Out Performed: Yes (1009) Date of Procedure: 03/13/23 Procedure Start Time: 10:10 Procedure Stop Time: 10:14 Location of Patient: PreOp Indication: Acute Post-Operative Pain, Requested by Surgeon Specifically requested for management of pain by DrCandelario: Sandro Berry (\) Sedation Type: Sedate with meaningful contact maintained Preparation: Sterile Prep Position: Supine Catheter Depth at Skin (cm): 8 Catheter: Indwelling Needle Types: Pajunk Needle Gauge: 18 Ultrasound used to visualize needle placement: Yes Ultrasound used to observe medication spread: Yes Injectate: 0.5% Ropivacaine (see comment for volume) (15cc +5cc nacl pf) Blood Aspirated: No Pain Paresthesia on Injection Noted: No Resistance on Injection: Normal Image Stored and Saved: Yes Events: Uneventful and Well Tolerated
--- NOTE | 2023-03-13 11:24 | P.ANPRN ---
Procedure Note - Anesthesia - Nerve Block Performed Left iPack Single Time Out Performed: Yes (1009) Date of Procedure: 03/13/23 Procedure Start Time: 10:15 Procedure Stop Time: 10:17 Location of Patient: PreOp Indication: Acute Post-Operative Pain, Requested by Surgeon Specifically requested for management of pain by DrCandelario: Sandro Berry Sedation Type: Sedate with meaningful contact maintained Preparation: Sterile Prep Position: Supine Catheter: None Needle Types: Pajunk Needle Gauge: 21 Ultrasound used to visualize needle placement: Yes Ultrasound used to observe medication spread: Yes Injectate: 0.5% Ropivacaine (see comment for volume) (15cc +5cc nacl pf) Blood Aspirated: No Pain Paresthesia on Injection Noted: No Resistance on Injection: Normal Image Stored and Saved: Yes Events: Uneventful and Well Tolerated
[2023-03-13] MEDS ORDERED: ONDANSETRON 4 MG/2 ML VIAL IVP PRN (12:25)
[2023-03-13] MEDS ORDERED: NALOXONE 0.4 MG/ML 1 ML VIAL IV PRN (12:25)
[2023-03-13] MEDS ORDERED: hydrOXYzine pamoate 25 MG CAP PO PRN (12:25)
[2023-03-13] MEDS ORDERED: ROPIVACAINE 1,100 MG, SODIUM CHLORIDE 0.9% 500 ML 330 ML, EMPTY PAIN BALL 1 EACH MISCELLANE PRN ×2 (12:31)
--- NOTE | 2023-03-13 12:35 | P.OP ---
Date of Procedure: 03/13/23 Preoperative Diagnosis: Left knee severe tricompartmental osteoarthrosis Postoperative Diagnosis: Same Procedure(s) Performed: Left total knee arthroplastycementedposterior stabilized Implants: Depuy Attune size 6 cemented femoral component, size 5 cemented tibial component, 11 mm articular surface, 38 mm cemented patellar component. This is a posterior stabilized implant. Anesthesia: regional, spinal Surgeon: Sandro Berry Estimated Blood Loss (ml): 50 Pathology: none sent Condition: stable Disposition: PACU Indications for Procedure: The patient is an 87-year-old male who presents with progressive left knee pain secondary to osteoarthrosis despite conservative measures. A discussion of the risks and benefits of operative intervention versus continued conservative measures was made with the patient. He opted to proceed with surgery. Op erative risks to include infection, neurovascular injury, developed blood clots, fracture, possible component loosening/failure need for subsequent procedures was discussed. Informed consent was obtained. Operative Findings: As below Description of Procedure: The patient was brought to the operating room, and after induction of spinal anesthesia the left lower extremity was prepped and draped in a normal fashion. The tourniquet was inflated to 270 mm marker. A longitudinal incision extending 3 finger breaths above the superior pole of patella extending to the medial aspect the tibial tubercle was then made. The skin and subcutaneous tissues were divided sharply. Electrocautery was used for hemostasis. A medial parapatellar arthrotomy was performed. The medial soft tissues to include the superficial and deep portions of the medial collateral ligament were elevated subperiosteally. The patella was everted. The lateral collateral ligament along with the popliteus was elevated subperiosteally off the lateral femoral upper condyle to obtain appropriate balancing. A portion of the retropatellar fat pad was excised sharply. The anterior cruciate ligament was sacrificed. Blunt retractors were placed. A starting hole was made in the distal femur 1 cm anterior to the posterior cruciate ligament origin. An intramedullary femoral guide was then inserted planning on 5 valgus distal cut with 9 mm distal resection. The cutting block was pinned in place. The distal cut was then made. The posterior referencing sizing guide was utilized. I felt size 6 was most appropriate. 3 of external rotation was built into the system and verified off the trans-epicondylar axis and the posterior condyles. The cutting block was pinned in place. The anterior, posterior, and chamfer cuts then made. Bone fragments were removed. The intercondylar guide was placed and the notch cut was made with a sagittal saw. The bone block was removed in one fragment. The trial component was then placed. There is good anterior to posterior and medial to lateral fit. The distal peg holes were drilled. The trial component was removed. Attention was then paid towards preparing the proximal tibia. An extra medullary guide was utilized in line with the tibial shaft and second metatarsal distally. I planned on 2 mm resection from the medial compartment. The cutting block was pinned in place. The proximal tibial cut was then made. The bone was removed in one fragment. The remnants of the medial and lateral menisci were excised at the capsular junction with electrocautery. The tibia sized most appropriately at size 5. The trial femoral and tibial components were placed along with a 11 mm articular surface. I was able to obtain full flexion and extension with internal and external rotation. After several flexion and extension cycles, the tibial rotation was marked with electrocautery line with the medial one third of the tibial tubercle. Attention was then paid towards preparing the patella. A patella reamer was utilized taking stem to 14 mm of bone stock. A good flush cut was made. The patella sized most appropriately 38 mm. The peg holes were drilled. The trial components placed. I had good patellofemoral tracking with no hands technique. The trial components were then removed. The tibia was prepared in the appropriate rotation with appropriate drill and keel punch. The posterior osteophytes were removed with a curved osteotome. The flexion and extension gaps were checked and felt to be symmetric at 11 mm. A trial components were then removed. The bony surfaces were prepared with pulsatile lavage and dried. The tibial component was then cemented place was fully seated. Excess cement was removed. The femoral component cemented place and was fully seated. Excess cement was removed. The trial 11 mm articular surface was placed and the knee was put in full extension. The patella component was cemented place. After the cement had sufficiently hardened, the knee was again taken through a range of motion. Again I was able to obtain full flexion and extension with varus and valgus stress. The trial 11 mm articular surface was removed and the final one inserted. This was fully seated. Care was taken to avoid any soft tissue interposition. Pulsatile lavage was again utilized. The medial parapatellar arthrotomy was closed with #2 Ethibond suture. The tourniquet was deflated with approximately 60 minutes total tourniquet time. Final hemostasis was obtained with the cautery. There was minimal bleeding therefore a deep drain was not placed. The subcutaneous tissues were reapproximated with interrupted 2-0 Vicryl sutures. The skin was reapproximated with 3-0 subcuticular strata fix suture. Skin tape and adhesive was applied. A sterile dressing was applied. The patient was awoken from sedation and transferred to recovery room in good condition. Blood loss was estimated at 50 mL. No complications were incurred. Sponge and needle counts were correct at the end of the case.
--- NOTE | 2023-03-13 13:18 | XR ---
EXAMINATION TYPE: XR knee limited LT DATE OF EXAM: 03/13/2023 1:15 PM CLINICAL INDICATION:Male, 87 years old with history of Evaluation for Postop abnormality and alignmen t; [facility] COMPARISON: None. TECHNIQUE: XR knee limited LT; examined in Frontal, lateral and oblique projections. FINDINGS: Status post total knee arthroplasty changes with hardware in appropriate alignment and in tact. No evidence of fracture. Subcutaneous lucencies and lucencies within the joint consistent with surgical changes. IMPRESSION: Status post total knee arthroplasty changes with hardware intact and appropriate alignment. No fractu res identified.
[2023-03-13] MEDS ORDERED: ALBUTEROL HFA INHALER INHALATION PRN (15:13)
--- NOTE | 2023-03-13 16:27 | P.CONS ---
History of Present Illness - Reason for Consult Consult date: 03/13/23 - History of Present Illness Patient is a 87-year-old male with history of CAD, ventricular tachycardia status post AICD, ischemic cardiomyopathy with improved EF, hypertension, dyslipidemia, BPH presenting for elective left total knee arthroplasty. [facility] physicians has been consulted for medical management. Vital signs reviewed, within normal limits. No new labs available. Patient currently denies any chest pain, shortness of breath, abdominal pain, urinary or bowel complaints. Pertinent positives and negatives as discussed in HPI, a complete review of systems was performed and all other systems are negative. Patient seen and examined at bedside. Vital signs reviewed General: nontoxic, no distress, appears at stated age Derm: warm, dry, left hip dressing clean, dry, intact Head: atraumatic, normocephalic, symmetric Eyes: EOMI, no lid lag, anicteric sclera, pupils equal round reactive to light ENT: Nose and ears atraumatic Neck: No thyromegaly, supple Mouth: no lip lesion, mucus membranes moist Cardiovascular: S1S2 reg, systolic murmur, no edema Lungs: clear to auscultation bilateral, no rhonchi, no rales, no wheeze, no accessory muscle use Abdominal: soft, nontender to palpation, no guarding, no appreciable organomegaly Ext: no gross muscle atrophy, muscle strength muscle strength 5 out of 5 in all 4 extremities, no contractures Neuro: CN II-XII grossly intact Psych: Alert, oriented, appropriate affect Assessment/Plan: Status post left total knee arthroplasty History of CAD History of ventricular tachycardia status post AICD Ischemic cardiomyopathy with improved EF Hypertension Dyslipidemia BPH -Pain management and bowel regimen per orthopedic surgery -On Xarelto 10 mg daily for DVT prophylaxis -Restarted home medications including aspirin and statin -CBC and BMP pending for tomorrow Thank you for allowing us to participate in the care of this pleasant patient. Do not hesitate to contact us with questions. Someone can be reached from the [facility] hospitalist group all hours of the day at [phone] or via [employer]. Past Medical History Past Medical History: Atrial Fibrillation, Coronary Artery Disease (CAD), Eye Disorder, GERD/Reflux, Hearing Disorder / Deafness, Hyperlipidemia, Hypertension, Osteoarthritis (OA), Pneumonia, Prostate Disorder Additional Past Medical History / Comment(s): Macular degeneration gracie eyes, use of hearing aids. Enlarged prostate,has no taste or smell since sinus problems approx 12 years,covid infection Mar 2022 Last Myocardial Infarction Date:: 2007 History of Any Multi-Drug Resistant Organisms: None Reported Year Discovered:: None MDRO Source:: None Past Surgical History: AICD, Heart Catheterization, Orthopedic Surgery, Pacemaker Additional Past Surgical History / Comment(s): Right foot ganglion cyst removed, right great toe surgery, cataracts removed, sinus surgery X3, colonoscopy, bronchoscopy,dual defibrillator/pacemaker-follows with Dr Castillo Past Anesthesia/Blood Transfusion Reactions: Previous Problems w/ Anesthesia Additional Past Anesthesia/Blood Transfusion Reaction / Comm: Heart stopped when he got anesthesia for Colonoscopy 2007-colonoscopy aborted -pacemaker/def was implanted shortly after , has had anesthesia 5-6 times afterwards without problems. no hx blood transfusion Type of Cardiac Device: Permanent Pacemaker, AICD Device Placement Date:: 06-06-07,[facility] 04-09-17 left chest Past Psychological History: No Psychological Hx Reported Additional Psychological History / Comment(s): pt is a , lives alone in own home. no home care services, no medical equipment. drives. Smoking Status: Former smoker Past Alcohol Use History: None Reported Additional Past Alcohol Use History / Comment(s): Started smoking age 14(1950) a nd quit age 35( 1970), couldn't recall how much he smoked a day. Past Drug Use History: None Reported - Past Family History Father Additional Family Medical History / Comment(s): Killed in MVA at age 47. Mother Family Medical History: Dementia Medications and Allergies Home Medications Medication Instructions Recorded Confirmed Type lisinopriL [Zestril] 10 mg PO [facility] 11/25/13 03/13/23 History Tamsulosin [Flomax] 0.4 mg PO 08/26/16 03/13/23 History Aspirin 81 mg PO HS 06/11/17 03/13/23 History Atorvastatin Calcium [Lipitor] 20 mg PO HS 03/06/20 03/13/23 History Latanoprost/Pf [Latanoprost 0.005% 1 drop BOTH EYES HS 03/06/20 03/13/23 History Eye Drop] Metoprolol Succinate (ER) [Toprol 25 mg PO BID 03/06/20 03/13/23 History XL] Multivitamins, Thera [Multivitamin 1 tab PO DAILY 03/06/20 03/13/23 History (formulary)] Albuterol Sulfate [Albuterol 1 puff PO Q4-6H PRN #8.5 gm 04/04/22 03/13/23 Rx Sulfate Hfa] Acetaminophen/Diphenhydramine 1 tab PO HS 03/08/23 03/13/23 History [Tylenol PM 500-25mg] Allergies Allergy/AdvReac Type Severity Reaction Status Date / Time No Known Allergies Allergy Verified 03/13/23 08:29 Physical Exam Vitals: Vital Signs Temp Pulse Pulse Pulse Resp BP BP 03/13/23 14:54 73 136/80 03/13/23 14:45 66 159/73 03/13/23 14:30 62 133/73 03/13/23 14:15 67 134/70 03/13/23 14:00 64 152/70 03/13/23 13:45 58 L 19 131/80 03/13/23 13:11 54 L 16 138/63 03/13/23 12:56 56 L 16 162/69 03/13/23 12:41 56 L 16 177/70 03/13/23 12:26 97.7 F 55 L 14 163/67 03/13/23 10:25 62 16 151/70 03/13/23 08:24 97.6 F 66 16 188/90 Pulse Ox 03/13/23 14:54 03/13/23 14:45 03/13/23 14:30 03/13/23 14:15 03/13/23 14:00 03/13/23 13:45 96 03/13/23 13:11 94 L 03/13/23 12:56 96 03/13/23 12:41 98 03/13/23 12:26 100 03/13/23 10:25 99 03/13/23 08:24 98 Intake and Output 03/13/23 03/13/23 03/13/23 06:59 14:59 22:59 Intake Total 901 Output Total 50 Balance 851 Intake: IV 901 Output: Estimated Blood Loss 50 Other: Weight 71.3 kg
[2023-03-13] MEDS: TAMSULOSIN 0.4 MG CAP.ER.24H PO SCH (17:34)
[2023-03-13] MEDS: HYDROcodone/APAP 5-325MG 1 EACH TAB PO PRN (17:34)
[2023-03-13] MEDS: METOPROLOL SUCCINATE (ER) 25 MG TAB.ER.24H PO SCH (20:30)
[2023-03-13] MEDS: ATORVASTATIN 20 MG TAB PO SCH (20:30)
[2023-03-13] MEDS: SENNOSIDES-DOCUSATE SODIUM 1 EACH TAB PO SCH (20:30)
[2023-03-13] MEDS: ASPIRIN 81 MG PO SCH (20:30)
[2023-03-14] MEDS: LACTATED RINGERS 1,000 ML IV SCH ×2 (03:04→21:02)
--- NOTE | 2023-03-14 07:06 | P.PN ---
Progress Note - Text Progress Note Date: 03/14/23 (647) Anesthesiology Postop day 1 status post total knee arthroplasty with adductor canal catheter. Patient doing well. VAS 4 out of 10. Gross strength intact in lower extremity. Afebrile. Denies alterations in sensorium. Catheter site intact. Heart regular rate Lungs nonlabored Abdomen nondistended Assessment: Postop day 1 status post total knee arthroplasty with adductor canal catheter Plan: 1.All questions answered. Maintain catheter 2 more days with patient removal at home. Instructions to be given at discharge. 2.This note was dictated using [employer] software. Please be advised there is a potential for misspellings or errors in adult education teacher.
[2023-03-14] MEDS: lisinopriL 10 MG TAB PO SCH (08:39)
[2023-03-14] MEDS: RIVAROXABAN 10 MG TAB PO SCH (08:39)
[2023-03-14] MEDS: METOPROLOL SUCCINATE (ER) 25 MG TAB.ER.24H PO SCH ×2 (08:39→19:52)
[2023-03-14] MEDS: MULTIVITAMINS, THERA 1 EACH TAB PO SCH (08:39)
[2023-03-14] MEDS: HYDROcodone/APAP 5-325MG 1 EACH TAB PO PRN ×2 (08:46→19:53)
[2023-03-14 08:50] LABS: HGB 12.4 g/dL (13.0-17.0); MCHC 32.6 g/dL (32.0-37.0); Mean Platelet Volume 12.1 FL (9.5-12.2); NRBC Per 100 WBC 0 X 10*3/uL (0.00-0.01); Platelet Count 197 X 10*3/uL (140-440); RDW 12.9 % (11.5-14.5); WBC 15.03 X 10*3/uL (4.50-10.00)
[2023-03-14 08:56] LABS: BUN/Creat Ratio 16.46 Ratio (12.00-20.00); Blood Urea Nitrogen 21.4 mg/dL (9.0-27.0); Calcium 9.3 mg/dL (8.7-10.3); Carbon Dioxide 25.2 mmol/L (21.6-31.8); Chloride 102 mmol/L (96-109); Glucose 97 mg/dL (70-110); Potassium 4.6 mmol/L (3.5-5.5); Sodium 138 mmol/L (135-145)
--- NOTE | 2023-03-14 09:07 | P.PN ---
Subjective Progress Note Date: 03/14/23 Principal diagnosis: Right knee osteoarthritis Patient was seen at bedside this morning lying semirecumbent position with dressing over left knee. Patient says he has been up walking couple times since surgery yesterday. Patient says she has urinated as well. Patient says she does have a walker home. Patient says he is hoping to go to rehab for a little bit prior to going home. Patient says he is looking forward to working with therapy earlier today. Patient denies chest pain, fever, shortness breath, nausea, vomiting, change in vision, loss of bowel/bladder control. Objective - Vital Signs Vital signs: Vital Signs Temp 97.5 F L 03/14/23 06:37 Pulse 65 03/14/23 06:37 Resp 18 03/14/23 06:37 BP 164/76 03/14/23 06:37 Pulse Ox 98 03/14/23 06:37 FiO2 Intake & Output 03/13/23 03/14/23 03/14/23 18:59 06:59 18:59 Intake Total 901 Output Total 50 400 Balance 851 -400 Weight 71.3 kg Intake: IV 901 Output: Urine 400 Estimated Blood Loss 50 Other: # Voids 1 - Exam Right knee: Incision is clean, dry, and intact. The exofin fusion tape is in good condition. There is minimal soft tissue swelling and ecchymosis surrounding the medial and lateral aspects of the incision. Calf is soft, no tenderness with palpation. Plantar flexion, dorsiflexion, EHL, FHL are intact. Sensory exam to light touch throughout the extremity is intact, dorsal pedis pulses 2+. - Labs CBC & Chem 7: 03/14/23 05:31 03/14/23 05:31 Assessment and Plan Assessment: 1. Right knee osteoarthritis - Postop day 1 status post right total knee arthroplasty Plan: 1. Right knee osteoarthritis - right total knee arthroplasty performed yesterday, 03/13/2023. Patient stable at bedside this morning with dressing over left knee. Patient does have a walker for home. We'll continue follow patient during his stay in the hospital. Likely plan for discharge to rehab with the next couple days. 2. Appreciate medical management 3. Pain management - Vistaril; [place] 4. DVT prophylaxis - Xarelto; aspirin 5. GI prophylaxis - senna 6. PT/OT - weightbearing as tolerated with walker 7. Encourage incentive spirometer use 8. Discharge planning - plan for discharge to rehab within the next couple days Time with Patient: Less than 30
[2023-03-14 09:23] LABS: Basophils # (A) 0.03 X 10*3/uL (0.00-0.10); Basophils % (A) 0.2 %; Eosinophils # (A) 0 X 10*3/uL (0.04-0.35); Eosinophils % (A) 0 %; Monocytes # (A) 1.68 X 10*3/uL (0.20-1.00); Monocytes % (A) 11.2 %; Neutrophils # (A) 11.16 X 10*3/uL (1.80-7.70); Neutrophils % (A) 74.2 %; RBC Morphology Normal (Normal)
--- NOTE | 2023-03-14 10:50 | P.PN ---
Subjective Progress Note Date: 03/14/23 Subjective: Patient seen and examined at bedside. No acute events overnight. Hip pain improved. Pertinent positives and negatives as discussed above, a complete review of systems was performed and all other systems are negative. Vitals Signs Reviewed. General: nontoxic, no distress, appears at stated age Derm: warm, dry, left hip dressing clean, dry, intact Head: atraumatic, normocephalic, symmetric Eyes: EOMI, no lid lag, anicteric sclera, pupils equal round reactive to light ENT: Nose and ears atraumatic Neck: No thyromegaly, supple Mouth: no lip lesion, mucus membranes moist Cardiovascular: S1S2 reg, systolic murmur, no edema Lungs: clear to auscultation bilateral, no rhonchi, no rales, no wheeze, no accessory muscle use Abdominal: soft, nontender to palpation, no guarding, no appreciable organomegaly Ext: no gross muscle atrophy, muscle strength muscle strength 5 out of 5 in all 4 extremities, no contractures Neuro: CN II-XII grossly intact Psych: Alert, oriented, appropriate affect Data Reviewed Today: Pertinent Labs: WBC 15.03, hemoglobin 12.4, creatinine 1.3 Imaging: No new imaging Assessment and Plan: Status post left total knee arthroplasty Leukocytosis, reactive, anticipated outcome of surgery History of CAD History of ventricular tachycardia status post AICD Ischemic cardiomyopathy with improved EF Hypertension Dyslipidemia BPH -Pain management and bowel regimen per orthopedic surgery -On Xarelto 10 mg daily for DVT prophylaxis -Continue home medications including aspirin and statin -Patient is medically optimized for discharge. May need rehab given patient lives alone. Thank you for allowing us to participate in the care of this pleasant patient. Do not hesitate to contact us with questions. Someone can be reached from the [facility] hospitalist group all hours of the day at [phone] or via [employer]. Objective - Vital Signs Vital signs: Vital Signs Temp 97.5 F L 03/14/23 06:37 Pulse 65 03/14/23 06:37 Resp 18 03/14/23 06:37 BP 164/76 03/14/23 06:37 Pulse Ox 98 03/14/23 06:37 FiO2 Intake & Output 03/13/23 03/14/23 03/14/23 18:59 06:59 18:59 Intake Total 901 Output Total 50 400 Balance 851 -400 Weight 71.3 kg Intake: IV 901 Output: Urine 400 Estimated Blood Loss 50 Other: # Voids 1 - Labs CBC & Chem 7: 03/14/23 05:31 03/14/23 05:31 Labs: Abnormal Lab Results - Last 24 Hours (Table) 03/14/23 03/14/23 Range/Units 05:31 05:31 WBC 15.03 H (4.50-10.00) X 10*3/uL RBC 4.00 L (4.40-5.60) X 10*6/uL Hgb 12.4 L (13.0-17.0) g/dL Hct 38.0 L (39.6-50.0) % Neutrophils # 11.16 H (1.80-7.70) X 10*3/uL Monocytes # 1.68 H (0.20-1.00) X 10*3/uL Eosinophils # 0 L (0.04-0.35) X 10*3/uL Est GFR (CKD-EPI) 53 L (>=60)
--- NOTE | 2023-03-14 14:26 | P.DS ---
Providers Date of admission: 03/13/2023 Expected date of discharge: 03/14/23 Attending physician: Sandro Berry Consults: 03/13/23 12:25 Consult Physician Routine Consulting Provider: Cade Bloom Consult Reason/Comments: medical management Do you want consulting provider notified?: Yes Primary care physician: [facility] Hospital Course: Date of admission: 03/13/2023 Date of discharge: 03/14/2023 Admission diagnosis: Left knee osteoarthritis Discharge diagnosis: Same Attending physician: Dr. Berry Surgical procedures: Left total knee arthroplasty Brief history: Patient is a a 87-year-old male with a history of progressive primary left knee osteoarthritis. At this point patient has failed conservative treatment measures and has opted to proceed with a elective left total knee arthroplasty. Hospital course: Details of patient's surgery can be found in operative report. Patient tolerated the procedure well and was subsequently transported to orthopedic floor. Patient's orthopeidc and medical care was provided daily. Patient had daily laboratory tests performed for evaluation of overall blood counts. Patient had daily physical therapy to include strengthening range of motion as well as education with walker ambulation. Patient was treated with Xarelto for their postoperative DVT prophylaxis during their inpatient stay. Patient was noted to have a relatively uneventful postoperative course. Patient reported satisfactory pain control with oral pain medications by postoperative day 1. Patient showed satisfactory progress with physical therapy. Patient moved steadily through the program and had no difficulty meeting the goals by postoperative day 1. Given patient's otherwise satisfactory course and having met physical therapy goals, plan is to discharge patient home with health services on postoperative day 1. Discharge condition/disposition: Patient will be discharged home with health services in stable condition. Discharge medications: Instructions are given on resumption of patient's normal daily medications per primary care recommendation, in addition patient will be prescribed [place]; senna; Eliquis 2.5 mg twice a day 2 weeks. Discharge instructions: 1. Wound care and infection precautions, keep incision dry and covered while showering, no lotions, creams, moisturizers. No soaking, tubs, pools, hottubs. Do not scrub over the incision. 2. Weight-bear as tolerated with walker / cane until follow-up. 3. Ice and elevate when necessary. Do not exceed 20 minutes per hour with ice pack. 4. Utilize compression sleeve until seen at first follow up appointment. 5. Visiting nursing care. 6. Home physical therapy including home CPM. 7. Pain meds and anticoagulants per prescription. 8. Pain medication has potential to cause constipation. Increase oral fluid and fiber intake. Contact primary care provider if you have not had a bowel movement within 48 hours after discharge 9. No anti-inflammatory medication until discussed at first post operative visit, this including Motrin, Aleve, Mobic, Diclofenac. 10. Follow up in office at 2 weeks postop with Maik Manley PA-C / Bjorn Lea PA-C 11. Follow up with your primary care doctor 7-10 days after discharge. 12. Contact [facility] with any questions, . Assessment: Left knee osteoarthritis Procedures: Left total knee arthroplasty Patient Condition at Discharge: Good Plan - Discharge Summary Discharge Rx Participant: No New Discharge Prescriptions: New Apixaban [Eliquis] 2.5 mg PO BID #60 tab HYDROcodone/APAP 5-325MG [[place] 5-325] 1 tab PO Q6HR PRN #28 tab PRN Reason: Pain Sennosides/Docusate Sodium [Senna Plus 8.6-50 mg Softgel] 1 each PO DAILY #20 capsule Continue lisinopriL [Zestril] 10 mg PO QAM Tamsulosin [Flomax] 0.4 mg PO HS Aspirin 81 mg PO HS Multivitamins, Thera [Multivitamin (formulary)] 1 tab PO DAILY Atorvastatin Calcium [Lipitor] 20 mg PO HS Latanoprost/Pf [Latanoprost 0.005% Eye Drop] 1 drop BOTH EYES HS Metoprolol Succinate (ER) [Toprol XL] 25 mg PO BID Acetaminophen/Diphenhydramine [Tylenol PM 500-25mg] 1 tab PO HS Albuterol Sulfate [Albuterol Sulfate Hfa] 1 puff PO Q4-6H PRN #8.5 gm PRN Reason: Shortness Of Breath Discharge Medication List lisinopriL [Zestril] 10 mg PO QAM 11/25/13 [History] Tamsulosin [Flomax] 0.4 mg PO HS 08/26/16 [History] Aspirin 81 mg PO HS 06/11/17 [History] Atorvastatin Calcium [Lipitor] 20 mg PO HS 03/06/20 [History] Latanoprost/Pf [Latanoprost 0.005% Eye Drop] 1 drop BOTH EYES HS 03/06/20 [History] Metoprolol Succinate (ER) [Toprol XL] 25 mg PO BID 03/06/20 [History] Multivitamins, Thera [Multivitamin (formulary)] 1 tab PO DAILY 03/06/20 [History] Albuterol Sulfate [Albuterol Sulfate Hfa] 1 puff PO Q4-6H PRN #8.5 gm 04/04/22 [Rx] Acetaminophen/Diphenhydramine [Tylenol PM 500-25mg] 1 tab PO HS 03/08/23 [History] Apixaban [Eliquis] 2.5 mg PO BID #60 tab 03/14/23 [Rx] HYDROcodone/APAP 5-325MG [[place] 5-325] 1 tab PO Q6HR PRN #28 tab 03/14/23 [Rx] Sennosides/Docusate Sodium [Senna Plus 8.6-50 mg Softgel] 1 each PO DAILY #20 capsule 03/14/23 [Rx] Follow up Appointment(s)/Referral(s): Bjorn Lea, ORTIZ [PHYSICIAN GRINDING ROOM SUPERVISOR] - 04/05/23 9:30 am [facility] [NON-STAFF] - As Needed [facility],Clinic [Primary Care Provider] - 1 Week Patient Instructions/Handouts: Knee Replacement (DC), Knee Replacement (GEN) Activity/Diet/Wound Care/Special Instructions: Orthopedic Discharge Instructions: 1. Wound care and infection precautions, keep incision dry and covered while showering, no lotions, creams, moisturizers. No soaking, pools, hot tubs. Do not scrub over incision. 2. Weight-bear as tolerated with walker / cane until follow-up. 3. Ice and elevate when necessary. Do not exceed 20 minutes per hour with ice pack. 4. Utilize compression sleeve until seen at first follow up appointment. 5. Pain meds and anticoagulants per prescription. 6. Pain medication has potential to cause constipation. Increase oral fluid and fiber intake. Contact primary care provider if you have not had a bowel movement within 48 hours after discharge. 7. No anti-inflammatory medication until discussed at first post operative visit, this including Motrin, Aleve, Mobic, Diclofenac. 8. Follow up in office at 2 weeks postop with Maik Manley PA-C / Bjorn Lea PA-C 9. Follow up with your primary care doctor 7-10 days after discharge. 10. Contact [facility] with any questions, . Keep incision clean, dry, intact. While showering, cover fusion tape with Saran wrap. Keep fusion tape on until follow-up appointment in office at 2 weeks. Discharge Disposition: HOME WITH HOME HEALTH SERVICES
[2023-03-14] MEDS: ATORVASTATIN 20 MG TAB PO SCH (19:52)
[2023-03-14] MEDS: ASPIRIN 81 MG PO SCH (19:52)
[2023-03-14] MEDS: SENNOSIDES-DOCUSATE SODIUM 1 EACH TAB PO SCH (19:52)
[2023-03-14] MEDS: TAMSULOSIN 0.4 MG CAP.ER.24H PO SCH (19:52)
[2023-03-15] MEDS: HYDROcodone/APAP 5-325MG 1 EACH TAB PO PRN ×2 (06:29→20:27)
--- NOTE | 2023-03-15 07:24 | CT ---
EXAMINATION TYPE: CT brain wo con DATE OF EXAM: 03/15/2023 COMPARISON: None HISTORY: Fall Unenhanced CT of the brain was performed. The ventricles, basal cisterns and sulci overlying the cerebral convexities demonstrate mild enlargem ent. There is no evidence for intracranial hemorrhage or sulcal effacement. There is decreased attenuation about the periventricular white matter and deep white matter of both c erebral hemispheres, compatible with chronic small vessel ischemia. Differential diagnosis does inclu de demyelination. No mass effects are seen.No midline shift. Osseous calvarium is intact. Right facial swelling noted. If symptoms persist consider MRI. IMPRESSION: 1. Age related atrophic and chronic small vessel ischemic change without acute intracranial process s een at this time.
--- NOTE | 2023-03-15 07:27 | XR ---
EXAMINATION TYPE: XR knee complete LT DATE OF EXAM: 03/15/2023 CLINICAL HISTORY: pain TECHNIQUE: Three views of the left knee are obtained. COMPARISON: 03/13/2023 FINDINGS: There is no acute fracture/dislocation. Total knee arthroplasty noted with tibial and femo ral components well seated. The overlying soft tissue appears unremarkable. IMPRESSION: There is no acute fracture or dislocation ICD 10 NO FRACTURE, INITIAL EVALUATION
--- NOTE | 2023-03-15 07:28 | XR ---
EXAMINATION TYPE: XR chest 1V DATE OF EXAM: 03/15/2023 HISTORY: Shortness of breath. COMPARISON: 12/24/2022 TECHNIQUE: Single view of the chest is submitted. FINDINGS: Demonstrated are scattered senescent parenchymal change. There is no evidence for focal infiltrate. The heart is stable. Hilar and mediastinal structures are within normal limits. Degenerative changes are seen of the dorsal spine. IMPRESSION: 1. Chronic changes without evidence for acute pulmonary disease.
--- NOTE | 2023-03-15 07:29 | XR ---
EXAMINATION TYPE: XR Hip Bilateral and AP pelvis DATE OF EXAM: 03/15/2023 CLINICAL HISTORY: pain TECHNIQUE: Single view the pelvis is submitted. 2 views of the bilateral hips are also submitted. FINDINGS: No evidence for fracture, dislocation or bony lesion. Joint spaces are well-preserved. S I joints appear symmetric. Vascular calcifications are seen bilaterally. IMPRESSION: 1. No acute fracture or dislocation seen. ICD 10 NO FRACTURE, INITIAL EVALUATION
[2023-03-15] MEDS: MULTIVITAMINS, THERA 1 EACH TAB PO SCH (08:08)
[2023-03-15] MEDS: lisinopriL 10 MG TAB PO SCH (08:08)
[2023-03-15] MEDS: RIVAROXABAN 10 MG TAB PO SCH (08:08)
[2023-03-15] MEDS: METOPROLOL SUCCINATE (ER) 25 MG TAB.ER.24H PO SCH ×2 (08:08→20:27)
--- NOTE | 2023-03-15 11:17 | P.PN ---
Subjective Progress Note Date: 03/15/23 Principal diagnosis: Status post left total knee arthroplasty patient was evaluated today at bedside, he is resting in his hospital bed he is a friend at bedside. Patient did have a fall early this morning while going to the bathroom, I was not notified. Patient underwent multiple x-rays of the left knee along with x-rays of the pelvis and bilateral hips. No acute fractures or dislocations were noted. Patient states he did not hit the knee during the fall. Objective - Vital Signs Vital signs: Vital Signs Temp 98.4 F 03/15/23 06:48 Pulse 66 03/15/23 06:48 Resp 18 03/15/23 06:48 BP 167/74 03/15/23 06:48 Pulse Ox 96 03/15/23 06:48 FiO2 Intake & Output 03/14/23 03/15/23 03/15/23 18:59 06:59 18:59 Other: # Voids 3 2 - Exam Left lower extremity: Incision is clean, dry, and intact. The exofin fusion tape is in good co ndition. There is minimal soft tissue swelling and ecchymosis surrounding the medial and lateral aspects of the incision. Calf is soft, no tenderness with palpation. Extensor mechanism seems intact, he is able to extend the knee, no deficits are appreciated. Plantar flexion, dorsiflexion, EHL, FHL are intact. Sensory exam to light touch throughout the extremity is intact, dorsal pedis pulses 2+. - Labs CBC & Chem 7: 03/14/23 05:31 03/14/23 05:31 Assessment and Plan Assessment: Postoperative day #2 status post left total knee arthroplasty Recent fall Plan: Imaging: Multiple x-rays of the left and right hip along with AP pelvis reviewed, no acute fractures or dislocations present. X-rays were also reviewed multiple views of the left knee, images demonstrate well-placed total knee arthroplasty components, no obvious lucencies are appreciated. Plan: Discussed patient he be a better candidate for subacute rehab seeing as he does live alone. Patient is okay with this, he feels unsafe going home by himself. Placement type has been changed to inpatient status. We'll discuss with case management process for obtaining clearance for rehab Continue weight-bear as tolerated with walker, discussed the patient he needs to call for an behavioral health assistant when he ambulates Pain control, continue current medications DVT prophylaxis, continue current medications Ice and elevate often Current incentive spirometer Monitor surgical dressing Medical recommendations Discharge planning: Plan for discharge to subacute rehab Time with Patient: Less than 30
--- NOTE | 2023-03-15 13:51 | P.PN ---
Subjective Progress Note Date: 03/15/23 Subjective: Patient seen and examined at bedside. Patient had an unwitnessed fall while using the bathroom yesterday. He claims that he was in the middle of urinating when he had syncope and collapse. He was found down by the nurse with scrapes on his right cheek and right elbow. Pertinent positives and negatives as discussed above, a complete review of systems was performed and all other systems are negative. Vitals Signs Reviewed. General: nontoxic, no distress, appears at stated age Derm: warm, dry, left hip dressing clean, dry, intact Head: atraumatic, normocephalic, symmetric, right cheek abrasion Eyes: EOMI, no lid lag, anicteric sclera, pupils equal round reactive to light ENT: Nose and ears atraumatic Neck: No thyromegaly, supple Mouth: no lip lesion, mucus membranes moist Cardiovascular: S1S2 reg, systolic murmur, no edema Lungs: clear to auscultation bilateral, no rhonchi, no rales, no wheeze, no accessory muscle use Abdominal: soft, nontender to palpation, no guarding, no appreciable organomegaly Ext: no gross muscle atrophy, muscle strength muscle strength 5 out of 5 in all 4 extremities, no contractures Neuro: CN II-XII grossly intact Psych: Alert, oriented, appropriate affect Data Reviewed Today: Pertinent Labs: No new labs Imaging: CT head shows no lesions, chest xrays, knee xray, hip/pelvic xray did not show any new fractures Assessment and Plan: Vasovagal syncope Status post left total knee arthroplasty Leukocytosis, reactive, anticipated outcome of surgery History of CAD History of ventricular tachycardia status post AICD Ischemic cardiomyopathy with improved EF Hypertension Dyslipidemia BPH -on tele Orthopedic surgery note reviewed, patient will likely not be discharged to subacute rehab.- -Pain management and bowel regimen per orthopedic surgery -On Xarelto 10 mg daily for DVT prophylaxis -Continue home medications including aspirin and statin Thank you for allowing us to participate in the care of this pleasant patient. Do not hesitate to contact us with questions. Someone can be reached from the [facility] hospitalist group all hours of the day at [phone] or via perfect serve. Objective - Vital Signs Vital signs: Vital Signs Temp 98.4 F 03/15/23 06:48 Pulse 66 03/15/23 06:48 Resp 18 03/15/23 06:48 BP 167/74 03/15/23 06:48 Pulse Ox 96 03/15/23 06:48 FiO2 Intake & Output 03/14/23 03/15/23 03/15/23 18:59 06:59 18:59 Other: # Voids 3 2 - Labs CBC & Chem 7: 03/14/23 05:31 03/14/23 05:31
[2023-03-15] MEDS: TAMSULOSIN 0.4 MG CAP.ER.24H PO SCH (20:27)
[2023-03-15] MEDS: ASPIRIN 81 MG PO SCH (20:27)
[2023-03-15] MEDS: SENNOSIDES-DOCUSATE SODIUM 1 EACH TAB PO SCH (20:27)
[2023-03-15] MEDS: ATORVASTATIN 20 MG TAB PO SCH (20:27)
[2023-03-16] MEDS: LACTATED RINGERS 1,000 ML IV SCH (02:38)
[2023-03-16] MEDS: HYDROcodone/APAP 5-325MG 1 EACH TAB PO PRN ×2 (06:10→18:52)
[2023-03-16] MEDS: METOPROLOL SUCCINATE (ER) 25 MG TAB.ER.24H PO SCH ×2 (07:58→20:34)
[2023-03-16] MEDS: lisinopriL 10 MG TAB PO SCH (07:58)
[2023-03-16] MEDS: RIVAROXABAN 10 MG TAB PO SCH (07:59)
--- NOTE | 2023-03-16 10:37 | P.PN ---
Subjective Progress Note Date: 03/16/23 Subjective: Patient seen and examined at bedside. No acute events overnight. He denies any further lightheadedness. Pertinent positives and negatives as discussed above, a complete review of systems was performed and all other systems are negative. Vitals Signs Reviewed. General: nontoxic, no distress, appears at stated age Derm: warm, dry, left hip dressing clean, dry, intact Head: atraumatic, normocephalic, symmetric, right cheek abrasion, right inferior periorbital ecchymosis Eyes: EOMI, no lid lag, anicteric sclera, pupils equal round reactive to light ENT: Nose and ears atraumatic Neck: No thyromegaly, supple Mouth: no lip lesion, mucus membranes moist Cardiovascular: S1S2 reg, systolic murmur, no edema Lungs: clear to auscultation bilateral, no rhonchi, no rales, no wheeze, no accessory muscle use Abdominal: soft, nontender to palpation, no guarding, no appreciable organomegaly Ext: no gross muscle atrophy, muscle strength muscle strength 5 out of 5 in all 4 extremities, no contractures Neuro: CN II-XII grossly intact Psych: Alert, oriented, appropriate affect Data Reviewed Today: Pertinent Labs: No new labs Imaging: No new imaging Assessment and Plan: Vasovagal syncope, resolved Status post left total knee arthroplasty Leukocytosis, reactive, anticipated outcome of surgery History of CAD History of ventricular tachycardia status post AICD Ischemic cardiomyopathy with improved EF Hypertension Dyslipidemia BPH -Patient was exerting himself on the toilet when he had the episode of syncope -on telemetry Orthopedic surgery following, Pain management and bowel regimen per orthopedic surgery -On Xarelto 10 mg daily for DVT prophylaxis -Continue home medications including aspirin and statin -Patient will like to go home with home physical therapy as he has enough help at home. Patient is otherwise medically optimized for discharge. Thank you for allowing us to participate in the care of this pleasant patient. Do not hesitate to contact us with questions. Someone can be reached from the [facility] hospitalist group all hours of the day at [phone] or via perfect serve. Objective - Vital Signs Vital signs: Vital Signs Temp 98.0 F 03/16/23 07:13 Pulse 60 03/16/23 07:13 Resp 16 03/16/23 07:13 BP 146/74 03/16/23 07:13 Pulse Ox 97 03/16/23 07:13 FiO2 Intake & Output 03/15/23 03/16/23 03/16/23 18:59 06:59 18:59 Other: # Voids 5 1 - Labs CBC & Chem 7: 03/14/23 05:31 03/14/23 05:31
[2023-03-16] MEDS: MULTIVITAMINS, THERA 1 EACH TAB PO SCH (11:27)
--- NOTE | 2023-03-16 13:17 | P.PN ---
Subjective Progress Note Date: 03/16/23 Principal diagnosis: Status post left total knee arthroplasty patient was evaluated today at bedside, he is resting in his hospital bed he is a friend at bedside. patient's pain is better controlled today. He is continuing to ambulate with the assistance of a walker. we had a long discussion with patient and the family today regarding possible options for discharge. I'm recommending subacute rehab due to the fact the patient is alone at home and is alert he had a fall here in hospital. I did discuss this with case management. Objective - Vital Signs Vital signs: Vital Signs Temp 98.0 F 03/16/23 07:13 Pulse 60 03/16/23 07:13 Resp 16 03/16/23 07:13 BP 146/74 03/16/23 07:13 Pulse Ox 97 03/16/23 07:13 FiO2 Intake & Output 03/15/23 03/16/23 03/16/23 18:59 06:59 18:59 Other: # Voids 5 1 - Exam Left lower extremity: Incision is clean, dry, and intact. The exofin fusion tape is in good condition. There is minimal soft tissue swelling and ecchymosis surrounding the medial and lateral aspects of the incision. Calf is soft, no tenderness with palpation. Extensor mechanism seems intact, he is able to extend the knee, no deficits are appreciated. Plantar flexion, dorsiflexion, EHL, FHL are intact. Sensory exam to light touch throughout the extremity is intact, dorsal pedis pulses 2+. - Labs CBC & Chem 7: 03/14/23 05:31 03/14/23 05:31 Assessment and Plan Assessment: Postoperative day #3 status post left total knee arthroplasty Recent fall Plan: Plan: Continue weight-bear as tolerated with walker, discussed the patient he needs to call for an lens assistant when he ambulates Pain control, continue current medications DVT prophylaxis, continue current medications Ice and elevate often Current incentive spirometer Monitor surgical dressing Medical recommendations Discharge planning: Plan for discharge to subacute rehab when bed available Time with Patient: Less than 30
[2023-03-16] MEDS: ASPIRIN 81 MG PO SCH (20:34)
[2023-03-16] MEDS: ATORVASTATIN 20 MG TAB PO SCH (20:34)
[2023-03-16] MEDS: TAMSULOSIN 0.4 MG CAP.ER.24H PO SCH (20:34)
[2023-03-16] MEDS: SENNOSIDES-DOCUSATE SODIUM 1 EACH TAB PO SCH (20:34)
[2023-03-17] MEDS: LACTATED RINGERS 1,000 ML IV SCH (05:09)
[2023-03-17 06:51] LABS: Basophils % (A) 0 %; Eosinophils # (A) 0.4 k/uL (0-0.7); Eosinophils % (A) 3 %; HCT 33.6 % (39.0-53.0); HGB 11.7 gm/dL (13.0-17.5); Lymphocytes # (A) 2.3 k/uL (1.0-4.8); Lymphocytes % (A) 20 %; MCHC 34.8 g/dL (31.0-37.0); MCV 94.8 fL (80.0-100.0); Mean Platelet Volume 10.4; Monocytes # (A) 0.9 k/uL (0-1.0); Monocytes % (A) 8 %; Neutrophils # (A) 7.4 k/uL (1.3-7.7); Neutrophils % (A) 66 %; Platelet Count 167 k/uL (150-450); RBC 3.54 m/uL (4.30-5.90); RDW 12.8 % (11.5-15.5); WBC 11.2 k/uL (3.8-10.6)
[2023-03-17] MEDS: METOPROLOL SUCCINATE (ER) 25 MG TAB.ER.24H PO SCH ×2 (08:27→20:11)
[2023-03-17] MEDS: MULTIVITAMINS, THERA 1 EACH TAB PO SCH (08:27)
[2023-03-17] MEDS: RIVAROXABAN 10 MG TAB PO SCH (08:27)
[2023-03-17] MEDS: lisinopriL 10 MG TAB PO SCH (08:28)
--- NOTE | 2023-03-17 14:29 | P.PN ---
Subjective Progress Note Date: 03/17/23 Subjective: Patient seen and examined at bedside. No acute events overnight. He denies any further lightheadedness. Pertinent positives and negatives as discussed above, a complete review of systems was performed and all other systems are negative. Vitals Signs Reviewed. General: nontoxic, no distress, appears at stated age Derm: warm, dry, left hip dressing clean, dry, intact Head: atraumatic, normocephalic, symmetric, right cheek abrasion, right inferior periorbital ecchymosis Eyes: EOMI, no lid lag, anicteric sclera, pupils equal round reactive to light ENT: Nose and ears atraumatic Neck: No thyromegaly, supple Mouth: no lip lesion, mucus membranes moist Cardiovascular: S1S2 reg, systolic murmur, no edema Lungs: clear to auscultation bilateral, no rhonchi, no rales, no wheeze, no accessory muscle use Abdominal: soft, nontender to palpation, no guarding, no appreciable organomegaly Ext: no gross muscle atrophy, muscle strength muscle strength 5 out of 5 in all 4 extremities, no contractures Neuro: CN II-XII grossly intact Psych: Alert, oriented, appropriate affect Data Reviewed Today: Pertinent Labs: WBC 11.2, hemoglobin 11.7 Imaging: No new imaging Assessment and Plan: Vasovagal syncope, resolved Status post left total knee arthroplasty Leukocytosis, reactive, anticipated outcome of surgery, resolving History of CAD History of ventricular tachycardia status post AICD Ischemic cardiomyopathy with improved EF Hypertension Dyslipidemia BPH -Patient was exerting himself on the toilet when he had the episode of syncope -on telemetry Orthopedic surgery following, Pain management and bowel regimen per orthopedic surgery -On Xarelto 10 mg daily for DVT prophylaxis -Continue home medications including aspirin and statin Patient is otherwise medically optimized for discharge, likely subacute rehab discharge Thank you for allowing us to participate in the care of this pleasant patient. Do not hesitate to contact us with questions. Someone can be reached from the [facility] hospitalist group all hours of the day at [phone] or via perfect serve. Objective - Vital Signs Vital signs: Vital Signs Temp 99.0 F 03/17/23 12:56 Pulse 77 03/17/23 12:56 Resp 14 03/17/23 12:56 BP 109/63 11/25/23 12:56 Pulse Ox 96 03/17/23 12:56 FiO2 Intake & Output 03/16/23 03/17/23 03/17/23 18:59 06:59 18:59 Other: Voiding Method Toilet Toilet # Voids 6 2 2 # Bowel Movements 1 - Labs CBC & Chem 7: 03/17/23 05:59 03/14/23 05:31 Labs: Abnormal Lab Results - Last 24 Hours (Table) 03/17/23 Range/Units 05:59 WBC 11.2 H (3.8-10.6) k/uL RBC 3.54 L (4.30-5.90) m/uL Hgb 11.7 L (13.0-17.5) gm/dL Hct 33.6 L (39.0-53.0) %
[2023-03-17] MEDS: ATORVASTATIN 20 MG TAB PO SCH (20:11)
[2023-03-17] MEDS: ASPIRIN 81 MG PO SCH (20:11)
[2023-03-17] MEDS: HYDROcodone/APAP 5-325MG 1 EACH TAB PO PRN (20:12)
[2023-03-17] MEDS: TAMSULOSIN 0.4 MG CAP.ER.24H PO SCH (20:12)
[2023-03-17] MEDS: SENNOSIDES-DOCUSATE SODIUM 1 EACH TAB PO SCH (20:12)
[2023-03-18] MEDS: LACTATED RINGERS 1,000 ML IV SCH ×2 (04:55→23:25)
--- NOTE | 2023-03-18 08:16 | P.PN ---
Subjective Progress Note Date: 03/17/23 Principal diagnosis: Status post left total knee arthroplasty patient was evaluated today at bedside, he is resting in his hospital bed. Patient's pain is better controlled today. He is continuing to ambulate with the assistance of a walker. Planning for subacute rehab on 03/19/2023 Objective - Vital Signs Vital signs: Vital Signs Temp 98.7 F 03/18/23 06:50 Pulse 73 03/18/23 06:50 Resp 14 03/18/23 06:50 BP 148/73 03/18/23 06:50 Pulse Ox 93 L 03/18/23 06:50 FiO2 Intake & Output 03/17/23 03/18/23 03/18/23 18:59 06:59 18:59 Intake Total 1080 Balance 1080 Intake: Oral 1080 Other: Voiding Method Toilet Toilet # Voids 3 3 # Bowel Movements 1 - Exam Left lower extremity: Incision is clean, dry, and intact. The exofin fusion tape is in good condition. There is minimal soft tissue swelling and ecchymosis surrounding the medial and lateral aspects of the incision. Calf is soft, no tenderness with palpation. Extensor mechanism seems intact, he is able to extend the knee, no deficits are appreciated. Plantar flexion, dorsiflexion, EHL, FHL are intact. Sensory exam to light touch throughout the extremity is intact, dorsal pedis pulses 2+. - Labs CBC & Chem 7: 03/17/23 05:59 03/14/23 05:31 Assessment and Plan Assessment: Postoperative day #4 status post left total knee arthroplasty Recent fall Plan: Continue weight-bear as tolerated with walker, discussed the patient he needs to call for an assistant business manager when he ambulates Pain control, continue current medications DVT prophylaxis, continue current medications Ice and elevate often Current incentive spirometer Monitor surgical dressing Medical recommendations Discharge planning: Plan for discharge to subacute rehab when bed available Time with Patient: Less than 30
[2023-03-18] MEDS: lisinopriL 10 MG TAB PO SCH (08:32)
[2023-03-18] MEDS: METOPROLOL SUCCINATE (ER) 25 MG TAB.ER.24H PO SCH ×2 (08:32→19:59)
[2023-03-18] MEDS: RIVAROXABAN 10 MG TAB PO SCH (08:32)
--- NOTE | 2023-03-18 10:46 | P.PN ---
Subjective Progress Note Date: 03/18/23 Principal diagnosis: Status post left total knee arthroplasty patient was evaluated today at bedside, he is resting in his hospital bed. Patient's pain is better controlled today. He is continuing to ambulate with the assistance of a walker. Planning for subacute rehab on 03/19/2023 Objective - Vital Signs Vital signs: Vital Signs Temp 98.7 F 03/18/23 06:50 Pulse 73 03/18/23 08:32 Resp 14 03/18/23 08:32 BP 148/73 03/18/23 06:50 Pulse Ox 93 L 03/18/23 06:50 FiO2 Intake & Output 03/17/23 03/18/23 03/18/23 18:59 06:59 18:59 Intake Total 1080 Balance 1080 Intake: Oral 1080 Other: Voiding Method Toilet Toilet Toilet # Voids 3 3 # Bowel Movements 1 - Exam Left lower extremity: Incision is clean, dry, and intact. The exofin fusion tape is in good condition. There is minimal soft tissue swelling and ecchymosis surrounding the medial and lateral aspects of the incision. Calf is soft, no tenderness with palpation. Extensor mechanism seems intact, he is able to extend the knee, no deficits are appreciated. Plantar flexion, dorsiflexion, EHL, FHL are intact. Sensory exam to light touch throughout the extremity is intact, dorsal pedis pulses 2+. - Labs CBC & Chem 7: 03/17/23 05:59 03/14/23 05:31 Assessment and Plan Assessment: Postoperative day #5 status post left total knee arthroplasty Recent fall Plan: Continue weight-bear as tolerated with walker, discussed the patient he needs to call for an assistant men's lacrosse coach when he ambulates Pain control, continue current medications DVT prophylaxis, continue current medications Ice and elevate often Current incentive spirometer Monitor surgical dressing Medical recommendations Discharge planning: Plan for discharge to subacute rehab when bed available Time with Patient: Less than 30
[2023-03-18] MEDS: MULTIVITAMINS, THERA 1 EACH TAB PO SCH (11:35)
--- NOTE | 2023-03-18 13:12 | P.PN ---
Subjective Progress Note Date: 03/18/23 Subjective: Patient seen and examined at bedside. No acute events overnight. He denies any further lightheadedness. Pertinent positives and negatives as discussed above, a complete review of systems was performed and all other systems are negative. Vitals Signs Reviewed. General: nontoxic, no distress, appears at stated age Derm: warm, dry, left hip dressing clean, dry, intact Head: atraumatic, normocephalic, symmetric, right cheek abrasion, right inferior periorbital ecchymosis Eyes: EOMI, no lid lag, anicteric sclera, pupils equal round reactive to light ENT: Nose and ears atraumatic Neck: No thyromegaly, supple Mouth: no lip lesion, mucus membranes moist Cardiovascular: S1S2 reg, systolic murmur, no edema Lungs: clear to auscultation bilateral, no rhonchi, no rales, no wheeze, no accessory muscle use Abdominal: soft, nontender to palpation, no guarding, no appreciable organomegaly Ext: no gross muscle atrophy, muscle strength muscle strength 5 out of 5 in all 4 extremities, no contractures Neuro: CN II-XII grossly intact Psych: Alert, oriented, appropriate affect Data Reviewed Today: Pertinent Labs: No new labs Imaging: No new imaging Assessment and Plan: Vasovagal syncope, resolved Status post left total knee arthroplasty Leukocytosis, reactive, anticipated outcome of surgery, resolving History of CAD History of ventricular tachycardia status post AICD Ischemic cardiomyopathy with improved EF Hypertension Dyslipidemia BPH -Patient was exerting himself on the toilet when he had the episode of syncope -on telemetry Orthopedic surgery note reviewed, likely discharge subacute rehab tomorrow - Pain management and bowel regimen per orthopedic surgery -On Xarelto 10 mg daily for DVT prophylaxis -Continue home medications including aspirin and statin Patient is otherwise medically optimized for discharge, likely subacute rehab discharge Thank you for allowing us to participate in the care of this pleasant patient. Do not hesitate to contact us with questions. Someone can be reached from the [facility] hospitalist group all hours of the day at [phone] or via perfect serve. Objective - Vital Signs Vital signs: Vital Signs Temp 98.7 F 03/18/23 06:50 Pulse 73 03/18/23 08:32 Resp 14 03/18/23 08:32 BP 148/73 03/18/23 06:50 Pulse Ox 93 L 03/18/23 06:50 FiO2 Intake & Output 03/17/23 03/18/23 03/18/23 18:59 06:59 18:59 Intake Total 1080 Balance 1080 Intake: Oral 1080 Other: Voiding Method Toilet Toilet Toilet # Voids 3 3 # Bowel Movements 1 - Labs CBC & Chem 7: 03/17/23 05:59 03/14/23 05:31
[2023-03-18] MEDS: ASPIRIN 81 MG PO SCH (19:59)
[2023-03-18] MEDS: SENNOSIDES-DOCUSATE SODIUM 1 EACH TAB PO SCH (19:59)
[2023-03-18] MEDS: TAMSULOSIN 0.4 MG CAP.ER.24H PO SCH (19:59)
[2023-03-18] MEDS: ATORVASTATIN 20 MG TAB PO SCH (19:59)
[2023-03-18] MEDS: HYDROcodone/APAP 5-325MG 1 EACH TAB PO PRN (19:59)
[2023-03-18 20:35] VITALS: RESP 18
[2023-03-19] MEDS: lisinopriL 10 MG TAB PO SCH (07:32)
[2023-03-19] MEDS: RIVAROXABAN 10 MG TAB PO SCH (07:32)
[2023-03-19] MEDS: HYDROcodone/APAP 5-325MG 1 EACH TAB PO PRN (07:32)
[2023-03-19] MEDS: METOPROLOL SUCCINATE (ER) 25 MG TAB.ER.24H PO SCH (07:32)
[2023-03-19 07:55] VITALS: BP 142/72; PULSE 77; TEMP 98
--- NOTE | 2023-03-19 10:45 | P.PN ---
Subjective Progress Note Date: 03/19/23 Subjective: Patient seen and examined at bedside. No acute events overnight. He denies any further lightheadedness. He had 4 beat run of NSVT. Patient was asymptomatic Pertinent positives and negatives as discussed above, a complete review of systems was performed and all other systems are negative. Vitals Signs Reviewed. General: nontoxic, no distress, appears at stated age Derm: warm, dry, left hip dressing clean, dry, intact Head: atraumatic, normocephalic, symmetric, right cheek abrasion, right inferior periorbital ecchymosis Eyes: EOMI, no lid lag, anicteric sclera, pupils equal round reactive to light ENT: Nose and ears atraumatic Neck: No thyromegaly, supple Mouth: no lip lesion, mucus membranes moist Cardiovascular: S1S2 reg, systolic murmur, no edema Lungs: clear to auscultation bilateral, no rhonchi, no rales, no wheeze, no accessory muscle use Abdominal: soft, nontender to palpation, no guarding, no appreciable organomegaly Ext: no gross muscle atrophy, muscle strength muscle strength 5 out of 5 in all 4 extremities, no contractures Neuro: CN II-XII grossly intact Psych: Alert, oriented, appropriate affect Data Reviewed Today: Pertinent Labs: No new labs Imaging: No new imaging Assessment and Plan: Vasovagal syncope, resolved Asymptomatic NSVT Status post left total knee arthroplasty Leukocytosis, reactive, anticipated outcome of surgery, resolving History of CAD History of ventricular tachycardia status post AICD Ischemic cardiomyopathy with improved EF Hypertension Dyslipidemia BPH -Patient was exerting himself on the toilet when he had the episode of syncope -on telemetry, had a 4 beat run of NSVT, asymptomatic, outpatient follow-up -Orthopedic surgery following, likely discharge subacute rehab tomorrow - Pain management and bowel regimen per orthopedic surgery -On Xarelto 10 mg daily for DVT prophylaxis -Continue home medications including aspirin and statin Patient is otherwise medically optimized for discharge, likely subacute rehab discharge Thank you for allowing us to participate in the care of this pleasant patient. Do not hesitate to contact us with questions. Someone can be reached from the [facility] hospitalist group all hours of the day at [phone] or via perfect serve. Objective - Vital Signs Vital signs: Vital Signs Temp 98.0 F 03/19/23 06:55 Pulse 77 11/27/23 06:55 Resp 18 03/19/23 06:55 BP 142/72 03/19/23 06:55 Pulse Ox 96 03/19/23 06:55 FiO2 Intake & Output 03/18/23 03/19/23 03/19/23 18:59 06:59 18:59 Intake Total 1080 Balance 1080 Intake: Oral 1080 Other: Voiding Method Toilet Toilet # Voids 1 2 # Bowel Movements 1 - Labs CBC & Chem 7: 03/17/23 05:59 03/14/23 05:31
[2023-03-19] MEDS: MULTIVITAMINS, THERA 1 EACH TAB PO SCH (12:02)
--- NOTE | 2023-03-19 12:28 | P.PN ---
Subjective Progress Note Date: 03/19/23 Principal diagnosis: Status post left total knee arthroplasty patient was evaluated today at bedside, he is resting in his hospital bed. Patient is continued to do very well, he ambulated very well with physical therapy today. Objective - Vital Signs Vital signs: Vital Signs Temp 98.0 F 03/19/23 06:55 Pulse 77 03/19/23 06:55 Resp 18 03/19/23 06:55 BP 142/72 03/19/23 06:55 Pulse Ox 96 03/19/23 06:55 FiO2 Intake & Output 03/18/23 03/19/23 03/19/23 18:59 06:59 18:59 Intake Total 1080 Balance 1080 Intake: Oral 1080 Other: Voiding Method Toilet Toilet # Voids 1 2 # Bowel Movements 1 - Exam Left lower extremity: Incision is clean, dry, and intact. The exofin fusion tape is in good condition. There is minimal soft tissue swelling and ecchymosis surrounding the medial and lateral aspects of the incision. Calf is soft, no tenderness with palpation. Extensor mechanism seems intact, he is able to extend the knee, no deficits are appreciated. Plantar flexion, dorsiflexion, EHL, FHL are intact. Sensory exam to light touch throughout the extremity is intact, dorsal pedis pulses 2+. - Labs CBC & Chem 7: 03/17/23 05:59 03/14/23 05:31 Assessment and Plan Assessment: Postoperative day #6 status post left total knee arthroplasty Recent fall Plan: Pain control, plan for discharge home on oral medications DVT prophylaxis, aspirin 81 mg twice a day Ice and elevate often Current incentive spirometer Monitor surgical dressing Medical recommendations Discharge planning: Plan for discharge to home today Time with Patient: Less than 30
--- NOTE | 2023-03-19 12:31 | P.DS ---
Providers Date of admission: 03/13/23 12:44 Expected date of discharge: 03/19/23 Attending physician: Sandro Berry Consults: 03/13/23 12:25 Consult Physician Routine Consulting Provider: Cade Bloom Consult Reason/Comments: medical management Do you want consulting provider notified?: Yes Primary care physician: [facility] Hospital Course: Date of admission: 03/13/2023 Date of discharge: 03/19/2023 Admission diagnosis: Status post left total knee arthroplasty Discharge diagnosis: Same Attending physician: Dr. Berry Surgical procedures: Left total knee arthroplasty Brief history: Patient is a 87-year-old male with a history of progressive primary left knee osteoarthritis. At this point patient has failed conservative treatment measures and has opted to proceed with a elective left total knee arthroplasty. Hospital course: Details of patient's surgery can be found in operative report. Patient tolerated the procedure well and was subsequently transported to orthopedic floor. Patient's orthopeidc and medical care was provided daily. Patient had daily laboratory tests performed for evaluation of overall blood counts. Patient had daily physical therapy to include strengthening range of motion as well as education with walker ambulation. Patient was treated with Xarelto for their postoperative DVT prophylaxis during their inpatient stay. Patient was noted to have a relatively uneventful postoperative course. Patient reported satisfactory pain control with oral pain medications by postoperative day 1. Patient showed satisfactory progress with physical therapy. Patient moved steadily through the program and had no difficulty meeting the goals by postoperative day 6. Given patient's otherwise satisfactory course and having met physical therapy goals, plan is to discharge patient home on postoperative day 6. Discharge condition/disposition: Patient will be discharged home in stable condition. Discharge medications: Instructions are given on resumption of patient's normal daily medications per primary care recommendation, in addition patient will be prescribed Windthorst 5 mg/325 mg, Senokot-S, aspirin 81 mg. Discharge instructions: 1. Wound care and infection precautions, keep incision dry and covered while showering, no lotions, creams, moisturizers. No soaking, tubs, pools, hottubs. Do not scrub over the incision. 2. Weight-bear as tolerated with walker / cane until follow-up.6 3. Ice and elevate when necessary. Do not exceed 20 minutes per hour with ice pack. 4. Utilize compression sleeve until seen at first follow up appointment. 5. Visiting nursing care. 6. Home physical therapy including home CPM. 7. Pain meds and anticoagulants per prescription. 8. Pain medication has potential to cause constipation. Increase oral fluid and fiber intake. Contact primary care provider if you have not had a bowel movement within 48 hours after discharge 9. No anti-inflammatory medication until discussed at first post operative visit, this including Motrin, Aleve, Mobic, Diclofenac. 10. Follow up in office at 2 weeks postop with Maik Manley PA-C/Bjorn Hendrix 11. Follow up with your primary care doctor 7-10 days after discharge. 12. Contact [facility] with any questions, . Assessment: Left knee osteoarthritis Procedures: Left total knee arthroplasty Patient Condition at Discharge: Good Plan - Discharge Summary Discharge Rx Participant: No New Discharge Prescriptions: New Aspirin 81 mg PO BID #30 tab HYDROcodone/APAP 5-325MG [Windthorst 5-325] 1 tab PO Q6HR PRN #28 tab PRN Reason: Pain Sennosides/Docusate Sodium [Senna Plus 8.6-50 mg Softgel] 1 each PO DAILY #20 capsule Continue lisinopriL [Zestril] 10 mg PO QAM Tamsulosin [Flomax] 0.4 mg PO HS Aspirin 81 mg PO HS Multivitamins, Thera [Multivitamin (formulary)] 1 tab PO DAILY Atorvastatin Calcium [Lipitor] 20 mg PO HS Latanoprost/Pf [Latanoprost 0.005% Eye Drop] 1 drop BOTH EYES HS Metoprolol Succinate (ER) [Toprol XL] 25 mg PO BID Acetaminophen/Diphenhydramine [Tylenol PM 500-25mg] 1 tab PO HS Albuterol Sulfate [Albuterol Sulfate Hfa] 1 puff PO Q4-6H PRN #8.5 gm PRN Reason: Shortness Of Breath Discharge Medication List lisinopriL [Zestril] 10 mg PO QAM 11/25/13 [History] Tamsulosin [Flomax] 0.4 mg PO HS 08/26/16 [History] Aspirin 81 mg PO HS 06/11/17 [History] Atorvastatin Calcium [Lipitor] 20 mg PO HS 03/06/20 [History] Latanoprost/Pf [Latanoprost 0.005% Eye Drop] 1 drop BOTH EYES HS 03/06/20 [History] Metoprolol Succinate (ER) [Toprol XL] 25 mg PO BID 03/06/20 [History] Multivitamins, Thera [Multivitamin (formulary)] 1 tab PO DAILY 03/06/20 [History] Albuterol Sulfate [Albuterol Sulfate Hfa] 1 puff PO Q4-6H PRN #8.5 gm 04/04/22 [Rx] Acetaminophen/Diphenhydramine [Tylenol PM 500-25mg] 1 tab PO HS 03/08/23 [History] HYDROcodone/APAP 5-325MG [Windthorst 5-325] 1 tab PO Q6HR PRN #28 tab 03/14/23 [Rx] Sennosides/Docusate Sodium [Senna Plus 8.6-50 mg Softgel] 1 each PO DAILY #20 capsule 03/14/23 [Rx] Aspirin 81 mg PO BID #30 tab 03/19/23 [Rx] Follow up Appointment(s)/Referral(s): Bjorn Lea PAC [PHYSICIAN ARCHEOLOGY FACULTY MEMBER] - 04/05/23 9:30 am [facility] [NON-STAFF] - As Needed [facility],Clinic [Primary Care Provider] - 1 Week Patient Instructions/Handouts: Knee Replacement (DC), Knee Replacement (GEN) Activity/Diet/Wound Care/Special Instructions: Orthopedic Discharge Instructions: 1. Wound care and infection precautions, keep incision dry and covered while showering, no lotions, creams, moisturizers. No soaking, pools, hot tubs. Do not scrub over incision. 2. Weight-bear as tolerated with walker / cane until follow-up. 3. Ice and elevate when necessary. Do not exceed 20 minutes per hour with ice pack. 4. Utilize compression sleeve until seen at first follow up appointment. 5. Pain meds and anticoagulants per prescription. 6. Pain medication has potential to cause constipation. Increase oral fluid and fiber intake. Contact primary care provider if you have not had a bowel movement within 48 hours after discharge. 7. No anti-inflammatory medication until discussed at first post operative visit, this including Motrin, Aleve, Mobic, Diclofenac. 8. Follow up in office at 2 weeks postop with Maik Manley PA-C / Bjorn Lea PA-C 9. Follow up with your primary care doctor 7-10 days after discharge. 10. Contact [facility] with any questions, . Keep incision clean, dry, intact. While showering, cover fusion tape with Saran wrap. Keep fusion tape on until follow-up appointment in office at 2 weeks. Discharge Disposition: TRANSFER TO SNF/ECF
== END 2023-03-19 13:54 | disposition home health service (06) | DRG 470 ==
LOC: OR 07:50 → 4SSUR 12:21 → OR 12:44
PROVIDERS: ADMIT Orthopaedic Surgery; ATTEND Orthopaedic Surgery
PROC: 0SRD0J9 Replacement of Left Knee Joint with Synthetic Substitute, Cemented, Open Approach (ICD-10-PCS; principal; 2023-03-13 10:00)
DX: M17.12 Unilateral primary osteoarthritis, left knee (principal); I47.20 Ventricular tachycardia, unspecified; I48.91 Unspecified atrial fibrillation; I10 Essential (primary) hypertension; E78.5 Hyperlipidemia, unspecified; H35.30 Unspecified macular degeneration; D72.828 Other elevated white blood cell count; S00.10XA Contusion of unspecified eyelid and periocular area, initial encounter; R55 Syncope and collapse; M25.762 Osteophyte, left knee; I25.10 Atherosclerotic heart disease of native coronary artery without angina pectoris; I25.5 Ischemic cardiomyopathy; N40.0 Benign prostatic hyperplasia without lower urinary tract symptoms; S00.81XA Abrasion of other part of head, initial encounter; H91.93 Unspecified hearing loss, bilateral; W18.30XA Fall on same level, unspecified, initial encounter; Y92.231 Patient bathroom in hospital as the place of occurrence of the external cause; Z87.891 Personal history of nicotine dependence; Z79.899 Other long term (current) drug therapy; Z79.82 Long term (current) use of aspirin; Z95.810 Presence of automatic (implantable) cardiac defibrillator; Z97.4 Presence of external hearing-aid; Z86.16 Personal history of COVID-19; I25.2 Old myocardial infarction
CPT/HCPCS: 64448; 64999; 80048; 85025